=== PATIENT | female | born 1945 | race Caucasian/White ===

== ENCOUNTER → 2018-08-03 13:45 | Outpatient (CLI) | payer MEDICARE, SELFPAY ==
[2018-08-03 14:27] LABS: Add Manual Diff / Slide Review NO; Basophils Percent Auto 0.3 % (0-2); Eosinophils Percent Auto 1.3 % (2-4); Hematocrit 40.1 % (36-46); Hemoglobin 13.1 g/dL (12.0-16.0); Lymphocytes Percent Auto 8.9 % (25-40); Mean Corpuscular HGB Conc 32.6 % (30-36); Mean Corpuscular Hemoglobin 31.5 PG (26-34); Mean Corpuscular Volume 96.7 fL (80-100); Monocytes Percent Auto 7.7 % (3-14); Neutrophils Absolute Auto 9100 /uL (3000-5900); Neutrophils Percent Auto 81.8 % (50-75); Platelet Count 642 X10^3/uL (150-400); Red Blood Cell Count 4.14 X10^6/uL (4.0-5.2); Red Cell Distribution Width 13.1 % (11.6-14.8); White Blood Cell Count 11.1 X10^3/uL (4.5-11.0)
[2018-08-03 14:50] LABS: Alanine Aminotransferase 10 IU/L (9-52); Albumin 4.1 g/dL (3.5-5.0); Alkaline Phosphatase 154 U/L (38-126); Aspartate Aminotransferase 26 IU/L (14-36); BUN Creatinine Ratio 14.3 (6-22); Bilirubin Total 0.6 mg/dL (0.2-1.3); Blood Urea Nitrogen 10 mg/dL (7-17); Calcium 9.7 mg/dL (8.4-10.2); Carbon Dioxide 24 mmol/L (22-32); Chloride 96 mmol/L (98-107); Estimated Glomerular Filt Rate > 60.0 mL/min (>60); Glucose 110 mg/dL (80-110); HEMOLYSIS < 15 (0-50); Potassium 3.9 mmol/L (3.4-5.1); Sodium 134 mmol/L (137-145); Total Protein 8.1 g/dL (6.3-8.2)
== END ==
PROVIDERS: Family Provider Nurse Practitioner Family; PCP Nurse Practitioner Family; Visit Provider Otolaryngology Plastic Surgery within the Head & Neck
DX: C06.9 Malignant neoplasm of mouth, unspecified (principal)
CPT/HCPCS: 36415; 80053; 85025

== ENCOUNTER → 2020-06-26 14:11 | Outpatient (CLI) | payer MEDICARE, SELFPAY | PROVIDERS: Family Provider Nurse Practitioner Family; PCP Registered Nurse; Referring Provider Registered Nurse; Visit Provider Registered Nurse | DX: R73.09 Other abnormal glucose (principal) | CPT/HCPCS: 36415; 83036 ==

== ENCOUNTER → 2020-09-09 13:25 | Outpatient (CLI) | payer MEDICARE, SELFPAY ==
--- NOTE | 2020-09-09 | DI.ECHO.S_ITS ---
[facility] +---------+ : : [address] : : : : [id number] : : : : Phone: [phone]+ Echocardiogram Report + + :Name: LEANNE JORDAN Study Date: 09/09/2020 Height: 63 in : :[facility] Weight: 124 lb : : Gender: Female BSA: 1.6 m2 : :: 1945 Age: 74 yrs BP: 100/75 mmHg: :Reason For Study: TACHYCARDIA : :Ordering Physician: MARIBELL, : :DOMINGA Performed By: Shima Dawson : :Referring: DOMINGA KOHLI : + + Interpretation Summary 1) Normal left ventricular size, thickness, wall motion, and systolic function (EF 65-70%). 2) Normal right ventricular size and function. 3) No significant valvular abnormalities. 4) No prior Echo available for comparison. Procedure: A two-dimensional transthoracic echocardiogram with color flow and Doppler was performed. The study quality was technically adequate. There is no prior echocardiogram noted for this patient. The patient was in sinus tachycardia with heart rates between 107-125 bpm during the exam. Left Ventricle: The left ventricle is normal in size and wall thickness. The ejection fraction is estimated to be 65-70%. Left ventricular systolic function appears normal without focal wall motion abnormalities. Diastolic function could not be accurately assessed due to tachycardia. Right Ventricle: The right ventricle is normal in size and function. Atria: The left atrial size is normal. Right atrial size is normal. There is no Doppler evidence for an interatrial shunt. Mitral Valve: There is mild mitral annular calcification. There is mild mitral regurgitation. Aortic Valve: The aortic valve is trileaflet. The aortic valve opens well. There is no aortic valve stenosis. No aortic regurgitation is present. Tricuspid Valve: The tricuspid valve is normal in structure and function. There is mild tricuspid regurgitation. Pulmonic Valve: The pulmonic valve is not well seen, but is grossly normal. There is no pulmonic valvular regurgitation. Great Vessels: The aortic root is normal size. The ascending aorta could not be visualized. The IVC is of normal diameter and collapses greater than 50% with a sniff. This suggests a low right atrial pressure of 3 mm Hg. Pericardium/ Pleura There is no pericardial effusion. There is no pleural effusion. MMode/2D Measurements & Calculations LVIDd: 3.9 cm LVOT diam: 2.1 cm LVIDs: 2.5 cm Ao root diam: 3.3 cm FS: 36.8 % Ao Arch Diam (Prox Trans): 2.8 cm EPSS: 0.67 cm IVSd: 0.80 cm LVPWd: 0.73 cm LV cespedes. diameter/BSA (cm/m^2): 2.5 LV sys. diameter/BSA (cm/m^2): 1.6 LA A2 area: 14.6 cm2 RA long axis: 3.0 cm LA A4 area: 10.9 cm2 RA area: 8.2 cm2 LA length (vol): 3.6 cm RA vol: 19.3 ml LA vol: 37.4 ml RA : 12.2 ml/m2 LA vol index: 23.7 ml/m2 IVC diam: 0.93 cm RVD1 (basal): 2.8 cm TAPSE: 1.8 cm Doppler Measurements & Calculations Ao V2 max: 110.2 cm/sec LVOT Max Amos: 93.8 cm/sec Ao V2 mean: 76.4 cm/sec LV V1 max P.5 mmHg Ao max P.9 mmHg LV V1 VTI: 15.1 cm Ao mean P.6 mmHg KENJI(I,D): 3.5 cm2 Ao V2 VTI: 15.3 cm KENJI(V,D): 3.0 cm2 sev ratio: 0.99 KENJI indexed to BSA (cm^2/m^2): 2.2 MV E max amos: 51.0 cm/sec TR max amos: 297.1 cm/sec MV A max amos: 80.5 cm/sec TR max P.5 mmHg MV E/A: 0.63 PA V2 max: 78.8 cm/sec Med Peak E' Amos: 6.9 cm/sec PA V2 mean: 54.1 cm/sec E/E' med: 7.4 PA mean P.3 mmHg Lat Peak E' Amos: 10.2 cm/sec PA pr(Accel): 37.9 mmHg E/E' lat: 5.0 E/e' average: 6.2 MV dec time: 0.23 sec SV(LVOT): 53.1 ml Reading Physician:12:23 PM
== END ==
PROVIDERS: Family Provider Nurse Practitioner Family; PCP Registered Nurse; Referring Provider Internal Medicine Cardiovascular Disease; Visit Provider Internal Medicine Cardiovascular Disease
DX: I08.1 Rheumatic disorders of both mitral and tricuspid valves (principal); R00.0 Tachycardia, unspecified
CPT/HCPCS: 93306

== ENCOUNTER → 2022-06-16 11:09 | Outpatient (CLI) | payer MEDICARE, SELFPAY | PROVIDERS: Family Provider Nurse Practitioner Family; PCP Family Medicine; Referring Provider Family Medicine; Visit Provider Family Medicine | DX: Z78.0 Asymptomatic menopausal state (principal); Z13.820 Encounter for screening for osteoporosis; M81.0 Age-related osteoporosis without current pathological fracture; K63.9 Disease of intestine, unspecified | CPT/HCPCS: 77080 ==

== ENCOUNTER 2023-01-15 16:27 | Emergency (ER) | payer MEDICARE, SELFPAY ==
[2023-01-15] VITALS (13 sets, daily range): BP systolic 102–144; BP diastolic 56–85; PULSE 64–103; RESP 16–22; TEMP 36.4–37.1; O2SAT 97–100; BMI 17.6
--- NOTE | 2023-01-15 16:41 | DI.RAD.S_ITS ---
PROCEDURE: XR CHEST 1V INDICATIONS: weakness, covid+ t-7 TECHNIQUE: One view of the chest was acquired. COMPARISON: [facility], CR, XR CHEST 2 VIEWS, 06/06/2020, 12:13. FINDINGS: Surgical changes and devices: None. Lungs and pleura: Lungs are minimally abnormal with a pattern of chronic mild interstitial prominence and slight alveolar lung scarring at the lateral left costophrenic sulcus. No pleural effusions or pneumothorax. Mediastinum: Mediastinal contours appear normal. Heart size is normal. Bones and chest wall: No suspicious bony lesions. Overlying soft tissues appear unremarkable. IMPRESSION: No definite mold insert changer time, chronic alveolar scarring left lung base laterally and a superimposed mild chronic interstitial prominence is again seen. No definite consolidative pneumonia is found. CT scanning may detect abnormalities not visible by plain film. Dictated by: Danial Sierra M.D. on 01/15/2023 at 17:03 Approved by: Danial Sierra M.D. on 01/15/2023 at 17:04
[2023-01-15 17:05] LABS: Add Manual Diff / Slide Review NO; Basophils Absolute Auto 100 /uL (0-100); Basophils Percent Auto 0.8 % (0-2); Eosinophils Absolute Auto 100 /uL (0-450); Eosinophils Percent Auto 1.6 % (2-4); Hematocrit 33.2 % (36-46); Hemoglobin 11.4 g/dL (12.0-16.0); Lymphocytes Absolute Auto 800 /uL (1100-4500); Lymphocytes Percent Auto 9.3 % (25-40); Mean Corpuscular HGB Conc 34.3 % (30-36); Mean Corpuscular Volume 93.3 fL (80-100); Monocytes Absolute Auto 900 /uL (0-900); Neutrophils Absolute Auto 6500 /uL (1500-7000); Neutrophils Percent Auto 77.3 % (50-75); Platelet Count 446 X10^3/uL (150-400); Red Blood Cell Count 3.56 X10^6/uL (4.0-5.2); Red Cell Distribution Width 13.9 % (11.6-14.8); White Blood Cell Count 8.4 X10^3/uL (4.5-11.0)
[2023-01-15 17:17] LABS: Alanine Aminotransferase 13 IU/L (<35); Albumin Globulin Ratio 0.9 (1.0-2.8); Alkaline Phosphatase 167 U/L (38-126); Aspartate Aminotransferase 33 IU/L (14-36); BUN Creatinine Ratio 8.8 (6-22); Bilirubin Total 0.3 mg/dL (0.2-1.3); Blood Urea Nitrogen 5 mg/dL (7-17); Calcium 8.3 mg/dL (8.4-10.2); Carbon Dioxide 26 mmol/L (22-32); Chloride 94 mmol/L (98-107); Estimated Glomerular Filt Rate > 60 mL/min (>60); Globulin 3.5 g/dL (1.7-4.1); Glucose 114 mg/dL (80-110); HEMOLYSIS < 15 (0-50); Lipase 64 U/L (23-300); Potassium 3.7 mmol/L (3.4-5.1); Sodium 126 mmol/L (137-145); Total Protein 6.5 g/dL (6.3-8.2)
[2023-01-15 17:29] LABS: COVID19 -Nasal RAPID Negative (Negative)
--- NOTE | 2023-01-15 21:44 | ED.WEAKNESS ---
HPI - Weakness General Chief complaint: Weakness Stated complaint: Covid+T7, Fatigue, Weakness Time Seen by Provider: 01/15/23 21:44 History of Present Illness HPI Narrative: Patient is a 77-year-old female history of head and neck cancer, seizures anxiety presenting today with increasing weakness. She was diagnosed with COVID by home COVID test last week. She reports that she is still coughing. She is not necessarily short of breath. She was prescribed Paxil COVID she did not finish taking all of it. She reports that since the head and neck cancer and surgery she is on a liquid diet. She is still drinking. She is rates she might get dehydrated. She feels very weak and unsteady on her feet but she has not fallen. She is no painful or frequent urination. No chest pain no abdominal pain. Related Data Home Medications Medication Instructions Recorded Confirmed amitriptyline 25 mg tablet 25 mg PO DAILY 04/23/20 04/23/20 hydroxyzine HCl 10 mg tablet 10 mg PO BEDTIME 04/23/20 04/23/20 lidocaine HCl 2 % mucosal jelly 1 applictn topical BID 04/23/20 04/23/20 lorazepam 1 mg tablet 1 mg PO DAILY PRN 04/23/20 04/23/20 spironolactone 25 mg tablet 25 mg PO BID 04/23/20 04/23/20 Previous Rx's Medication Instructions Recorded hydrocortisone 2.5 % topical 1 applictn topical BID #28.35 grams 05/23/20 ointment Allergies Allergy/AdvReac Type Severity Reaction Status Date / Time No Known Drug Allergies Allergy Verified 04/23/20 13:11 Review of Systems Review of Systems ROS Unobtainable: All systems reviewed & are unremarkable except as noted in HPI and below Patient History Social History Smoking Status: Former smoker Smoking Status: Former smoker Exam Initial Vital Signs Initial Vital Signs: Vital Signs Temperature 98.8 F 01/15/23 16:34 Pulse Rate 68 01/15/23 16:34 Respiratory Rate 16 01/15/23 16:34 Blood Pressure 140/85 01/15/23 16:34 Pulse Oximetry 97 01/15/23 16:34 Oxygen Delivery Method Room Air 01/15/23 16:34 GENERAL: Thin alert 77-year-old female HEENT: Head atraumatic,EOMI, pupils reactive, right facial surgical scars CARDIOVASCULAR: Regular rate and rhythm without murmurs, rubs or gallops. RESPIRATORY: Breath sounds equal bilaterally, no wheezes rales or rhonchi. ABDOMEN: Soft, nontender. Normoactive bowel sounds all 4 quadrants. No guarding or rebound. EXTREMITIES: Normal range of motion, no clubbing or edema. Right leg is much smaller than left leg secondary to bone removal from surgery family state that this is normal. Neurovascularly intact NEUROLOGICAL: Alert and oriented x4. SKIN: Warm, dry, no laceration, no petechiae, no rashes or lesions. Course Orders Ordered: ED Orders 01/15/23 21:49 Urine Microscopic Stat Discontinued Medications Sodium Chloride (Normal Saline 0.9%) 500 mls @ 1,000 mls/hr IV BOLUS ONE Stop: 01/15/23 22:59 Last Infusion: 01/15/23 23:08 Dose: 0 mls/hr Documented By: Admin: 01/15/23 22:42 Dose: 1,000 mls/hr Documented By: MAHESH Vital Signs Vital signs: Vital Signs - 8 hr 01/15/23 21:30 01/15/23 21:30 01/15/23 22:00 Temperature Pulse Rate 88 Respiratory Rate Blood Pressure 102/56 L 144/85 H Pulse Oximetry 99 Oxygen Delivery Method 01/15/23 22:00 01/15/23 22:30 01/15/23 23:00 Temperature Pulse Rate 91 H 95 H 66 Respiratory Rate Blood Pressure Pulse Oximetry 99 97 99 Oxygen Delivery Method 01/15/23 23:01 01/15/23 23:01 01/15/23 23:42 Temperature 97.6 F Pulse Rate 66 64 Respiratory Rate 16 Blood Pressure 137/79 122/62 Pulse Oximetry 100 97 Oxygen Delivery Method Room Air MDM - Weakness Lab Data 01/15/23 16:46 01/15/23 16:46 Labs: Lab Results 01/15/23 01/15/23 01/15/23 Range/Units 16:46 16:46 16:46 WBC 8.4 (4.5-11.0) X10^3/uL RBC 3.56 L (4.0-5.2) X10^6/uL Hgb 11.4 L (12.0-16.0) g/dL Hct 33.2 L (36-46) % MCV 93.3 (80-100) fL MCH 32.0 (26-34) PG MCHC 34.3 (30-36) % RDW 13.9 (11.6-14.8) % Plt Count 446 H (150-400) X10^3/uL Neut % (Auto) 77.3 H (50-75) % Lymph % (Auto) 9.3 L (25-40) % [place] % (Auto) 11.0 (3-14) % Eos % (Auto) 1.6 L (2-4) % Baso % (Auto) 0.8 (0-2) % Neut # (Auto) 6500 (6274-1515) /uL Lymph # (Auto) 800 L (4650-0145) /uL [place] # (Auto) 900 (0-900) /uL Eos # (Auto) 100 (0-450) /uL Baso # (Auto) 100 (0-100) /uL Sodium 126 L (137-145) mmol/L Potassium 3.7 (3.4-5.1) mmol/L Chloride 94 L (98-107) mmol/L Carbon Dioxide 26 (22-32) mmol/L BUN 5 L (7-17) mg/dL Creatinine 0.57 (0.52-1.04) mg/dL Estimated GFR > 60 (>60) mL/min BUN/Creatinine Ratio 8.8 (6-22) Glucose 114 H (80-110) mg/dL Calcium 8.3 L (8.4-10.2) mg/dL Total Bilirubin 0.3 (0.2-1.3) mg/dL AST 33 (14-36) IU/L ALT 13 (<35) IU/L Alkaline Phosphatase 167 H (38-126) U/L Total Protein 6.5 (6.3-8.2) g/dL Albumin 3.0 L (3.5-5.0) g/dL Globulin 3.5 (1.7-4.1) g/dL Albumin/Globulin Ratio 0.9 L (1.0-2.8) Lipase 64 (23-300) U/L Urine RBC (0-5/HPF) Urine WBC (0-5/HPF) Amorphous Sediment Urine Bacteria (None) Ur Culture Indicated? SARS-CoV-2 (PCR) Negative (Negative) 01/15/23 Range/Units 21:49 WBC (4.5-11.0) X10^3/uL RBC (4.0-5.2) X10^6/uL Hgb (12.0-16.0) g/dL Hct (36-46) % MCV (80-100) fL MCH (26-34) PG MCHC (30-36) % RDW (11.6-14.8) % Plt Count (150-400) X10^3/uL Neut % (Auto) (50-75) % Lymph % (Auto) (25-40) % [place] % (Auto) (3-14) % Eos % (Auto) (2-4) % Baso % (Auto) (0-2) % Neut # (Auto) (5087-3456) /uL Lymph # (Auto) (9332-1783) /uL [place] # (Auto) (0-900) /uL Eos # (Auto) (0-450) /uL Baso # (Auto) (0-100) /uL Sodium (137-145) mmol/L Potassium (3.4-5.1) mmol/L Chloride (98-107) mmol/L Carbon Dioxide (22-32) mmol/L BUN (7-17) mg/dL Creatinine (0.52-1.04) mg/dL Estimated GFR (>60) mL/min BUN/Creatinine Ratio (6-22) Glucose (80-110) mg/dL Calcium (8.4-10.2) mg/dL Total Bilirubin (0.2-1.3) mg/dL AST (14-36) IU/L ALT (<35) IU/L Alkaline Phosphatase (38-126) U/L Total Protein (6.3-8.2) g/dL Albumin (3.5-5.0) g/dL Globulin (1.7-4.1) g/dL Albumin/Globulin Ratio (1.0-2.8) Lipase (23-300) U/L Urine RBC None seen (0-5/HPF) Urine WBC None seen (0-5/HPF) Amorphous Sediment 1+ Urine Bacteria Occasional (0-1) (None) Ur Culture Indicated? Cult not indicated SARS-CoV-2 (PCR) (Negative) Urine Dip Bedside Urine Glucose Negative Bedside Urine Bilirubin - Negative Bedside Urine Ketone - Negative Urine Specific [place] 1.010 Bedside Urine Occult Blood - Negative Bedside Urine pH 7.0 Bedside Urine Protein +/- 15 Bedside Urine Urobilinogen - Negative Bedside Urine Nitrite - Negative Bedside Urine Leukocytes +/- 15 Esterase Imaging Data Chest x-ray: Radiologist Impression: PROCEDURE:? XR CHEST 1V ? INDICATIONS:? weakness, covid+ t-7 ? TECHNIQUE:? One view of the chest was acquired.? ? COMPARISON:? [facility], CR, XR CHEST 2 VIEWS, 06/06/2020, 12:13. ? FINDINGS:? ? Surgical changes and devices:? None.? ? Lungs and pleura:? Lungs are minimally abnormal with a pattern of chronic mild interstitial prominence and slight alveolar lung scarring at the lateral left costophrenic sulcus.? No pleural effusions or pneumothorax.? ? Mediastinum:? Mediastinal contours appear normal.? Heart size is normal.? ? Bones and chest wall:? No suspicious bony lesions.? Overlying soft tissues appear unremarkable.? ? IMPRESSION:? No definite change advisor time, chronic alveolar scarring left lung base laterally and a superimposed mild chronic interstitial prominence is again seen.? No definite consolidative pneumonia is found.? CT scanning may detect abnormalities not visible by plain film. ? ? Dictated by: Danial Sierra M.D. on 01/15/2023 at 17:03 ? ? [facility] Narrative Medical decision making narrative: Patient is a 77-year-old female history of head and neck cancer on a liquid diet presenting today with increasing weakness. She previously had COVID last week but is testing negative for COVID today after Paxil COVID. She is found to be slightly hyponatremic with a sodium of 126 possibly secondary to COVID. She is given a 500 cc bolus of normal saline. It sounds as though maybe secondary to dehydration she reports not eating or drinking very much. She does not appear fluid overloaded by any means. She is no evidence of other infection. No other electrolyte abnormality ISMAEL or anemia. Chest x-ray is also negative. Albumin is low at 3.0 suggesting some malnutrition. She reports that she thinks that she is going to need a feeding tube at some point. However she is tolerating fluid here no need for any kind of emergent feeding tube. She lives at home with her sister. At this time no indication for admission she is not hypoxic. Overall appears well. I discussed with her and her sister that she needs to have repeat sodium checked next week. Discharge Plan Departure Patient Disposition: Home Clinical Impression: Weakness, Acute hyponatremia Instructions: DI for Dehydration -- Adult, Hyponatremia-Adult Activity Restrictions/Additional Instructions: *You have been diagnosed with weakness, hyponatremia *What to do: Your sodium is noted to be slightly low today 126. I do recommend drinking some Gatorade or Gatorade like product, or smoothies etc can drink water but do not drink excessive amounts water. At this time you are testing negative for COVID. Please have your sodium rechecked next week with your primary care provider *Continue to take medications as directed *Follow up with your primary care provider in 2-3 days or call [phone] *Return to ER if you should have increasing weakness dizziness lightheadedness or any new, worsening or concerning symptoms Prescriptions: No Action hydrocortisone 2.5 % ointment 1 applictn TOP BID Qty: 28.35 0RF amitriptyline 25 mg tablet 25 mg PO DAILY lorazepam 1 mg tablet 1 mg PO DAILY PRN Patient Comments: 1/2 to 1 twice daily spironolactone 25 mg tablet 25 mg PO BID hydroxyzine HCl 10 mg tablet 10 mg PO BEDTIME lidocaine HCl 2 % jelly 1 applictn TOP BID Referrals: Xiao Nuñez ARNP [Primary Care Provider] - Stand Alone Forms: Patient Portal/API
[2023-01-15 22:25] LABS: Amorphous Sediment Urine 1+; RBC Urine None Seen (0-5/HPF); WBC Urine None Seen (0-5/HPF)
[2023-01-15 22:26] LABS: Bacteria Urine Occasional (0-1); Culture Indicated Urine Cult Not Indicated
[2023-01-15] MEDS: SODIUM CHLORIDE 0.9% 500 ML 1000 ML IV (22:42)
== END 2023-01-15 23:44 | disposition home or self-care (01) ==
PROVIDERS: Emergency Medicine; Emergency Provider Emergency Medicine; PCP Family Medicine
DX: R53.1 Weakness (principal); E87.1 Hypo-osmolality and hyponatremia; Z86.16 Personal history of COVID-19; Z20.822 Contact with and (suspected) exposure to COVID-19
CPT/HCPCS: 36415; 71045; 80053; 81003; 81015; 83690; 85025; 87635; 99284; C9803

== ENCOUNTER → 2023-01-27 15:00 | Outpatient (CLI) | payer MEDICARE, SELFPAY ==
[2023-01-27 15:30] LABS: Add Manual Diff / Slide Review NO; Basophils Absolute Auto 0 /uL (0-100); Basophils Percent Auto 0.7 % (0-2); Eosinophils Absolute Auto 100 /uL (0-450); Eosinophils Percent Auto 0.8 % (2-4); Hematocrit 35.9 % (36-46); Hemoglobin 12.3 g/dL (12.0-16.0); Lymphocytes Absolute Auto 500 /uL (1100-4500); Lymphocytes Percent Auto 7.6 % (25-40); Mean Corpuscular HGB Conc 34.3 % (30-36); Mean Corpuscular Hemoglobin 31.3 PG (26-34); Mean Corpuscular Volume 91.4 fL (80-100); Monocytes Absolute Auto 600 /uL (0-900); Monocytes Percent Auto 8.3 % (3-14); Neutrophils Absolute Auto 5600 /uL (1500-7000); Neutrophils Percent Auto 82.6 % (50-75); Platelet Count 405 X10^3/uL (150-400); Red Blood Cell Count 3.93 X10^6/uL (4.0-5.2); Red Cell Distribution Width 13.7 % (11.6-14.8); White Blood Cell Count 6.7 X10^3/uL (4.5-11.0)
[2023-01-27 15:40] LABS: HEMOLYSIS < 15 (0-50); Iron 56 ug/dL (37-170)
[2023-01-27 15:42] LABS: Alanine Aminotransferase 12 IU/L (<35); Albumin Globulin Ratio 0.9 (1.0-2.8); Alkaline Phosphatase 195 U/L (38-126); Aspartate Aminotransferase 26 IU/L (14-36); BUN Creatinine Ratio 13.3 (6-22); Bilirubin Total 0.4 mg/dL (0.2-1.3); Blood Urea Nitrogen 8 mg/dL (7-17); Calcium 8.5 mg/dL (8.4-10.2); Carbon Dioxide 27 mmol/L (22-32); Chloride 96 mmol/L (98-107); Estimated Glomerular Filt Rate > 60 mL/min (>60); Globulin 3.5 g/dL (1.7-4.1); Glucose 119 mg/dL (80-110); HEMOLYSIS < 15 (0-50); Potassium 3.8 mmol/L (3.4-5.1); Sodium 129 mmol/L (137-145); Total Protein 6.5 g/dL (6.3-8.2)
[2023-01-27 15:52] LABS: Percent Iron Saturation 27 % (15-50); Total Iron Binding Capacity 204 ug/dL (265-497); Transferrin 156 mg/dL (206-381)
[2023-01-27 16:16] LABS: Ferritin 27 ng/mL (11-264)
[2023-01-27 16:48] LABS: Folate 6.4 ng/mL (2.76-20.0); Vitamin B12 865 pg/mL (239-931)
== END ==
PROVIDERS: PCP Nurse Practitioner Family; Referring Provider Nurse Practitioner Family; Visit Provider Nurse Practitioner Family
DX: E87.1 Hypo-osmolality and hyponatremia (principal); D64.9 Anemia, unspecified
CPT/HCPCS: 36415; 80053; 82607; 82728; 82746; 83540; 83550; 85025

== ENCOUNTER 2023-03-20 16:18 | Inpatient (IN) | payer MEDICARE, SELFPAY ==
[2023-03-20] VITALS (76 sets, daily range): BP systolic 88–113; BP diastolic 50–62; PULSE 83–134; RESP 12–21; TEMP 37.2; O2SAT 93–100; BMI 15.9
[2023-03-20] MEDS: SODIUM CHLORIDE 0.9% 1,000 ML 1000 ML IV ×2 (16:55→22:13)
[2023-03-20 17:07] LABS: Add Manual Diff / Slide Review NO; Basophils Absolute Auto 0 /uL (0-100); Basophils Percent Auto 0.2 % (0-2); Eosinophils Absolute Auto 300 /uL (0-450); Hematocrit 31.5 % (36-46); Hemoglobin 10.5 g/dL (12.0-16.0); Lymphocytes Absolute Auto 900 /uL (1100-4500); Lymphocytes Percent Auto 5.8 % (25-40); Mean Corpuscular HGB Conc 33.4 % (30-36); Mean Corpuscular Hemoglobin 28.7 PG (26-34); Mean Corpuscular Volume 85.8 fL (80-100); Monocytes Absolute Auto 900 /uL (0-900); Monocytes Percent Auto 5.8 % (3-14); Neutrophils Absolute Auto 13000 /uL (1500-7000); Neutrophils Percent Auto 86.2 % (50-75); Platelet Count 506 X10^3/uL (150-400); Red Blood Cell Count 3.67 X10^6/uL (4.0-5.2); Red Cell Distribution Width 15.1 % (11.6-14.8)
[2023-03-20 17:12] LABS: Alanine Aminotransferase 13 IU/L (<35); Albumin 2.8 g/dL (3.5-5.0); Albumin Globulin Ratio 0.9 (1.0-2.8); Alkaline Phosphatase 195 U/L (38-126); Aspartate Aminotransferase 27 IU/L (14-36); BUN Creatinine Ratio 15.5 (6-22); Bilirubin Total 0.5 mg/dL (0.2-1.3); Blood Urea Nitrogen 9 mg/dL (7-17); Calcium 8.2 mg/dL (8.4-10.2); Carbon Dioxide 30 mmol/L (22-32); Chloride 93 mmol/L (98-107); Estimated Glomerular Filt Rate > 60 mL/min (>60); Globulin 3.2 g/dL (1.7-4.1); Glucose 194 mg/dL (80-110); HEMOLYSIS < 15 (0-50); Lipase 69 U/L (23-300); Potassium 3.6 mmol/L (3.4-5.1); Sodium 128 mmol/L (137-145)
--- NOTE | 2023-03-20 17:43 | DI.CT.S_ITS ---
PROCEDURE: CT ABDOMEN PELVIS W CON INDICATIONS: pain, feels constipated TECHNIQUE: After the administration of intravenous contrast, axial sections acquired from the lung bases to the pubic symphysis. Coronal and sagittal reformats were performed. For radiation dose reduction, the following was used: automated exposure control, adjustment of mA and/or kV according to patient size. COMPARISON: [facility], CT, CT [facility] 11:12. Outside Film, CT, CT CHEST WITH CONTRAST, 07/15/2018, 10:42. FINDINGS: Image quality: Excellent. Lung bases: Small left pleural effusion. Bibasilar atelectasis. No focal consolidation seen. Heart: Heart size appears within normal limits. Atherosclerosis. ABDOMEN: Liver: Multiple hepatic hypodensities are again noted. These are slightly more prominent in size. Findings likely represent hepatic cysts. A few additional, slightly less hypodense hepatic nodules are seen which were not definitively visualized on the prior studies. There is mild periportal edema.. Gallbladder: Gallbladder is mildly distended. Biliary ducts: No definite biliary ductal dilatation identified. Pancreas: Pancreas is unremarkable. No pancreatic ductal dilatation. Spleen: No splenomegaly. Adrenal Glands: Unremarkable. Kidneys and Ureters: Kidneys are symmetric in size and enhancement, and there is no obstructive uropathy. No perinephric inflammatory changes. Ureters are normal in course and caliber. Multiple bilateral renal hypodensities compatible with cysts. These are not significantly changed. Stomach and Bowel: There is a gastrostomy tube identified. Distal tip appears to be within the stomach lumen. The balloon for the catheter is inflated within the gastric lumen. Multiple loops of fluid-filled small bowel. No definite wall thickening. No evidence to suggest bowel obstruction. Peritoneum: There is diffusely scattered free fluid seen throughout the abdomen and pelvis. No evidence for organized fluid collection seen. Moderate amount of diffusely scattered locules of free air seen throughout the abdomen but most prominent in the right subdiaphragmatic/perihepatic space. There is also extensive soft tissue gas in the subcutaneous soft tissues of the anterior abdomen predominantly in the lower abdomen. Ventral Wall: No hernias. Abdominal Nodes: No retroperitoneal or mesenteric adenopathy by size criteria. Vessels: Aorta and inferior vena cava are normal in size. PELVIS: Pelvic Organs: Unremarkable. Bladder: Unremarkable. Pelvic Nodes: No enlarged lymph nodes. Miscellaneous: No hernias are seen. Bones: No acute vertebral body compression fractures. Multilevel spondylitic changes throughout the imaged spine. No suspicious osseous lesions. IMPRESSION: 1. A percutaneous gastrostomy tube is in place and appears to be appropriately position with balloon inflated inside the gastric lumen. There are diffusely scattered locules of free air in the abdomen, predominantly in the right subdiaphragmatic flash perihepatic space. Additionally, extensive subcutaneous soft tissue emphysema involving the soft tissues of the anterior dominant wall which is predominantly in the lower abdomen. Findings may represent sequela of recent PEG tube placement. 2. Numerous fluid-filled loops of small bowel are nonspecific and may represent enteritis either infectious or inflammatory in etiology. No evidence for bowel obstruction. There is also diffusely scattered ascites in the abdomen and pelvis. This may be reactive in etiology. 3. Small left pleural effusion. 4. Multiple hepatic hypodensities likely representing cysts. However, these appear slightly more numerous compared to the prior study and possible concurrent hepatic metastases not excluded. 5. Multiple bilateral renal cysts are not significantly changed and likely represent cysts. Dictated by: Maulik Crocker M.D. on 03/20/2023 at 17:33 Approved by: Maulik Crocker M.D. on 03/20/2023 at 17:59
[2023-03-20] MEDS: KETOROLAC 30 MG/ML VIAL 15 MG IV (17:44)
--- NOTE | 2023-03-20 18:19 | ED_ITS ---
HPI - Abdominal Pain General Chief Complaint: Abdominal Pain Stated Complaint: Abdominal Pain Time Seen by Provider: 03/20/23 18:06 Source: patient and EMS Mode of arrival: EMS History of Present Illness HPI narrative: 77-year-old female former smoker with history of severe malnutrition, head and neck cancer with prior chemo and radiation, IBS presents with episodes of severe lower abdominal pain that started last night. She recently had a PEG placed at [facility] on Wednesday to address chronic malnutrion. She states that she had been doing well and pain started suddenly early in the morning. She states it comes and goes without obvious provocation or palliation. She denies any constipation or diarrhea. She denies any urinary complaints such as dysuria, frequency or urgency. She has had no fever or chills. She states that she is had little to drink and is feeling a bit dizzy and lightheaded. She is full code. Last Chemo/Radiation was 4 years ago. Related Data Home Medications Medication Instructions Recorded Confirmed hydroxyzine HCl 10 mg tablet 10 mg PO BEDTIME 04/23/20 01/29/23 lidocaine HCl 2 % mucosal jelly 1 applictn topical BID 04/23/20 01/29/23 spironolactone 25 mg tablet 25 mg PO BID 04/23/20 01/29/23 acetaminophen 325 mg capsule 325 mg PO ONCE PRN 01/29/23 01/29/23 (Tylenol) dicyclomine 20 mg tablet 20 mg PO QID 01/29/23 01/29/23 penicillin V potassium 500 mg 500 mg PO TID 01/29/23 01/29/23 tablet prochlorperazine maleate 10 mg 10 mg PO Q6H PRN 01/29/23 01/29/23 tablet triamcinolone acetonide 0.025 % 1 applic topical DAILY 01/29/23 01/29/23 topical cream Allergies Allergy/AdvReac Type Severity Reaction Status Date / Time adhesive Allergy Rash Verified 03/20/23 16:25 Review of Systems Review of Systems Narrative: GENERAL: See HPI HEENT: Denies sinus pain, ear pain, sore throat, difficulty swallowing, dizziness. RESPIRATORY: Denies dyspnea, cough, wheezing, hemoptysis, sputum. CARDIOVASCULAR: Denies chest pain, palpitations, orthopnea, edema, GASTROINTESTINAL: See HPI. : Denies dysuria, frequency, incontinence, hematuria, urinary retention. MUSCULOSKELETAL: denies weakness, joint pain, or bony pain SKIN: Denies rash, skin lesions, or other NEUROLOGIC: Denies weakness, headache, numbness, change in speech, confusion, seizures, incoordination. PSYCHIATRIC: No concerning psychosocial issues. 12 point review of systems is negative except for those stated above Patient History Medical History Acute hyponatremia Allergies Anxiety Benign essential tremor 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 Dermatitis Diverticulosis Eczema Elevated glucose level Generalized abdominal pain Hypercalcemia IBS (irritable bowel syndrome) Insomnia Nicotine dependence Peripheral neuropathy Right arm pain Seizures Weakness Family History Father Prostate cancer Deaf Mother Arthritis Social History Smoking Status: Former smoker Smoking Status: Former smoker Substance Use Type: does not use Exam Narrative Exam Narrative: GENERAL: [77] year old patient appears older than stated age. Thin, in mild distress HEAD: Atraumatic. Normocephalic. EYES: Pupils equal round and reactive. Extraocular motions intact. No scleral i cterus. No injection or drainage. ENT: Dry mucous membranes Nose without bleeding, purulent drainage. Throat without erythema, tonsillar hypertrophy or exudate. Airway patent. NECK: Trachea midline. Non tender CARDIOVASCULAR: Regular rate and rhythm without murmurs, gallops, or rubs. RESPIRATORY: Clear to auscultation. Breath sounds equal bilaterally. No wheezes, rales, or rhonchi. GASTROINTESTINAL: Abdomen soft, mildly tender in the lower portion tender, nondistended. Bowel sounds present, G2 been appropriate place EXTREMITIES: No edema or joint tenderness. BACK: Nontender without deformity or crepitance. No flank tenderness. NEURO: AOx3. SKIN: No rash or erythema of visible areas Initial Vital Signs Initial Vital Signs: Vital Signs Blood Pressure 99/60 03/20/23 16:23 Course Orders Ordered: ED Orders 03/20/23 16:40 Complete Blood Count AUTO DIFF Stat Comprehensive Metabolic Panel Stat Lipase Stat 03/20/23 17:43 CT abdomen pelvis w con Stat 03/20/23 19:30 Urine Microscopic Stat Discontinued Medications Hydromorphone HCl (Hydromorphone 0.5 Mg Inj) 0.5 mg IV NOW ONE Stop: 03/20/23 22:19 Last Admin: 03/20/23 22:27 Dose: 0.5 mg Documented By: BLU Sodium Chloride (Normal Saline 0.9%) 1,000 mls @ 1,000 mls/hr IV BOLUS ONE Stop: 03/20/23 17:45 Last Infusion: 03/20/23 18:33 Dose: 0 mls/hr Documented By: Admin: 03/20/23 16:55 Dose: 1,000 mls/hr Documented By: SANAM Sodium Chloride (Normal Saline 0.9%) 1,000 mls @ 1,000 mls/hr IV BOLUS ONE Stop: 03/20/23 22:40 Last Infusion: 03/20/23 23:20 Dose: 0 mls/hr Documented By: Admin: 03/20/23 22:13 Dose: 1,000 mls/hr Documented By: BLU Piperacillin Sod/Tazobactam (Sod 4.5 gm/ Sodium Chloride) 100 mls @ 200 mls/hr IV NOW ONE Stop: 03/20/23 21:47 Last Infusion: 03/20/23 22:54 Dose: 0 mls/hr Documented By: Admin: 03/20/23 22:14 Dose: 200 mls/hr Documented By: BLU Ketorolac Tromethamine (Ketorolac 30 Mg/Ml Vial) 15 mg IV NOW ONE Stop: 03/20/23 17:42 Last Admin: 03/20/23 17:44 Dose: 15 mg Documented By: ROSANNE Reevaluation(s) Reevaluation #1: Patient vital signs improving. Pain controlled Reevaluation #2: Pain beginning to return Consultations Consultation #1: discussed history and physical exam as well as labs and imaging with quality control tech raw materials Gen Surg (Klarissa). Free air likely expected sequelae of PEG placement. Recommends IV fluids, antibiotics and admission to hospitalist service Vital Signs Vital signs: Vital Signs - 8 hr 03/20/23 16:57 03/20/23 16:57 03/20/23 17:00 Pulse Rate 96 H Respiratory Rate 16 Blood Pressure 108/60 109/55 L Pulse Oximetry 97 03/20/23 17:00 03/20/23 17:30 03/20/23 18:00 Pulse Rate 93 H Respiratory Rate 15 Blood Pressure 113/62 99/59 L Pulse Oximetry 97 03/20/23 18:00 03/20/23 18:30 03/20/23 18:35 Pulse Rate 90 97 H 101 H Respiratory Rate 15 14 20 Blood Pressure Pulse Oximetry 97 96 96 03/20/23 18:40 03/20/23 18:44 03/20/23 18:44 Pulse Rate 98 H 100 H Respiratory Rate 15 15 Blood Pressure 98/52 L Pulse Oximetry 95 95 03/20/23 18:45 03/20/23 18:45 03/20/23 18:50 Pulse Rate 100 H 99 H Respiratory Rate 14 15 Blood Pressure 97/55 L Pulse Oximetry 95 95 03/20/23 18:55 03/20/23 19:00 03/20/23 19:00 Pulse Rate 100 H 99 H Respiratory Rate 14 14 Blood Pressure 92/53 L Pulse Oximetry 95 94 03/20/23 19:05 03/20/23 19:10 03/20/23 19:15 Pulse Rate 101 H 100 H Respiratory Rate 15 15 Blood Pressure 96/52 L Pulse Oximetry 96 95 03/20/23 19:15 03/20/23 19:20 03/20/23 19:28 Pulse Rate 99 H 106 H 134 H Respiratory Rate 15 18 Blood Pressure Pulse Oximetry 95 96 95 03/20/23 19:30 03/20/23 19:30 03/20/23 19:35 Pulse Rate 118 H 107 H Respiratory Rate 18 16 Blood Pressure 113/57 L Pulse Oximetry 96 97 03/20/23 19:40 03/20/23 19:45 03/20/23 19:45 Pulse Rate 108 H 104 H Respiratory Rate 15 14 Blood Pressure 88/52 L Pulse Oximetry 95 95 03/20/23 19:50 03/20/23 19:53 03/20/23 19:53 Pulse Rate 104 H 105 H Respiratory Rate 16 16 Blood Pressure 88/50 L Pulse Oximetry 95 95 03/20/23 19:55 03/20/23 20:00 03/20/23 20:00 Pulse Rate 105 H 103 H Respiratory Rate 16 15 Blood Pressure 96/54 L Pulse Oximetry 96 96 03/20/23 20:05 03/20/23 20:10 03/20/23 20:15 Pulse Rate 108 H 102 H Respiratory Rate 17 12 Blood Pressure 99/57 L Pulse Oximetry 95 95 03/20/23 20:15 03/20/23 20:20 03/20/23 20:25 Pulse Rate 99 H 97 H 98 H Respiratory Rate 13 14 14 Blood Pressure Pulse Oximetry 95 95 95 03/20/23 20:30 03/20/23 20:30 03/20/23 20:35 Pulse Rate 97 H 96 H Respiratory Rate 14 14 Blood Pressure 99/58 L Pulse Oximetry 95 95 03/20/23 20:40 03/20/23 20:45 03/20/23 20:45 Pulse Rate 98 H 100 H Respiratory Rate 13 15 Blood Pressure 98/51 L Pulse Oximetry 95 96 03/20/23 20:50 03/20/23 20:55 03/20/23 21:00 Pulse Rate 99 H 96 H Respiratory Rate 13 14 Blood Pressure 93/54 L Pulse Oximetry 95 94 03/20/23 21:00 03/20/23 21:05 03/20/23 21:10 Pulse Rate 95 H 96 H 96 H Respiratory Rate 14 15 14 Blood Pressure Pulse Oximetry 94 95 95 03/20/23 21:15 03/20/23 21:15 03/20/23 21:20 Pulse Rate 100 H 99 H Respiratory Rate 14 14 Blood Pressure 97/56 L Pulse Oximetry 95 95 03/20/23 21:25 03/20/23 21:30 03/20/23 21:30 Pulse Rate 97 H 98 H Respiratory Rate 14 14 Blood Pressure 96/55 L Pulse Oximetry 95 95 03/20/23 21:35 03/20/23 21:40 03/20/23 21:45 Pulse Rate 104 H 106 H Respiratory Rate 16 16 Blood Pressure 104/57 L Pulse Oximetry 95 95 03/20/23 21:45 03/20/23 21:50 03/20/23 21:55 Pulse Rate 100 H 97 H 100 H Respiratory Rate 15 14 14 Blood Pressure Pulse Oximetry 93 95 96 03/20/23 22:00 03/20/23 22:00 03/20/23 22:05 Pulse Rate 97 H 97 H Respiratory Rate 15 15 Blood Pressure 98/57 L Pulse Oximetry 96 95 03/20/23 22:10 03/20/23 22:15 03/20/23 22:15 Pulse Rate 96 H 101 H Respiratory Rate 14 15 Blood Pressure 91/56 L Pulse Oximetry 95 96 03/20/23 22:20 03/20/23 22:25 03/20/23 22:30 Pulse Rate 94 H 96 H Respiratory Rate 14 21 Blood Pressure 105/53 L Pulse Oximetry 98 100 03/20/23 22:30 03/20/23 22:35 03/20/23 22:40 Pulse Rate 94 H 91 H 89 Respiratory Rate 15 15 12 Blood Pressure Pulse Oximetry 99 100 99 03/20/23 22:45 03/20/23 22:45 03/20/23 22:50 Pulse Rate 89 90 Respiratory Rate 12 14 Blood Pressure 100/57 L Pulse Oximetry 100 100 03/20/23 22:55 03/20/23 23:00 03/20/23 23:00 Pulse Rate 88 86 Respiratory Rate 13 12 Blood Pressure 105/61 Pulse Oximetry 100 100 03/20/23 23:05 03/20/23 23:10 03/20/23 23:15 Pulse Rate 84 83 Respiratory Rate 13 13 Blood Pressure 104/57 L Pulse Oximetry 100 100 03/20/23 23:15 03/20/23 23:20 03/20/23 23:25 Pulse Rate 85 88 90 Respiratory Rate 12 14 17 Blood Pressure Pulse Oximetry 100 99 98 03/20/23 23:30 03/20/23 23:30 03/20/23 23:35 Pulse Rate 87 86 Respiratory Rate 13 13 Blood Pressure 106/56 L Pulse Oximetry 98 99 03/20/23 23:40 03/20/23 23:45 03/20/23 23:45 Pulse Rate 85 85 Respiratory Rate 12 13 Blood Pressure 102/55 L Pulse Oximetry 100 99 03/20/23 23:50 03/20/23 23:55 03/21/23 00:00 Pulse Rate 89 86 Respiratory Rate 19 13 Blood Pressure 106/56 L Pulse Oximetry 99 98 03/21/23 00:00 03/21/23 00:05 03/21/23 00:10 Pulse Rate 86 88 86 Respiratory Rate 14 15 13 Blood Pressure Pulse Oximetry 98 98 99 MDM - Abdominal Pain Lab Data 03/20/23 16:40 03/20/23 16:40 Labs: Lab Results 03/20/23 03/20/23 03/20/23 Range/Units 16:40 16:40 19:30 WBC 15.0 H (4.5-11.0) X10^3/uL RBC 3.67 L (4.0-5.2) X10^6/uL Hgb 10.5 L (12.0-16.0) g/dL Hct 31.5 L (36-46) % MCV 85.8 (80-100) fL MCH 28.7 (26-34) PG MCHC 33.4 (30-36) % RDW 15.1 H (11.6-14.8) % Plt Count 506 H (150-400) X10^3/uL Neut % (Auto) 86.2 H (50-75) % Lymph % (Auto) 5.8 L (25-40) % [place] % (Auto) 5.8 (3-14) % Eos % (Auto) 2.0 (2-4) % Baso % (Auto) 0.2 (0-2) % Neut # (Auto) 86343 H (3558-1523) /uL Lymph # (Auto) 900 L (5373-5460) /uL [place] # (Auto) 900 (0-900) /uL Eos # (Auto) 300 (0-450) /uL Baso # (Auto) 0 (0-100) /uL Sodium 128 L (137-145) mmol/L Potassium 3.6 (3.4-5.1) mmol/L Chloride 93 L (98-107) mmol/L Carbon Dioxide 30 (22-32) mmol/L BUN 9 (7-17) mg/dL Creatinine 0.58 (0.52-1.04) mg/dL Estimated GFR > 60 (>60) mL/min BUN/Creatinine Ratio 15.5 (6-22) Glucose 194 H (80-110) mg/dL Calcium 8.2 L (8.4-10.2) mg/dL Total Bilirubin 0.5 (0.2-1.3) mg/dL AST 27 (14-36) IU/L ALT 13 (<35) IU/L Alkaline Phosphatase 195 H (38-126) U/L Total Protein 6.0 L (6.3-8.2) g/dL Albumin 2.8 L (3.5-5.0) g/dL Globulin 3.2 (1.7-4.1) g/dL Albumin/Globulin Ratio 0.9 L (1.0-2.8) Lipase 69 (23-300) U/L Urine RBC None seen (0-5/HPF) Urine WBC 0-1/hpf (0-5/HPF) Ur Squamous Epith Cells 1-5 /hpf (0-5/HPF) Amorphous Sediment 2+ Urine Bacteria Occasional (0-1) (None) Granular Casts 0-1/lpf (None) Urine Yeast 1-5/hpf H (None) Ur Culture Indicated? Cult not indicated Point of care testing: Urine Dip Bedside Urine Glucose Negative Bedside Urine Bilirubin - Negative Bedside Urine Ketone - Negative Urine Specific [place] 1.000 Bedside Urine Occult Blood - Negative Bedside Urine pH 7.5 Bedside Urine Protein - Negative Bedside Urine Urobilinogen - Negative Bedside Urine Nitrite - Negative Bedside Urine Leukocytes + 70 Esterase MDM Narrative Medical decision making narrative: 77-year-old female with history of head and neck cancer presents for evaluation of abdominal pain. She was recently seen at an outside facility and had a G- tube placed to help address her chronic malnutrition secondary to her cancer history. She has improved symptoms with above-stated therapies but requires hospitalization due to potential underlying infectious process. Imaging is reassuring and shows no significant unexpected findings but given her recent procedure, pain, elevated white blood cell count she requires hospitalization for monitoring, IV antibiotics. Patient and family understand and agree with the diagnosis and plan. I have spoken with the quality control tech raw materials general surgeon (Klarissa) who is happy to play a role in consult and sure the opinion that the free air and subcutaneous emphysema noted is most likely and expected consequence of her recent percutaneous tube placement rather than bowel perforation. Hospitalist (Dr. Morrow) is happty to accept Discharge Plan Departure Patient Disposition: Admitted As Inpatient Clinical Impression: Abdominal pain, Acute dehydration, Enteritis Admit Date/Time: 03/21/23 00:11 Admit Provider: Trung Morrow
[2023-03-20 20:11] LABS: Bacteria Urine Occasional (0-1); RBC Urine None Seen (0-5/HPF); Squamous Epithelial Cell Urine 1-5 /HPF (0-5/HPF); WBC Urine 0-1/HPF (0-5/HPF)
[2023-03-20 20:12] LABS: Amorphous Sediment Urine 2+; Culture Indicated Urine Cult Not Indicated; Granular Casts Urine 0-1/LPF
[2023-03-20] MEDS: PIPERACILLIN/TAZO 4.5 GM in SODIUM CHLORIDE 0.9% 100 ML IV (22:14)
[2023-03-20] MEDS: HYDROMORPHONE 0.5 MG INJ IV (22:27)
[2023-03-21] VITALS (14 sets, daily range): BP systolic 91–110; BP diastolic 51–63; PULSE 85–136; RESP 12–20; TEMP 36.2–36.8; O2SAT 95–100; BMI 15.9
--- NOTE | 2023-03-21 01:45 | PM.HP.1 ---
History of Present Illness History of Present Illness Date Patient Seen: 03/21/23 Chief complaint: Abdominal Pain PFSH Medical History Acute hyponatremia Allergies Anxiety Benign essential tremor 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 Dermatitis Diverticulosis Eczema Elevated glucose level Generalized abdominal pain Hypercalcemia IBS (irritable bowel syndrome) Insomnia Nicotine dependence Peripheral neuropathy Right arm pain Seizures Weakness Family History Father Prostate cancer Deaf Mother Arthritis Social History Smoking Status: Former smoker Meds Home Medications and Allergies Home Medications Medication Instructions Recorded Confirmed Type hydroxyzine HCl 10 mg tablet 10 mg PO BEDTIME 04/23/20 03/21/23 History lidocaine HCl 2 % mucosal jelly 1 applictn topical BID PRN PAIN 04/23/20 03/21/23 History spironolactone 25 mg tablet 25 mg PO BID 04/23/20 03/21/23 History acetaminophen 325 mg capsule 325 mg PO ONCE PRN PAIN 01/29/23 03/21/23 History (Tylenol) dicyclomine 20 mg tablet 01/29/23 03/21/23 History penicillin V potassium 500 mg 500 mg PO TID 01/29/23 03/21/23 History tablet prochlorperazine maleate 10 mg 10 mg PO Q6H PRN NAUSEA 01/29/23 03/21/23 History tablet triamcinolone acetonide 0.025 % 1 applic topical DAILY 01/29/23 03/21/23 History topical cream lorazepam 1 mg tablet 1 mg 1-2XD PRN Anxiety 03/21/23 03/21/23 History Allergies Allergy/AdvReac Type Severity Reaction Status Date / Time adhesive Allergy Rash Verified 03/20/23 16:25 Exam Vital Signs (past 8 hours): - 03/20/23 18:00 03/20/23 18:00 03/20/23 18:30 Pulse Rate 90 97 H Respiratory Rate 15 14 Blood Pressure 99/59 L Pulse Oximetry 97 96 03/20/23 18:35 03/20/23 18:40 03/20/23 18:44 Pulse Rate 101 H 98 H 100 H Respiratory Rate 20 15 15 Blood Pressure Pulse Oximetry 96 95 95 03/20/23 18:44 03/20/23 18:45 03/20/23 18:45 Pulse Rate 100 H Respiratory Rate 14 Blood Pressure 98/52 L 97/55 L Pulse Oximetry 95 03/20/23 18:50 03/20/23 18:55 03/20/23 19:00 Pulse Rate 99 H 100 H Respiratory Rate 15 14 Blood Pressure 92/53 L Pulse Oximetry 95 95 03/20/23 19:00 03/20/23 19:05 03/20/23 19:10 Pulse Rate 99 H 101 H 100 H Respiratory Rate 14 15 15 Blood Pressure Pulse Oximetry 94 96 95 03/20/23 19:15 03/20/23 19:15 03/20/23 19:20 Pulse Rate 99 H 106 H Respiratory Rate 15 18 Blood Pressure 96/52 L Pulse Oximetry 95 96 03/20/23 19:28 03/20/23 19:30 03/20/23 19:30 Pulse Rate 134 H 118 H Respiratory Rate 18 Blood Pressure 113/57 L Pulse Oximetry 95 96 03/20/23 19:35 03/20/23 19:40 03/20/23 19:45 Pulse Rate 107 H 108 H Respiratory Rate 16 15 Blood Pressure 88/52 L Pulse Oximetry 97 95 03/20/23 19:45 03/20/23 19:50 03/20/23 19:53 Pulse Rate 104 H 104 H Respiratory Rate 14 16 Blood Pressure 88/50 L Pulse Oximetry 95 95 03/20/23 19:53 03/20/23 19:55 03/20/23 20:00 Pulse Rate 105 H 105 H Respiratory Rate 16 16 Blood Pressure 96/54 L Pulse Oximetry 95 96 03/20/23 20:00 03/20/23 20:05 03/20/23 20:10 Pulse Rate 103 H 108 H 102 H Respiratory Rate 15 17 12 Blood Pressure Pulse Oximetry 96 95 95 03/20/23 20:15 03/20/23 20:15 03/20/23 20:20 Pulse Rate 99 H 97 H Respiratory Rate 13 14 Blood Pressure 99/57 L Pulse Oximetry 95 95 03/20/23 20:25 03/20/23 20:30 03/20/23 20:30 Pulse Rate 98 H 97 H Respiratory Rate 14 14 Blood Pressure 99/58 L Pulse Oximetry 95 95 03/20/23 20:35 03/20/23 20:40 03/20/23 20:45 Pulse Rate 96 H 98 H Respiratory Rate 14 13 Blood Pressure 98/51 L Pulse Oximetry 95 95 03/20/23 20:45 03/20/23 20:50 03/20/23 20:55 Pulse Rate 100 H 99 H 96 H Respiratory Rate 15 13 14 Blood Pressure Pulse Oximetry 96 95 94 03/20/23 21:00 03/20/23 21:00 03/20/23 21:05 Pulse Rate 95 H 96 H Respiratory Rate 14 15 Blood Pressure 93/54 L Pulse Oximetry 94 95 03/20/23 21:10 03/20/23 21:15 03/20/23 21:15 Pulse Rate 96 H 100 H Respiratory Rate 14 14 Blood Pressure 97/56 L Pulse Oximetry 95 95 03/20/23 21:20 03/20/23 21:25 03/20/23 21:30 Pulse Rate 99 H 97 H Respiratory Rate 14 14 Blood Pressure 96/55 L Pulse Oximetry 95 95 03/20/23 21:30 03/20/23 21:35 03/20/23 21:40 Pulse Rate 98 H 104 H 106 H Respiratory Rate 14 16 16 Blood Pressure Pulse Oximetry 95 95 95 03/20/23 21:45 03/20/23 21:45 03/20/23 21:50 Pulse Rate 100 H 97 H Respiratory Rate 15 14 Blood Pressure 104/57 L Pulse Oximetry 93 95 03/20/23 21:55 03/20/23 22:00 03/20/23 22:00 Pulse Rate 100 H 97 H Respiratory Rate 14 15 Blood Pressure 98/57 L Pulse Oximetry 96 96 03/20/23 22:05 03/20/23 22:10 03/20/23 22:15 Pulse Rate 97 H 96 H Respiratory Rate 15 14 Blood Pressure 91/56 L Pulse Oximetry 95 95 03/20/23 22:15 03/20/23 22:20 03/20/23 22:25 Pulse Rate 101 H 94 H 96 H Respiratory Rate 15 14 21 Blood Pressure Pulse Oximetry 96 98 100 03/20/23 22:30 03/20/23 22:30 03/20/23 22:35 Pulse Rate 94 H 91 H Respiratory Rate 15 15 Blood Pressure 105/53 L Pulse Oximetry 99 100 03/20/23 22:40 03/20/23 22:45 03/20/23 22:45 Pulse Rate 89 89 Respiratory Rate 12 12 Blood Pressure 100/57 L Pulse Oximetry 99 100 03/20/23 22:50 03/20/23 22:55 03/20/23 23:00 Pulse Rate 90 88 Respiratory Rate 14 13 Blood Pressure 105/61 Pulse Oximetry 100 100 03/20/23 23:00 03/20/23 23:05 03/20/23 23:10 Pulse Rate 86 84 83 Respiratory Rate 12 13 13 Blood Pressure Pulse Oximetry 100 100 100 03/20/23 23:15 03/20/23 23:15 03/20/23 23:20 Pulse Rate 85 88 Respiratory Rate 12 14 Blood Pressure 104/57 L Pulse Oximetry 100 99 03/20/23 23:25 03/20/23 23:30 03/20/23 23:30 Pulse Rate 90 87 Respiratory Rate 17 13 Blood Pressure 106/56 L Pulse Oximetry 98 98 03/20/23 23:35 03/20/23 23:40 03/20/23 23:45 Pulse Rate 86 85 Respiratory Rate 13 12 Blood Pressure 102/55 L Pulse Oximetry 99 100 03/20/23 23:45 03/20/23 23:50 03/20/23 23:55 Pulse Rate 85 89 86 Respiratory Rate 13 19 13 Blood Pressure Pulse Oximetry 99 99 98 03/21/23 00:00 03/21/23 00:00 03/21/23 00:05 Pulse Rate 86 88 Respiratory Rate 14 15 Blood Pressure 106/56 L Pulse Oximetry 98 98 03/21/23 00:10 03/21/23 00:15 03/21/23 00:15 Pulse Rate 86 85 Respiratory Rate 13 12 Blood Pressure 107/58 L Pulse Oximetry 99 98 03/21/23 00:20 03/21/23 00:25 03/21/23 00:30 Pulse Rate 136 H 85 Respiratory Rate 20 13 Blood Pressure 110/57 L Pulse Oximetry 97 99 03/21/23 00:30 Pulse Rate 86 Respiratory Rate 14 Blood Pressure Pulse Oximetry 99 Objective Labs 03/20/23 16:40 03/20/23 16:40 Labs: Laboratory Results - last 24 hr 03/20/23 03/20/23 03/20/23 16:40 16:40 19:30 WBC 15.0 H RBC 3.67 L Hgb 10.5 L Hct 31.5 L MCV 85.8 MCH 28.7 MCHC 33.4 RDW 15.1 H Plt Count 506 H Neut % (Auto) 86.2 H Lymph % (Auto) 5.8 L [place] % (Auto) 5.8 Eos % (Auto) 2.0 Baso % (Auto) 0.2 Neut # (Auto) 05348 H Lymph # (Auto) 900 L [place] # (Auto) 900 Eos # (Auto) 300 Baso # (Auto) 0 Sodium 128 L Potassium 3.6 Chloride 93 L Carbon Dioxide 30 BUN 9 Creatinine 0.58 Estimated GFR > 60 BUN/Creatinine Ratio 15.5 Glucose 194 H Calcium 8.2 L Total Bilirubin 0.5 AST 27 ALT 13 Alkaline Phosphatase 195 H Total Protein 6.0 L Albumin 2.8 L Globulin 3.2 Albumin/Globulin Ratio 0.9 L Lipase 69 Urine RBC None seen Urine WBC 0-1/hpf Ur Squamous Epith Cells 1-5 /hpf Amorphous Sediment 2+ Urine Bacteria Occasional (0-1) Granular Casts 0-1/lpf Urine Yeast 1-5/hpf H Ur Culture Indicated? Cult not indicated
--- NOTE | 2023-03-21 01:54 | PM.HP.1 ---
History of Present Illness History of Present Illness Chief complaint: Abdominal Pain Narrative: 77-year-old woman with a history of head and neck cancer who is referred for evaluation of a feeding tube.? History is challenging to obtain given her altered speech.? Proximally 4 years ago she underwent a resection of her right mandible as well as oral resection for squamous cell carcinoma.? This was followed by radiation therapy.? She reports that initially she was able to eat to some degree but then she ultimately went on to have a feeding tube placed at [facility].? She had that for quite some time but then this was removed for some reason.? For the past 6 months she has really been unable to eat substantially.? She can swallow liquids appropriately but has a great deal of difficulty opening her mouth and chewing.? She relates she has a history of irritable bowel syndrome and that many of the protein drink formulations such as boost causes severe diarrhea.? There is a particular form of tube feed she is unclear of the name which she tolerated without issue.? She has lost substantial weight over the past 6 months and is here to request a placement of a new gastrostomy tube. [facility] Medical History Acute hyponatremia Allergies Anxiety Benign essential tremor 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 Dermatitis Diverticulosis Eczema Elevated glucose level Generalized abdominal pain Hypercalcemia IBS (irritable bowel syndrome) Insomnia Nicotine dependence Peripheral neuropathy Right arm pain Seizures Weakness Family History Father Prostate cancer Deaf Mother Arthritis Social History Smoking Status: Former smoker Meds Home Medications and Allergies Home Medications Medication Instructions Recorded Confirmed Type hydroxyzine HCl 10 mg tablet 10 mg PO BEDTIME 04/23/20 03/21/23 History lidocaine HCl 2 % mucosal jelly 1 applictn topical BID PRN PAIN 04/23/20 03/21/23 History spironolactone 25 mg tablet 25 mg PO BID 04/23/20 03/21/23 History acetaminophen 325 mg capsule 325 mg PO ONCE PRN PAIN 01/29/23 03/21/23 History (Tylenol) dicyclomine 20 mg tablet 01/29/23 03/21/23 History penicillin V potassium 500 mg 500 mg PO TID 01/29/23 03/21/23 History tablet prochlorperazine maleate 10 mg 10 mg PO Q6H PRN NAUSEA 01/29/23 03/21/23 History tablet triamcinolone acetonide 0.025 % 1 applic topical DAILY 01/29/23 03/21/23 History topical cream lorazepam 1 mg tablet 1 mg 1-2XD PRN Anxiety 03/21/23 03/21/23 History Allergies Allergy/AdvReac Type Severity Reaction Status Date / Time adhesive Allergy Rash Verified 03/20/23 16:25 Exam Vital Signs (past 8 hours): - 03/20/23 18:00 03/20/23 18:00 03/20/23 18:30 Pulse Rate 90 97 H Respiratory Rate 15 14 Blood Pressure 99/59 L Pulse Oximetry 97 96 03/20/23 18:35 03/20/23 18:40 03/20/23 18:44 Pulse Rate 101 H 98 H 100 H Respiratory Rate 20 15 15 Blood Pressure Pulse Oximetry 96 95 95 03/20/23 18:44 03/20/23 18:45 03/20/23 18:45 Pulse Rate 100 H Respiratory Rate 14 Blood Pressure 98/52 L 97/55 L Pulse Oximetry 95 03/20/23 18:50 03/20/23 18:55 03/20/23 19:00 Pulse Rate 99 H 100 H Respiratory Rate 15 14 Blood Pressure 92/53 L Pulse Oximetry 95 95 03/20/23 19:00 03/20/23 19:05 03/20/23 19:10 Pulse Rate 99 H 101 H 100 H Respiratory Rate 14 15 15 Blood Pressure Pulse Oximetry 94 96 95 03/20/23 19:15 03/20/23 19:15 03/20/23 19:20 Pulse Rate 99 H 106 H Respiratory Rate 15 18 Blood Pressure 96/52 L Pulse Oximetry 95 96 03/20/23 19:28 03/20/23 19:30 03/20/23 19:30 Pulse Rate 134 H 118 H Respiratory Rate 18 Blood Pressure 113/57 L Pulse Oximetry 95 96 03/20/23 19:35 03/20/23 19:40 03/20/23 19:45 Pulse Rate 107 H 108 H Respiratory Rate 16 15 Blood Pressure 88/52 L Pulse Oximetry 97 95 03/20/23 19:45 03/20/23 19:50 03/20/23 19:53 Pulse Rate 104 H 104 H Respiratory Rate 14 16 Blood Pressure 88/50 L Pulse Oximetry 95 95 03/20/23 19:53 03/20/23 19:55 03/20/23 20:00 Pulse Rate 105 H 105 H Respiratory Rate 16 16 Blood Pressure 96/54 L Pulse Oximetry 95 96 03/20/23 20:00 03/20/23 20:05 03/20/23 20:10 Pulse Rate 103 H 108 H 102 H Respiratory Rate 15 17 12 Blood Pressure Pulse Oximetry 96 95 95 03/20/23 20:15 03/20/23 20:15 03/20/23 20:20 Pulse Rate 99 H 97 H Respiratory Rate 13 14 Blood Pressure 99/57 L Pulse Oximetry 95 95 03/20/23 20:25 03/20/23 20:30 03/20/23 20:30 Pulse Rate 98 H 97 H Respiratory Rate 14 14 Blood Pressure 99/58 L Pulse Oximetry 95 95 03/20/23 20:35 03/20/23 20:40 03/20/23 20:45 Pulse Rate 96 H 98 H Respiratory Rate 14 13 Blood Pressure 98/51 L Pulse Oximetry 95 95 03/20/23 20:45 03/20/23 20:50 03/20/23 20:55 Pulse Rate 100 H 99 H 96 H Respiratory Rate 15 13 14 Blood Pressure Pulse Oximetry 96 95 94 03/20/23 21:00 03/20/23 21:00 03/20/23 21:05 Pulse Rate 95 H 96 H Respiratory Rate 14 15 Blood Pressure 93/54 L Pulse Oximetry 94 95 03/20/23 21:10 03/20/23 21:15 03/20/23 21:15 Pulse Rate 96 H 100 H Respiratory Rate 14 14 Blood Pressure 97/56 L Pulse Oximetry 95 95 03/20/23 21:20 03/20/23 21:25 03/20/23 21:30 Pulse Rate 99 H 97 H Respiratory Rate 14 14 Blood Pressure 96/55 L Pulse Oximetry 95 95 03/20/23 21:30 03/20/23 21:35 03/20/23 21:40 Pulse Rate 98 H 104 H 106 H Respiratory Rate 14 16 16 Blood Pressure Pulse Oximetry 95 95 95 03/20/23 21:45 03/20/23 21:45 07/22/23 21:50 Pulse Rate 100 H 97 H Respiratory Rate 15 14 Blood Pressure 104/57 L Pulse Oximetry 93 95 03/20/23 21:55 03/20/23 22:00 03/20/23 22:00 Pulse Rate 100 H 97 H Respiratory Rate 14 15 Blood Pressure 98/57 L Pulse Oximetry 96 96 03/20/23 22:05 03/20/23 22:10 03/20/23 22:15 Pulse Rate 97 H 96 H Respiratory Rate 15 14 Blood Pressure 91/56 L Pulse Oximetry 95 95 03/20/23 22:15 03/20/23 22:20 03/20/23 22:25 Pulse Rate 101 H 94 H 96 H Respiratory Rate 15 14 21 Blood Pressure Pulse Oximetry 96 98 100 03/20/23 22:30 03/20/23 22:30 03/20/23 22:35 Pulse Rate 94 H 91 H Respiratory Rate 15 15 Blood Pressure 105/53 L Pulse Oximetry 99 100 03/20/23 22:40 03/20/23 22:45 03/20/23 22:45 Pulse Rate 89 89 Respiratory Rate 12 12 Blood Pressure 100/57 L Pulse Oximetry 99 100 03/20/23 22:50 03/20/23 22:55 03/20/23 23:00 Pulse Rate 90 88 Respiratory Rate 14 13 Blood Pressure 105/61 Pulse Oximetry 100 100 03/20/23 23:00 03/20/23 23:05 03/20/23 23:10 Pulse Rate 86 84 83 Respiratory Rate 12 13 13 Blood Pressure Pulse Oximetry 100 100 100 03/20/23 23:15 03/20/23 23:15 03/20/23 23:20 Pulse Rate 85 88 Respiratory Rate 12 14 Blood Pressure 104/57 L Pulse Oximetry 100 99 03/20/23 23:25 03/20/23 23:30 03/20/23 23:30 Pulse Rate 90 87 Respiratory Rate 17 13 Blood Pressure 106/56 L Pulse Oximetry 98 98 03/20/23 23:35 03/20/23 23:40 03/20/23 23:45 Pulse Rate 86 85 Respiratory Rate 13 12 Blood Pressure 102/55 L Pulse Oximetry 99 100 03/20/23 23:45 03/20/23 23:50 03/20/23 23:55 Pulse Rate 85 89 86 Respiratory Rate 13 19 13 Blood Pressure Pulse Oximetry 99 99 98 03/21/23 00:00 03/21/23 00:00 03/21/23 00:05 Pulse Rate 86 88 Respiratory Rate 14 15 Blood Pressure 106/56 L Pulse Oximetry 98 98 03/21/23 00:10 03/21/23 00:15 03/21/23 00:15 Pulse Rate 86 85 Respiratory Rate 13 12 Blood Pressure 107/58 L Pulse Oximetry 99 98 03/21/23 00:20 03/21/23 00:25 03/21/23 00:30 Pulse Rate 136 H 85 Respiratory Rate 20 13 Blood Pressure 110/57 L Pulse Oximetry 97 99 03/21/23 00:30 Pulse Rate 86 Respiratory Rate 14 Blood Pressure Pulse Oximetry 99 Objective Labs 03/20/23 16:40 03/20/23 16:40 Labs: Laboratory Results - last 24 hr 03/20/23 03/20/23 03/20/23 16:40 16:40 19:30 WBC 15.0 H RBC 3.67 L Hgb 10.5 L Hct 31.5 L MCV 85.8 MCH 28.7 MCHC 33.4 RDW 15.1 H Plt Count 506 H Neut % (Auto) 86.2 H Lymph % (Auto) 5.8 L [place] % (Auto) 5.8 Eos % (Auto) 2.0 Baso % (Auto) 0.2 Neut # (Auto) 87295 H Lymph # (Auto) 900 L [place] # (Auto) 900 Eos # (Auto) 300 Baso # (Auto) 0 Sodium 128 L Potassium 3.6 Chloride 93 L Carbon Dioxide 30 BUN 9 Creatinine 0.58 Estimated GFR > 60 BUN/Creatinine Ratio 15.5 Glucose 194 H Calcium 8.2 L Total Bilirubin 0.5 AST 27 ALT 13 Alkaline Phosphatase 195 H Total Protein 6.0 L Albumin 2.8 L Globulin 3.2 Albumin/Globulin Ratio 0.9 L Lipase 69 Urine RBC None seen Urine WBC 0-1/hpf Ur Squamous Epith Cells 1-5 /hpf Amorphous Sediment 2+ Urine Bacteria Occasional (0-1) Granular Casts 0-1/lpf Urine Yeast 1-5/hpf H Ur Culture Indicated? Cult not indicated
[2023-03-21] MEDS: LACTATED RINGERS 1,000 ML 100 ML IV (01:57)
[2023-03-21] MEDS: KETOROLAC 30 MG/ML VIAL 15 MG IV ×4 (02:19→20:07)
[2023-03-21] MEDS: PIPERACILLIN/TAZO 3.375 GM in SODIUM CHLORIDE 0.9% 100 ML IV ×3 (02:23→18:20)
--- NOTE | 2023-03-21 02:44 | P.HP_ITS ---
History of Present Illness History of Present Illness Chief complaint: Abdominal Pain Narrative: 77-year-old woman with a history of squamous cell carcinoma of head and neck, s/p right mandible and oral resection 4 years ago, [facility], followed by severe dysarthria and dysphagia. Over the course of last ~ 5 years she had difficulties tolerating tube feedings, apparently due to underlying Irritable BS. She was using PEG that was subsequently discontinued. In the process she lost weight and became severely malnourished so she had a new PEG placed few days ago. Presented to ED with lower abdominal pain. Images showing functional PEG in place, some air from recent placement and likely enteritis. 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 Dermatitis Diverticulosis Eczema Elevated glucose level Generalized abdominal pain Hypercalcemia Insomnia Nicotine dependence Peripheral neuropathy Right arm pain Seizures Weakness Family History Father Prostate cancer Deaf Mother Arthritis Social History Smoking Status: Former smoker Meds Home Medications and Allergies Home Medications Medication Instructions Recorded Confirmed Type hydroxyzine HCl 10 mg tablet 10 mg PO BEDTIME 04/23/20 03/21/23 History lidocaine HCl 2 % mucosal jelly 1 applictn topical BID PRN PAIN 04/23/20 03/21/23 History spironolactone 25 mg tablet 25 mg PO BID 04/23/20 03/21/23 History acetaminophen 325 mg capsule 325 mg PO ONCE PRN PAIN 01/29/23 03/21/23 History (Tylenol) dicyclomine 20 mg tablet 01/29/23 03/21/23 History penicillin V potassium 500 mg 500 mg PO TID 01/29/23 03/21/23 History tablet prochlorperazine maleate 10 mg 10 mg PO Q6H PRN NAUSEA 01/29/23 03/21/23 History tablet triamcinolone acetonide 0.025 % 1 applic topical DAILY 01/29/23 03/21/23 History topical cream lorazepam 1 mg tablet 1 mg 1-2XD PRN Anxiety 03/21/23 03/21/23 History Allergies Allergy/AdvReac Type Severity Reaction Status Date / Time adhesive Allergy Rash Verified 03/20/23 16:25 Review of Systems Constitutional Comments: Generalized weakness Cardiovascular Comments: w/o chest pain or palpitations Respiratory Comments: Exertional dyspnea Gastrointestinal Comments: Lower abdominal pain Genitourinary Comments: w/o dysuria Neurologic Comments: w/o localized muscle weakness or numbness Psychiatric Comments: anxious Exam Vital Signs (past 8 hours): - 03/20/23 18:45 03/20/23 18:45 03/20/23 18:50 Temperature Pulse Rate 100 H 99 H Respiratory Rate 14 15 Blood Pressure 97/55 L Pulse Oximetry 95 95 Oxygen Flow Rate 03/20/23 18:55 03/20/23 19:00 03/20/23 19:00 Temperature Pulse Rate 100 H 99 H Respiratory Rate 14 14 Blood Pressure 92/53 L Pulse Oximetry 95 94 Oxygen Flow Rate 03/20/23 19:05 03/20/23 19:10 03/20/23 19:15 Temperature Pulse Rate 101 H 100 H Respiratory Rate 15 15 Blood Pressure 96/52 L Pulse Oximetry 96 95 Oxygen Flow Rate 03/20/23 19:15 03/20/23 19:20 03/20/23 19:28 Temperature Pulse Rate 99 H 106 H 134 H Respiratory Rate 15 18 Blood Pressure Pulse Oximetry 95 96 95 Oxygen Flow Rate 03/20/23 19:30 03/20/23 19:30 03/20/23 19:35 Temperature Pulse Rate 118 H 107 H Respiratory Rate 18 16 Blood Pressure 113/57 L Pulse Oximetry 96 97 Oxygen Flow Rate 03/20/23 19:40 03/20/23 19:45 03/20/23 19:45 Temperature Pulse Rate 108 H 104 H Respiratory Rate 15 14 Blood Pressure 88/52 L Pulse Oximetry 95 95 Oxygen Flow Rate 03/20/23 19:50 03/20/23 19:53 03/20/23 19:53 Temperature Pulse Rate 104 H 105 H Respiratory Rate 16 16 Blood Pressure 88/50 L Pulse Oximetry 95 95 Oxygen Flow Rate 03/20/23 19:55 03/20/23 20:00 03/20/23 20:00 Temperature Pulse Rate 105 H 103 H Respiratory Rate 16 15 Blood Pressure 96/54 L Pulse Oximetry 96 96 Oxygen Flow Rate 03/20/23 20:05 03/20/23 20:10 03/20/23 20:15 Temperature Pulse Rate 108 H 102 H Respiratory Rate 17 12 Blood Pressure 99/57 L Pulse Oximetry 95 95 Oxygen Flow Rate 03/20/23 20:15 03/20/23 20:20 03/20/23 20:25 Temperature Pulse Rate 99 H 97 H 98 H Respiratory Rate 13 14 14 Blood Pressure Pulse Oximetry 95 95 95 Oxygen Flow Rate 03/20/23 20:30 03/20/23 20:30 03/20/23 20:35 Temperature Pulse Rate 97 H 96 H Respiratory Rate 14 14 Blood Pressure 99/58 L Pulse Oximetry 95 95 Oxygen Flow Rate 03/20/23 20:40 03/20/23 20:45 03/20/23 20:45 Temperature Pulse Rate 98 H 100 H Respiratory Rate 13 15 Blood Pressure 98/51 L Pulse Oximetry 95 96 Oxygen Flow Rate 03/20/23 20:50 03/20/23 20:55 03/20/23 21:00 Temperature Pulse Rate 99 H 96 H Respiratory Rate 13 14 Blood Pressure 93/54 L Pulse Oximetry 95 94 Oxygen Flow Rate 03/20/23 21:00 03/20/23 21:05 03/20/23 21:10 Temperature Pulse Rate 95 H 96 H 96 H Respiratory Rate 14 15 14 Blood Pressure Pulse Oximetry 94 95 95 Oxygen Flow Rate 03/20/23 21:15 03/20/23 21:15 03/20/23 21:20 Temperature Pulse Rate 100 H 99 H Respiratory Rate 14 14 Blood Pressure 97/56 L Pulse Oximetry 95 95 Oxygen Flow Rate 03/20/23 21:25 03/20/23 21:30 03/20/23 21:30 Temperature Pulse Rate 97 H 98 H Respiratory Rate 14 14 Blood Pressure 96/55 L Pulse Oximetry 95 95 Oxygen Flow Rate 03/20/23 21:35 03/20/23 21:40 03/20/23 21:45 Temperature Pulse Rate 104 H 106 H Respiratory Rate 16 16 Blood Pressure 104/57 L Pulse Oximetry 95 95 Oxygen Flow Rate 03/20/23 21:45 03/20/23 21:50 03/20/23 21:55 Temperature Pulse Rate 100 H 97 H 100 H Respiratory Rate 15 14 14 Blood Pressure Pulse Oximetry 93 95 96 Oxygen Flow Rate 03/20/23 22:00 03/20/23 22:00 03/20/23 22:05 Temperature Pulse Rate 97 H 97 H Respiratory Rate 15 15 Blood Pressure 98/57 L Pulse Oximetry 96 95 Oxygen Flow Rate 03/20/23 22:10 03/20/23 22:15 03/20/23 22:15 Temperature Pulse Rate 96 H 101 H Respiratory Rate 14 15 Blood Pressure 91/56 L Pulse Oximetry 95 96 Oxygen Flow Rate 03/20/23 22:20 03/20/23 22:25 03/20/23 22:30 Temperature Pulse Rate 94 H 96 H Respiratory Rate 14 21 Blood Pressure 105/53 L Pulse Oximetry 98 100 Oxygen Flow Rate 03/20/23 22:30 03/20/23 22:35 03/20/23 22:40 Temperature Pulse Rate 94 H 91 H 89 Respiratory Rate 15 15 12 Blood Pressure Pulse Oximetry 99 100 99 Oxygen Flow Rate 03/20/23 22:45 03/20/23 22:45 03/20/23 22:50 Temperature Pulse Rate 89 90 Respiratory Rate 12 14 Blood Pressure 100/57 L Pulse Oximetry 100 100 Oxygen Flow Rate 03/20/23 22:55 03/20/23 23:00 03/20/23 23:00 Temperature Pulse Rate 88 86 Respiratory Rate 13 12 Blood Pressure 105/61 Pulse Oximetry 100 100 Oxygen Flow Rate 03/20/23 23:05 03/20/23 23:10 03/20/23 23:15 Temperature Pulse Rate 84 83 Respiratory Rate 13 13 Blood Pressure 104/57 L Pulse Oximetry 100 100 Oxygen Flow Rate 03/20/23 23:15 03/20/23 23:20 03/20/23 23:25 Temperature Pulse Rate 85 88 90 Respiratory Rate 12 14 17 Blood Pressure Pulse Oximetry 100 99 98 Oxygen Flow Rate 03/20/23 23:30 03/20/23 23:30 03/20/23 23:35 Temperature Pulse Rate 87 86 Respiratory Rate 13 13 Blood Pressure 106/56 L Pulse Oximetry 98 99 Oxygen Flow Rate 03/20/23 23:40 03/20/23 23:45 03/20/23 23:45 Temperature Pulse Rate 85 85 Respiratory Rate 12 13 Blood Pressure 102/55 L Pulse Oximetry 100 99 Oxygen Flow Rate 03/20/23 23:50 03/20/23 23:55 03/21/23 00:00 Temperature Pulse Rate 89 86 Respiratory Rate 19 13 Blood Pressure 106/56 L Pulse Oximetry 99 98 Oxygen Flow Rate 03/21/23 00:00 03/21/23 00:05 03/21/23 00:10 Temperature Pulse Rate 86 88 86 Respiratory Rate 14 15 13 Blood Pressure Pulse Oximetry 98 98 99 Oxygen Flow Rate 03/21/23 00:15 03/21/23 00:15 03/21/23 00:20 Temperature Pulse Rate 85 136 H Respiratory Rate 12 20 Blood Pressure 107/58 L Pulse Oximetry 98 97 Oxygen Flow Rate 03/21/23 00:25 03/21/23 00:30 03/21/23 00:30 Temperature Pulse Rate 85 86 Respiratory Rate 13 14 Blood Pressure 110/57 L Pulse Oximetry 99 99 Oxygen Flow Rate 03/21/23 01:40 Temperature 97.2 F L Pulse Rate 89 Respiratory Rate 20 Blood Pressure 107/62 Pulse Oximetry 97 Oxygen Flow Rate 0 Oxygen Flow Rate 0 Const Other: Severely malnourished HENMT Other: s/p right mandible excision severe dysarthria Neck Other: s/p resection Resp Other: CTA Cardio Other: RRR GI Other: PEG in place, insertion site minimally tender, not infected. Palpatory tenderness of lower quadrants. Not distended. Skin Other: not jaundiced Neuro Other: w/o deficits Extrem Other: w/o swelling Objective Labs 03/20/23 16:40 03/20/23 16:40 Labs: Laboratory Results - last 24 hr 03/20/23 03/20/23 03/20/23 16:40 16:40 19:30 WBC 15.0 H RBC 3.67 L Hgb 10.5 L Hct 31.5 L MCV 85.8 MCH 28.7 MCHC 33.4 RDW 15.1 H Plt Count 506 H Neut % (Auto) 86.2 H Lymph % (Auto) 5.8 L [place] % (Auto) 5.8 Eos % (Auto) 2.0 Baso % (Auto) 0.2 Neut # (Auto) 89398 H Lymph # (Auto) 900 L [place] # (Auto) 900 Eos # (Auto) 300 Baso # (Auto) 0 Sodium 128 L Potassium 3.6 Chloride 93 L Carbon Dioxide 30 BUN 9 Creatinine 0.58 Estimated GFR > 60 BUN/Creatinine Ratio 15.5 Glucose 194 H Calcium 8.2 L Total Bilirubin 0.5 AST 27 ALT 13 Alkaline Phosphatase 195 H Total Protein 6.0 L Albumin 2.8 L Globulin 3.2 Albumin/Globulin Ratio 0.9 L Lipase 69 Urine RBC None seen Urine WBC 0-1/hpf Ur Squamous Epith Cells 1-5 /hpf Amorphous Sediment 2+ Urine Bacteria Occasional (0-1) Granular Casts 0-1/lpf Urine Yeast 1-5/hpf H Ur Culture Indicated? Cult not indicated Assessment & Plan Assessment and plan (1) Enteritis: Status: Acute (2) Severe protein-calorie malnutrition: Status: Acute (3) Acute dehydration: Status: Acute (4) Hyponatremia with extracellular fluid depletion: Status: Acute Plan Hospitalization for antibiotic, IVFs, electrolyte correction Assessment & Plan narrative: 1. Enteritis - loops filled with fluid with possible small amount of reactive ascites. - Zosyn - Hold bolus tube feedings for now - PEG is not a cause of discomfort - nutrition consult for tube feedings when restarted 2. 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 Hyponatremia / Dehydration - poor oral intake in the past few days - NS - monitored lytes and fluid status 4. Anxiety - Ativan prn
[2023-03-21] MEDS: SODIUM CHLORIDE 0.9% 1,000 ML 100 ML IV ×2 (02:50→19:28)
[2023-03-21 05:49] LABS: Add Manual Diff / Slide Review NO; Basophils Absolute Auto 0 /uL (0-100); Basophils Percent Auto 0.4 % (0-2); Eosinophils Absolute Auto 500 /uL (0-450); Hematocrit 27.5 % (36-46); Hemoglobin 9.4 g/dL (12.0-16.0); Lymphocytes Absolute Auto 600 /uL (1100-4500); Lymphocytes Percent Auto 6.1 % (25-40); Mean Corpuscular HGB Conc 34.2 % (30-36); Mean Corpuscular Hemoglobin 29.1 PG (26-34); Monocytes Absolute Auto 800 /uL (0-900); Neutrophils Absolute Auto 8300 /uL (1500-7000); Neutrophils Percent Auto 80.5 % (50-75); Platelet Count 406 X10^3/uL (150-400); Red Blood Cell Count 3.23 X10^6/uL (4.0-5.2); Red Cell Distribution Width 15.2 % (11.6-14.8); White Blood Cell Count 10.4 X10^3/uL (4.5-11.0)
[2023-03-21 06:11] LABS: BUN Creatinine Ratio 17.9 (6-22); Blood Urea Nitrogen 10 mg/dL (7-17); Calcium 7.8 mg/dL (8.4-10.2); Carbon Dioxide 29 mmol/L (22-32); Chloride 99 mmol/L (98-107); Estimated Glomerular Filt Rate > 60 mL/min (>60); Glucose 82 mg/dL (80-110); HEMOLYSIS < 15 (0-50); Potassium 3.2 mmol/L (3.4-5.1); Sodium 130 mmol/L (137-145)
[2023-03-21] MEDS: ENOXAPARIN 40 MG/0.4 ML SYRINGE SUBCUT (09:35)
[2023-03-21] MEDS: POTASSIUM CHLORIDE IN WATER 10 MEQ/100 ML PIGGYBACK 100 MEQ IV ×4 (09:38→13:18)
--- NOTE | 2023-03-21 09:41 | CM.DANOTE ---
Reviewed chart with existing information, and patient discussed in multidisciplinary rounds this morning. Met with patient and introduced to care coordination and discharge planning. They agree to assessment. Patient is a77 year old admitted for abdominal pain. Patient relays that her sister Sandi provides all care, bathing, toileting, PEG tube feeding including transportation. Agrees to idea of HH but admits she needs another caregiver. Resources offered at bedside for local HH and paid caregivers. Refuses idea of SNF or Surgical Attendant Care in [place]. Agrees to consider Medicaid application for LTC such as [facility] (application at bedside). Plan for, MD, PT OT evals today. DCP is for home with HH RN, possibly PT/OT/PROFESSOR OF ENVIRONMENTAL SCIENCE and VESSEL SPECIALIST for life care planning PCP: Christin Santos DME: [id number] Payer: Medicare Barriers: TBD, total care as per patient, by sister Sandi Siena Johnson RN CM Discharge Planning/Care Management CM Discharge Assessment Start: 03/21/23 09:28 Freq: Status: Active Protocol: Document 03/21/23 09:29 BQ (Rec: 03/21/23 09:33 BQ [id number]) Discharge Planning Assessment Assigned Clinical Molecular Geneticist Siena Johnson RN CM DPOA/Assigned Designee Name Sister Contact Information Patient states she has lost documents Advance Directives? No History Provided By Patient,Medical Record Has Patient been admitted in last 30 No days? Prior Living Arrangements House Household Members family Type of transporation used prior to Relies on Others admit Independent with ADL's No Is patient alert and oriented? Yes Needs Assistance With Bathing,Eating,Grooming,Meal Prep,Managing Medications,Home Chores / Shopping Caregiver for Another No Community Services used prior to Home Delivered Meals admission: Comment [facility] for Tube feedins via established PEG DME Already Rented / Owned [facility] / Walker Comment Would like to apply for [facility] Patient/Family Preference Home with Home Health Barriers to Discharge No Comment Possibly, more assessments required Discharge Plan Home with Home Health Community Services Home Delivered Meals Transportation Arrangement Continuation of care with [facility] Referrals Initiated Home Health If patient plan is home with home health Yes : Has signed face to face form been completed? If patient plan is SNF: Has PASSR been No completed? Comment Refuses idea of SNF Medicare Choice List Provided Yes Medicare choice list reviewed on patient electronic tablet with SNF/HH Preference First available, or review by sister Whiteboard Updated in Patient Room with Yes name and ext. # of Clinical Molecular Geneticist Review Status In Process Next Review Type Continued Stay Review
--- NOTE | 2023-03-21 11:30 | CM.DPC ---
Call to sister Sandi (84 years old) who has been sole caregiver for patient since cancer diagnosis. Sandi states patient sees Dr. Sher at [facility], and Dr. Wu at [facility] for head/neck cancer and that PEG tube was just placed 2 days ago at [facility] by Dr. Jonny Goncalves. Sandi states that she is concerned for her sisters malnutrion and glad that [facility] is on board with feeding deliveries and now bolus feeding at home. She confirms that patient does not have a plan for aging in place, but that PCP has offered some resources. Sandi agrees to help navigate LTC Medicaid with [facility] and will discuss with patient as well as possible need for SNF level Rehab. List at bedside as well as additional group home local resources.
[2023-03-21] MEDS: LORazepam 1 MG TABLET PO (12:12)
--- NOTE | 2023-03-21 15:13 | PC.NURSE ---
Addendum entered by Kathrin Painting R.N. 03/21/23 17:30: pt voided. dark nora color. peg tube drsng changed Original Note: pt did not void since 0200, bladder scan this morning was around 170cc, notified provider. no new orders
--- NOTE | 2023-03-21 16:59 | PM.EVENT ---
Event Note Event Note (Rapid Response, Code, or fall): 77 F admitted with enteritis noted on CT imaging after recent PEG placement at OSH. She reports improvement today, will need to resume home feedings to make sure patient doesn't have continued issues or problems with nutrition. May need a formal PEG study with radiology to make sure there are no issues with PEG placement as well.
[2023-03-22] VITALS (7 sets, daily range): BP systolic 88–154; BP diastolic 53–87; PULSE 80–107; RESP 16–22; TEMP 35.9–37.1; O2SAT 96–99
[2023-03-22] MEDS: LORazepam 1 MG TABLET PO ×3 (00:02→20:38)
[2023-03-22] MEDS: KETOROLAC 30 MG/ML VIAL 15 MG IV ×4 (02:02→19:50)
[2023-03-22] MEDS: PIPERACILLIN/TAZO 3.375 GM in SODIUM CHLORIDE 0.9% 100 ML IV ×3 (02:02→17:55)
[2023-03-22] MEDS: SODIUM CHLORIDE 0.9% 1,000 ML 100 ML IV ×2 (04:32→23:21)
[2023-03-22 06:22] LABS: Add Manual Diff / Slide Review NO; Basophils Absolute Auto 100 /uL (0-100); Basophils Percent Auto 1.2 % (0-2); Eosinophils Absolute Auto 1100 /uL (0-450); Eosinophils Percent Auto 11.2 % (2-4); Hematocrit 26.2 % (36-46); Hemoglobin 8.9 g/dL (12.0-16.0); Lymphocytes Absolute Auto 400 /uL (1100-4500); Lymphocytes Percent Auto 4.3 % (25-40); Mean Corpuscular Volume 85.5 fL (80-100); Monocytes Absolute Auto 600 /uL (0-900); Monocytes Percent Auto 6.7 % (3-14); Neutrophils Absolute Auto 7400 /uL (1500-7000); Neutrophils Percent Auto 76.6 % (50-75); Platelet Count 434 X10^3/uL (150-400); Red Blood Cell Count 3.06 X10^6/uL (4.0-5.2); Red Cell Distribution Width 15.3 % (11.6-14.8); White Blood Cell Count 9.6 X10^3/uL (4.5-11.0)
[2023-03-22 06:31] LABS: BUN Creatinine Ratio 17.5 (6-22); Blood Urea Nitrogen 10 mg/dL (7-17); Calcium 7.6 mg/dL (8.4-10.2); Carbon Dioxide 25 mmol/L (22-32); Chloride 105 mmol/L (98-107); Estimated Glomerular Filt Rate > 60 mL/min (>60); Glucose 75 mg/dL (80-110); HEMOLYSIS < 15 (0-50); Magnesium 1.4 mg/dL (1.6-2.3); Potassium 3.5 mmol/L (3.4-5.1); Sodium 132 mmol/L (137-145)
[2023-03-22] MEDS: SPIRONOLACTONE 25 MG TABLET PO ×2 (08:47→17:53)
[2023-03-22] MEDS: MAGNESIUM SULFATE 2 GM/50 ML PIGGYBACK IV (08:48)
[2023-03-22] MEDS: ENOXAPARIN 40 MG/0.4 ML SYRINGE SUBCUT (08:48)
--- NOTE | 2023-03-22 09:33 | PC.NURSE ---
Addendum entered by Ilene March R.N. 03/22/23 14:22: Patient back from procedure. She voided 200cc and had a small incontinent bowel movement. Original Note: Patient is non compliant with her diet and states that she will not eat things like apple sauce, honey thickened, juice, or water. She states that all she will do is her [employer] drink that her sister brings her, she will not allow us to thicken the drink. Although....patient is able to swallow pills whole and she tolerates the starbucks well. Patient usually has tube feeds. She has a new peg tube to her l.quadrant that was placed recently. She states that she has some abdominal pain, given 15mg of iv toradol and helpful. Patient has her own straws from her home that she is using, as ours are to big for her. She refuses our honey thick drinks because she sais they are too much. Patient is thin, fragile, and looks to be malnourished. 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 Her speech is hard to understand, so she sometimes will write on a piece of paper. 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 Mireya has a small open spot between her gluteal fold that is open, cream applied. Mouth care done, patient is agreeable to things that we need to do such as mouth care, and she was repositioned to her left side to get her off back side. Resting now comfortably.
--- NOTE | 2023-03-22 11:45 | DI.RAD.S_ITS ---
PROCEDURE: FL CATHETER PATENCY COMPARISON: None. INDICATIONS: G TUBE PATENCY TECHNIQUE: 120 cc of Gastrografin was injected through the under fluoroscopic guidance. The catheter was then flushed with 40 cc of water. FINDINGS: Contrast is seen filling the stomach, duodenum and proximal small bowel. No evidence of extraluminal contrast is identified. IMPRESSION: No evidence of leak from the gastrostomy tube. Contrast is seen filling the stomach, duodenum and proximal small bowel. Dictated by: Chong Maher M.D. on 03/22/2023 at 14:31 Approved by: Chong Maher M.D. on 03/22/2023 at 14:37
--- NOTE | 2023-03-22 11:57 | CM.DPC ---
DCP Cont: Per MD, plan is to resume pt's home tube feeding to see if she can tolerate and see if further imaging needed to r/o enteritis. MD requests assist with getting home tf formulary from home infusion company. Per RN, pt has been a 1PA with ambulation to the bathroom and could benefit from PT eval and new PT orders placed to confirm safe for home with 84 yo sister Sandi. [employer] called [facility] Jer for tube feeding regimen and Jer states they went to the house to open pt to service for tube feeds and [facility] staff already in the home opening pt to service therefore [facility] not following/managing pt. SW called pt's sister/CG who confirms that [facility] metalsmith apprentice Jada [phone] had done teaching at home and provided tube feeding supplies. Sister also confirms she feels SNF needed at d/c and has spoken to the pt who is in agreement with SNF before returning home. Preference remains [facility] due to location but agreeable with referrals to other [place] SNFs if needed. [facility] called [facility] metalsmith apprentice Jada and she confirms she met in the home the other day with pt and sister and was not aware pt was admitted but faxed pt's current tube feed orders for Hospitalist to review to place orders to resume home tube feeds and Jada requests Resume Home tube feeds with gravity at discharge be faxed to [phone] and just update her at d/c. TRINA Boogie kindly provided the faxed tube feed orders to Hospitalist to review towards resuming tube feeds today. SW called [facility] and made new referral and they will review to determine if they can meet her needs. No further SNF referrals made yet at this time. PASRR needed if SNF. Plan: SW to follow closely for PT eval to confirm SNF vs Home with [facility] and HH pending progress and [facility] review to determine if they can accept at d/c. LIA Moreira
--- NOTE | 2023-03-22 13:28 | P.PN_ITS ---
Subjective Subjective Interval history: 77 F admitted with abdominal pain and possible enteritis. But gastic smelling / vomit smelling secretions coming from around her PEG site. Her pain is improved since admission. Ordered gastrograffin study to assess PEG site for possible leak. If positive will need discussion with surgery. Exam Vital Signs (past 8 hours): - 03/22/23 08:00 03/22/23 11:51 03/22/23 11:52 Temperature 98.7 F 97.6 F Pulse Rate 91 H 95 H Respiratory Rate 22 21 Blood Pressure 102/61 88/61 L 95/53 L Pulse Oximetry 96 96 Oxygen Flow Rate 0 0 Oxygen Delivery Method Room Air Oxygen Flow Rate 0 Narrative Exam Narrative: General:? elerly female, chronically malnourished, in no acute distress. HEENT:? s/p mandibular resection with chronic dysarthria and facial asymmetry Chest:?no tachypnea, equal chest rise bilaterally. Lungs:? CTA b/l no wheezing rhonchi or rales. Cardio:?RRR no m/r/g. Abdomen: soft, mild tenderness around PEG site, non-distended. Foul smelling secretions coming from PEG site (through abdominal wall). Extremities: No edema or joint effusions. No cyanosis or clubbing. Skin:? Pale,? Warm to touch,dry and intact without rashes, ulcerations or petechiae.? Neuro:? Alert and orientated x3,? sensation to touch intact in all extremities, no gross deficits noted of cranial nerves. Psych:? Patient has a well-kept appearance, appropriate affect, mental status attitude thought context and judgment are appropriate for age. Objective Labs 03/22/23 05:50 03/22/23 05:50 Labs: Laboratory Results - last 24 hr 03/22/23 03/22/23 05:50 05:50 WBC 9.6 RBC 3.06 L Hgb 8.9 L Hct 26.2 L MCV 85.5 MCH 29.0 MCHC 34.0 RDW 15.3 H Plt Count 434 H Neut % (Auto) 76.6 H Lymph % (Auto) 4.3 L [place] % (Auto) 6.7 Eos % (Auto) 11.2 H Baso % (Auto) 1.2 Neut # (Auto) 7400 H Lymph # (Auto) 400 L [place] # (Auto) 600 Eos # (Auto) 1100 H Baso # (Auto) 100 Sodium 132 L Potassium 3.5 Chloride 105 Carbon Dioxide 25 BUN 10 Creatinine 0.57 Estimated GFR > 60 BUN/Creatinine Ratio 17.5 Glucose 75 L Calcium 7.6 L Magnesium 1.4 L PFSH Medical History (Updated 03/21/23 @ 03:30 by Trung Morrow MD) Acute hyponatremia Allergies Anxiety Benign essential tremor 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 Admitted for possible enteritis based on admiss ion CT, possible PEG leak pending tube study today. 1. Enteritis, possible leaking PEG tube - loops filled with fluid with possible small amount of reactive ascites. unclear if this is infectious / reactive in etiology or possible PEG tube complication as you cannot tell difinitively based on CT imaging if there is an issue with PEG tube. - continue on Zosyn for now - Hold bolus tube feedings for now with development of foul smelling fluid from PEG site. Okay to resume tube feedings if no leak found on tube study today. - nutrition consulted for tube feeds if able to resume. at home she takes 4 cans per day of isosource 1.5. 2. 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 Hyponatremia / Dehydration - poor oral intake in the past few days - NS - monitored lytes and fluid status 4. Anxiety - Ativan prn 5. Hypomagnesemia - replete with IV mag today. Code: Full, surrogate is patient's sister DVT: Lovenox Dispo: inpatient, dispo pending above tube study but may need SNF if mobility l imited. PT has been consulted
--- NOTE | 2023-03-22 14:33 | PT-IP ANOTE ---
Received PT orders and completed chart review. Attempted to meet w/ pt who had just returned from gastrograffin study and was too fatigued to participate w/ PT. Pt was informed that PT will be back to check in on her tomorrow. Pt notes that she has a terrible fear of falling.
[2023-03-22] MEDS: OXYCODONE IR 5 MG TABLET TUBE (15:02)
--- NOTE | 2023-03-22 15:16 | DIET.CONS ---
Dietary Consultation Note Admission Date: 03/21/2023 00:11 Assessment: 77y F with hx head/neck cancer s/p resection admitted for abdominal pain with bolus enteral nutrition administration referred to nutrition for the same. Pt UBW 59.5kg in 2019. In December 2022 pt 45.3kg but 10% unintentional weight loss in 2 mo (severe) to current 40.8kg at 15.9 BMI (severe). Pt got PEG placed at [facility] last week and started home infusions over this weekend. Pt started having px with gravity feeds and was admitted for f/u. At home pt taking ISOSOURCE 1.5 four cans daily fed via gravity through PEG tube with 700-800mL free water through tube or PO over 24h. does not carry [employer] formulary, providing Pivot 1.5 in substitution. Per nursing, pt not compliant with diet of Dysphagia Puree and Honey liquids. Pt reports drinking unthickened [employer] daily. Pt at high risk aspiration pneumonia because of this. Ht: 160.02 cm Wt: 40.823 kg BMI: 15.9 (severe) UBW: 59.5kg Last BM: 03/22/23 (03/22/23 14:28) MNA: 6 Humberto Score: 17 Diet: 03/21/23 Dinner Dysphagia Diet Diet Modifications: Liquid consistency: Honey Consistency Food texture: Dysphagia Pureed 03/22/23 Dinner Tube Feeding Diet Diet Modifications: TF Supplement type: Pivot 1.5 TF mode of delivery: Bolus Starting flow rate mL/hr: 237mL Flow rate goal mL/hr: Titration Schedule to reach Goal Rate: n/a bolus feeds Max total daily volume in mL: 2,000 Free fluid: 250 Free Water Frequency: Q8H Nutrition Percent Meal Consumed [employer] 03/22/23 13:27 Percent Meal Consumed 0% 03/22/23 08:46 Labs: RBC 3.06 X10^6/uL (4.0-5.2) L 03/22/23 05:50 Hgb 8.9 g/dL (12.0-16.0) L 03/22/23 05:50 Hct 26.2 % (36-46) L 03/22/23 05:50 Creatinine 0.57 mg/dL (0.52-1.04) 03/22/23 05:50 Nutrition Diagnosis: Severe Acute Protein Calorie Malnutrition r/t difficulty eating aeb pt with 10% unintentional weight loss in 2mo (severe), BMI 15.9 (severe), pt s/p PEG placement with hx head and neck cancer c resection. Interventions: 1. Trialing TF for tolerance in hospital. If pt not tolerating full can plus flushes, ok to separate for less volume. Bolus Pivot 1.5, one full can four times daily at 0800, 1200, 1500 and 1900. Include 250mL free water flush (through PEG or via PO) q8h. EER: 1500kcals Monitoring/Evaluations: TF tolerance Electronically Signed by: Michelle Bahena 03/22/23 15:16 Clinical Dietitian [address] [address]
[2023-03-22] MEDS: ACETAMINOPHEN SUSP 650 MG/20.3 ML UDC PO ×2 (16:26→21:17)
[2023-03-22] MEDS: HYDROMORPHONE 1 MG INJ IV ×3 (16:58→23:20)
[2023-03-22] MEDS: OXYCODONE IR 5 MG TABLET 10 MG TUBE ×2 (17:53→21:17)
[2023-03-23] VITALS: BP 108/61; PULSE 84; RESP 18; TEMP 36.4; O2SAT 98
[2023-03-23] MEDS: OXYCODONE IR 5 MG TABLET 10 MG TUBE ×6 (00:35→21:56)
[2023-03-23] MEDS: PIPERACILLIN/TAZO 3.375 GM in SODIUM CHLORIDE 0.9% 100 ML IV ×3 (01:19→17:48)
[2023-03-23] MEDS: KETOROLAC 30 MG/ML VIAL 15 MG IV ×4 (01:23→21:55)
[2023-03-23 03:53] VITALS: BP 111/54; PULSE 94; RESP 18; TEMP 36.5; O2SAT 96
[2023-03-23 06:20] LABS: Add Manual Diff / Slide Review NO; Basophils Absolute Auto 0 /uL (0-100); Basophils Percent Auto 0.2 % (0-2); Eosinophils Absolute Auto 600 /uL (0-450); Eosinophils Percent Auto 5.5 % (2-4); Hematocrit 32.4 % (36-46); Hemoglobin 10.9 g/dL (12.0-16.0); Lymphocytes Absolute Auto 200 /uL (1100-4500); Lymphocytes Percent Auto 2.2 % (25-40); Mean Corpuscular HGB Conc 33.7 % (30-36); Mean Corpuscular Volume 85.9 fL (80-100); Monocytes Absolute Auto 200 /uL (0-900); Monocytes Percent Auto 2.4 % (3-14); Neutrophils Absolute Auto 9300 /uL (1500-7000); Neutrophils Percent Auto 89.7 % (50-75); Platelet Count 549 X10^3/uL (150-400); Red Blood Cell Count 3.78 X10^6/uL (4.0-5.2); Red Cell Distribution Width 15.5 % (11.6-14.8); White Blood Cell Count 10.4 X10^3/uL (4.5-11.0)
[2023-03-23 06:33] LABS: BUN Creatinine Ratio 30.4 (6-22); Blood Urea Nitrogen 17 mg/dL (7-17); Calcium 8.2 mg/dL (8.4-10.2); Carbon Dioxide 24 mmol/L (22-32); Chloride 108 mmol/L (98-107); Estimated Glomerular Filt Rate > 60 mL/min (>60); Glucose 73 mg/dL (80-110); HEMOLYSIS 24 (0-50); Magnesium 1.9 mg/dL (1.6-2.3); Potassium 3.9 mmol/L (3.4-5.1); Sodium 136 mmol/L (137-145)
[2023-03-23 08:00] VITALS: BP 104/62; PULSE 64; TEMP 36.7
--- NOTE | 2023-03-23 08:05 | PM.PN.1 ---
Subjective Subjective Interval history: Patient's abdominal pain has improved slightly today. Had diarrhea overnight but no sample collected due to it being mixed with urine. She says she is having trouble swallowing liquids and would be open to working with speech. Exam Vital Signs (past 8 hours): - 03/23/23 03:53 Temperature 97.7 F Pulse Rate 94 H Respiratory Rate 18 Blood Pressure 111/54 L Pulse Oximetry 96 Oxygen Flow Rate 0 Oxygen Delivery Method Room Air Oxygen Flow Rate 0 Narrative Exam Narrative: General:? elerly female, chronically malnourished, in no acute distress. HEENT:? s/p mandibular resection with chronic dysarthria and facial asymmetry Chest:?no tachypnea, equal chest rise bilaterally. Lungs:? CTA b/l no wheezing rhonchi or rales. Cardio:?RRR no m/r/g. Abdomen: soft, mild tenderness around PEG site, non-distended. Extremities: No edema or joint effusions. No cyanosis or clubbing. Skin:? Pale,? Warm to touch,dry and intact without rashes, ulcerations or petechiae.? Neuro:? Alert and orientated x3,? sensation to touch intact in all extremities, no gross deficits noted of cranial nerves. Psych:? Patient has a well-kept appearance, appropriate affect, mental status attitude thought context and judgment are appropriate for age. Objective Labs 03/23/23 05:45 03/23/23 05:45 Labs: Laboratory Results - last 24 hr 03/23/23 03/23/23 05:45 05:45 WBC 10.4 RBC 3.78 L Hgb 10.9 L Hct 32.4 L MCV 85.9 MCH 29.0 MCHC 33.7 RDW 15.5 H Plt Count 549 H Neut % (Auto) 89.7 H Lymph % (Auto) 2.2 L [place] % (Auto) 2.4 L Eos % (Auto) 5.5 H Baso % (Auto) 0.2 Neut # (Auto) 9300 H Lymph # (Auto) 200 L [place] # (Auto) 200 Eos # (Auto) 600 H Baso # (Auto) 0 Sodium 136 L Potassium 3.9 Chloride 108 H Carbon Dioxide 24 BUN 17 Creatinine 0.56 Estimated GFR > 60 BUN/Creatinine Ratio 30.4 H Glucose 73 L Calcium 8.2 L Magnesium 1.9 [facility] Medical History (Updated 03/21/23 @ 03:30 by Trung Morrow MD) Acute hyponatremia Allergies Anxiety Benign essential tremor 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 Enteritis, possible leaking PEG tube ruled out - loops filled with fluid with possible small amount of reactive ascites. unclear if this is infectious / reactive in etiology or possible PEG tube complication as you cannot tell difinitively based on CT imaging if there is an issue with PEG tube. - continue on Zosyn for now - no leak found on gastrografin study, tube feeds resumed - nutrition consulted for tube feeds. at home she takes 4 cans per day of isosource 1.5. - obtain stool PCR if able 2. 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 Hyponatremia / Dehydration, improving - poor oral intake in the past few days - NS - monitored lytes and fluid status 4. Anxiety - Ativan prn 5. Hypomagnesemia, resolved - repleted with IV mag 6. Dysphagia -patient says swallowing liquids has been intermittently difficult -speech eval ordered Code: Full, surrogate is patient's sister DVT: Lovenox Dispo: Pending PT eval for possible SNF.
[2023-03-23] MEDS: ENOXAPARIN 40 MG/0.4 ML SYRINGE SUBCUT (08:38)
[2023-03-23] MEDS: SPIRONOLACTONE 25 MG TABLET PO ×2 (08:39→18:29)
[2023-03-23] MEDS: LORazepam 1 MG TABLET PO ×2 (08:39→21:56)
--- NOTE | 2023-03-23 12:14 | PT-IP ANOTE ---
PT stacie received and EMR reviewed. checked on pt and refused PT. stated that she has a lot this morning with her feeding tube and diarrhea and does not want to do PT. informed pt that PT will checked again this afternoon but refused. Stated to check on her tomorrow.
[2023-03-23] MEDS: SODIUM CHLORIDE 0.9% 1,000 ML 100 ML IV ×2 (12:30→22:31)
--- NOTE | 2023-03-23 14:46 | CM.DPC ---
DCP SNF Planning: Per MD, pt starting on her tube feeding and to work with PT to determine discharge plan and per ARSON INVESTIGATOR recommending pt can do thin liquids and no further need of Inpt ARSON INVESTIGATOR at this time. Per PT, pt declined eval today due to fatigue and lack of sleep for morning and afternoon attempt. SW spoke to [facility] admissions and they feel they can likely meet pt's needs but need to confirm pt will work with PT so that she will be skillable under Medicare. SW met bedside with pt and sister Sandi and explained role and pt confirms her preference is going to [facility] at d/c and SW explained that pt needs to show that she can work with PT at least even a little bit to be accepted at SNF and pt confirms she would be agreeable with working with PT to get to SNF. Sister confirms that she does not have concerns with pt discharging back home after SNF and managing her enteral feeding with [facility]. SW left [facility] for PT requesting attempt at eval with pt again this afternoon towards acceptance at SNF. SW updated [facility] admissions and they will order pt's home enteral feeding supplies and will await PT eval to confirm pt will be skillable for SNF. PASRR completed. Plan: SW to follow for PT eval to confirm [facility] can accept when medically stable before safe d/c home with sister and [facility]. SW to keep [facility] on d/c plan. LIA Moreira
[2023-03-23 16:00] VITALS: BP 113/68; PULSE 100; RESP 17; TEMP 36.3; O2SAT 97
--- NOTE | 2023-03-23 16:05 | ST.IPCSEOM ---
Visit Care Team Role Provider Type Christin Santos RN Primary Care Provider Non-Staff Specialty: Family Practice Address: [address] [place] [address], [id number] Email: Franklin De Anda DO Emergency Provider Physician Referring Provider Specialty: Emergency Medicine Address: [address] [place] [address], [facility] Email: [email or web address] Trung Morrow MD Admit Provider Physician Attending Provider Specialty: Internal Medicine Address: [address] [place] [address], [facility] Fax: Email: Current Diagnoses Unspecified severe protein-calorie malnutrition (03/21/23) Dehydration (03/21/23) Hypo-osmolality and hyponatremia (03/21/23) Noninfective gastroenteritis and colitis, unspecified (03/21/23) Past Medical History (Last Updated 03/21/23 @ 03:30 by Trung Morrow MD) Acute hyponatremia (Medical) Allergies (Medical) Anxiety (Medical) Benign essential tremor (Medical) Buccal mucosa squamous cell carcinoma (Medical) Chronic pruritus (Medical) Dermatitis (Medical) Diverticulosis (Medical) Eczema (Medical) Elevated glucose level (Medical) Generalized abdominal pain (Medical) Hypercalcemia (Medical) Insomnia (Medical) Nicotine dependence (Medical) Peripheral neuropathy (Medical) Right arm pain (Medical) Seizures (Medical) Weakness (Medical) Speech-Language Pathology Swallow Evaluation POST PARTUM NURSE Clinical Swallow Evaluation Start: 03/23/23 13:11 Freq: Status: Active Protocol: Document 03/23/23 13:11 CG (Rec: 03/23/23 13:41 CG [id number]) Clinical Swallow Evaluation Session Time Visit Start Time 12:10 Visit Stop Time 13:10 Total Visit Minutes 60 Visit Information Visit Number 1 Referral Referring Provider [facility] Reason for Referral Dysphagia Setting Assessment Location Acute Care Visit Type Note Type Initial evaluation Patient Information Identification Type Name History Per H&P: 77-year-old woman with a history of squamous cell carcinoma of head and neck, s/p right mandible and oral resection 4 years ago, [facility], followed by severe dysarthria and dysphagia. Over the course of last ~ 5 years she had difficulties tolerating tube feedings, apparently due to underlying Irritable BS. She was using PEG that was subsequently discontinued. In the process she lost weight and became severely malnourished so she had a new PEG placed few days ago. Presented to ED with lower abdominal pain. Images showing functional PEG in place, some air from recent placement and likely enteritis . Subjective Observations Pt was reclined in bed upon ST entry to room with friend present at bedside. Pt also had thickened liquids present on her tray in addition to [employer] drink provided by sister, which was not thickened. Reported by Patient/Caregiver Pain/Discomfort No Other Symptoms Difficulty swallowing liquids, Difficulty swallowing solids, Weight loss Comment Pt states she has difficulty creating a labial seal around a straw for PO intake. Due to hx head/neck cancer and mandibular/oral resection, she has severely impaired oral motor control. She states the only drink she is able to tolerate is [employer] drinks and water. She states that her diet order was changed to thickened liquids because she told the doctor by mistake that she drank thickened liquids. Current Diet Liquidised (IDDSI 3),Pureed ( IDDSI 4) Baseline Feeding Method Needs some assistance The IDDSI Framework Protocol: IDDSI.1 Objective Assessment Mental Status Alert,Responsive Oral Integrity Oral residue,Xerostomia/Dry mouth Dentition Missing teeth Lip Function Severe impairment Tongue Function Severe impairment Tongue Protrusion Reduced range of motion, Reduced strength Tongue Retraction Reduced range of motion, Reduced strength Tongue Lateralization Reduced range of motion, Reduced strength Jaw Function Severe impairment Jaw Opening Reduced range of motion, Reduced strength Jaw Closing Reduced range of motion, Reduced strength Nasality Hypernasal Respiratory Sufficiency Within normal limits Comment Pt presents with severely impaired oral motor structure and function. She is only able to open her mandible about 1 inch. The pt presented with significant residue along her teeth and lips before POST PARTUM NURSE provided oral care. Pt's vocal quality is hyponasal and she is unable to create most plosive sounds, which decreases her intelligibility. Pt can move her tongue anteriorly just between her front teeth, but is unable to move her tongue out of her mouth. She can move it laterally between her molars, but cannot protrude and lateralize her tongue. She is unable to create a labial seal but has some limited motion on the left side of her mouth, which she uses to create suction to drink through a straw. The inside of the oral cavity was unable to be thoroughly assessed due to limited jaw opening. Food and Liquid Trials Position During Assessment Upright (90 degrees) Liquids Trialed Thin (IDDSI 0) Administration Type Tea spoon,Straw Oral Impairment Profoundly impaired Oral Phase Comments Pt presents with severely impaired oral motor function. She is unable to create a complete labial seal around spoon or straw, though she creates a partial seal with a straw on the left side of her mouth. Limited lingual movement is observed. She is unable to open her mandible past one inch to accept a spoon or a solid bolus. Pharyngeal Impairment Moderately impaired Pharyngeal Phase Comments Pt presented with s/sx penetration during trials of thin liquid via straw sips, including wet vocal quality and mild throat clearing. This is consistent with most recent MBS, which indicated evidence of penetration. During trials of PO meds with straw sips thin, the pt presented with s/sx aspiration including coughing after the swallow. Based on these s/sx, meds are not recommended PO. Based on palpation, laryngeal excursion and elevation is extremely diminished. However, pt did not demonstrate aspiration on most recent MBS, and has been consuming a diet of thin liquids for approximately 5 years. She does not endorse any history of pneumonia. Fatigue/Endurance Endurance WNL The IDDSI Framework Protocol: IDDSI.1 Findings Swallowing Function Oropharyngeal phase dysphagia Swallowing Function Comments Severely impaied oral phase.S/ sx laryngeal penetration without aspiration. Severity of Swallow Impairment Moderately impaired Contributing Factors to Swallow Reduced oral strength/ Impairment coordination/sensation, Impaired oral-pharyngeal transport,Reduced laryngeal excursion,Impaired airway protection Prognosis Guarded Based on Comorbidities,Duration of symptoms/severity Comment Based on pt's hx of head and neck cancer, significant weight loss due to inadequate oral intake, and difficulty tolerating tube feeds, pt's prognosis is guarded. Prognosis is highly dependent upon tolerance of alternative nutrition and adherance to recommendations to reduce risk of aspiration. Pt's medical and surgical history continue to put her at risk of aspiration despite aspiration not observed on most recent MBSS. Impact on Safety and Functioning Risk for aspiration Recommendations Instrumental Assessment No Swallowing Treatment Yes Frequency daily while inpatient Duration through hospital stay Recommended Liquids Thin (IDDSI 0) Other Recommendations Based on most recent MBS and hx of tolerance of thin liquids, recommend continue with thin liquids as tolerated . Silent aspiration cannot be ruled out without another instrumental assessmend; however, pt is not physically able to participate in an MBSS at this time. POST PARTUM NURSE further recommends: 1. Pt should be seated upright 90 degrees for all intake 2. Discontinue PO intake for 1 minute if pt begins coughing 3. Monitor for wet vocal quality. Clear throat and re- swallow if vocal quality is wet. 4. Provide medications via PEG . 5. Maintain strict oral care to decrease bacterial load in oral cavity. Safety Precautions/Swallowing Upright position at least 30 Recommendations minutes after meals,Small bites and sips when eating, Strict oral care after intake Medication Recommendations Not Recommended by Mouth Discharge Recommendations snf facility Education Patient/Caregiver Education Described results of evaluation,Patient expressed understanding of evaluation, Patient expressed agreement with goals & treatment plans, Patient expressed understanding of safety precautions,Patient expressed understanding of feeding recommendations,Patient requires further education/ training Goals Short-term Goals Pt will tolerate current diet of thin liquids without overt s/sx aspiration in order to decrease risk of pnuemonia. Pt will demonstrate compliance with safe swallowing strategies as prescribed including maintaining strict oral care while inpatient.
--- NOTE | 2023-03-23 16:54 | DI.CT.S_ITS ---
PROCEDURE: CT ABDOMEN PELVIS W CON INDICATIONS: leaking TF, free air in abdomen TECHNIQUE: After the administration of oral and intravenous contrast, axial sections were acquired from the lung bases to the pubic symphysis. Coronal and sagittal reformats were performed. For radiation dose reduction, the following was used: automated exposure control, adjustment of mA and/or kV according to patient size. COMPARISON:[facility], CT, CT ABDOMEN PELVIS W CON, 03/20/2023, 18:05. FINDINGS: Lung bases: Small bilateral pleural effusions. ABDOMEN: Liver: Scattered hepatic hypodensities redemonstrated, no significant short interval change. Gallbladder: Unremarkable. Biliary ducts: Unremarkable. Pancreas: Unremarkable. Spleen: No splenomegaly Adrenal Glands: Similar low-density thickening both adrenal glands Kidneys and Ureters: No hydronephrosis. Stomach and Bowel: A percutaneous gastrostomy tube is present. The retention balloon appears to be within the gastric antrum positive enteric contrast has been administered for the exam and is visualized to the level of the rectum. No definitive or obvious extraluminal leak oral contrast is identified. Probable sigmoid colon lipoma (series 2, image 62). Possible circumferential wall thickening of the sigmoid colon (series 2, image 63). No evidence of mechanical small bowel obstruction. Sigmoid predominant colonic diverticulosis without definite evidence of acute diverticulitis Peritoneum: Small amount of pneumoperitoneum present, decreased since the prior CT. Ventral Wall: Soft tissue gas present within the soft tissues of the ventral abdominal wall, similar to slightly decreased Vessels: Aorta and inferior vena cava are normal in size. PELVIS: Bladder: Small diverticulum present. Pelvic Nodes: No enlarged lymph nodes. Bones: Multilevel degenerative change of the visualized spine. IMPRESSION: 1. Interval decrease in pneumoperitoneum, nonspecific, correlation with recent surgical history may be helpful. Perforated viscus not excludable. No obvious leak of administered oral contrast is identified. 2. Possible circumferential wall thickening of the sigmoid colon versus artifact from underdistention. Differential considerations would include sequela of acute and/or chronic diverticulitis, colonic neoplasm, or artifact. Correlation with patient's symptoms and recent future colonoscopy may be helpful. 3. Small bilateral pleural effusions. 4. Other findings as above. Dictated by: Ernie Archuleta M.D. on 03/23/2023 at 17:46 Approved by: Ernie Archuleta M.D. on 03/23/2023 at 18:03
--- NOTE | 2023-03-23 17:59 | DIET.CONS2 ---
Dietary Inpatient Consultation Note Admission Date: 03/21/2023 00:11 Contacted by hospitalist Genesis regarding what appears to be TF formula leaking from around PEG stoma. Surgery to assess in am. Per surgery pt okay for trickle feed either overnight or starting in morning. Bolus feeds to be stopped this evening until assessed by surgery. Order changed to reflect this. Diet: 03/21/23 Dinner Dysphagia Diet Diet Modifications: Liquid consistency: Normal/Thin Food texture: Dysphagia Pureed 03/24/23 Breakfast Tube Feeding Diet Diet Modifications: TF Supplement type: Pivot 1.5 TF mode of delivery: Continuous Starting flow rate mL/hr: 10 Flow rate goal mL/hr: 10 Titration Schedule to reach Goal Rate: no Max total daily volume in mL: 1,000 Free fluid: 250 Free Water Frequency: Q8H Nutrition Percent Meal Consumed Dominik 03/22/23 13:27 Percent Meal Consumed 0% 03/22/23 08:46 Type of Feeding Tube PEG 03/23/23 05:34 Type of Feeding Tube PEG 03/22/23 16:49 Electronically Signed by: Michelle Bahena 03/23/23 18:00 Clinical Dietitian [address] [address]
[2023-03-23 20:00] VITALS: BP 106/65; PULSE 95; RESP 18; TEMP 36.6; O2SAT 94
[2023-03-24] VITALS (7 sets, daily range): BP systolic 100–139; BP diastolic 54–88; PULSE 74–103; RESP 16–18; TEMP 36.1–37.3; O2SAT 92–99
[2023-03-24] MEDS: KETOROLAC 30 MG/ML VIAL 15 MG IV ×4 (02:22→21:30)
[2023-03-24] MEDS: PIPERACILLIN/TAZO 3.375 GM in SODIUM CHLORIDE 0.9% 100 ML IV ×3 (02:22→18:08)
[2023-03-24 06:36] LABS: Add Manual Diff / Slide Review NO; Basophils Absolute Auto 0 /uL (0-100); Basophils Percent Auto 0.5 % (0-2); Eosinophils Absolute Auto 800 /uL (0-450); Eosinophils Percent Auto 8.4 % (2-4); Hematocrit 30.8 % (36-46); Hemoglobin 10.2 g/dL (12.0-16.0); Lymphocytes Absolute Auto 400 /uL (1100-4500); Lymphocytes Percent Auto 4.1 % (25-40); Mean Corpuscular HGB Conc 33.1 % (30-36); Mean Corpuscular Hemoglobin 28.8 PG (26-34); Mean Corpuscular Volume 87.1 fL (80-100); Monocytes Absolute Auto 900 /uL (0-900); Monocytes Percent Auto 10.2 % (3-14); Neutrophils Absolute Auto 6800 /uL (1500-7000); Neutrophils Percent Auto 76.8 % (50-75); Platelet Count 453 X10^3/uL (150-400); Red Blood Cell Count 3.54 X10^6/uL (4.0-5.2); Red Cell Distribution Width 16.1 % (11.6-14.8); White Blood Cell Count 8.9 X10^3/uL (4.5-11.0)
[2023-03-24 06:44] LABS: BUN Creatinine Ratio 32.7 (6-22); Blood Urea Nitrogen 16 mg/dL (7-17); Calcium 7.7 mg/dL (8.4-10.2); Carbon Dioxide 21 mmol/L (22-32); Chloride 111 mmol/L (98-107); Estimated Glomerular Filt Rate > 60 mL/min (>60); Glucose 63 mg/dL (80-110); HEMOLYSIS 26 (0-50); Magnesium 1.8 mg/dL (1.6-2.3); Potassium 3.4 mmol/L (3.4-5.1); Sodium 136 mmol/L (137-145)
[2023-03-24] MEDS: OXYCODONE IR 5 MG TABLET 10 MG TUBE ×5 (08:35→21:31)
[2023-03-24] MEDS: LORazepam 1 MG TABLET PO ×2 (08:35→21:31)
[2023-03-24] MEDS: ENOXAPARIN 40 MG/0.4 ML SYRINGE SUBCUT (08:35)
--- NOTE | 2023-03-24 09:59 | PM.CN ---
History of Present Illness Consult details Date Patient Seen: 03/24/23 Time Patient Seen: 09:59 Chief complaint: Abdominal Pain Reason for consult: Abdominal pain and abnormal imaging Narrative: The patient is a 77-year-old woman who had a percutaneous endoscopic gastrostomy tube placed 8 days ago at [facility] for malnutrition. 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 She is difficulty with swallowing and she was malnourished. She presented to [facility] a proximally 3 days ago complaining of abdominal pain. Initially a CT scan was performed which showed some free air and subcutaneous air along with questionable ?enteritis?. Upon admission it was noted that she was leaking significant gastric contents around the tube to her skin. She has had bowel function including loose bowel movements since admission. She would a tube study which showed no evidence of contrast extravasation and she had a second CT scan last night which also showed no evidence of contrast extravasation. Last night the tube feeds were decreased to trickle feeds and her symptoms have improved. She reports that last night was the first night she got some sleep in a long time. Meds Home Medications and Allergies Home Medications Medication Instructions Recorded Confirmed Type hydroxyzine HCl 10 mg tablet 10 mg PO BEDTIME 04/23/20 03/21/23 History lidocaine HCl 2 % mucosal jelly 1 applictn topical BID PRN PAIN 04/23/20 03/21/23 History spironolactone 25 mg tablet 25 mg PO BID 04/23/20 03/21/23 History acetaminophen 325 mg capsule 325 mg PO ONCE PRN PAIN 01/29/23 03/21/23 History (Tylenol) dicyclomine 20 mg tablet 01/29/23 03/21/23 History penicillin V potassium 500 mg 500 mg PO TID 01/29/23 03/21/23 History tablet prochlorperazine maleate 10 mg 10 mg PO Q6H PRN NAUSEA 01/29/23 03/21/23 History tablet triamcinolone acetonide 0.025 % 1 applic topical DAILY 01/29/23 03/21/23 History topical cream lorazepam 1 mg tablet 1 mg 1-2XD PRN Anxiety 03/21/23 03/21/23 History Allergies Allergy/AdvReac Type Severity Reaction Status Date / Time adhesive Allergy Rash Verified 03/20/23 16:25 Exam Vital Signs (past 8 hours): - 03/24/23 04:00 03/24/23 08:00 Temperature 97.0 F L 97.3 F L Pulse Rate 83 96 H Respiratory Rate 18 16 Blood Pressure 113/62 117/62 Pulse Oximetry 94 98 Oxygen Flow Rate 0 0 Oxygen Delivery Method Room Air Oxygen Flow Rate 0 Narrative Exam Narrative: There is leakage of gastric contents around the tube to the skin with a towel in place to soak up the gastric contents Abdomen is soft with no evidence of peritonitis Objective Labs 03/24/23 06:10 03/24/23 06:10 Labs: Laboratory Results - last 24 hr 03/24/23 03/24/23 06:10 06:10 WBC 8.9 RBC 3.54 L Hgb 10.2 L Hct 30.8 L MCV 87.1 MCH 28.8 MCHC 33.1 RDW 16.1 H Plt Count 453 H Neut % (Auto) 76.8 H Lymph % (Auto) 4.1 L [place] % (Auto) 10.2 Eos % (Auto) 8.4 H Baso % (Auto) 0.5 Neut # (Auto) 6800 Lymph # (Auto) 400 L [place] # (Auto) 900 Eos # (Auto) 800 H Baso # (Auto) 0 Sodium 136 L Potassium 3.4 Chloride 111 H Carbon Dioxide 21 L BUN 16 Creatinine 0.49 L Estimated GFR > 60 BUN/Creatinine Ratio 32.7 H Glucose 63 L Calcium 7.7 L Magnesium 1.8 PFSH Medical History (Updated 03/21/23 @ 03:30 by Trung Morrow MD) Acute hyponatremia Allergies Anxiety Benign essential tremor 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 Dermatitis Diverticulosis Eczema Elevated glucose level Generalized abdominal pain Hypercalcemia Insomnia Nicotine dependence Peripheral neuropathy Right arm pain Seizures Weakness Family History Father Prostate cancer Deaf Mother Arthritis Social History household members: family Tobacco & Substance Use Smoking Status: Former smoker alcohol intake: former Assessment & Plan Assessment and plan (1) Severe protein-calorie malnutrition: Status: Acute Plan Although it is important to maximize her nutritional input given her severe calorie malnutrition she may need to start at a slower rate initially. I recommend gradually increasing her tube feed rate until she becomes symptomatic and then backing off again. I also would recommend minimizing narcotic use since narcotics will slow her bowel function. She may also need help with skin care if she continues to leak gastric contents around the tube. [facility] might be able to offer some guidance in this regard. I see no evidence of intra-abdominal leakage from her recent gastrostomy tube procedure.
--- NOTE | 2023-03-24 10:47 | PT.IIE ---
Current Diagnoses Unspecified severe protein-calorie malnutrition (03/21/23) Dehydration (03/21/23) Hypo-osmolality and hyponatremia (03/21/23) Noninfective gastroenteritis and colitis, unspecified (03/21/23) Medical History (Last Updated 03/21/23 @ 03:30 by Trung Morrow MD) Acute hyponatremia Allergies Anxiety Benign essential tremor 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 Dermatitis Diverticulosis Eczema Elevated glucose level Generalized abdominal pain Hypercalcemia Insomnia Nicotine dependence Peripheral neuropathy Right arm pain Seizures Weakness Physical Therapy Inpatient Evaluation/Re-Eval M1 PT/OT-IP Prior Functional Status Start: 03/22/23 12:21 Freq: NEEDED Status: Active Protocol: Document 03/24/23 08:20 MB (Rec: 03/24/23 10:47 MB [id number]) Medical Review Prior Functional Status Medical History Reviewed Yes Communication Pt states she was drinking a high calorie [employer]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 Her speech is difficult to understand d/t mandibular removal surgery and plate placement and little mandibular movement. 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 She moved from her recliner to [facility] beside it with rollator. Activities of Daily Living and IADL's Pt did not take baths d/t only 3 tub baths/showers in the hose and was using disposable wipes for cleaning. Social History Household Members family Living Arrangements House Number of Floors (Floors) Two Floors Number of Stairs To Enter/Railing? 2 steps with left rail ascend to enter and 9 steps with left rail descend to get down to her normal living area. Recently, she has stayed upstairs and is only transferring between her recliner and [facility]. Sister does the driving and they have a documentation nurse. Home Environment Tub/Shower,Not Wheelchair Accessible Home Equipment Front Wheel Walker,Bedside Commode Employment Status Retired M2 PT-IP Current Condition Start: 03/22/23 12:21 Freq: NEEDED Status: Active Protocol: Document 03/24/23 08:20 MB (Rec: 03/24/23 10:47 MB [id number]) Physical Therapy Current Condition Current Condition Evaluation Date 03/24/23 Treatment Diagnosis Weakness and cachexia from malnutrition s/p oral CA, resection and tx, IBS Onset Date At least 5 years M3 PT-IP Subjective Start: 03/22/23 12:21 Freq: NEEDED Status: Active Protocol: Document 03/24/23 08:20 MB (Rec: 03/24/23 10:47 MB [id number]) Subjective Physical Therapy Visit Type Type Initial Evaluation Visit Start Time 08:20 Visit Stop Time 08:43 Total Visit Minutes 23 Number of EAR MACHINE OPERATOR Visits 0 Physical Therapy Visit Comments Patient Comments I want you to work me hard today. I want to go to rehab. Patient Goals To go to [facility] Pain Assessment Pain When Pain Assessed During Mobility Pain Present Pain Present Pain Reported Location Abdomen Intensity 5 Scale Used Balderrama-Bolden (Faces) Description Pinching,Pressure,Pulling,With Movement Pain Behaviors Calling Out,Holding Area Pain Management Techniques Re-positioning M4 PT-IP Mobility and Gait Start: 03/22/23 12:21 Freq: NEEDED Status: Active Protocol: Document 03/24/23 08:20 MB (Rec: 03/24/23 10:47 MB [id number]) PT-Bed Mobility Assessment Rolling Type of Rolling Roll to Left Level of Assist Standby Assistance,1 Person Assistance Supine to Sit Supine to Sit Standby Assistance,1 Person Assistance,Head of Bed Elevated,Bedrails Scooting Scooting to Edge of Bed Contact Guard Assistance PT-Transfer Assessment Sit to and From Stand Sit to and from Stand Contact Guard Assistance,1 Person Assistance,Use of Upper Extremities Equipment Transfer Assistive Device Front Wheeled Walker Orthotic/Prosthetic Devices or Brace: No Transfers Transfer Destination Bedside Commode Transfer Technique Stand Step Pivot Transfer Ability Level of Assist Minimal Assistance,1 Person Assistance,Use of Upper Extremities Comments Mobility Comments Pt with bowel urgency and liquid BM incontinence as she moves. Gait belt not applied d /t no time and feeding tube that is constantly draining: same color and consistency brown fluid observed from tube that also comes from rectum Gait Assessment Gait Gait Assistance Required: Minimum Assistance,1 Person Assist Distance (Feet) 2 Able to Maintain Weight Bearing Status Yes During Gait Assistive Devices Assistive Device Front Wheeled Walker Gait Deviations General Gait Pattern Decreased Stride Length Factors Limiting Gait Function Factors Limiting Gait Function Decreased Activity Tolerance, Decreased Strength, Incoordination,Poor Balance, Poor Safety Awareness Comments Gait Comments Pt takes a few steps to the right from bed to BSC with min A and use of RW, liquid bowel incontinence during mobility. She does not reach back for commode when sitting. PT-Balance Assessment Sitting Balance and Reactions Static Sitting Balance Ability Fair Dynamic Sitting Balance Ability Fair Standing Balance and Reactions Static Standing Balance Ability Fair Dynamic Standing Balance Ability Fair Device Used RW M5 PT-IP Objective Assessments Start: 03/22/23 12:21 Freq: NEEDED Status: Active Protocol: Document 03/24/23 08:20 MB (Rec: 03/24/23 10:47 MB [id number]) Orientation Orientation/Cognition Level of Alertness Alert Orientation Name,Age,Birthday,Month,Year, Place,Situation Safety Awareness Decreased Safety Awareness Memory Description No Deficits Noted Comments Pt's verbalizations are difficult to understand given mandibular resection and her verbalizations are nasal in nature. She has little mandibular and tongue movement . Gross Range of Motion Lower Extremity ROM Assessment Within Functional Limits Strength Lower Extremity Strength Assessment Bilaterally Impaired Hip 3-/5 Knee 3-/5 Ankle 4/5 Sensation Assessment Comments Sensation Comments Pt does not respond well to sensory commands and does appear to have some motorsensory challenges in feet with mobility M7 PT-IP Assessment and Plan Start: 03/22/23 12:21 Freq: NEEDED Status: Active Protocol: Document 03/24/23 08:20 MB (Rec: 03/24/23 10:47 MB [id number]) PT Summary Assessment and Plan Potential Rehabilitation Potential Fair Status of Condition at Evaluation Unstable Summary Impairments Strength,Balance,Sensation,Bed Mobility,Transfers,Gait, Activity Tolerance Progress Towards Goals Slow Progress due to Medical Issues,Slow Progress due to Activity Tolerance Assessment Summary Pt is a 77 y/o female presenting with at least 5 year history of poor intake, cachexia, and diarrhea s/p oral cancer, mandibular resection, chemo and radiation . Pt lives her her sister, Sandi, and pt seems to have decreased overall health awarenesss challenges at baseline. She and sister report intake problems on and off for four years, IBS-type symptoms, intermittent tube feedings and that pt was only consuming a high calorie [employer] drink each day. They do not have any accessible BRs in the home for pt (all tub showers). Pt was sedentary and transferring from recliner to [facility] with rollator most recently. Pt is clear about wanting rehab and going to [facility] at d/c but unsure how insightful she is able her medical presentation and it's affect on ability to strength and functional rehabilitate. This date, her abdominal tube drains continually right after nsg changes dressing and drainage appears similar to rectal draining that is liquid and brown and pt with incontinence . Surgery is to check out her abdominal tube and pt will be able to best participate with acute and post-acute therapies once a stable nutrition source is obtained. Pt with left sided posteriorly distended abdomen this date. Goals Bed Mobility Goal Independent Transfer Goal Independent,Front Wheeled Walker Gait Goal Independent,Front Wheel Walker Gait Distance 50 Other Goals Pt will ascend and descend 2 steps with use of rail and LRAD to allow safe home entry. Days to Meet Goals 10 Frequency of Treatment Frequency Of Treatment Once a Day Treatment Plan Physical Therapy Treatment Plan Bed Mobility Training,Transfer Training,Gait Training, Therapeutic Exercise,Balance Retraining Weight Bearing Status Weight Bearing Status Weight Bear as Tolerated Recommendations To Nursing Amount of Assist Needed 1 Person Assist Discharge Recommendations PT Discharge Recommendations SNF Rehab Transportation Needs at Discharge Wheelchair/Cabulance
[2023-03-24] MEDS: SODIUM CHLORIDE 0.9% 1,000 ML 100 ML IV (11:05)
[2023-03-24] MEDS: SPIRONOLACTONE 25 MG TABLET PO ×2 (11:07→18:03)
--- NOTE | 2023-03-24 15:30 | DIET.CONS2 ---
Dietary Inpatient Consultation Note Admission Date: 03/21/2023 00:11 Per surgery, pt without PEG tube leak, pt found relief with pump assist trickle feed overnight. Surgery recommends slow advancement of enteral nutrition. Pt may benefit from pump assisted feeding in home setting due to enteral nutrition bolus intolerance. Recc upping pts feeding rate by 10mL q4h until reaching goal of 40mL/h or until pt expresses discomfort. Electronically Signed by: Michelle Bahena 03/24/23 15:30 Clinical Dietitian [address] [address]
--- NOTE | 2023-03-24 16:12 | ST.IPTN ---
Visit Care Team Role Provider Type Christin Santos RN Primary Care Provider Non-Staff Address: [address] [place] [address], [id number] Cheng Mckeon MD Other Providers Physician Address: [address] [place] [address], [address], [address] Franklin De Anda DO Emergency Provider Physician Referring Provider Address: [address] [place] [address], [id number] Trung Morrow MD Admit Provider Physician Attending Provider Address: [address] [place] [address], [id number] Fax: RECREATION THERAPY AIDE Treatment Note RECREATION THERAPY AIDE Treatment Note Start: 03/24/23 15:22 Freq: Status: Active Protocol: Document 03/24/23 16:08 CG (Rec: 03/24/23 16:11 CG [id number]) Speech Pathology Treatment Note Session Time Visit Start Time 15:00 Visit Stop Time 16:08 Total Visit Minutes 68 Visit Information Visit Number 2 Setting Treatment Setting Acute Care Visit Type Note Type Initial Evaluation General Information Patient History Per H&P: 77-year-old woman with a history of squamous cell carcinoma of head and neck, s/p right mandible and oral resection 4 years ago, [facility]ourt, followed by severe dysarthria and dysphagia. Over the course of last ~ 5 years she had difficulties tolerating tube feedings, apparently due to underlying Irritable BS. She was using PEG that was subsequently discontinued. In the process she lost weight and became severely malnourished so she had a new PEG placed few days ago. Presented to ED with lower abdominal pain. Images showing functional PEG in place, some air from recent placement and likely enteritis . Subjective Observations/Patient Presentation I want you to work me hard today. I want to go to rehab. Objective Treatment Activities Reviewed compensatory strategies. Assessed pt tolerance of current diet. Trialed thin liquids and nectar thick liquids with assessment of tolerance. Consulted with physician for order of chest X ray and MBSS to rule out new aspiration. Assessment Assessment of Overall Progress Declining Assessment of Improvement Today pt presents with wet cough. During trials thin liquid and nectar thick liquid , pt presents with wet vocal quality, throat clearing, and delayed cough, though she states she does not feel anything going the wrong way . Consulted with Dr. Hurtado who ordered chest X ray and MBSS which is scheduled for 9: 30am tomorrow morning. In the meantime, recommend thin water ONLY for PO intake. Pt independently recalled compensatory swallow strategies with 70% accuracy independently. Reviewed with Patient Progress Being Made Plan Comment once daily while inpatient Therapeutic Contents Swallowing/Feeding
--- NOTE | 2023-03-24 17:03 | PM.PN.1 ---
Subjective Subjective Interval history: Patient's abd pain overall improved today. Still having some occasional diarrhea but less frequently. Gen surg evaluated G-tube and deemed no problems with the tube and her TF rate just needs to be slowed. 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 Exam Vital Signs (past 8 hours): - 03/24/23 12:00 03/24/23 16:00 Temperature 97.3 F L 97.5 F L Pulse Rate 74 103 H Respiratory Rate 18 18 Blood Pressure 114/65 105/62 Pulse Oximetry 96 99 Oxygen Flow Rate 0 0 Oxygen Delivery Method Room Air Oxygen Flow Rate 0 Narrative Exam Narrative: General:? elerly female, chronically malnourished, in no acute distress. HEENT:? s/p mandibular resection with chronic dysarthria and facial asymmetry Chest:?no tachypnea, equal chest rise bilaterally. Lungs:? CTA b/l no wheezing rhonchi or rales. Cardio:?RRR no m/r/g. Abdomen: soft, mild tenderness around PEG site, non-distended. Extremities: No edema or joint effusions. No cyanosis or clubbing. Skin:? Pale,? Warm to touch,dry and intact without rashes, ulcerations or petechiae.? Neuro:? Alert and orientated x3,? sensation to touch intact in all extremities, no gross deficits noted of cranial nerves. Psych:? Patient has a well-kept appearance, appropriate affect, mental status attitude thought context and judgment are appropriate for age. Objective Labs 03/24/23 06:10 03/24/23 06:10 Labs: Laboratory Results - last 24 hr 03/24/23 03/24/23 06:10 06:10 WBC 8.9 RBC 3.54 L Hgb 10.2 L Hct 30.8 L MCV 87.1 MCH 28.8 MCHC 33.1 RDW 16.1 H Plt Count 453 H Neut % (Auto) 76.8 H Lymph % (Auto) 4.1 L [place] % (Auto) 10.2 Eos % (Auto) 8.4 H Baso % (Auto) 0.5 Neut # (Auto) 6800 Lymph # (Auto) 400 L [place] # (Auto) 900 Eos # (Auto) 800 H Baso # (Auto) 0 Sodium 136 L Potassium 3.4 Chloride 111 H Carbon Dioxide 21 L BUN 16 Creatinine 0.49 L Estimated GFR > 60 BUN/Creatinine Ratio 32.7 H Glucose 63 L Calcium 7.7 L Magnesium 1.8 PFSH Medical History (Updated 03/21/23 @ 03:30 by Trung Morrow MD) Acute hyponatremia Allergies Anxiety Benign essential tremor 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 Enteritis, possible leaking PEG tube ruled out - loops filled with fluid with possible small amount of reactive ascites. unclear if this is infectious / reactive in etiology or possible PEG tube complication as you cannot tell difinitively based on CT imaging if there is an issue with PEG tube. - continue on Zosyn for now - no leak found on gastrografin study, tube feeds resumed - nutrition consulted for tube feeds. at home she takes 4 cans per day of isosource 1.5. - Gen surg consulted and deemed tube is functioning but rate needs to be slowed - obtain stool PCR if able - dietary rec outpatient TF pump instead of bolus, they will help arrange this - wound care consulted for skin breakdown at G-tube site and to aid in what dressings to use on the skin 2. 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 Hyponatremia / Dehydration, improving - poor oral intake in the past few days - NS - monitored lytes and fluid status 4. Anxiety - Ativan prn 5. Hypomagnesemia, resolved - repleted with IV mag 6. Dysphagia -patient says swallowing liquids has been intermittently difficult -speech eval ordered and she initially was ok'd for thin liquids -developed wet cough concerning for aspiration on 03/24, CXR pending -MBS ordered for 03/25 Code: Full, surrogate is patient's sister DVT: Lovenox Dispo: Pending SNF auth.
[2023-03-25] MEDS: PIPERACILLIN/TAZO 3.375 GM in SODIUM CHLORIDE 0.9% 100 ML IV ×3 (02:03→17:27)
[2023-03-25] MEDS: KETOROLAC 30 MG/ML VIAL 15 MG IV ×3 (02:06→20:23)
[2023-03-25 04:40] VITALS: BP 98/56; PULSE 90; RESP 16; TEMP 36.2; O2SAT 96
[2023-03-25] MEDS: OXYCODONE IR 5 MG TABLET 10 MG TUBE ×4 (07:57→20:22)
[2023-03-25 08:00] VITALS: BP 119/62; PULSE 90; RESP 18; TEMP 36.3; O2SAT 92
[2023-03-25] MEDS: ENOXAPARIN 40 MG/0.4 ML SYRINGE SUBCUT (08:08)
[2023-03-25] MEDS: SPIRONOLACTONE 25 MG TABLET PO ×2 (08:08→16:10)
[2023-03-25] MEDS: LORazepam 1 MG TABLET PO ×2 (08:08→20:22)
--- NOTE | 2023-03-25 09:06 | PM.PN.1 ---
Subjective Subjective Interval history: Abdomen feels better. No chest pain or dyspnea. No cough today. Exam Vital Signs (past 8 hours): - 03/25/23 04:40 03/25/23 08:00 Temperature 97.2 F L 97.3 F L Pulse Rate 90 90 Respiratory Rate 16 18 Blood Pressure 98/56 L 119/62 Pulse Oximetry 96 92 Oxygen Flow Rate 0 0 Oxygen Delivery Method Room Air Oxygen Flow Rate 0 Narrative Exam Narrative: NAD Lungs clear Hear regular Abdomen soft and NT. Leakage around G-tube. No leg edema. Hands are pale and stiff but warm. 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 Enteritis, POAI. Continue Abx and follow. 2. G-tube leak, POA. Surgery will assess today. 3. Hyponatremia (hypovolemic), POAI. Continue saline and follow. 4. Severe protein caloric malnutrition, POA. Continue tube feeds. 5. Hypomagnesemia, POAI. Repleted. 6. Possible dysphagia, POA. MBSS per ST today. Full Code Dispo: SNF pending. Time Spent With Patient Time with patient: less than 30 minutes
--- NOTE | 2023-03-25 09:30 | DI.RAD.S_ITS ---
PROCEDURE: XR CHEST 1V INDICATIONS: wet cough possible aspiration TECHNIQUE: One view of the chest was acquired. COMPARISON: [facility], , XR CHEST 1V, 03/24/2023, 15:46. [facility], CR, XR CHEST 1V, 01/15/2023, 16:45. FINDINGS: Surgical changes and devices: None. Lungs and pleura: Small left pleural effusion and left basilar opacities, slightly decreased. No definite pneumothorax. Mediastinum: Mediastinal and hilar contours appear similar to before. Bones and chest wall: No suspicious bony lesions. Overlying soft tissues appear unremarkable. IMPRESSION: Small left pleural effusion and nonspecific left basilar opacities, slightly decreased. Dictated by: Ernie Archuleta M.D. on 03/25/2023 at 9:13 Approved by: Ernie Archuleta M.D. on 03/25/2023 at 9:15
--- NOTE | 2023-03-25 11:56 | PT.IPTN ---
Current Diagnoses Unspecified severe protein-calorie malnutrition (03/21/23) Dehydration (03/21/23) Hypo-osmolality and hyponatremia (03/21/23) Noninfective gastroenteritis and colitis, unspecified (03/21/23) Physical Therapy Treatment Note M2 PT-IP Current Condition Start: 03/22/23 12:21 Freq: NEEDED Status: Active Protocol: Document 03/24/23 08:20 MB (Rec: 03/24/23 10:47 MB [id number]) Physical Therapy Current Condition Current Condition Evaluation Date 03/24/23 Treatment Diagnosis Weakness and cachexia from malnutrition s/p oral CA, resection and tx, IBS Onset Date At least 5 years M3 PT-IP Subjective Start: 03/22/23 12:21 Freq: NEEDED Status: Active Protocol: Document 03/25/23 11:40 KS (Rec: 03/25/23 13:24 KS [id number]) Subjective Physical Therapy Visit Type Type Treatment Note Visit Start Time 11:40 Visit Stop Time 11:56 Total Visit Minutes 16 Number of DIRECTOR CENTER Visits 1 Physical Therapy Visit Comments Patient Goals To go to [facility] M4 PT-IP Mobility and Gait Start: 03/22/23 12:21 Freq: NEEDED Status: Active Protocol: Document 03/25/23 11:40 KS (Rec: 03/25/23 13:24 KS [id number]) PT-Transfer Assessment Comments Mobility Comments Pt reports spending hours in pain/uncomfortable and it took lots of effort to reposition her in a comfortable position and therefore does not want to perform OOB mobility at this time. Agreeable to LE exercises to promote blood flow and strengthening. Pt completed ankle pumps, quad sets, and glute sets. Provided written exercises and encouraged pt to complete throughout the day, pt agreeable. M5 PT-IP Objective Assessments Start: 03/22/23 12:21 Freq: NEEDED Status: Active Protocol: Document 03/24/23 08:20 MB (Rec: 03/24/23 10:47 MB [id number]) Orientation Orientation/Cognition Level of Alertness Alert Orientation Name,Age,Birthday,Month,Year, Place,Situation Safety Awareness Decreased Safety Awareness Memory Description No Deficits Noted Comments Pt's verbalizations are difficult to understand given mandibular resection and her verbalizations are nasal in nature. She has little mandibular and tongue movement . Gross Range of Motion Lower Extremity ROM Assessment Within Functional Limits Strength Lower Extremity Strength Assessment Bilaterally Impaired Hip 3-/5 Knee 3-/5 Ankle 4/5 Sensation Assessment Comments Sensation Comments Pt does not respond well to sensory commands and does appear to have some motorsensory challenges in feet with mobility M6 PT-IP Treatment Start: 03/22/23 12:21 Freq: NEEDED Status: Active Protocol: Document 03/25/23 11:40 KS (Rec: 03/25/23 13:24 KS [id number]) Physical Therapy Treatment Exercises Exercises Ankle Pumps,Gluteal Sets,Quad Sets M7 PT-IP Assessment and Plan Start: 03/22/23 12:21 Freq: NEEDED Status: Active Protocol: Document 03/25/23 11:40 KS (Rec: 03/25/23 13:24 KS [id number]) PT Summary Assessment and Plan Potential Rehabilitation Potential Fair Summary Impairments Strength,Balance,Sensation,Bed Mobility,Transfers,Gait, Activity Tolerance Progress Towards Goals Slow Progress due to Medical Issues,Slow Progress due to Activity Tolerance Assessment Summary Pt completed LE exercises and was able to follow verbal cues but did not pariticpate in OOB mobility d/t discomfort this date. Will continue to progress pt as appropriate. Goals Bed Mobility Goal Independent Transfer Goal Independent,Front Wheeled Walker Gait Goal Independent,Front Wheel Walker Gait Distance 50 Other Goals Pt will ascend and descend 2 steps with use of rail and LRAD to allow safe home entry. Days to Meet Goals 10 Frequency of Treatment Frequency Of Treatment Once a Day Treatment Plan Physical Therapy Treatment Plan Bed Mobility Training,Transfer Training,Gait Training, Therapeutic Exercise,Balance Retraining Weight Bearing Status Weight Bearing Status Weight Bear as Tolerated Recommendations To Nursing Amount of Assist Needed 1 Person Assist Discharge Recommendations PT Discharge Recommendations SNF Rehab Transportation Needs at Discharge Wheelchair/Cabulance
--- NOTE | 2023-03-25 12:22 | ST.SWALLOW ---
Visit Care Team Role Provider Type Christin Santos, phd internship Provider Non-Staff Specialty: Family Practice Address: [address] [place] [address], [address] Email: Cheng Mckeon MD Other Providers Physician Specialty: General Surgery Address: [address] [place] [address], [address], [place], [address] Email: [email or web address] Keerthi Francisco DPM Other Providers Non-Staff Specialty: Podiatry Address: [address] [place] [address], [address] Email: SENDY Gil Other Providers Advanced Business Control Manager Specialty: Medical Address: [address] [place] [address], [address] Email: [email or web address] Mike Sheridan MD Other Providers Physician Specialty: Wound Care Address: [address] [place] [address], [address] Email: [email or web address] Cristino Simmons MD Other Providers Non-Staff Specialty: Wound Care Address: [address] [place] [address], [address] Email: [email or web address] Franklin De Anda DO Emergency Provider Physician Referring Provider Specialty: Emergency Medicine Address: [address] [place] [address], [address] Email: [email or web address] Trung Morrow MD Admit Provider Physician Attending Provider Specialty: Internal Medicine Address: [address] [place] [address], [address] Fax: Email: Modified Barium Swallow Study MULTIPLEX OPERATOR Modified Barium Swallow Study Start: 03/25/23 11:30 Freq: Status: Active Protocol: Document 03/25/23 11:43 LNK (Rec: 03/25/23 12:21 LNK [id number]) Modified Barium Swallow Study Total Time Visit Start Time 09:30 Visit Stop Time 10:00 Total Visit Minutes [address] Hurtado Reason for Referral dysphagia Setting Setting Acute Care Patient Information Identification Type Name,Date of ,ID Wristband Patient History Per H&P: 77-year-old woman with a history of squamous cell carcinoma of head and neck, s/p right mandible and oral resection 4 years ago, [facility], followed by severe dysarthria and dysphagia. Over the course of last ~ 5 years she had difficulties tolerating tube feedings, apparently due to underlying Irritable BS. She was using PEG that was subsequently discontinued. In the process she lost weight and became severely malnourished so she had a new PEG placed few days ago. Presented to ED with lower abdominal pain. Images showing functional PEG in place, some air from recent placement and likely enteritis . Subjective Observations Pt was reported yesterday to have developed a wet cough and difficulty with swallowing recreational liquids/her Frappaccino. MULTIPLEX OPERATOR spoke with Dr. Kim re: an MBSS order to determine safely for recreational PO intake Patient Positioning Position View Lateral Imaging Lateral View Textures Administered Trials Presented Thin Liquid via Spoon (IDDSI 0 ),Thin Liquid via Straw (IDDSI 0),Mildly Thick Liquid via Spoon (IDDSI 2),Mildly Thick Liquid via Straw (IDDSI 2) Barium Tablet No The IDDSI Framework Protocol: IDDSI.1 Oral Impairment Source: The Modified Barium Swallow Impairment Profile (MBSImP??) Lip Closure Escape beyond mid-chin Bolus Transport/Lingual Motion Repetitive/disorganized tongue motion Initiation of Pharyngeal Swallow No visible initiation at any location Additional Oral Impairment Observations SPL notes reviewed from : Pt presents with severely impaired oral motor structure and function. She is only able to open her mandible about 1 inch. The pt presented with significant residue along her teeth and lips before MULTIPLEX OPERATOR provided oral care. Pt's vocal quality is hyponasal and she is unable to create most plosive sounds, which decreases her intelligibility. Pt can move her tongue anteriorly just between her front teeth, but is unable to move her tongue out of her mouth. She can move it laterally between her molars, but cannot protrude and lateralize her tongue. She is unable to create a labial seal but has some limited motion on the left side of her mouth, which she uses to create suction to drink through a straw. The inside of the oral cavity was unable to be thoroughly assessed due to limited jaw opening. Pharyngeal Impairment Source: The Modified Barium Swallow Impairment Profile (MBSImP??) Laryngeal Elevation No superior movement of thyroid cartilege Anterior Hyoid Excursion No anterior movement Epiglottic Movement No inversion Tongue Base Retraction No visible posterior motion of tongue base Pharyngeal Residue Trace residue within/on pharyngeal structures Location Valleculae A/P View The IDDSI Framework Protocol: IDDSI.1 Clinical Impressions Dysphagia Type Oral,Pharyngeal Findings Pt presented with severe oropharyngeal dysphagia secondary to oral resection and radiation treatment to her face and neck. Limited and disorganized lingual attempts to suck in barium via straw were unsuccessful. Three to four people were attempting to reposition the pt, provide barium via straw and/or spoon where also unsuccessful. During attempts to get the pt to draw in barium/take barium from a spoon/straw, minimal barium was observed to enter the mouth. Most/all of the barium was observed to flow from the tongue out of her mouth. Pt requested her own straws, which were retriveded from her room. With her own straw (smaller diameter), pt continued to have difficulty with drawing barium into her mouth. Once, a very small amount of barium was observed to go past the base of tongue and was observed to sit in the valeculla. No swallow response was observed. 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 The patient is unable to protect her airway and is at high aspiration risk. Rehabilitation Potential Poor Recommendations Treatment Plan Placement Recommendation After Discharge [facility]
--- NOTE | 2023-03-25 12:23 | ST.IPDYTX ---
Visit Care Team Role Provider Type Christin Santos, ceo and co founder Provider Non-Staff Specialty: Family Practice Address: [address] [place] [address], [address] Email: Cheng Mckeon MD Other Providers Physician Specialty: General Surgery Address: [address] [place] [address], [address], [place], [address] Email: [email or web address] Keerthi Francisco DPM Other Providers Non-Staff Specialty: Podiatry Address: [address] [place] [address], [address] Email: SENDY Gil Other Providers Advanced Underwriting Account Representative Specialty: Medical Address: [address] [place] [address], [address] Email: [email or web address] Mike Sheridan MD Other Providers Physician Specialty: Wound Care Address: [address] [place] [address], [address] Email: [email or web address] Cristino Simmons MD Other Providers Non-Staff Specialty: Wound Care Address: [address] [place] [address], [address] Email: [email or web address] Franklin De Anda DO Emergency Provider Physician Referring Provider Specialty: Emergency Medicine Address: [address] [place] [address], [address] Email: [email or web address] Trung Morrow MD Admit Provider Physician Attending Provider Specialty: Internal Medicine Address: [address] [place] [address], [address] Fax: Email: MEDICAL CUSTOMER SERVICE REPRESENTATIVE Dysphagia Treatment MEDICAL CUSTOMER SERVICE REPRESENTATIVE Dysphagia Treatment Start: 03/25/23 11:34 Freq: Status: Active Protocol: Document 03/25/23 11:43 FLAQUITA (Rec: 03/25/23 12:21 LNK [id number]) Dysphagia Treatment Session Time Visit Start Time 10:05 Visit Stop Time 10:25 Total Visit Minutes 20 Setting Assessment Location Acute Care Visit Type Note Type Treatment Note Next Note Type Next Note Type Treatment Note Patient Information Identification Type Name,Date of ,ID Wristband Subjective Observations Pt had returned to her room and was reclined in bed, awake . Treatment Treatment Activities Reviewed the findings of the pt's MBSS attempt. Discussed her inability to swallow and lack of a swallow reflex. Additionally discussed her wet cough and that it is likely related to aspiration that is occurring silently. Pt indicated she understood. Discussed the aspiration risk as well and a potential for recurring aspiration pneumonia . Recommendation for NPO was discussed and what that entails. Additionally quality of life considerations were discussed with the pt. Reinforced that the ultimate decision is hers to make given the risks and potential repercussions. The IDDSI Framework Protocol: IDDSI.1 Assessment Patient Response to Treatment Excellent Recommendations Diet Order NPO Treatment Plan Placement Recommendation after Discharge [facility] Therapy Recommendations Pt requested continuation of therapy to keep trying. Recommend 1 more session for discussion with the pt about therpeutic benefit. It is doubtful that continued ST will be beneficial in regaining ability to swallow. Follow Up Plan 1 more session
[2023-03-25] MEDS: SODIUM CHLORIDE 0.9% 1,000 ML 100 ML IV ×2 (13:18→21:21)
--- NOTE | 2023-03-25 15:51 | DI.RAD.S_ITS ---
PROCEDURE: FL BARIUM SWALLOW W SPEECH INDICATIONS: check for aspiration COMPARISON: None. TECHNIQUE: Examination was conducted in conjunction with speech pathology per standard protocol. In the lateral projection, filming was performed of the patient swallowing. Five low resolution fluoroscopic spot films of the patient's hypopharynx are submitted COMPARISON: FINDINGS: Static spot films partially imaged the hypopharynx. No dynamic images of the swallowing mechanism present. On the 1st image, there is suggestion of contrast pooling at the base of the tongue. No evidence of laryngeal penetration IMPRESSION: Limited low resolution fluoroscopic spot films hypopharynx, as above Approved by: Juan Jones M.D. on 03/27/2023 at 8:40
[2023-03-25 16:00] VITALS: BP 99/56; PULSE 91; RESP 18; TEMP 36.5; O2SAT 95
--- NOTE | 2023-03-25 16:59 | CM.DPC ---
DCP Continued: REPAIR SERVICE CLERK reviewed EMR. Per provider in rounds, patient will likely be cleared to DC to [facility] tomorrow morning. REPAIR SERVICE CLERK updated Zohra at [facility]. Zohra appears to be in agreement that they can take her tomorrow morning. Kelsi from [facility] ([phone]) called to inquire about patient. REPAIR SERVICE CLERK updated her that she will need a pump for her feeding upon d/c. Kelsi reported that they will need documentation from a doctor that a pump is needed over a gravity drip for patient's d/c home. Per speech therapist, patient should be put on a no liquid/food diet and only receive nutrition through her tube at this time. REPAIR SERVICE CLERK received call from gayla Valdivia ([phone]) re: the d/c plan. REPAIR SERVICE CLERK informed him that this author would need verbal permission from patient to discuss plan with him. REPAIR SERVICE CLERK entered room and introduced self and role. Patient appeared A/Ox4 but struggled to communicate verbally due to damage to tissue in throat. Patient in agreement with plan to d/c to [facility] tomorrow morning. Patient gave verbal permission for CM team to communicate with gayla Solomon. Patient requested that this author try and get someone from [facility] in [place] to get someone to come out here for her. REPAIR SERVICE CLERK agreed to give them a call. REPAIR SERVICE CLERK encouraged patient to get her sister Sandi to call. REPAIR SERVICE CLERK called Juanito back. REPAIR SERVICE CLERK answered son's insurance questions. REPAIR SERVICE CLERK answered flame cutting supervisor caregiving questions. REPAIR SERVICE CLERK answered [employer] questions and encouraged son to research [employer] caregiving online. Son is worried about affording [facility] care for patient. REPAIR SERVICE CLERK attempted to call [employer] patient requested but it went to voicemail. Due to it being an unsecured line, REPAIR SERVICE CLERK did not leave a voicemail. Plan: patient will d/c tomorrow to [facility] in the morning pending being medically stable. CM team will continue to follow closely. LIA Carty
[2023-03-25 20:00] VITALS: BP 106/61; PULSE 100; RESP 17; TEMP 36.2; O2SAT 92
[2023-03-25 21:23] LABS: Add Manual Diff / Slide Review NO; Basophils Absolute Auto 100 /uL (0-100); Basophils Percent Auto 0.6 % (0-2); Eosinophils Absolute Auto 400 /uL (0-450); Hematocrit 26.2 % (36-46); Hemoglobin 8.8 g/dL (12.0-16.0); Lymphocytes Absolute Auto 600 /uL (1100-4500); Lymphocytes Percent Auto 6.4 % (25-40); Mean Corpuscular HGB Conc 33.7 % (30-36); Mean Corpuscular Hemoglobin 29.1 PG (26-34); Mean Corpuscular Volume 86.2 fL (80-100); Monocytes Absolute Auto 900 /uL (0-900); Monocytes Percent Auto 10.4 % (3-14); Neutrophils Absolute Auto 7100 /uL (1500-7000); Neutrophils Percent Auto 78.6 % (50-75); Platelet Count 542 X10^3/uL (150-400); Red Blood Cell Count 3.04 X10^6/uL (4.0-5.2); Red Cell Distribution Width 16.1 % (11.6-14.8)
[2023-03-25 21:38] LABS: BUN Creatinine Ratio 36.7 (6-22); Blood Urea Nitrogen 18 mg/dL (7-17); Calcium 7.8 mg/dL (8.4-10.2); Carbon Dioxide 22 mmol/L (22-32); Chloride 110 mmol/L (98-107); Estimated Glomerular Filt Rate > 60 mL/min (>60); Glucose 111 mg/dL (80-110); HEMOLYSIS < 15 (0-50); Potassium 3.5 mmol/L (3.4-5.1); Sodium 136 mmol/L (137-145)
[2023-03-25 23:46] VITALS: BP 101/58; PULSE 92; RESP 16; TEMP 35.9; O2SAT 92
[2023-03-26] MEDS: KETOROLAC 30 MG/ML VIAL 15 MG IV (02:12)
[2023-03-26] MEDS: OXYCODONE IR 5 MG TABLET 10 MG TUBE ×5 (02:12→20:10)
[2023-03-26] MEDS: PIPERACILLIN/TAZO 3.375 GM in SODIUM CHLORIDE 0.9% 100 ML IV ×2 (02:13→10:42)
[2023-03-26 04:00] VITALS: BP 102/57; PULSE 88; RESP 18; TEMP 36.2; O2SAT 95
[2023-03-26] MEDS: SODIUM CHLORIDE 0.9% 1,000 ML 100 ML IV ×2 (07:10→17:01)
[2023-03-26 08:00] VITALS: BP 114/62; PULSE 95; RESP 17; TEMP 36.5; O2SAT 95
[2023-03-26] MEDS: ENOXAPARIN 40 MG/0.4 ML SYRINGE SUBCUT (08:15)
[2023-03-26] MEDS: SPIRONOLACTONE 25 MG TABLET PO ×2 (08:15→17:00)
[2023-03-26] MEDS: LORazepam 1 MG TABLET PO ×2 (08:15→21:11)
--- NOTE | 2023-03-26 10:34 | CM.DPC ---
Addendum entered by LIA Carty 03/26/23 16:18: Kelsi from [facility] called for an update. She reminded DISTRICT PLANT SUPERINTENDENT that in order to continue with pump, there would need to be specific instructions in the d/c summary why pump and not gravity feed. Kelsi asked for a d/c update to be sent to [facility] and to call their weekend number ( ) to ask for the contracts officer classification clerk to update them on the d/c. SL Addendum entered by LIA Carty 03/26/23 16:14: January from [facility] reports they can accept whenever tomorrow. Zohra was concerned about transportation due to patient not getting up to work with PT, if patient can transport in wheelchair or needs stretcher. DISTRICT PLANT SUPERINTENDENT spoke with PT Cook Apprentice Arnoldo. Arnoldo reports that patient has been able to use commode and therefore should be able to use wheelchair to go across street to [facility]. Initial PT eval suggests transportation in wheelchair is safe. DISTRICT PLANT SUPERINTENDENT updated January on transportation of wheelchair. Plan: d/c to [facility] via wheelchair when medically stable, likely tomorrow. ADDIE Original Note: DCP Continued: DISTRICT PLANT SUPERINTENDENT received multiple voicemails from son Juanito yesterday after this DISTRICT PLANT SUPERINTENDENT had left for the day regarding release of information paperwork. DISTRICT PLANT SUPERINTENDENT returned call in am and LVM in order to answer his questions and direct him to the appropriate department for further information. DISTRICT PLANT SUPERINTENDENT reviewed EMR. Per provider in rounds, patient's tube is leaking and they are attempting to seal it with Dr. Cyr later in the day. DISTRICT PLANT SUPERINTENDENT called Zohra at [facility] to report that the 1100 d/c time is unlikely. Zohra reported they can take patient at 1400 at the latest today or anytime over the weekend. DISTRICT PLANT SUPERINTENDENT updated patient and patient's sister, Sandi, on d/c timeline. Patient reported verbal understanding. Patient requested that this author update son, Juanito. DISTRICT PLANT SUPERINTENDENT updated provider on latest [facility] can accept patient. Provider reported it is probably safer to push d/c to tomorrow due to the 1400 timeline being unlikely. Plan: patient will d/c to [facility] when medically cleared to do so, likely tomorrow. CM team will continue to follow closely. Transportation time will need to be arranged. LIA Carty
[2023-03-26] MEDS: POTASSIUM CHLORIDE 20 MEQ/15 ML UDC TUBE (10:42)
[2023-03-26 12:00] VITALS: BP 114/72; PULSE 94; RESP 17; TEMP 36.7; O2SAT 96
--- NOTE | 2023-03-26 12:15 | ST.IPDYTX ---
Visit Care Team Role Provider Type Christin Santos, biodiesel production associate Provider Non-Staff Specialty: Family Practice Address: [address] [place] [address], [id number] Email: Cheng Mckeon MD Other Providers Physician Specialty: General Surgery Address: [address] [place] [address], [address], [address] Email: [email or web address] Keerthi Francisco DPM Other Providers Non-Staff Specialty: Podiatry Address: [address] [place] [address], [id number] Email: SENDY Gil Other Providers Advanced Load Blocker Specialty: Medical Address: [address] [place] [address], [id number] Email: [email or web address] Mike Sheridan MD Other Providers Physician Specialty: Wound Care Address: [address] [place] [address], [address] Email: [email or web address] Cristino Simmons MD Other Providers Non-Staff Specialty: Wound Care Address: [address] [place] [address], [address] Email: [email or web address] Franklin De Anda DO Emergency Provider Physician Referring Provider Specialty: Emergency Medicine Address: [address] [place] [address], [address] Email: [email or web address] Trung Morrow MD Admit Provider Physician Attending Provider Specialty: Internal Medicine Address: [address] [place] [address], [address] Fax: Email: [email or web address] [email or web address] OPERATOR Dysphagia Treatment DUSTLESS OPERATOR Dysphagia Treatment Start: 03/25/23 11:34 Freq: Status: Active Protocol: Document 03/26/23 12:00 CG (Rec: 03/26/23 12:15 CG [id number]) Dysphagia Treatment Session Time Visit Start Time 11:48 Visit Stop Time 12:00 Total Visit Minutes 12 Visit Information Visit Number 4 Setting Assessment Location Acute Care Visit Type Note Type Treatment Note Next Note Type Next Note Type Treatment Note Patient Information Identification Type Name,Date of ,ID Wristband Subjective Observations Pt was reclined in bed upon ST entry to the room. Presented with a wet cough. She had a cup with water and toothette present at bedside for oral care, but was not eating or drinking by mouth. Treatment Liquids Trialed Thin (IDDSI 0) Treatment Activities Discussed pt expectations for ongoing speech therapy given current NPO status and lack of swallow reflex. Discussed pt prognosis and discharge plan. Consulted with physician regarding pt status. Additionally quality of life considerations were discussed again with the pt. Again reminded the pt that she is ultimately in charge of the decision whether or not to drink liquids as long as she understands the risk of aspiration pneumonia. The IDDSI Framework Protocol: IDDSI.1 Assessment Patient Response to Treatment Fair Rehab Potential Poor Assessment of Improvement When asked what she would like to accomplish from DUSTLESS OPERATOR care, pt stated I want you to fix me. Given pt's medical status and lack of swallow reflex, she would likely not benefit from speech therapy at this time until more medically stable and increasing in overall strength . Discussed this with pt and explained that given current NPO status, DUSTLESS OPERATOR treatment in inpatient acute setting would be limited. Discussed continuing speech therapy at long-term facility after discharged from hospital as the patient continues to get stronger. Pt agreed to this plan. Physician in agreement with continuing speech therapy in SNF setting as appropriate . Recommendations Recommendations Continue Current Diet Liquids Order Thin (IDDSI 0)for comfort if requested Diet Order NPO Medication Recommendations Not Recommended by Mouth Treatment Plan Placement Recommendation after [facility]charge [facility] Therapy Recommendations Pt states she doesn't want to give up and wants to rehabilitate swallow. At this point, pt's ability to successfully participate in rehabilitation will depend on overall strength and medical status. Recommend pursue ST at SNF if appropriate, though prognosis remains guarded due to concomitant medical conditions and recent decline in swallow status. Follow Up Plan pursue ST at SNF
--- NOTE | 2023-03-26 13:09 | PT.IPTN ---
Current Diagnoses Unspecified severe protein-calorie malnutrition (03/21/23) Dehydration (03/21/23) Hypo-osmolality and hyponatremia (03/21/23) Noninfective gastroenteritis and colitis, unspecified (03/21/23) Physical Therapy Treatment Note M2 PT-IP Current Condition Start: 03/22/23 12:21 Freq: NEEDED Status: Active Protocol: Document 03/24/23 08:20 MB (Rec: 03/24/23 10:47 MB [id number]) Physical Therapy Current Condition Current Condition Evaluation Date 03/24/23 Treatment Diagnosis Weakness and cachexia from malnutrition s/p oral CA, resection and tx, IBS Onset Date At least 5 years M3 PT-IP Subjective Start: 03/22/23 12:21 Freq: NEEDED Status: Active Protocol: Document 03/26/23 13:22 TS (Rec: 03/26/23 13:31 TS [id number]) Subjective Physical Therapy Visit Type Type Treatment Note Visit Start Time 13:09 Visit Stop Time 13:21 Total Visit Minutes [address] CAR MECHANIC Visits 1 Physical Therapy Visit Comments Patient Comments Pt reports she feels comfortable for the first time in two days, she would like to stay in bed, was agreeable to perform bed exercises. Patient Goals To go to [facility] M4 PT-IP Mobility and Gait Start: 03/22/23 12:21 Freq: NEEDED Status: Active Protocol: Document 03/26/23 13:22 TS (Rec: 03/26/23 13:31 TS [id number]) PT-Transfer Assessment Comments Mobility Comments Pt performed ankle pumps, quad sets, glute sets, sLR and hip ABD for imporving strength and blood flow. Continued to encourage pt to do throughtout day. M5 PT-IP Objective Assessments Start: 03/22/23 12:21 Freq: NEEDED Status: Active Protocol: Document 03/24/23 08:20 MB (Rec: 03/24/23 10:47 MB [id number]) Orientation Orientation/Cognition Level of Alertness Alert Orientation Name,Age,Birthday,Month,Year, Place,Situation Safety Awareness Decreased Safety Awareness Memory Description No Deficits Noted Comments Pt's verbalizations are difficult to understand given mandibular resection and her verbalizations are nasal in nature. She has little mandibular and tongue movement . Gross Range of Motion Lower Extremity ROM Assessment Within Functional Limits Strength Lower Extremity Strength Assessment Bilaterally Impaired Hip 3-/5 Knee 3-/5 Ankle 4/5 Sensation Assessment Comments Sensation Comments Pt does not respond well to sensory commands and does appear to have some motorsensory challenges in feet with mobility M6 PT-IP Treatment Start: 03/22/23 12:21 Freq: NEEDED Status: Active Protocol: Document 03/26/23 13:22 TS (Rec: 03/26/23 13:31 TS [id number]) Physical Therapy Treatment Exercises Exercises Ankle Pumps,Gluteal Sets,Quad Sets,Straight Leg Raises, Supine Hip Abduction M7 PT-IP Assessment and Plan Start: 03/22/23 12:21 Freq: NEEDED Status: Active Protocol: Document 03/26/23 13:22 TS (Rec: 03/26/23 13:31 TS [id number]) PT Summary Assessment and Plan Potential Rehabilitation Potential Fair Summary Impairments Strength,Balance,Sensation,Bed Mobility,Transfers,Gait, Activity Tolerance Progress Towards Goals Slow Progress due to Medical Issues,Slow Progress due to Activity Tolerance Assessment Summary Pt performed bed exercises of ankle pumps, glute sets, quad sets, SLR and hip ABD. Pt continues to not want to perform out of bed mobility due to finally being comfortable for the first after a couple days. Pt follows cues well and toelrated ex well with some fatigue. Education was provided on the importance of mobility and strengthening. Goals Bed Mobility Goal Independent Transfer Goal Independent,Front Wheeled Walker Gait Goal Independent,Front Wheel Walker Gait Distance 50 Other Goals Pt will ascend and descend 2 steps with use of rail and LRAD to allow safe home entry. Days to Meet Goals 10 Frequency of Treatment Frequency Of Treatment Once a Day Treatment Plan Physical Therapy Treatment Plan Bed Mobility Training,Transfer Training,Gait Training, Therapeutic Exercise,Balance Retraining Weight Bearing Status Weight Bearing Status Weight Bear as Tolerated Recommendations To Nursing Amount of Assist Needed 1 Person Assist Discharge Recommendations PT Discharge Recommendations SNF Rehab Transportation Needs at Discharge Wheelchair/Cabulance
--- NOTE | 2023-03-26 13:30 | P.PN_ITS ---
Subjective Subjective Interval history: No complaints, no chest pain. Abdomen feels better. Exam Vital Signs (past 8 hours): - 03/26/23 08:00 03/26/23 12:00 Temperature 97.7 F 98.0 F Pulse Rate 95 H 94 H Respiratory Rate 17 17 Blood Pressure 114/62 114/72 Pulse Oximetry 95 96 Oxygen Flow Rate 0 0 Oxygen Delivery Method Room Air Oxygen Flow Rate 0 Narrative Exam Narrative: NAD Lungs clear Heart regular Abdomen is soft with minimal tenderness. Gtube in place. No leg edema. Objective Labs 03/25/23 21:08 03/25/23 21:08 Labs: Laboratory Results - last 24 hr 03/25/23 03/25/23 21:08 21:08 WBC 9.0 RBC 3.04 L Hgb 8.8 L Hct 26.2 L MCV 86.2 MCH 29.1 MCHC 33.7 RDW 16.1 H Plt Count 542 H Neut % (Auto) 78.6 H Lymph % (Auto) 6.4 L [place] % (Auto) 10.4 Eos % (Auto) 4.0 Baso % (Auto) 0.6 Neut # (Auto) 7100 H Lymph # (Auto) 600 L [place] # (Auto) 900 Eos # (Auto) 400 Baso # (Auto) 100 Sodium 136 L Potassium 3.5 Chloride 110 H Carbon Dioxide 22 BUN 18 H Creatinine 0.49 L Estimated GFR > 60 BUN/Creatinine Ratio 36.7 H Glucose 111 H Calcium 7.8 L PFSH Medical History (Updated 03/21/23 @ 03:30 by Trung Morrow MD) Acute hyponatremia Allergies Anxiety Benign essential tremor 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 Enteritis, POAI. Continue Abx and follow. Plan to stop at time of discharge (03/27 if stable). 2. G-tube leak, POA. Surgery adjusted 03/25 and again 03/26. Leak seems better. Dr. Cyr. 3. Hyponatremia (hypovolemic), POAI. Continue saline and follow. 4. Severe protein caloric malnutrition, POA. Continue tube feeds. She seems to do better at a slow rate of 30 ml/hr. 5. Hypomagnesemia, POAI. Repleted. 6. Possible dysphagia, POA. MBSS went very poorly. She wants to continue to eat occasionally for pleasure. Follow clinically. 7. Heme positive brown stool notes 03/26, will follow H/H and clinically for an additional day. Dispo: SNF discharge pushed back from 03/26 to 03/27 to allow for G-tube adjustments and to follow stools. [facility]. Time Spent With Patient Time with patient: less than 30 minutes
[2023-03-26 16:00] VITALS: BP 113/67; PULSE 93; RESP 17; TEMP 36.7; O2SAT 96
[2023-03-26 20:30] VITALS: BP 114/82; PULSE 114; RESP 18; TEMP 37.2; O2SAT 95
[2023-03-26 23:56] VITALS: BP 100/51; PULSE 94; RESP 15; TEMP 37.1; O2SAT 91
[2023-03-27 01:45] VITALS: BP 111/61; PULSE 98
[2023-03-27] MEDS: OXYCODONE IR 5 MG TABLET 10 MG TUBE ×3 (01:45→11:27)
[2023-03-27 04:51] VITALS: BP 93/57; PULSE 91; RESP 16; TEMP 36.4; O2SAT 91
[2023-03-27 05:06] LABS: Add Manual Diff / Slide Review NO; Basophils Absolute Auto 0 /uL (0-100); Basophils Percent Auto 0.4 % (0-2); Eosinophils Absolute Auto 300 /uL (0-450); Eosinophils Percent Auto 4.4 % (2-4); Hematocrit 27.7 % (36-46); Hemoglobin 9.3 g/dL (12.0-16.0); Lymphocytes Absolute Auto 500 /uL (1100-4500); Mean Corpuscular HGB Conc 33.6 % (30-36); Mean Corpuscular Hemoglobin 28.6 PG (26-34); Mean Corpuscular Volume 85.2 fL (80-100); Monocytes Absolute Auto 800 /uL (0-900); Monocytes Percent Auto 10.8 % (3-14); Neutrophils Absolute Auto 6200 /uL (1500-7000); Neutrophils Percent Auto 78.4 % (50-75); Platelet Count 529 X10^3/uL (150-400); Red Blood Cell Count 3.26 X10^6/uL (4.0-5.2); Red Cell Distribution Width 15.9 % (11.6-14.8); White Blood Cell Count 7.9 X10^3/uL (4.5-11.0)
[2023-03-27 05:16] LABS: BUN Creatinine Ratio 36.4 (6-22); Blood Urea Nitrogen 16 mg/dL (7-17); Calcium 7.6 mg/dL (8.4-10.2); Carbon Dioxide 24 mmol/L (22-32); Chloride 110 mmol/L (98-107); Estimated Glomerular Filt Rate > 60 mL/min (>60); Glucose 111 mg/dL (80-110); HEMOLYSIS < 15 (0-50); Potassium 3.8 mmol/L (3.4-5.1); Sodium 135 mmol/L (137-145)
[2023-03-27 08:00] VITALS: RESP 18
--- NOTE | 2023-03-27 08:45 | PC.NURSE ---
Pt awake, requesting pain meds. Oxycodone given as per orders w/good relief. Tube feed of Pivot infusing via kangaroo pump w/o incidence. Continue w/plan of care. Call light w/in reach. bed alarm on for pt safety.
[2023-03-27 09:00] VITALS: BP 108/62; PULSE 92; RESP 17; TEMP 36.2; O2SAT 98
[2023-03-27] MEDS: LORazepam 1 MG TABLET PO (09:32)
[2023-03-27] MEDS: MULTIVITAMIN 1 TABLET 1 TAB PO (09:32)
[2023-03-27] MEDS: CHOLECALCIFEROL (VITAMIN D3) 1,000 UNIT TABLET 1000 UNIT PO (09:32)
[2023-03-27] MEDS: CALCIUM CARBONATE 500 MG TAB PO (09:32)
[2023-03-27] MEDS: ENOXAPARIN 40 MG/0.4 ML SYRINGE SUBCUT (09:33)
[2023-03-27] MEDS: SPIRONOLACTONE 25 MG TABLET PO (09:41)
--- NOTE | 2023-03-27 10:46 | P.DS_ITS ---
History of Present Illness History of Present Illness Date Patient Seen: 03/27/23 Chief complaint: Abdominal Pain Narrative: Patient feeling a little better each day in his eager to go to [facility] for further rehabilitation. Discharge Providers Provider Date of admission: 03/21/23 00:11 Discharge Date: 03/27/23 Primary care physician: Christin Santos RN Consults: 03/21/23 03:22 Consult to Dietitian, Adult Routine Comment: Reason For Exam: malnourished, weight loss 03/22/23 11:53 Consult to Physical Therapy Evaluate & Treat Comment: Physician Instructions: Evaluate and Treat 03/23/23 10:19 Consult to Speech Therapy Evaluate & Treat Comment: Physician Instructions: Evaluate and treat 03/23/23 16:48 Consult to General Surgery Routine Comment: Consulting Provider: Cheng Mckeon Reason for consultation: abd pain, leaking PEG tube Has provider been notified: Yes 03/24/23 11:01 Consult to Physical Therapy Evaluate & Treat Comment: Physician Instructions: Evaluate and Treat 03/24/23 17:04 Consult to Wound Care Routine Comment: skin breakdown at G-tube site Consulting Provider: Amy Wound Care Discharge provider: Heather Carlisle MD Summary Hospital Course Discharge Diagnosis: Enteritis, POA (present on admission). Treated with Zosyn and discontinued at discharge. G-tube leak, POA. Surgery adjusted 03/25 and again 03/26. Leak treated. Dr. Cyr. Hyponatremia (hypovolemic), POA Severe protein caloric malnutrition, POA. Continue tube feeds. She seems to do better at a slow rate of 30 ml/hr. Hypomagnesemia, POA Possible dysphagia, POA. Heme positive brown stool. 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 She recently had a PEG placed at [facility] to address chronic malnutrion.? She stated that she had been doing well and pain started suddenly early in the morning on the day of presentation.? She states the pain came and went without obvious provocation or palliation.? She denied any constipation or diarrhea.? She denied any urinary complaints such as dysuria, frequency or urgency.? She had no fever or chills.? She stated that she is had little to drink and was feeling a bit dizzy and lightheaded. Last Chemo/Radiation was 4 years ago. Imaging found a functional PEG in place with some air from recent placement and also likely enteritis. The enteritis was treated with initial dose of Zosyn 4.5 g IV followed by 3.375 g IV every 8 hours. This treatment was continued until the time of discharge. Patient was tolerating tube feeds at the rate of 30 mL/hour with food tasting for pleasure as well. There was a concern for leaking around the gastric insertion of the PEG tube. This was assessed and treated by Dr. Villegas general surgeon. Subsequently the hemoglobin remained stable and the patient was discharged to [facility] with the PEG feeding functioning well. Status at Discharge Cognitive/behavioral status at discharge: at baseline, oriented Functional status at discharge: wheelchair bound Overall status at discharge: patient is back to baseline Time Spent with Patient Time spent: Greater than 30 minutes Exam Vital Signs (past 8 hours): - 03/27/23 04:51 03/27/23 08:00 03/27/23 09:00 Temperature 97.5 F L 97.1 F L Pulse Rate 91 H 92 H Respiratory Rate 16 18 17 Blood Pressure 93/57 L 108/62 Pulse Oximetry 91 98 Oxygen Flow Rate 0 0 Oxygen Delivery Method Room Air Oxygen Flow Rate 0 Narrative Exam Narrative: NAD Lungs clear Heart regular Abdomen is soft with minimal tenderness. Gtube in place. No leg edema. Objective Labs 03/27/23 04:57 03/27/23 04:57 Labs: Laboratory Results - last 24 hr 03/27/23 03/27/23 04:57 04:57 WBC 7.9 RBC 3.26 L Hgb 9.3 L Hct 27.7 L MCV 85.2 MCH 28.6 MCHC 33.6 RDW 15.9 H Plt Count 529 H Neut % (Auto) 78.4 H Lymph % (Auto) 6.0 L [place] % (Auto) 10.8 Eos % (Auto) 4.4 H Baso % (Auto) 0.4 Neut # (Auto) 6200 Lymph # (Auto) 500 L [place] # (Auto) 800 Eos # (Auto) 300 Baso # (Auto) 0 Sodium 135 L Potassium 3.8 Chloride 110 H Carbon Dioxide 24 BUN 16 Creatinine 0.44 L Estimated GFR > 60 BUN/Creatinine Ratio 36.4 H Glucose 111 H Calcium 7.6 L PFSH Medical History (Updated 03/21/23 @ 03:30 by Trung Morrow MD) Acute hyponatremia Allergies Anxiety Benign essential tremor 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 Discharge orders & Medications Prescriptions: New acetaminophen [Children's Acetaminophen] 160 mg/5 mL Suspension 650 mg PO Q4HR PRN (Reason: Fever/Mild Pain (1-3)) Qty: 120 0RF calcium carbonate 200 mg calcium (500 mg) Tablet,Chewable 500 mg PO BID Qty: 60 0RF cholecalciferol (vitamin D3) 25 mcg (1,000 unit) Tablet 1,000 unit PO DAILY Qty: 30 0RF multivitamin with folic acid [Tab-A-Simone] 400 mcg Tablet 1 tab PO DAILY Qty: 30 0RF spironolactone 25 mg Tablet 25 mg PO 0900,1700 Qty: 60 0RF oxycodone 5 mg Tablet 10 mg TUBE Q3H PRN (Reason: Pain, Moderate (4-6)) Qty: 30 0RF dicyclomine 20 mg tablet 20 mg PO QID PRN (Reason: abdominal pain/irritible bowel) Qty: 90 0RF hydroxyzine HCl 10 mg tablet 10 mg PO BEDTIME Qty: 30 0RF lorazepam 1 mg tablet 1 mg PO BID MDD 2 mg per day PRN (Reason: anxiety) Qty: 60 0RF Rx Instructions: as needed for anxiety prochlorperazine maleate 10 mg tablet 10 mg PO Q6H MDD 40 mg per day PRN (Reason: nausea) Qty: 90 0RF spironolactone 25 mg tablet 25 mg PO BID Qty: 60 0RF Discontinued spironolactone 25 mg tablet 25 mg PO BID hydroxyzine HCl 10 mg tablet 10 mg PO BEDTIME lidocaine HCl 2 % jelly 1 applictn TOP BID PRN (Reason: PAIN) dicyclomine 20 mg tablet prochlorperazine maleate 10 mg tablet 10 mg PO Q6H PRN (Reason: NAUSEA) acetaminophen [Tylenol] 325 mg capsule 325 mg PO ONCE PRN (Reason: PAIN) triamcinolone acetonide 0.025 % cream 1 applic topical DAILY penicillin V potassium 500 mg tablet 500 mg PO TID Patient Comments: PT STATED SHE STOPPED TAKING 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
--- NOTE | 2023-03-27 11:20 | PT.IPTN ---
Current Diagnoses Unspecified severe protein-calorie malnutrition (03/21/23) Dehydration (03/21/23) Hypo-osmolality and hyponatremia (03/21/23) Noninfective gastroenteritis and colitis, unspecified (03/21/23) Physical Therapy Treatment Note M2 PT-IP Current Condition Start: 03/22/23 12:21 Freq: NEEDED Status: Active Protocol: Document 03/24/23 08:20 MB (Rec: 03/24/23 10:47 MB [id number]) Physical Therapy Current Condition Current Condition Evaluation Date 03/24/23 Treatment Diagnosis Weakness and cachexia from malnutrition s/p oral CA, resection and tx, IBS Onset Date At least 5 years M3 PT-IP Subjective Start: 03/22/23 12:21 Freq: NEEDED Status: Active Protocol: Document 03/27/23 11:20 AB (Rec: 03/27/23 12:28 AB [id number]) Subjective Physical Therapy Visit Type Type Treatment Note Visit Start Time 11:20 Visit Stop Time 11:35 Total Visit Minutes 15 Number of SPIN TABLE OPERATOR Visits 0 Physical Therapy Visit Comments Patient Comments requesting to use the toilet M4 PT-IP Mobility and Gait Start: 03/22/23 12:21 Freq: NEEDED Status: Active Protocol: Document 03/27/23 11:20 AB (Rec: 03/27/23 12:28 AB [id number]) PT-Bed Mobility Assessment Supine to Sit Supine to Sit Standby Assistance,Head of Bed Elevated,Bedrails Sit to Supine Sit to Supine Maximum Assistance,Head of Bed Elevated,Bedrails PT-Transfer Assessment Sit to and From Stand Sit to and from Stand Maximum Assistance,1 Person Assistance,Use of Upper Extremities Equipment Transfer Assistive Device Gait Belt,Front Wheeled Walker Orthotic/Prosthetic Devices or Brace: No Transfers Transfer Destination Bed,Bedside Commode Transfer Technique Stand Step Pivot Transfer Ability Level of Assist Maximum Assistance,1 Person Assistance,Use of Upper Extremities Comments Mobility Comments pt requesting to use the toilet. completed supine to sit SBa with HOB elevated and used bed rail to assist. able to sit on EOB SBA. completed sit to stand max A and cues. increase posterior lean with initial standing requiring max A for stability and positioning trunk to center. cues on how to use FWW for support. completed step transfer to the bedside commode max A and max cues. continues to have increase posterior LOB. NAC in room to assist with toileting needs and assisting pt with brief management. completed sit to stand from the bedside commode max A and max cues. Max A to maintain standing using FWW for support while NAC assisted pt with hygiene care and brief management. step transfer completed using FWW max a and max cues. pt completed sit to supine max A for LE elevation. positioned pt in bed. Left pt with nurse and NAC in room. M5 PT-IP Objective Assessments Start: 03/22/23 12:21 Freq: NEEDED Status: Active Protocol: Document 03/24/23 08:20 MB (Rec: 03/24/23 10:47 MB [id number]) Orientation Orientation/Cognition Level of Alertness Alert Orientation Name,Age,Birthday,Month,Year, Place,Situation Safety Awareness Decreased Safety Awareness Memory Description No Deficits Noted Comments Pt's verbalizations are difficult to understand given mandibular resection and her verbalizations are nasal in nature. She has little mandibular and tongue movement . Gross Range of Motion Lower Extremity ROM Assessment Within Functional Limits Strength Lower Extremity Strength Assessment Bilaterally Impaired Hip 3-/5 Knee 3-/5 Ankle 4/5 Sensation Assessment Comments Sensation Comments Pt does not respond well to sensory commands and does appear to have some motorsensory challenges in feet with mobility M6 PT-IP Treatment Start: 03/22/23 12:21 Freq: NEEDED Status: Active Protocol: Document 03/26/23 13:22 TS (Rec: 03/26/23 13:31 TS [id number]) Physical Therapy Treatment Exercises Exercises Ankle Pumps,Gluteal Sets,Quad Sets,Straight Leg Raises, Supine Hip Abduction M7 PT-IP Assessment and Plan Start: 03/22/23 12:21 Freq: NEEDED Status: Active Protocol: Document 03/27/23 11:20 AB (Rec: 03/27/23 12:28 AB [id number]) PT Summary Assessment and Plan Potential Rehabilitation Potential Fair Summary Impairments Pain,ROM,Strength,Balance, Coordination,Sensation,Tone, Cognition,Bed Mobility, Transfers,Gait,Activity Tolerance Progress Towards Goals Slow Progress due to Medical Issues,Slow Progress due to Activity Tolerance,Slow Progress - Other Assessment Summary pt requiring max A with transfers using FWW and has decrease activity tolerance affecting mobility progression and function. current plan is for pt to d/c to SNF. Goals Bed Mobility Goal Independent Transfer Goal Independent,Front Wheeled Walker Gait Goal Independent,Front Wheel Walker Gait Distance 50 Other Goals Pt will ascend and descend 2 steps with use of rail and LRAD to allow safe home entry. Days to Meet Goals 10 Frequency of Treatment Frequency Of Treatment Once a Day Treatment Plan Physical Therapy Treatment Plan Bed Mobility Training,Transfer Training,Gait Training, Therapeutic Exercise,Balance Retraining,Discharge Planning, Neuromuscular Re-ed Recommendations To Nursing Amount of Assist Needed 1 Person Assist Discharge Recommendations PT Discharge Recommendations SNF Rehab Transportation Needs at Discharge Wheelchair/Cabulance
--- NOTE | 2023-03-27 16:28 | CM.DPNOTE ---
DC Note Discharge to [facility] today via w/c van, all ppk faxed to [facility]. Patient remained agreeable to plan JW
--- NOTE | 2023-03-30 13:00 | CM.DPC ---
DCP COntinued: Kelsi from [facility] called to inquire about d/c summary for patient's feeding instruction. Kelsi reported that unless there is paperwork from a provider stating justification for a pump feed over a gravity feed they cannot get an insurance auth. [employer]PER[employer] faxed d/c summary and PN to Kelsi at [phone]. CM team will continue to follow as needed. LIA Carty
--- NOTE | 2023-04-01 15:16 | CM.DPC ---
DCP Continued: Isidro Valdivia, son, called and lvm with DCP desk for questions regarding her d/c from [facility]. BACCARAT DEALER called and lvm for Juanito. Isidro called back in afternoon. BACCARAT DEALER informed him CM team was no longer following her case post d/c from hospital and directed him to team at [facility] for her d/c from their facility. Isidro expressed verbal understanding. LIA Carty
== END 2023-03-27 12:02 | DRG 391 ==
LOC: ED 03-21 00:11 → AC 03-21 00:12
PROVIDERS: Emergency Medicine; Hospitalist; Internal Medicine; Admitting Provider Internal Medicine; Emergency Provider Emergency Medicine; PCP Nurse Practitioner Family; Referring Provider Emergency Medicine; Visit Provider Internal Medicine
DX: K52.9 Noninfective gastroenteritis and colitis, unspecified (principal); E43 Unspecified severe protein-calorie malnutrition; E87.1 Hypo-osmolality and hyponatremia; Z68.1 Body mass index [BMI] 19.9 or less, adult; K92.1 Melena; E86.0 Dehydration; F41.9 Anxiety disorder, unspecified; E83.42 Hypomagnesemia; R13.10 Dysphagia, unspecified; K94.29 Other complications of gastrostomy; Z87.891 Personal history of nicotine dependence
CPT/HCPCS: 36415; 71045; 74177; 74230; 76000; 80048; 80053; 81003; 81015; 83690; 83735; 85025; 92526; 92610; 92611; 96361; 96365; 96375; 97110; 97161; 97530; 99232; 99284; 99285; J1170; J1650; J1885; J2543; J3475; Q9967

== ENCOUNTER 2023-04-02 20:46 | Inpatient (IN) | payer MEDICARE, SELFPAY ==
[2023-03-21 01:01] VITALS: BMI 15.9
[2023-04-02] VITALS (8 sets, daily range): BP systolic 100–125; BP diastolic 56–66; PULSE 84–105; RESP 15–120; TEMP 37.1; O2SAT 96–100; BMI 21.6
--- NOTE | 2023-04-02 21:17 | ED.ABDPAIN ---
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 She was admitted here March 20 through March 27 she had possible enteritis and leakage around PEG tube. Tube placement had been assessed by Gastrografin study there was no abnormality surgery was consulted, conservative measures taken. Patient was ultimately discharged to rehabilitation center she had follow-up at GI today GI noted that she had significant leakage around G-tube confirmed placement did blood work outpatient blood work revealed leukocytosis of 20 and she was sent to the ED for possible dehydration. Patient's vitals are stable she reports some discomfort in her abdomen in the skin but really no other symptoms. She is afebrile. Related Data Previous Rx's Medication Instructions Recorded acetaminophen 160 mg/5 mL oral 650 mg (20.3125 mL) PO Q4HR PRN 03/27/23 suspension (Children's Fever/Mild Pain (1-3) #120 mL Acetaminophen) calcium carbonate 200 mg calcium 500 mg PO BID #60 tabs 03/27/23 (500 mg) chewable tablet cholecalciferol (vitamin D3) 25 1,000 unit PO DAILY #30 tabs 03/27/23 mcg (1,000 unit) tablet hydroxyzine HCl 10 mg tablet 10 mg PO BEDTIME #30 tabs 03/27/23 lorazepam 1 mg tablet 1 mg PO BID PRN anxiety #60 tabs 03/27/23 multivitamin with folic acid 400 1 tab PO DAILY #30 tabs 03/27/23 mcg tablet (Tab-A-Simone) oxycodone 5 mg tablet 10 mg TUBE Q3H PRN Pain, Moderate 03/27/23 (4-6) #30 tabs spironolactone 25 mg tablet 25 mg PO 0900,1700 #60 tabs 03/27/23 Allergies Allergy/AdvReac Type Severity Reaction Status Date / Time adhesive Allergy Rash Verified 03/20/23 16:25 Review of Systems Review of Systems ROS Unobtainable: All systems reviewed & are unremarkable except as noted in HPI and below Patient History Medical History Acute hyponatremia Allergies Anxiety Benign essential tremor 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 Dermatitis Diverticulosis Eczema Elevated glucose level Generalized abdominal pain Hypercalcemia Insomnia Nicotine dependence Peripheral neuropathy Right arm pain Seizures Weakness Family History Father Prostate cancer Deaf Mother Arthritis Social History household members: family Smoking Status: Former smoker alcohol intake: former Smoking Status: Former smoker Substance Use Type: does not use Exam Initial Vital Signs Initial Vital Signs: Vital Signs Pulse Rate 96 H 04/02/23 20:58 Blood Pressure 111/59 L 04/02/23 20:58 Pulse Oximetry 97 04/02/23 20:58 Oxygen Delivery Method Room Air 04/02/23 20:58 GENERAL: Alert 77-year-old female, appears thin HEENT: Head atraumatic,EOMI, pupils reactive CARDIOVASCULAR: Regular rate and rhythm without murmurs, rubs or gallops. RESPIRATORY: Breath sounds equal bilaterally, no wheezes rales or rhonchi. ABDOMEN: Soft, nontender. Normoactive bowel sounds all 4 quadrants. No guarding or rebound. G-tube placed significant leakage foul-smelling brown G2. Dressing is completely saturated. It has been removed skin under the dressing is very irritated and erythematous and every time patient breathes she has gastric fluid coming out around tube EXTREMITIES: Normal range of motion, no clubbing or edema. Neurovascularly intact NEUROLOGICAL: Alert and oriented x3 SKIN: Significant abdominal erythema especially irritation around G-tube. Blanchable no fluctuation induration or evidence of abscess. Course Orders Ordered: ED Orders 04/02/23 21:13 EKG-12 Lead Stat 04/02/23 21:17 Complete Blood Count AUTO DIFF Stat Comprehensive Metabolic Panel Stat Lactate (Lactic Acid) Stat Lipase Stat Procalcitonin Stat 04/02/23 21:50 Blood Culture Stat 04/02/23 23:42 CT abdomen pelvis w con Stat 04/03/23 00:00 Urinalysis and Microscopic Stat 04/03/23 02:50 Chest [XR chest 1V] Stat Acetaminophen (Acetaminophen Susp 650 Mg/20.3 Ml Udc) 650 mg TUBE Q4HR PRN PRN Reason: Fever/Mild Pain (1-3) Calcium Carbonate (Calcium Carbonate 500 Mg Tab) 1,000 mg PO Q4HR PRN PRN Reason: Dyspepsia Dicyclomine HCl (Dicyclomine 10 Mg Capsule) 20 mg PO QID PRN PRN Reason: abdominal pain/irritible bowel Hydromorphone HCl (Hydromorphone 0.5 Mg Inj) 0.5 mg IV Q2H PRN PRN Reason: Pain, Severe (7-10) Last Admin: 04/03/23 03:46 Dose: 0.5 mg Documented By: REA Sodium Chloride (Normal Saline 0.9%) 1,000 mls @ 100 mls/hr IV CONT DIANE Last Admin: 04/03/23 05:09 Dose: Not Given Documented By: REA Vancomycin HCl 1,250 mg/ (Sodium Chloride) 100 mls @ 100 mls/hr IV Q12H DIANE Piperacillin Sod/Tazobactam (Sod 3.375 gm/ Sodium Chloride) 100 mls @ 25 mls/hr IV Q8H DIANE Lorazepam (Lorazepam 1 Mg Tablet) 1 mg PO BID PRN PRN Reason: anxiety Lorazepam (Lorazepam 2 Mg/Ml Inj) 0.5 mg IV Q2HR PRN PRN Reason: Anxiety Last Admin: 04/03/23 05:16 Dose: 0.5 mg Documented By: REA Naloxone HCl (Naloxone 0.4 Mg/Ml Vial) 0.2 mg IV Q2MIN PRN PRN Reason: Opiate Reversal Non-Formulary Medication (Hydroxyzine Hcl) 10 mg PO BEDTIME [facility] Ondansetron HCl (Ondansetron 4 Mg Odt) 4 mg PO NOW PRN PRN Reason: Nausea And Vomiting Ondansetron HCl (Ondansetron 4 Mg/2 Ml Inj) 4 mg IV NOW PRN PRN Reason: Nausea And Vomiting Ondansetron HCl (Ondansetron 4 Mg/2 Ml Inj) 4 mg IV Q8HR PRN PRN Reason: Nausea And Vomiting Oxycodone HCl (Oxycodone Ir 5 Mg Tablet) 10 mg TUBE Q3H PRN PRN Reason: Pain, Moderate (4-6) Oxycodone HCl (Oxycodone Ir 5 Mg Tablet) 5 mg PO Q3H PRN PRN Reason: Pain, Moderate (4-6) Prochlorperazine (Prochlorperazine 5 Mg Tablet) 10 mg PO Q6H PRN PRN Reason: nausea Sennosides (Sennosides 8.6 Mg Tablet) 17.2 mg PO BEDTIME DIANE Discontinued Medications Acetaminophen (Acetaminophen 325 Mg Tablet) 650 mg PO Q6H PRN PRN Reason: Fever/Mild Pain (1-3) Hydromorphone HCl (Hydromorphone 0.5 Mg Inj) 0.5 mg IV NOW ONE Stop: 04/03/23 00:17 Last Admin: 04/03/23 00:23 Dose: 0.5 mg Documented By: MARLON Sodium Chloride (Normal Saline 0.9%) 1,000 mls @ 1,000 mls/hr IV BOLUS ONE Stop: 04/02/23 23:34 Last Infusion: 04/03/23 01:02 Dose: 0 mls/hr Documented By: Admin: 04/02/23 22:56 Dose: 1,000 mls/hr Documented By: JAREN Piperacillin Sod/Tazobactam (Sod 4.5 gm/ Sodium Chloride) 100 mls @ 200 mls/hr IV NOW ONE Stop: 04/03/23 02:44 Last Infusion: 04/03/23 03:22 Dose: 0 mls/hr Documented By: Admin: 04/03/23 02:56 Dose: 200 mls/hr Documented By: BLU Vancomycin HCl (Vancomycin) 1,000 mg in 200 mls @ 200 mls/hr IV NOW ONE Stop: 04/03/23 03:49 Last Admin: 04/03/23 04:36 Dose: 200 mls/hr Documented By: REA Sodium Chloride (Normal Saline 0.9%) 1,000 mls @ 100 mls/hr IV CONT DIANE Last Admin: 04/03/23 04:38 Dose: 100 mls/hr Documented By: REA Morphine Sulfate (Morphine 2 Mg/Ml Inj) 2 mg IV NOW ONE Stop: 04/02/23 22:36 Last Admin: 04/02/23 22:54 Dose: 2 mg Documented By: JAREN Vital Signs Vital signs: Vital Signs - 8 hr 04/02/23 22:00 04/02/23 22:00 04/02/23 22:30 Pulse Rate 84 Respiratory Rate 16 Blood Pressure 100/57 L 113/61 Pulse Oximetry 96 Oxygen Delivery Method 04/02/23 22:30 04/02/23 23:00 04/02/23 23:00 Pulse Rate 97 H 105 H Respiratory Rate 23 26 H Blood Pressure 125/66 Pulse Oximetry 96 99 Oxygen Delivery Method Room Air 04/02/23 23:02 04/02/23 23:02 04/02/23 23:30 Pulse Rate 105 H Respiratory Rate Blood Pressure 125/62 124/64 Pulse Oximetry 100 Oxygen Delivery Method Room Air 04/02/23 23:30 04/03/23 00:00 04/03/23 00:00 Pulse Rate 93 H 100 H Respiratory Rate 15 21 Blood Pressure 143/72 H Pulse Oximetry 98 96 Oxygen Delivery Method 04/03/23 00:30 04/03/23 00:30 04/03/23 00:51 Pulse Rate 89 103 H Respiratory Rate 16 17 Blood Pressure 107/57 L Pulse Oximetry 95 96 Oxygen Delivery Method 04/03/23 00:51 04/03/23 01:00 04/03/23 01:00 Pulse Rate 94 H Respiratory Rate 12 Blood Pressure 118/82 121/58 L Pulse Oximetry 94 Oxygen Delivery Method 04/03/23 01:30 04/03/23 01:30 04/03/23 02:00 Pulse Rate 86 82 Respiratory Rate 13 13 Blood Pressure 103/59 L Pulse Oximetry 95 96 Oxygen Delivery Method 04/03/23 02:30 04/03/23 02:30 Pulse Rate 80 Respiratory Rate 14 Blood Pressure 105/54 L Pulse Oximetry 95 Oxygen Delivery Method MDM - Abdominal Pain Lab Data 04/02/23 21:17 04/02/23 21:17 Labs: Lab Results 04/02/23 04/02/23 04/02/23 Range/Units 21:17 21:17 21:17 WBC 18.2 H (4.5-11.0) X10^3/uL RBC 3.29 L (4.0-5.2) X10^6/uL Hgb 9.4 L (12.0-16.0) g/dL Hct 27.6 L (36-46) % MCV 84.0 (80-100) fL MCH 28.6 (26-34) PG MCHC 34.0 (30-36) % RDW 16.4 H (11.6-14.8) % Plt Count 731 H (150-400) X10^3/uL Neut % (Auto) 92.7 H (50-75) % Lymph % (Auto) 3.5 L (25-40) % [place]er % (Auto) 3.5 (3-14) % Eos % (Auto) 0.1 L (2-4) % Baso % (Auto) 0.2 (0-2) % Neut # (Auto) 58556 H (6606-7218) /uL Lymph # (Auto) 600 L (3010-2667) /uL Hooker # (Auto) 600 (0-900) /uL Eos # (Auto) 0 (0-450) /uL Baso # (Auto) 0 (0-100) /uL Sodium 129 L (137-145) mmol/L Potassium 4.7 (3.4-5.1) mmol/L Chloride 96 L (98-107) mmol/L Carbon Dioxide 31 (22-32) mmol/L BUN 18 H (7-17) mg/dL Creatinine 0.49 L (0.52-1.04) mg/dL Estimated GFR > 60 (>60) mL/min BUN/Creatinine Ratio 36.7 H (6-22) Glucose 104 (80-110) mg/dL Lactate 1.1 (0.7-2.1) mmol/L Calcium 8.1 L (8.4-10.2) mg/dL Total Bilirubin 0.3 (0.2-1.3) mg/dL AST 27 (14-36) IU/L ALT 14 (<35) IU/L Alkaline Phosphatase 159 H (38-126) U/L Total Protein 6.1 L (6.3-8.2) g/dL Albumin 2.5 L (3.5-5.0) g/dL Globulin 3.6 (1.7-4.1) g/dL Albumin/Globulin Ratio 0.7 L (1.0-2.8) Lipase 159 (23-300) U/L Procalcitonin (<0.5) ng/mL Urine Color Urine Appearance Urine pH (4.5-8.0) Ur Specific [place] (1.000-1.035) Urine Protein (Negative) Urine Glucose (UA) (Negative) g/dL Urine Ketones (NEGATIVE) Urine Occult Blood (Negative) Urine Nitrate (Negative) Urine Bilirubin (NEGATIVE) Urine Urobilinogen (0.2) E.U./dL Ur Leukocyte Esterase (NEGATIVE) Urine RBC (0-5/HPF) Urine WBC (0-5/HPF) Ur Squamous Epith Cells (0-5/HPF) Urine Bacteria (None) Ur Culture Indicated? 04/02/23 04/03/23 Range/Units 21:17 00:00 WBC (4.5-11.0) X10^3/uL RBC (4.0-5.2) X10^6/uL Hgb (12.0-16.0) g/dL Hct (36-46) % MCV (80-100) fL MCH (26-34) PG MCHC (30-36) % RDW (11.6-14.8) % Plt Count (150-400) X10^3/uL Neut % (Auto) (50-75) % Lymph % (Auto) (25-40) % Hooker % (Auto) (3-14) % Eos % (Auto) (2-4) % Baso % (Auto) (0-2) % Neut # (Auto) (2042-2960) /uL Lymph # (Auto) (7112-2062) /uL Hooker # (Auto) (0-900) /uL Eos # (Auto) (0-450) /uL Baso # (Auto) (0-100) /uL Sodium (137-145) mmol/L Potassium (3.4-5.1) mmol/L Chloride (98-107) mmol/L Carbon Dioxide (22-32) mmol/L BUN (7-17) mg/dL Creatinine (0.52-1.04) mg/dL Estimated GFR (>60) mL/min BUN/Creatinine Ratio (6-22) Glucose (80-110) mg/dL Lactate (0.7-2.1) mmol/L Calcium (8.4-10.2) mg/dL Total Bilirubin (0.2-1.3) mg/dL AST (14-36) IU/L ALT (<35) IU/L Alkaline Phosphatase (38-126) U/L Total Protein (6.3-8.2) g/dL Albumin (3.5-5.0) g/dL Globulin (1.7-4.1) g/dL Albumin/Globulin Ratio (1.0-2.8) Lipase (23-300) U/L Procalcitonin 52.2 H (<0.5) ng/mL Urine Color Yellow Urine Appearance Clear Urine pH 7.5 (4.5-8.0) Ur Specific [place] 1.010 (1.000-1.035) Urine Protein Negative (Negative) Urine Glucose (UA) Negative (Negative) g/dL Urine Ketones Negative (NEGATIVE) Urine Occult Blood Negative (Negative) Urine Nitrate Negative (Negative) Urine Bilirubin Negative (NEGATIVE) Urine Urobilinogen 1.0 (0.2) E.U./dL Ur Leukocyte Esterase Negative (NEGATIVE) Urine RBC None seen (0-5/HPF) Urine WBC None seen (0-5/HPF) Ur Squamous Epith Cells 0-1 /hpf (0-5/HPF) Urine Bacteria Occasional (0-1) (None) Ur Culture Indicated? Cult not indicated Imaging Data CT scan - abdomen/pelvis: Radiologist's Impression: PROCEDURE:? CT ABDOMEN PELVIS W CON ? INDICATIONS:? G tube leakage; prior free air ? TECHNIQUE:? After the administration of IV contrast, axial sections were acquired from the lung bases to the pubic symphysis.? Coronal and sagittal reformats were performed.? For radiation dose reduction, the following was used:? automated exposure control, adjustment of mA and/or kV according to patient size. ? COMPARISON:? [facility], CT, CT ABDOMEN PELVIS W CON, 03/23/2023, 17:14. ? FINDINGS:? Image quality:? There is beam hardening artifact from patient's right upper extremity the.? ? Lung bases:? There are persistent small to moderate bilateral pleural effusions, left greater than right.? There is associated compressive atelectasis as well as consolidation in the left lower lobe.? ? Heart:? Heart is normal in size.? There is a small pericardial effusion. ? ? ABDOMEN: Liver:? Multiple hepatic cysts are redemonstrated.? In addition, there are scattered low-density foci in the liver which are too small to characterize but likely represent cysts. Gallbladder:? Within normal limits without calcified gallstones.? ? Biliary ducts:? No biliary ductal dilatation.? ? Pancreas:? Unremarkable.? ? Spleen:? Normal in size.? ? Adrenal Glands:? No adrenal nodules.? ? Kidneys and Ureters:? No hydronephrosis.? ? ? Stomach and Bowel:? There is a gastrostomy tube redemonstrated extending into the stomach.? Mild gastric wall thickening is demonstrated in the antrum.? Small and large bowel loops are normal in caliber and wall thickness.? The appendix is normal.? There is colonic diverticulosis without acute diverticulitis. Peritoneum:? There is a small amount of intraperitoneal free fluid.? No free air.? ? Ventral Wall: ? No hernia.? Abdominal Nodes:? No retroperitoneal or mesenteric adenopathy by size criteria.? Vessels:? Aorta and inferior vena cava are normal in size.? ? PELVIS: Pelvic Organs:? Unremarkable.? ? Bladder:? Unremarkable.? ? Pelvic Nodes: No enlarged lymph nodes.? Miscellaneous: No inguinal hernias are seen. ? ? ? Bones:? Visualized osseous structures demonstrate no suspicious focal lesions. ? IMPRESSION:? ? 1. Gastrostomy tube demonstrated extending into the stomach. ? 2. No evidence of pneumoperitoneum. ? 3. Small amount of intraperitoneal free fluid in the pelvis is nonspecific and may be reactive but extravasation from the tube cannot be excluded. ? 4. Bilateral pleural effusions with compressive atelectasis as well as left lower lobe consolidation which may reflect pneumonia. ? 5. Small pericardial effusion. ? ? ? Dictated by: Austin Hartmann M.D. on 04/03/2023 at 1:37 ? Chest x-ray: Radiologist's Impression: Preliminary report: New ill-defined opacity right base may represent aspiration pneumonia in light of clinical suspicion. To stable pleural effusion 3 questionable slight increased left basilar opacification ECG Data Interpretation: Normal sinus rhythm rate 92 NM interval 130 QRS 72 QTC 380 MDM Narrative Medical decision making narrative: Patient 77-year-old female presenting today with on going leakage around G-tube. She was sent here for possible sepsis with elevated leukocytosis of 20. It is actually 18.4 here in the ED she has obvious cellulitis secondary to G-tube malfunction. Abdomen is otherwise soft she is not nauseated or vomiting. She has no other evidence of infection. Although chest x-ray does show possible infiltrate. She is given Zosyn and vancomycin. Patient has such significant amount of secretions and drainage from site is impossible for the skin to clear up. She does likely have some cellulitis around the skin in area. Seems like it is chronically draining. However it is quite a lot. Dr. Zhang updated patient's symptoms test results agrees with admission will likely need J tube placement. Recommends admission to hospitalist Hospitalist updated patient's symptoms test results kindly accepts patient Discharge Plan Departure Patient Disposition: Admitted As Inpatient Clinical Impression: Gastrostomy tube dysfunction, Cellulitis Admit Date/Time: 04/03/23 02:51 Admit Provider: uSnny Escalona
[2023-04-02 21:26] LABS: Add Manual Diff / Slide Review NO; Basophils Absolute Auto 0 /uL (0-100); Basophils Percent Auto 0.2 % (0-2); Eosinophils Absolute Auto 0 /uL (0-450); Eosinophils Percent Auto 0.1 % (2-4); Hematocrit 27.6 % (36-46); Hemoglobin 9.4 g/dL (12.0-16.0); Lymphocytes Absolute Auto 600 /uL (1100-4500); Lymphocytes Percent Auto 3.5 % (25-40); Mean Corpuscular Hemoglobin 28.6 PG (26-34); Monocytes Absolute Auto 600 /uL (0-900); Monocytes Percent Auto 3.5 % (3-14); Neutrophils Absolute Auto 16900 /uL (1500-7000); Neutrophils Percent Auto 92.7 % (50-75); Platelet Count 731 X10^3/uL (150-400); Red Blood Cell Count 3.29 X10^6/uL (4.0-5.2); Red Cell Distribution Width 16.4 % (11.6-14.8); White Blood Cell Count 18.2 X10^3/uL (4.5-11.0)
[2023-04-02 21:39] LABS: Alanine Aminotransferase 14 IU/L (<35); Albumin 2.5 g/dL (3.5-5.0); Albumin Globulin Ratio 0.7 (1.0-2.8); Alkaline Phosphatase 159 U/L (38-126); Aspartate Aminotransferase 27 IU/L (14-36); BUN Creatinine Ratio 36.7 (6-22); Bilirubin Total 0.3 mg/dL (0.2-1.3); Blood Urea Nitrogen 18 mg/dL (7-17); Calcium 8.1 mg/dL (8.4-10.2); Carbon Dioxide 31 mmol/L (22-32); Chloride 96 mmol/L (98-107); Estimated Glomerular Filt Rate > 60 mL/min (>60); Globulin 3.6 g/dL (1.7-4.1); Glucose 104 mg/dL (80-110); HEMOLYSIS 39 (0-50); Lipase 159 U/L (23-300); Potassium 4.7 mmol/L (3.4-5.1); Sodium 129 mmol/L (137-145); Total Protein 6.1 g/dL (6.3-8.2)
[2023-04-02 22:11] LABS: Lactate (Lactic Acid) 1.1 mmol/L (0.7-2.1)
[2023-04-02 22:29] LABS: Procalcitonin 52.2 ng/mL (<0.5)
[2023-04-02] MEDS: MORPHINE 2 MG/ML INJ IV (22:54)
[2023-04-02] MEDS: SODIUM CHLORIDE 0.9% 1,000 ML 1000 ML IV (22:56)
--- NOTE | 2023-04-02 23:24 | PC.NURSE ---
Patient incontinent of urine, applied fresh brief. Unable to urinate on bedpan.
--- NOTE | 2023-04-02 23:37 | PC.NURSE ---
I called the patient's sister per the patient's request and left a message.
--- NOTE | 2023-04-02 23:42 | DI.CT.S_ITS ---
PROCEDURE: CT ABDOMEN PELVIS W CON INDICATIONS: G tube leakage; prior free air TECHNIQUE: After the administration of IV contrast, axial sections were acquired from the lung bases to the pubic symphysis. Coronal and sagittal reformats were performed. For radiation dose reduction, the following was used: automated exposure control, adjustment of mA and/or kV according to patient size. COMPARISON: [facility], CT, CT ABDOMEN PELVIS W CON, 03/23/2023, 17:14. FINDINGS: Image quality: There is beam hardening artifact from patient's right upper extremity the. Lung bases: There are persistent small to moderate bilateral pleural effusions, left greater than right. There is associated compressive atelectasis as well as consolidation in the left lower lobe. Heart: Heart is normal in size. There is a small pericardial effusion. ABDOMEN: Liver: Multiple hepatic cysts are redemonstrated. In addition, there are scattered low-density foci in the liver which are too small to characterize but likely represent cysts. Gallbladder: Within normal limits without calcified gallstones. Biliary ducts: No biliary ductal dilatation. Pancreas: Unremarkable. Spleen: Normal in size. Adrenal Glands: No adrenal nodules. Kidneys and Ureters: No hydronephrosis. Stomach and Bowel: There is a gastrostomy tube redemonstrated extending into the stomach. Mild gastric wall thickening is demonstrated in the antrum. Small and large bowel loops are normal in caliber and wall thickness. The appendix is normal. There is colonic diverticulosis without acute diverticulitis. Peritoneum: There is a small amount of intraperitoneal free fluid. No free air. Ventral Wall: No hernia. Abdominal Nodes: No retroperitoneal or mesenteric adenopathy by size criteria. Vessels: Aorta and inferior vena cava are normal in size. PELVIS: Pelvic Organs: Unremarkable. Bladder: Unremarkable. Pelvic Nodes: No enlarged lymph nodes. Miscellaneous: No inguinal hernias are seen. Bones: Visualized osseous structures demonstrate no suspicious focal lesions. IMPRESSION: 1. Gastrostomy tube demonstrated extending into the stomach. 2. No evidence of pneumoperitoneum. 3. Small amount of intraperitoneal free fluid in the pelvis is nonspecific and may be reactive but extravasation from the tube cannot be excluded. 4. Bilateral pleural effusions with compressive atelectasis as well as left lower lobe consolidation which may reflect pneumonia. 5. Small pericardial effusion. Dictated by: Austin Hartmann M.D. on 04/03/2023 at 1:37 Approved by: Austin Hartmann M.D. on 04/03/2023 at 1:46
[2023-04-03] VITALS (33 sets, daily range): BP systolic 81–143; BP diastolic 51–82; PULSE 54–103; RESP 10–21; TEMP 36.4–37.2; O2SAT 85–100; BMI 17.9
--- NOTE | 2023-04-03 00:03 | PC.NURSE ---
Per Dr. Nettles, reccomendation from Dr. Zhang was to put G-Tube hooked up to intermittent low suction to decompress the stomach. Once it is decompressed, the next course of action will be to do a CT with IV contrast and oral contrast via the G Tube. At this time I attempted to suction the G-Tube via the wall suction and via a syringe. No liquid was obtained. G-Tube collapsed with the suction but no liquid came out. Dr. Nettles informed. patient continues to have persistent brown liquid seeping from area around G tube site.
--- NOTE | 2023-04-03 00:11 | PC.NURSE ---
1-2cc of clear liquis have come out of G-Tube via wall suction on low intermittent at this time. Dr. Nettles aware.
[2023-04-03 00:23] LABS: Appearance Urine UA CLEAR; Bilirubin Urine UA NEGATIVE (NEGATIVE); Color Urine UA YELLOW; Glucose Urine UA NEGATIVE (Negative); Ketones Urine UA NEGATIVE (NEGATIVE); Leukocyte Esterase Urine UA NEGATIVE (NEGATIVE); Nitrite Urine UA NEGATIVE (Negative); Occult Blood Urine UA NEGATIVE (Negative); Protein Urine UA NEGATIVE (Negative)
[2023-04-03] MEDS: HYDROMORPHONE 0.5 MG INJ IV ×6 (00:23→22:25)
[2023-04-03 00:24] LABS: pH Urine UA 7.5 (4.5-8.0)
[2023-04-03 00:25] LABS: Bacteria Urine Occasional (0-1); Culture Indicated Urine Cult Not Indicated; RBC Urine None Seen (0-5/HPF); Squamous Epithelial Cell Urine 0-1 /HPF (0-5/HPF); WBC Urine None Seen (0-5/HPF)
--- NOTE | 2023-04-03 01:03 | PC.NURSE ---
IV contrast only
--- NOTE | 2023-04-03 02:50 | DI.RAD.S_ITS ---
PROCEDURE: XR CHEST 1V INDICATIONS: possibe aspiration TECHNIQUE: One view of the chest was acquired. COMPARISON: [facility], CR, XR CHEST 1V, 03/25/2023, 8:07. FINDINGS: Surgical changes and devices: None. Lungs and pleura: Pulmonary hyperinflation again noted. Left pleural effusion unchanged. Haziness in the left base may be slightly increased probably related to differences in technique con not exclude increased atelectasis and/or pneumonia. New right basilar ill-defined opacity suggests active infiltrate corresponding with clinical suspicion of aspiration. No pneumothorax. Mediastinum: Mediastinal contours appear normal. Heart size is normal. Thoracic aortic atherosclerosis. Bones and chest wall: No suspicious bony lesions. Overlying soft tissues appear unremarkable. Osteoporosis. IMPRESSION: 1. Ill-defined opacity in the right base may represent aspiration pneumonia in light of clinical suspicion. 2. Stable left pleural effusion. 3. Questionable slight increased left basilar opacification. Comment: Final report is concordant with preliminary interpretation by [facility] Dictated by: Maik Paula M.D. on 04/03/2023 at 6:56 Approved by: Maik Paula M.D. on 04/03/2023 at 6:58
[2023-04-03] MEDS: PIPERACILLIN/TAZO 4.5 GM in SODIUM CHLORIDE 0.9% 100 ML IV (02:56)
--- NOTE | 2023-04-03 04:34 | P.HP_ITS ---
History of Present Illness History of Present Illness Chief complaint: ABD Pain/Poss infection Narrative: 77-year-old female ?with history of squamous cell carcinoma of head and neck, status post right mandible and oral resection 4 years ago with radiation therapy in [facility], followed by severe dysarthria and dysphagia. Over the last 5 years she has difficulty tolerating tube feeding. In the process she lost weight and the became severely malnourished so she had new PEG tube placed last week.? She was admitted here March 20 through March 27 she had possible enteritis and leakage around PEG tube.? Tube placement had been assessed by Gastrografin study there was no abnormality surgery was consulted, conservative measures taken.? Patient was ultimately discharged to rehabilitation center. She had follow-up with GI today and GI noted that she had significant leakage around G-tube confirmed placement. The outpatient blood work showed leukocytosis of 20 and she was sent to the ED for possible dehydration.?Patient reports some cough but denies any fever, shortness of breath or any other symptoms. Patient's vitals are stable she reports some discomfort in her abdomen in the skin. Her pro-calcitonin came out positive and she was started on Zosyn and vancomycin.? [facility] Medical History Acute hyponatremia Allergies Anxiety Benign essential tremor 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 Dermatitis Diverticulosis Eczema Elevated glucose level Generalized abdominal pain Hypercalcemia Insomnia Nicotine dependence Peripheral neuropathy Right arm pain Seizures Weakness Family History Father Prostate cancer Deaf Mother Arthritis Social History household members: family Smoking Status: Former smoker alcohol intake: former Meds Home Medications and Allergies Home Medications Medication Instructions Recorded Confirmed Type acetaminophen 160 mg/5 mL oral 650 mg (20.3125 mL) PO Q4HR PRN 03/27/23 04/03/23 Rx suspension (Children's Fever/Mild Pain (1-3) #120 mL Acetaminophen) calcium carbonate 200 mg calcium 500 mg PO BID #60 tabs 03/27/23 04/03/23 Rx (500 mg) chewable tablet cholecalciferol (vitamin D3) 25 1,000 unit PO DAILY #30 tabs 03/27/23 04/03/23 Rx mcg (1,000 unit) tablet hydroxyzine HCl 10 mg tablet 10 mg PO BEDTIME #30 tabs 03/27/23 04/03/23 Rx lorazepam 1 mg tablet 1 mg PO BID PRN anxiety #60 tabs 03/27/23 04/03/23 Rx multivitamin with folic acid 400 1 tab PO DAILY #30 tabs 03/27/23 04/03/23 Rx mcg tablet (Tab-A-Simone) oxycodone 5 mg tablet 10 mg TUBE Q3H PRN Pain, Moderate 03/27/23 04/03/23 Rx (4-6) #30 tabs spironolactone 25 mg tablet 25 mg PO 0900,1700 #60 tabs 03/27/23 04/03/23 Rx Allergies Allergy/AdvReac Type Severity Reaction Status Date / Time adhesive Allergy Rash Verified 03/20/23 16:25 Review of Systems Constitutional Constitutional: Reports as per HPI and Reports system reviewed and no additional complaints, except as documented Eyes Eyes: Reports as per HPI and Reports system reviewed and no additional complaints, except as documented ENT Ears, Nose, Mouth, and Throat: Yes as per HPI, Yes system reviewed and no additional complaints, except as documented, No dysphagia, No neck pain and No odynophagia Cardiovascular Cardiovascular: Reports system reviewed and no additional complaints, except as documented Respiratory Respiratory: Reports system reviewed and no additional complaints, except as documented Gastrointestinal Gastrointestinal: Denies as per HPI, Denies system reviewed and no additional complaints, except as documented, Denies abdominal pain, Denies belching, Denies melena, Denies bloating, Denies hematochezia, Denies change in bowel habits, Denies tenesmus, Denies change in stool character, Denies coffee ground emesis, Denies constipation, Denies cramping, Denies dysphagia, Denies excessive flatus, Denies early satiety, Denies heartburn, Denies fecal incontinence, Denies loose stools, Denies nausea, Denies odynophagia, Denies vomiting, Denies hematemesis and Denies other Musculoskeletal Musculoskeletal: Denies as per HPI, Denies system reviewed and no additional complaints, except as documented, Denies abnormal gait, Denies back pain, Denies myalgias, Denies arthralgias, Denies joint swelling, Denies muscle cramps, Denies muscle weakness, Denies neck pain, Denies numbness and Denies radiating p ain into limb Neurologic Neurologic: Denies abnormal gait, Denies confusion and Denies numbness Psychiatric Psychiatric: Denies as per HPI, Reports system reviewed and no additional complaints, except as documented, Denies abnormal sleep pattern, Denies anxiety, Denies change in appetite, Denies confusion, Denies depression and Denies auditory hallucinations Exam Vital Signs (past 8 hours): - 04/02/23 21:00 04/02/23 20:58 04/02/23 20:58 Temperature 98.8 F Pulse Rate 99 H 96 H Respiratory Rate 120 H Blood Pressure 111/59 L 111/59 L Pulse Oximetry 97 97 Oxygen Delivery Method Room Air Room Air 04/02/23 21:00 04/02/23 21:00 04/02/23 21:30 Temperature Pulse Rate 98 H Respiratory Rate Blood Pressure 108/61 119/56 L Pulse Oximetry 96 Oxygen Delivery Method Room Air 04/02/23 21:30 04/02/23 22:00 04/02/23 22:00 Temperature Pulse Rate 93 H 84 Respiratory Rate 15 16 Blood Pressure 100/57 L Pulse Oximetry 96 Oxygen Delivery Method 04/02/23 22:30 04/02/23 22:30 04/02/23 23:00 Temperature Pulse Rate 97 H Respiratory Rate 23 Blood Pressure 113/61 125/66 Pulse Oximetry 96 Oxygen Delivery Method Room Air 04/02/23 23:00 04/02/23 23:02 04/02/23 23:02 Temperature Pulse Rate 105 H 105 H Respiratory Rate 26 H Blood Pressure 125/62 Pulse Oximetry 99 100 Oxygen Delivery Method Room Air 04/02/23 23:30 04/02/23 23:30 04/03/23 00:00 Temperature Pulse Rate 93 H Respiratory Rate 15 Blood Pressure 124/64 143/72 H Pulse Oximetry 98 Oxygen Delivery Method 04/03/23 00:00 04/03/23 00:30 04/03/23 00:30 Temperature Pulse Rate 100 H 89 Respiratory Rate 21 16 Blood Pressure 107/57 L Pulse Oximetry 96 95 Oxygen Delivery Method 04/03/23 00:51 04/03/23 00:51 04/03/23 01:00 Temperature Pulse Rate 103 H Respiratory Rate 17 Blood Pressure 118/82 121/58 L Pulse Oximetry 96 Oxygen Delivery Method 04/03/23 01:00 04/03/23 01:30 04/03/23 01:30 Temperature Pulse Rate 94 H 86 Respiratory Rate 12 13 Blood Pressure 103/59 L Pulse Oximetry 94 95 Oxygen Delivery Method 04/03/23 02:00 04/03/23 02:30 04/03/23 02:30 Temperature Pulse Rate 82 80 Respiratory Rate 13 14 Blood Pressure 105/54 L Pulse Oximetry 96 95 Oxygen Delivery Method 04/03/23 03:00 04/03/23 03:00 04/03/23 03:25 Temperature 98.9 F Pulse Rate 92 H 66 Respiratory Rate 12 20 Blood Pressure 109/56 L 116/63 Pulse Oximetry 95 91 Oxygen Delivery Method Oxygen Delivery Method Room Air Const General: cooperative, comfortable and well developed Orientation: alert and oriented x3 HENMT Head: normal to inspection and atraumatic Face and sinus: normal facial exam Mouth: oral mucosae normal and moist mucous membranes Throat: posterior oropharynx normal Eyes General: appearance normal, both eyes and all related structures Pupils: PERRL EOM: EOM intact bilaterally Neck Neck: normal visual inspection and full ROM Chest Chest: normal inspection of the chest Resp Effort & Inspection: normal respiratory effort and able to speak in complete sentences Auscultation: clear to auscultation bilaterally Cardio Palpation: normal PMI Rate: regular rate Rhythm: regular rhythm Heart Sounds: S1 normal and S2 normal GI Inspection: normal to inspection Palpation: soft and no hepatosplenomegaly Auscultation: normal bowel sounds Skin General: no rashes or lesions noted Neuro General: patient alert, patient awake, patient oriented x3 and no focal motor deficits Cognition: normal cognition Motor: muscle tone normal throughout Sensory Exam: no sensory deficits noted Extrem General: full ROM and no calf tenderness Psych Appearance: grossly normal Mental Status: mental status grossly normal Speech and Movement: speech and movement normal Objective Labs 04/02/23 21:17 04/02/23 21:17 Labs: Laboratory Results - last 24 hr 04/02/23 04/02/23 04/02/23 21:17 21:17 21:17 WBC 18.2 H RBC 3.29 L Hgb 9.4 L Hct 27.6 L MCV 84.0 MCH 28.6 MCHC 34.0 RDW 16.4 H Plt Count 731 H Neut % (Auto) 92.7 H Lymph % (Auto) 3.5 L White % (Auto) 3.5 Eos % (Auto) 0.1 L Baso % (Auto) 0.2 Neut # (Auto) 92201 H Lymph # (Auto) 600 L White # (Auto) 600 Eos # (Auto) 0 Baso # (Auto) 0 Sodium 129 L Potassium 4.7 Chloride 96 L Carbon Dioxide 31 BUN 18 H Creatinine 0.49 L Estimated GFR > 60 BUN/Creatinine Ratio 36.7 H Glucose 104 Lactate 1.1 Calcium 8.1 L Total Bilirubin 0.3 AST 27 ALT 14 Alkaline Phosphatase 159 H Total Protein 6.1 L Albumin 2.5 L Globulin 3.6 Albumin/Globulin Ratio 0.7 L Lipase 159 Procalcitonin Urine Color Urine Appearance Urine pH Ur Specific [place] Urine Protein Urine Glucose (UA) Urine Ketones Urine Occult Blood Urine Nitrate Urine Bilirubin Urine Urobilinogen Ur Leukocyte Esterase Urine RBC Urine WBC Ur Squamous Epith Cells Urine Bacteria Ur Culture Indicated? 04/02/23 04/03/23 21:17 00:00 WBC RBC Hgb Hct MCV MCH MCHC RDW Plt Count Neut % (Auto) Lymph % (Auto) White % (Auto) Eos % (Auto) Baso % (Auto) Neut # (Auto) Lymph # (Auto) White # (Auto) Eos # (Auto) Baso # (Auto) Sodium Potassium Chloride Carbon Dioxide BUN Creatinine Estimated GFR BUN/Creatinine Ratio Glucose Lactate Calcium Total Bilirubin AST ALT Alkaline Phosphatase Total Protein Albumin Globulin Albumin/Globulin Ratio Lipase Procalcitonin 52.2 H Urine Color Yellow Urine Appearance Clear Urine pH 7.5 Ur Specific [place] 1.010 Urine Protein Negative Urine Glucose (UA) Negative Urine Ketones Negative Urine Occult Blood Negative Urine Nitrate Negative Urine Bilirubin Negative Urine Urobilinogen 1.0 Ur Leukocyte Esterase Negative Urine RBC None seen Urine WBC None seen Ur Squamous Epith Cells 0-1 /hpf Urine Bacteria Occasional (0-1) Ur Culture Indicated? Cult not indicated Assessment & Plan Assessment and plan (1) Pneumonia: Problem details: WBC 18.2, pro-calcitonin 52, UA negative, chest x-ray pending. Suspect aspiration pneumonia. Status: Acute Plan: -oxygen supplement to keep oxygenation greater than 92% -Empiric antibiotics Zosyn and vancomycin -check for MRSA -continue nebulizer breathing treatments w/ Albuterol q4H as needed (2) Leaking PEG tube: Status: Acute Plan: -surgery consult (3) Severe protein-calorie malnutrition: Status: Acute Plan: -dietitian consult (4) Anxiety: Status: Acute Plan: -Ativan when necessary (5) Acute dehydration: Status: Acute Plan: -Hold diuretics -Start IV fluids Time Spent With Patient Time with patient: 50 to 69 minutes with 50% spent counseling/coordinating care Quality VTE Deep Vein Thrombosis/Pulmonary Embolism Present on Admission: No MIPS - Admit I confirm the patient?s Advance Care Plan is present, Code status is documented, Surrogate decision maker is in patient?s record [If Yes, STOP here]: Yes MIPS - Meds 'Current medications' to include all prescriptions, [id number] products, herbals, cannabis/cannabidiol products, and vitamin/mineral/dietary (nutritiona l) supplements. I have utilized all available resources to obtain, update, or review the patient?s current medications. [If Yes, STOP here]: Yes
[2023-04-03] MEDS: VANCOMYCIN 1,000 MG/200 ML PIGGYBACK 200 MG IV ×2 (04:36→17:54)
[2023-04-03] MEDS: SODIUM CHLORIDE 0.9% 1,000 ML 100 ML IV (04:38)
[2023-04-03] MEDS: LORazepam 2 MG/ML INJ 0.5 MG IV (05:16)
--- NOTE | 2023-04-03 06:38 | PC.ADMIT ---
[email or web address] Admission Note: The patient,Mireya Bansal,77 y/o, was given written information regarding hospital policies, unit procedures and contact persons. Patient's smoking status: Former smoker. Vital Signs - 8 hr 04/02/23 23:00 04/02/23 23:00 04/02/23 23:02 Temperature Pulse Rate 105 H Respiratory Rate 26 H Blood Pressure 125/66 125/62 Pulse Oximetry 99 Oxygen Delivery Method 04/02/23 23:02 04/02/23 23:30 04/02/23 23:30 Temperature Pulse Rate 105 H 93 H Respiratory Rate 15 Blood Pressure 124/64 Pulse Oximetry 100 98 Oxygen Delivery Method Room Air 04/03/23 00:00 04/03/23 00:00 04/03/23 00:30 Temperature Pulse Rate 100 H Respiratory Rate 21 Blood Pressure 143/72 H 107/57 L Pulse Oximetry 96 Oxygen Delivery Method 04/03/23 00:30 04/03/23 00:51 04/03/23 00:51 Temperature Pulse Rate 89 103 H Respiratory Rate 16 17 Blood Pressure 118/82 Pulse Oximetry 95 96 Oxygen Delivery Method 04/03/23 01:00 04/03/23 01:00 04/03/23 01:30 Temperature Pulse Rate 94 H Respiratory Rate 12 Blood Pressure 121/58 L 103/59 L Pulse Oximetry 94 Oxygen Delivery Method 04/03/23 01:30 04/03/23 02:00 04/03/23 02:30 Temperature Pulse Rate 86 82 Respiratory Rate 13 13 Blood Pressure 105/54 L Pulse Oximetry 95 96 Oxygen Delivery Method 04/03/23 02:30 04/03/23 03:00 04/03/23 03:00 Temperature Pulse Rate 80 92 H Respiratory Rate 14 12 Blood Pressure 109/56 L Pulse Oximetry 95 95 Oxygen Delivery Method 04/03/23 03:25 Temperature 98.9 F Pulse Rate 66 Respiratory Rate 20 Blood Pressure 116/63 Pulse Oximetry 91 Oxygen Delivery Method Patient up to the floor from ED at 0325. Awake and alert, calm and cooperative. 3 assist with slider board, pt tolerated well. Drsg saturated around peg tube, changed with 2 4x4 and 1 abd pad with paper tape. Peg tube connected to int suction per ED doc. Pain controlled well with IVP dilaudid.
[2023-04-03 06:42] LABS: Add Manual Diff / Slide Review NO; Basophils Absolute Auto 0 /uL (0-100); Basophils Percent Auto 0.1 % (0-2); Eosinophils Absolute Auto 200 /uL (0-450); Eosinophils Percent Auto 1.2 % (2-4); Hematocrit 28.3 % (36-46); Hemoglobin 9.5 g/dL (12.0-16.0); Lymphocytes Absolute Auto 900 /uL (1100-4500); Lymphocytes Percent Auto 4.8 % (25-40); Mean Corpuscular HGB Conc 33.4 % (30-36); Mean Corpuscular Hemoglobin 28.6 PG (26-34); Mean Corpuscular Volume 85.5 fL (80-100); Monocytes Absolute Auto 1300 /uL (0-900); Neutrophils Absolute Auto 16000 /uL (1500-7000); Neutrophils Percent Auto 86.9 % (50-75); Platelet Count 631 X10^3/uL (150-400); Red Blood Cell Count 3.31 X10^6/uL (4.0-5.2); Red Cell Distribution Width 16.9 % (11.6-14.8); White Blood Cell Count 18.5 X10^3/uL (4.5-11.0)
[2023-04-03 06:52] LABS: Magnesium 1.6 mg/dL (1.6-2.3)
[2023-04-03 06:53] LABS: MRSA (Nasal) PCR Not Detected (Not Detect)
[2023-04-03] MEDS: PIPERACILLIN/TAZO 3.375 GM in SODIUM CHLORIDE 0.9% 100 ML IV ×3 (07:39→23:34)
[2023-04-03 08:50] LABS: Alanine Aminotransferase 13 IU/L (<35); Albumin 2.6 g/dL (3.5-5.0); Albumin Globulin Ratio 0.8 (1.0-2.8); Alkaline Phosphatase 156 U/L (38-126); Aspartate Aminotransferase 34 IU/L (14-36); BUN Creatinine Ratio 34.8 (6-22); Bilirubin Total 0.4 mg/dL (0.2-1.3); Blood Urea Nitrogen 16 mg/dL (7-17); Calcium 7.9 mg/dL (8.4-10.2); Carbon Dioxide 28 mmol/L (22-32); Chloride 100 mmol/L (98-107); Estimated Glomerular Filt Rate > 60 mL/min (>60); Globulin 3.2 g/dL (1.7-4.1); Glucose 77 mg/dL (80-110); HEMOLYSIS 33 (0-50); Potassium 4.5 mmol/L (3.4-5.1); Sodium 130 mmol/L (137-145); Total Protein 5.8 g/dL (6.3-8.2)
[2023-04-03] MEDS: DEXTROSE 5%-0.9% NS 1,000 ML 100 ML IV ×2 (09:02→20:03)
--- NOTE | 2023-04-03 09:30 | P.PN_ITS ---
Subjective Subjective Date Patient Seen: 04/03/23 Interval history: 77 yo female wi h/o head and neck cancer, frozen jaw, sev malnutrition, has been at rehab facility, saw GI for follow up and noted leakage from PEG site with subsequent labs revealing leukocytosis with WBC 20. Here procal > 50, nl lactate, WBC 18. Pt complaining of abdominal pain relieved with Dilaudid. Denied cough to me but H & P noted cough. Has not been hypoxic. Blood pressures have been running a little soft as well. Also glucose a little low. PEG site with surrounding erythema and mucopurrulent drainage. CXR with chronic small - mod pleural effusions and inc consolidation LLL. Currently NPO awaiting surg consult. Exam Vital Signs (past 8 hours): - 04/03/23 02:00 04/03/23 02:30 04/03/23 02:30 Temperature Pulse Rate 82 80 Respiratory Rate 13 14 Blood Pressure 105/54 L Pulse Oximetry 96 95 04/03/23 03:00 04/03/23 03:00 04/03/23 03:25 Temperature 98.9 F Pulse Rate 92 H 66 Respiratory Rate 12 20 Blood Pressure 109/56 L 116/63 Pulse Oximetry 95 91 Oxygen Delivery Method Room Air Narrative Exam Narrative: Gen: emaciated appearing female hard to arouse Lungs: diminished in bases CV: regular Abd: macular erythema surrounding PEG site with mucopurrulent drainage from the site Ext: no edema Objective Labs 04/03/23 06:36 04/03/23 08:30 Labs: Laboratory Results - last 24 hr 04/02/23 04/02/23 04/02/23 21:17 21:17 21:17 WBC 18.2 H RBC 3.29 L Hgb 9.4 L Hct 27.6 L MCV 84.0 MCH 28.6 MCHC 34.0 RDW 16.4 H Plt Count 731 H Neut % (Auto) 92.7 H Lymph % (Auto) 3.5 L [place] % (Auto) 3.5 Eos % (Auto) 0.1 L Baso % (Auto) 0.2 Neut # (Auto) 56904 H Lymph # (Auto) 600 L [place] # (Auto) 600 Eos # (Auto) 0 Baso # (Auto) 0 Sodium 129 L Potassium 4.7 Chloride 96 L Carbon Dioxide 31 BUN 18 H Creatinine 0.49 L Estimated GFR > 60 BUN/Creatinine Ratio 36.7 H Glucose 104 Lactate 1.1 Calcium 8.1 L Magnesium Total Bilirubin 0.3 AST 27 ALT 14 Alkaline Phosphatase 159 H Total Protein 6.1 L Albumin 2.5 L Globulin 3.6 Albumin/Globulin Ratio 0.7 L Lipase 159 Procalcitonin Urine Color Urine Appearance Urine pH Ur Specific [place] Urine Protein Urine Glucose (UA) Urine Ketones Urine Occult Blood Urine Nitrate Urine Bilirubin Urine Urobilinogen Ur Leukocyte Esterase Urine RBC Urine WBC Ur Squamous Epith Cells Urine Bacteria Ur Culture Indicated? Nasal Screen MRSA (PCR) 04/02/23 04/03/23 04/03/23 21:17 00:00 05:33 WBC RBC Hgb Hct MCV MCH MCHC RDW Plt Count Neut % (Auto) Lymph % (Auto) [place] % (Auto) Eos % (Auto) Baso % (Auto) Neut # (Auto) Lymph # (Auto) [place] # (Auto) Eos # (Auto) Baso # (Auto) Sodium Potassium Chloride Carbon Dioxide BUN Creatinine Estimated GFR BUN/Creatinine Ratio Glucose Lactate Calcium Magnesium Total Bilirubin AST ALT Alkaline Phosphatase Total Protein Albumin Globulin Albumin/Globulin Ratio Lipase Procalcitonin 52.2 H Urine Color Yellow Urine Appearance Clear Urine pH 7.[address] 1.010 Urine Protein Negative Urine Glucose (UA) Negative Urine Ketones Negative Urine Occult Blood Negative Urine Nitrate Negative Urine Bilirubin Negative Urine Urobilinogen 1.0 Ur Leukocyte Esterase Negative Urine RBC None seen Urine WBC None seen Ur Squamous Epith Cells 0-1 /hpf Urine Bacteria Occasional (0-1) Ur Culture Indicated? Cult not indicated Nasal Screen MRSA (PCR) Not detected 04/03/23 04/03/23 04/03/23 06:36 06:36 08:30 WBC 18.5 H RBC 3.31 L Hgb 9.5 L Hct 28.3 L MCV 85.5 MCH 28.6 MCHC 33.4 RDW 16.9 H Plt Count 631 H Neut % (Auto) 86.9 H Lymph % (Auto) 4.8 L [place] % (Auto) 7.0 Eos % (Auto) 1.2 L Baso % (Auto) 0.1 Neut # (Auto) 23136 H Lymph # (Auto) 900 L [place] # (Auto) 1300 H Eos # (Auto) 200 Baso # (Auto) 0 Sodium 130 L Potassium 4.5 Chloride 100 Carbon Dioxide 28 BUN 16 Creatinine 0.46 L Estimated GFR > 60 BUN/Creatinine Ratio 34.8 H Glucose 77 L Lactate Calcium 7.9 L Magnesium 1.6 Total Bilirubin 0.4 AST 34 ALT 13 Alkaline Phosphatase 156 H Total Protein 5.8 L Albumin 2.6 L Globulin 3.2 Albumin/Globulin Ratio 0.8 L Lipase Procalcitonin Urine Color Urine Appearance Urine pH Ur Specific [place] Urine Protein Urine Glucose (UA) Urine Ketones Urine Occult Blood Urine Nitrate Urine Bilirubin Urine Urobilinogen Ur Leukocyte Esterase Urine RBC Urine WBC Ur Squamous Epith Cells Urine Bacteria Ur Culture Indicated? Nasal Screen MRSA (PCR) 04/03/23 08:33 WBC RBC Hgb Hct MCV MCH MCHC RDW Plt Count Neut % (Auto) Lymph % (Auto) [place] % (Auto) Eos % (Auto) Baso % (Auto) Neut # (Auto) Lymph # (Auto) [place] # (Auto) Eos # (Auto) Baso # (Auto) Sodium Potassium Chloride Carbon Dioxide BUN Creatinine Estimated GFR BUN/Creatinine Ratio Glucose Lactate Calcium Magnesium Total Bilirubin AST ALT Alkaline Phosphatase Total Protein Albumin Globulin Albumin/Globulin Ratio Lipase Procalcitonin Urine Color Urine Appearance Urine pH Ur Specific [place] Urine Protein Urine Glucose (UA) Urine Ketones Urine Occult Blood Urine Nitrate Urine Bilirubin Urine Urobilinogen Ur Leukocyte Esterase Urine RBC Urine WBC Ur Squamous Epith Cells Urine Bacteria Ur Culture Indicated? Nasal Screen MRSA (PCR) Cancelled [facility] Medical History Acute hyponatremia Allergies Anxiety Benign essential tremor 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 PEG site infection/cellulitis -send drainage for culture -cont Vanc and Zosyn -PEG suction draining gastric fluid, on CT noted extending into the stomach -surg consult -keep PEG clamped until evaluated by surgery -IV dialudid 0.5 mg prn -cbc, bmp, procal in AM 2. Possible aspiration pneumonia -new/worsening LLL consolidation -nasal MRSA negative -treat with Vanc and Zosyn as above 3. Pleural effusions, chronic -likely due to hypoalbuminemia 4. Severe protein calorie malnutrition -BMI 18 -resume GI feedings when able -director corporate security consult 5. Hypoglycemia -use D5NS for IV hydration 6. Anxiety -takes lorazepam 1 mg bid prn, not giving currently due to sedation 7. Anemia, chronic -monitor code status: full dvt prevention: heparin sq Quality VTE Deep Vein Thrombosis/Pulmonary Embolism Present on Admission: No
--- NOTE | 2023-04-03 10:32 | CM.DANOTE ---
Initial Discharge Assessment: Case reviewed, met with patient but she is in pain and awaiting pain medication. Introduced self/role. Payer: Medicare and [employer]ARP PCP: Christin Tom 77 year old malnourished female admitted with h/o squamous cell carcinoma of head and neck, s/p R mandible and oral resection 4 years ago with radiation; has severe dysarthria and dysphagia. She states she has been able to drink through a straw. She was here March 20 for PEG tube issues. She had PEG placed 03/16/23. She was discharged to [facility]. We had set her up to receive G-tube feedings with [facility] for supplies. But SNF supplies. Patient had new PEG placed at [facility] yesterday 04/02/28 and had large amount of leakage around PEG tube, 911 was called and she was taken to [facility] ED and admitted. She is currently in ICU with sister Sandi at her bedside. Dr Zhang and Dr Gil to discuss plans. Patient normally lives with her sister Sandi here in [place]. Sandi assists her in all ADLs. Other family: a son in [place]. Patient is oriented and able to speak but difficult to understand. Called [facility] and spoke with Bashir to confirm patient is here. PLAN: Follow case closely for discharge planning needs. When medically cleared, return to [facility] Discharge Planning/Care Management CM Discharge Assessment Start: 04/03/23 09:38 Freq: Status: Active Protocol: Document 04/03/23 10:27 (Rec: 04/03/23 10:31 [id number]) Discharge Planning Assessment Assigned Guest Services Lead Angeles Beatty RN/DCP Advance Directives? No History Provided By Patient,Medical Record Prior Living Arrangements House Household Members family Comment Sister Sandi Type of transporation used prior to Relies on Others admit Independent with ADL's No: Sister is cg Is patient alert and oriented? Yes Needs Assistance With Bathing,Grooming,Meal Prep, Toileting,Managing Medications ,Home Chores / Shopping Caregiver for Another No DME Already Rented / Owned Bath Bench,Wheelchair,Elevated Toilet Seat,FWW / Walker Patient/Family Preference Home with Home Health Comment Possibly, more assessments required Discharge Plan Home with Home Health Transportation Arrangement Continuation of care with [facility] Referrals Initiated Home Health If patient plan is home with home health Yes : Has signed face to face form been completed? If patient plan is SNF: Has PASSR been No completed? Review Status In Process Next Review Type Continued Stay Review
[2023-04-03] MEDS: MAGNESIUM SULFATE 2 GM/50 ML PIGGYBACK IV (11:01)
[2023-04-03] MEDS: SODIUM CHLORIDE 0.9% 500 ML 1000 ML IV ×2 (11:16→13:10)
--- NOTE | 2023-04-03 14:30 | DI.RAD.S_ITS ---
PROCEDURE: XR ACUTE ABDOMEN SERIES INDICATIONS: tube placement TECHNIQUE: One view chest and two views of the abdomen were acquired. COMPARISON: [facility], CR, XR CHEST 1V, 04/03/2023, 2:55. [facility], CT, CT ABDOMEN PELVIS W CON, 04/03/2023, 0:36. [facility], CR, XR CHEST 1V, 03/25/2023, 8:07. FINDINGS: Surgical changes and devices: A percutaneously placed weighted feeding tube can be seen, with the tip overlying the region of the stomach on the final image. Chest: Lungs are clear. Heart size is normal. No pleural effusions. No pneumoperitoneum. Abdomen: Bowel gas pattern is normal. No suspicious calcifications. Visualized solid organ contours appear normal. Bones: No suspicious bony lesions. Age-appropriate bony degenerative changes are seen. IMPRESSION: On the final image, the tip of the percutaneously placed weighted feeding tube can be seen overlying the region of the stomach. Please consider short-term follow-up study versus Gastrografin enhanced study for further evaluation. Dictated by: Robby Irvin M.D. on 04/03/2023 at 14:50 Approved by: Robby Irvin M.D. on 04/03/2023 at 14:52
--- NOTE | 2023-04-03 15:30 | P.CONS_ITS ---
History of Present Illness Consult details Date Patient Seen: 04/03/23 Time Patient Seen: 09:00 Chief complaint: ABD Pain/Poss infection Reason for consult: G-tube leaking. Severe malnutrition Requesting provider: Abisai Gil Narrative: Mrs. 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 Leighton Wu. Right after the surgery she did have a feeding tube for some time but eventually was able to eat food orally and the tube was removed. Over the last several years however her jaw has become stiffer and stiffer and the amount that she has been able to eat orally has slowly decreased. She has 2 friends at the bedside 1 of whom she lives with and the other whom she is known for some time all 3 live in and [place]. Her friends relate that she went through a period of liquid only diet by mouth and during that time often was drinking no calories except for what she got from coffee drinks this was when her nutrition really started to plummet. Several weeks ago she had a PEG tube placed at [facility]. This tube never worked properly. She was seen at [facility] about a week ago and the CT scan showed peritoneal air but she was evaluated by the surgical service at the time and the feeds were not thought to be intraperitoneal. She was having severe leakage of the tube feeding at that time and the recommendation was to simply decrease the amount and rate of the tube feeds. Sometime in the interim she followed up with [facility] and the tube was switched out. It really has never functioned since then and she came back to the emergency room at [facility] last night. She had had some labs drawn at [facility] and the results came back with leukocytosis and worsening renal function indicating dehydration and possible sepsis she was advised to return to the nearest emergency room. Meds Home Medications and Allergies Home Medications Medication Instructions Recorded Confirmed Type acetaminophen 160 mg/5 mL oral 650 mg (20.3125 mL) PO Q4HR PRN 03/27/23 04/03/23 Rx suspension (Children's Fever/Mild Pain (1-3) #120 mL Acetaminophen) calcium carbonate 200 mg calcium 500 mg PO BID #60 tabs 03/27/23 04/03/23 Rx (500 mg) chewable tablet cholecalciferol (vitamin D3) 25 1,000 unit PO DAILY #30 tabs 03/27/23 04/03/23 Rx mcg (1,000 unit) tablet hydroxyzine HCl 10 mg tablet 10 mg PO BEDTIME #30 tabs 03/27/23 04/03/23 Rx lorazepam 1 mg tablet 1 mg PO BID PRN anxiety #60 tabs 03/27/23 04/03/23 Rx multivitamin with folic acid 400 1 tab PO DAILY #30 tabs 03/27/23 04/03/23 Rx mcg tablet (Tab-A-Simone) oxycodone 5 mg tablet 10 mg TUBE Q3H PRN Pain, Moderate 03/27/23 04/03/23 Rx (4-6) #30 tabs spironolactone 25 mg tablet 25 mg PO 0900,1700 #60 tabs 03/27/23 04/03/23 Rx Allergies Allergy/AdvReac Type Severity Reaction Status Date / Time adhesive Allergy Rash Verified 03/20/23 16:25 Exam Vital Signs (past 8 hours): - 04/03/23 08:19 Temperature 97.5 F L Pulse Rate 72 Respiratory Rate 10 L Blood Pressure 93/52 L Pulse Oximetry 100 Oxygen Delivery Method Room Air Narrative Exam Narrative: 77-year-old female who appears cachectic and severely malnourished. She is edematous and has temporal wasting. Her dentition is markedly poor. She is alert and oriented though communication is difficult given the state of her jaw and she is attempts to speak but at times needs to right in order to be u nderstood. On her stomach there is a G-tube in place. There is leakage of gastric content all around the area and the skin is excoriated. The skin immediately proximate to the G-tube site is yellowish waxy and borderline necrotic. A broader area surrounding that is markedly irritated and erythematous. Const Nutritional Appearance: cachectic Objective Labs 04/03/23 06:36 04/03/23 08:30 Labs: Laboratory Results - last 24 hr 04/02/23 04/02/23 04/02/23 21:17 21:17 21:17 WBC 18.2 H RBC 3.29 L Hgb 9.4 L Hct 27.6 L MCV 84.0 MCH 28.6 MCHC 34.0 RDW 16.4 H Plt Count 731 H Neut % (Auto) 92.7 H Lymph % (Auto) 3.5 L [place] % (Auto) 3.5 Eos % (Auto) 0.1 L Baso % (Auto) 0.2 Neut # (Auto) 25309 H Lymph # (Auto) 600 L [place] # (Auto) 600 Eos # (Auto) 0 Baso # (Auto) 0 Sodium 129 L Potassium 4.7 Chloride 96 L Carbon Dioxide 31 BUN 18 H Creatinine 0.49 L Estimated GFR > 60 BUN/Creatinine Ratio 36.7 H Glucose 104 Lactate 1.1 Calcium 8.1 L Magnesium Total Bilirubin 0.3 AST 27 ALT 14 Alkaline Phosphatase 159 H Total Protein 6.1 L Albumin 2.5 L Globulin 3.6 Albumin/Globulin Ratio 0.7 L Lipase 159 Procalcitonin Urine Color Urine Appearance Urine pH Ur Specific [place] Urine Protein Urine Glucose (UA) Urine Ketones Urine Occult Blood Urine Nitrate Urine Bilirubin Urine Urobilinogen Ur Leukocyte Esterase Urine RBC Urine WBC Ur Squamous Epith Cells Urine Bacteria Ur Culture Indicated? Nasal Screen MRSA (PCR) 04/02/23 04/03/23 04/03/23 21:17 00:00 05:33 WBC RBC Hgb Hct MCV MCH MCHC RDW Plt Count Neut % (Auto) Lymph % (Auto) [place] % (Auto) Eos % (Auto) Baso % (Auto) Neut # (Auto) Lymph # (Auto) [place] # (Auto) Eos # (Auto) Baso # (Auto) Sodium Potassium Chloride Carbon Dioxide BUN Creatinine Estimated GFR BUN/Creatinine Ratio Glucose Lactate Calcium Magnesium Total Bilirubin AST ALT Alkaline Phosphatase Total Protein Albumin Globulin Albumin/Globulin Ratio Lipase Procalcitonin 52.2 H Urine Color Yellow Urine Appearance Clear Urine pH 7.5 Ur Specific [place] 1.010 Urine Protein Negative Urine Glucose (UA) Negative Urine Ketones Negative Urine Occult Blood Negative Urine Nitrate Negative Urine Bilirubin Negative Urine Urobilinogen 1.0 Ur Leukocyte Esterase Negative Urine RBC None seen Urine WBC None seen Ur Squamous Epith Cells 0-1 /hpf Urine Bacteria Occasional (0-1) Ur Culture Indicated? Cult not indicated Nasal Screen MRSA (PCR) Not detected 04/03/23 04/03/23 04/03/23 06:36 06:36 08:30 WBC 18.5 H RBC 3.31 L Hgb 9.5 L Hct 28.3 L MCV 85.5 MCH 28.6 MCHC 33.4 RDW 16.9 H Plt Count 631 H Neut % (Auto) 86.9 H Lymph % (Auto) 4.8 L [place] % (Auto) 7.0 Eos % (Auto) 1.2 L Baso % (Auto) 0.1 Neut # (Auto) 82264 H Lymph # (Auto) 900 L [place] # (Auto) 1300 H Eos # (Auto) 200 Baso # (Auto) 0 Sodium 130 L Potassium 4.5 Chloride 100 Carbon Dioxide 28 BUN 16 Creatinine 0.46 L Estimated GFR > 60 BUN/Creatinine Ratio 34.8 H Glucose 77 L Lactate Calcium 7.9 L Magnesium 1.6 Total Bilirubin 0.4 AST 34 ALT 13 Alkaline Phosphatase 156 H Total Protein 5.8 L Albumin 2.6 L Globulin 3.2 Albumin/Globulin Ratio 0.8 L Lipase Procalcitonin Urine Color Urine Appearance Urine pH Ur Specific [place] Urine Protein Urine Glucose (UA) Urine Ketones Urine Occult Blood Urine Nitrate Urine Bilirubin Urine Urobilinogen Ur Leukocyte Esterase Urine RBC Urine WBC Ur Squamous Epith Cells Urine Bacteria Ur Culture Indicated? Nasal Screen MRSA (PCR) 04/03/23 08:33 WBC RBC Hgb Hct MCV MCH MCHC RDW Plt Count Neut % (Auto) Lymph % (Auto) [place] % (Auto) Eos % (Auto) Baso % (Auto) Neut # (Auto) Lymph # (Auto) [place] # (Auto) Eos # (Auto) Baso # (Auto) Sodium Potassium Chloride Carbon Dioxide BUN Creatinine Estimated GFR BUN/Creatinine Ratio Glucose Lactate Calcium Magnesium Total Bilirubin AST ALT Alkaline Phosphatase Total Protein Albumin Globulin Albumin/Globulin Ratio Lipase Procalcitonin Urine Color Urine Appearance Urine pH Ur Specific [place] Urine Protein Urine Glucose (UA) Urine Ketones Urine Occult Blood Urine Nitrate Urine Bilirubin Urine Urobilinogen Ur Leukocyte Esterase Urine RBC Urine WBC Ur Squamous Epith Cells Urine Bacteria Ur Culture Indicated? 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 Dermatitis Diverticulosis Eczema Elevated glucose level Generalized abdominal pain Hypercalcemia Insomnia Nicotine dependence Peripheral neuropathy Right arm pain Seizures Weakness Family History Father Prostate cancer Deaf Mother Arthritis Social History household members: family Tobacco & Substance Use Smoking Status: Former smoker alcohol intake: former Assessment & Plan Assessment and plan (1) Gastrostomy tube dysfunction: Status: Acute (2) Leaking PEG tube: Status: Acute (3) Cellulitis: Status: Acute (4) Severe protein-calorie malnutrition: Status: Acute (5) Hyponatremia with extracellular fluid depletion: Status: Acute (6) Acute dehydration: Status: Acute Assessment & Plan narrative: At this time the PEG tube can not be used. Every attempt to preserve and protect the skin will be made. The gastric content needs to be decompressed some how otherwise it will take the path of least resistance through the open fistula and continue to irritate the skin. Currently the PEG tube is placed on low intermittent suction. The major underlying problem here is her malnutrition is state. Any PEG tube fistula will not heal because of her severe malnutrition. She is susceptible to infections and really her level of malnutrition is life threatening. Therefore the main problem is that of nutrition. Wound care is also imperative. With the help of nurse who was an ostomy nurse in previous career I was able to use ostomy supplies create a barrier to protect the skin around the fistula. In spite of this the stomach will need to remain decompressed. Options include placement of a PICC line and starting TPN. I do not prefer parenteral nutrition generally and would like to attempt to come up with a solution to create a feeding access into her small bowel distal to the stomach. That way with wound care and gastric decompression perhaps the fistula might heal so long as some enteral nutrition can be absorbed. I have placed the G-tube to low intermittent suction to decompress the stomach and am going to try to see if I can thread a Dobhoff through the fistula... will check XR and will follow. Discussed with bedside RN and Dr. Gil will follow.
--- NOTE | 2023-04-03 17:13 | DI.RAD.S_ITS ---
PROCEDURE: XR ABDOMEN MIN 2V INDICATIONS: reposition of Dobhoff tube. TECHNIQUE: 2 views of the abdomen were acquired. COMPARISON: [facility], CT, CT ABDOMEN PELVIS W CON, 04/03/2023, 0:36. [facility], CR, XR CHEST 1V, 04/03/2023, 2:55. [facility], CR, XR ACUTE ABDOMEN SERIES, 04/03/2023, 14:38. FINDINGS: Surgical changes and devices: None. Bowel: Gastrografin has been given through the percutaneous feeding tube. The tip is confirmed to be within the gastric lumen. Soft tissues: No masses; visualized solid organ contours appear normal in size. No suspicious abdominal calcifications. Bones: No suspicious bony abnormalities. IMPRESSION: The tip of the feeding tube is confirmed to be within the gastric lumen. Dictated by: Robby Irvin M.D. on 04/03/2023 at 17:25 Approved by: Robby Irvin M.D. on 04/03/2023 at 17:26
--- NOTE | 2023-04-03 18:17 | PC.NURSE ---
Dayshift note: Pt was originally assigned to acute care, pt FSBG was found to be 66, per provider started D5NS, pt then became hypotensive (see vitals for trends), lab work came back with possible sepsis, Dr Gil at bedside, pt made ICU status and she remains a Full code after many conversations with pt and sister regarding her wishes. Dr Zhang at bedside to look at G tube which is leaking gastric contents, pt c/o pain, was given dilaudid, hypotension treated with 500 bolus x2, pt currently on tele NSR
[2023-04-03] MEDS: HEPARIN 5,000 UNIT/ML VIAL 5000 UNIT SUBCUT (20:50)
[2023-04-04] VITALS (40 sets, daily range): BP systolic 93–144; BP diastolic 50–78; PULSE 77–193; RESP 11–24; TEMP 36.7–37.4; O2SAT 91–98
--- NOTE | 2023-04-04 | DI.RAD.S_ITS ---
PROCEDURE: FL FLUOROSCOPY >1HR COMPARISON: None. INDICATIONS: RE-POSITION PERC. FEEDING TUBE FINDINGS: There is contrast within the small large bowel. A feeding tube catheter is present. IMPRESSION: Fluoroscopic imaging as above. Dictated by: Marge Fleming M.D. on 04/04/2023 at 14:42 Approved by: Marge Fleming M.D. on 04/04/2023 at 14:43
[2023-04-04] MEDS: HYDROMORPHONE 0.5 MG INJ IV ×4 (01:39→20:50)
[2023-04-04] MEDS: VANCOMYCIN 1,000 MG/200 ML PIGGYBACK 200 MG IV ×2 (04:56→18:31)
[2023-04-04 05:36] LABS: Add Manual Diff / Slide Review NO; Basophils Absolute Auto 0 /uL (0-100); Basophils Percent Auto 0.2 % (0-2); Eosinophils Absolute Auto 400 /uL (0-450); Eosinophils Percent Auto 2.3 % (2-4); Hematocrit 28.9 % (36-46); Hemoglobin 9.7 g/dL (12.0-16.0); Lymphocytes Absolute Auto 700 /uL (1100-4500); Lymphocytes Percent Auto 3.9 % (25-40); Mean Corpuscular HGB Conc 33.6 % (30-36); Mean Corpuscular Hemoglobin 28.6 PG (26-34); Mean Corpuscular Volume 85.1 fL (80-100); Monocytes Absolute Auto 800 /uL (0-900); Monocytes Percent Auto 4.6 % (3-14); Neutrophils Absolute Auto 15000 /uL (1500-7000); Platelet Count 625 X10^3/uL (150-400); Red Blood Cell Count 3.39 X10^6/uL (4.0-5.2); Red Cell Distribution Width 16.8 % (11.6-14.8); White Blood Cell Count 16.8 X10^3/uL (4.5-11.0)
[2023-04-04 05:47] LABS: BUN Creatinine Ratio 23.9 (6-22); Blood Urea Nitrogen 11 mg/dL (7-17); Calcium 7.5 mg/dL (8.4-10.2); Carbon Dioxide 26 mmol/L (22-32); Chloride 102 mmol/L (98-107); Estimated Glomerular Filt Rate > 60 mL/min (>60); Glucose 86 mg/dL (80-110); HEMOLYSIS < 15 (0-50); Magnesium 1.8 mg/dL (1.6-2.3); Potassium 3.3 mmol/L (3.4-5.1); Sodium 131 mmol/L (137-145)
[2023-04-04 06:03] LABS: Procalcitonin 18.1 ng/mL (<0.5)
--- NOTE | 2023-04-04 06:33 | PC.NURSE ---
pt has rested pretty well this shift; she had a linen change due to leaking purewick, and the dressing was changed to her coccyx with Allevyn; she was medicated twice with dilaudid, and she requested lorazepam, which seems to have been cancelled for sedation
[2023-04-04] MEDS: DEXTROSE 5%-0.9% NS 1,000 ML 100 ML IV ×2 (06:58→18:52)
--- NOTE | 2023-04-04 07:48 | PM.PN.1 ---
Subjective Subjective Date Patient Seen: 04/04/23 Interval history: She is seen today to follow-up her head and neck cancer/malnourishment problems. She remains tube feeding dependent without access currently. Surgery is working on passing a Dobbhoff through her feeding tube to her jejunum to increase her nutrition and relieve some of the drainage around the tube site. She is on vancomycin and Zosyn. Despite her high Manuel mortality index, her frailty and very poor prognosis she remains convinced that she should be full code. This is a precarious situation for her. She has a son who lives some distance away. Her much older sister is her main caregiver. She is 87 years old. Exam Vital Signs (past 8 hours): - 04/04/23 05:01 Temperature 98.0 F Pulse Rate 82 Respiratory Rate 14 Blood Pressure 93/50 L Pulse Oximetry 95 Oxygen Delivery Method Room Air Narrative Exam Narrative: Her speech is slurred which she says was caused by jaw cancer Heart is regular rate and rhythm without murmur Lungs are clear to auscultation bilaterally Abdomen: Bowel sounds are active and she is not tender. She has a left upper quadrant Dobbhoff inserted through a PEG feeding tube. The area of redness under the dressing is not examined. There is yellow fluid soaking the gauze over this area. She is very cachectic without edema. Objective Labs 04/04/23 05:15 04/04/23 05:15 Labs: Laboratory Results - last 24 hr 04/03/23 04/03/23 04/04/23 08:30 08:33 05:15 WBC RBC Hgb Hct MCV MCH MCHC RDW Plt Count Neut % (Auto) Lymph % (Auto) [place] % (Auto) Eos % (Auto) Baso % (Auto) Neut # (Auto) Lymph # (Auto) [place] # (Auto) Eos # (Auto) Baso # (Auto) Sodium 130 L Potassium 4.5 Chloride 100 Carbon Dioxide 28 BUN 16 Creatinine 0.46 L Estimated GFR > 60 BUN/Creatinine Ratio 34.8 H Glucose 77 L Calcium 7.9 L Magnesium 1.8 Total Bilirubin 0.4 AST 34 ALT 13 Alkaline Phosphatase 156 H Total Protein 5.8 L Albumin 2.6 L Globulin 3.2 Albumin/Globulin Ratio 0.8 L Procalcitonin Nasal Screen MRSA (PCR) Cancelled 04/04/23 04/04/23 05:15 05:15 WBC 16.8 H RBC 3.39 L Hgb 9.7 L Hct 28.9 L MCV 85.1 MCH 28.6 MCHC 33.6 RDW 16.8 H Plt Count 625 H Neut % (Auto) 89.0 H Lymph % (Auto) 3.9 L [place] % (Auto) 4.6 Eos % (Auto) 2.3 Baso % (Auto) 0.2 Neut # (Auto) 52660 H Lymph # (Auto) 700 L [place] # (Auto) 800 Eos # (Auto) 400 Baso # (Auto) 0 Sodium 131 L Potassium 3.3 L D Chloride 102 Carbon Dioxide 26 BUN 11 Creatinine 0.46 L Estimated GFR > 60 BUN/Creatinine Ratio 23.9 H Glucose 86 Calcium 7.5 L Magnesium Total Bilirubin AST ALT Alkaline Phosphatase Total Protein Albumin Globulin Albumin/Globulin Ratio Procalcitonin 18.1 H Nasal Screen MRSA (PCR) [facility] Medical History Acute hyponatremia Allergies Anxiety Benign essential tremor 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 PEG site infection/cellulitis -sent drainage for culture -cont Vanc and Zosyn -PEG suction draining gastric fluid, on CT noted extending into the stomach -surg consulting and working on passing a Dobhoff feeding tube through the PEG to the jejunum -IV dialudid 0.5 mg prn -Procalcitonin 18.1. WBC 16.8. 2. Possible aspiration pneumonia -new/worsening LLL consolidation -nasal MRSA negative -treat with Vanc and Zosyn as above -Procalcitonin 18.1 on 04/04/23 3. Pleural effusions, chronic -likely due to hypoalbuminemia 4. Severe protein calorie malnutrition -BMI 18, Albumin 2.4 -resume GI feedings when able -Consider TPN if surgery is unable to access the Jejunum by Dobhoff through the PEG tube. -net front end developer consult 5. Hypoglycemia -use D5NS for IV hydration 6. Anxiety -takes lorazepam 1 mg bid prn, not giving currently due to sedation 7. Anemia, chronic -monitor 8. Hypokalemia -IV Kcl and PICC line placement code status: full dvt prevention: heparin sq Quality VTE Deep Vein Thrombosis/Pulmonary Embolism Present on Admission: No
[2023-04-04] MEDS: HEPARIN 5,000 UNIT/ML VIAL 5000 UNIT SUBCUT ×2 (09:29→20:49)
[2023-04-04] MEDS: POTASSIUM CHLORIDE IN WATER 10 MEQ/100 ML PIGGYBACK 100 MEQ IV ×6 (09:29→16:34)
--- NOTE | 2023-04-04 09:52 | DI.RAD.S_ITS ---
PROCEDURE: XR ABDOMEN 1V INDICATIONS: check tube TECHNIQUE: One view of the abdomen acquired. COMPARISON: [facility], CR, XR ABDOMEN MIN 2V, 04/03/2023, 17:15. FINDINGS: Surgical changes and devices: A percutaneous feeding tube is present. Bowel: Bowel gas pattern is normal. Contrast is present within the small and large bowel. Soft tissues: No suspicious abdominal calcifications. Visualized solid organ contours appear normal in size. Bones: No suspicious bony lesions. IMPRESSION: Contrast within the bowel. Dictated by: Marge Fleming M.D. on 04/04/2023 at 10:32 Approved by: Marge Fleming M.D. on 04/04/2023 at 10:32
[2023-04-04] MEDS: PIPERACILLIN/TAZO 3.375 GM in SODIUM CHLORIDE 0.9% 100 ML IV ×2 (10:31→18:34)
[2023-04-04] MEDS: MIDAZOLAM 2 MG/2 ML VIAL 0.5 MG IV (13:00)
[2023-04-04] MEDS: HYDROMORPHONE 2 MG INJ 1.5 MG IV (14:00)
--- NOTE | 2023-04-04 14:20 | PM.OP.1 ---
Operative Date/Time/Diagnoses Date of procedure: 04/04/23 Time of procedure: 14:20 Pre-op diagnosis: Feeding tube malfunction. Post-op diagnosis: same Procedure & Clinicians Procedure: Fluoro guided jejunostomy tube placement. Same procedure as scheduled: Yes Indications: This is a severely malnourished patient who has had difficulty with healing and function of her percutaneous endoscopically placed gastrostomy tube for several weeks. 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 Because of this I am very reluctant to create any further surgical wounds, which may not heal. For this reason I have decided to attempt to place a jejunostomy feeding tube through the gastric cutaneous fistula. I will keep the PEG tube in place for now and simply placed it to suction or drainage to decompress the stomach and hopefully that will help encouraged the gastric cutaneous fistula to heal. Meanwhile if I can get the jejunostomy tube past the pylorus we maybe able to feed her small bowel directly in order to provide some very well needed nutrition and encourage the healing that she needs to be able to even think about placement of a more permanent situation for her enteral feeding. Surgeon: Sulema Zhang Click Yes if Unassisted: Yes Anesthesia Type: Sedation (ICU nurse Page is present during the procedure and assisting with some sedation throughout. Patient is awake and alert and verbalizing though relatively comfortable during the procedure.) Operative Notes Findings: It took several attempts to place the jejunostomy past the pylorus. Initially attempts were made with a G-tube in place however removing the PEG tube temporarily did seem to make a big difference in my ability to thread that to pass the pylorus ultimately I believe it was successful and the radiographic films to confirm placement will be sent to the radiologist to review. If the G-tube is in the duodenum we can then start feedings. I have replaced the G-tube after placing the jejunostomy tube and inflated the G-tube balloon with 8 cc of normal saline. My intention is to leave this tube in place and allow it to drain and decompress the stomach as the gastrocutaneous fistula heals. Specimen(s): none sent Procedure in detail: Patient was taken to the fluoroscopy suite she was placed initially supine on the fluoroscopy table. A time-out was performed. Nurse assisted with sedation using Versed throughout the procedure. Patient tolerated this well. I 1st checked a spot film and the nasal jejunostomy tube and the G-tube were in their expected locations based on previous x-rays. I then made several attempts to manipulate the jejunostomy tube into the duodenum past the pylorus which were unsuccessful. Next I deflated the G-tube balloon even further it had only about 3-5 cc of saline within it and removed the G-tube completely. I then placed a jejunostomy tube through the fistula and re-attempted to thread the pylorus and entered the duodenum. After several attempts I believe that I was successful in this endeavor. In fact the last film appeared to have the J-tube rather deep in the duodenum and I pulled it back 10 cm. It appeared to be in a good location and I taped it down. I reinserted the G-tube and inflated the balloon with 10 cc of normal saline. The G-tube was capped at this time but when she returns to bedside I will have it placed at low intermittent suction. We will then confirmed the location of the G-tube and hopefully be able to start feeding her slowly. I will need the input of the data deliverables manager to avoid refeeding syndrome, such is the severity of her malnutrition. Complications: none Post-operative Condition: stable Disposition: ICU
--- NOTE | 2023-04-04 15:06 | CM.DPC ---
DCP Continued: STEAM ENGINEER reviewed EMR. Per provider in rounds, Dr. Zhang reviewing at this time for fixing leak in tube. Per nursing staff, procedure was completed and appears to be successful. Patient will likely continue to need SNF upon d/c from this hospital. Nursing staff reports starting feeds now. Per EMR, patient is open to returning to [facility]. STEAM ENGINEER did not speak with patient at this time due to patient having just returned from procedure. Plan: likely to return to [facility] when medically stable. CM team will continue to follow closely. LIA Carty
[2023-04-04] MEDS: hydrOXYzine 50 MG/ML INJ 25 MG IM (15:34)
[2023-04-04] MEDS: LIDOCAINE 1% 20 ML INJ (17:25)
--- NOTE | 2023-04-04 18:21 | DI.RAD.S_ITS ---
PROCEDURE: XR ABDOMEN 1V INDICATIONS: check tube placement TECHNIQUE: One view of the abdomen acquired. COMPARISON: [facility], CR, XR ABDOMEN 1V, 04/04/2023, 9:55. FINDINGS: Surgical changes and devices: A weighted feeding tube is again seen overlying the stomach. Numerous coils of the tube can be seen, which may be coiled overlying the patient. Bowel: Bowel gas pattern is normal. Oral contrast is seen, which has progressed distally and is now seen largely within the colon. Soft tissues: No suspicious abdominal calcifications. Visualized solid organ contours appear normal in size. Bones: No suspicious bony lesions. Age-appropriate bony degenerative changes are seen. IMPRESSION: The tip of the weighted feeding tube can be seen in a similar location and is believed to overlie the stomach, as before. Numerous coils of the tube can be seen, which may be extraneous to the patient. Dictated by: Robby Irvin M.D. on 04/04/2023 at 18:25 Approved by: Robby Irvin M.D. on 04/04/2023 at 18:27
[2023-04-04] MEDS: VANCOMYCIN TROUGH 1 REQUEST MISC (19:00)
[2023-04-04] MEDS: VANCOMYCIN PEAK 1 REQUEST MISC (21:29)
[2023-04-04 22:10] LABS: Vancomycin Peak 28.4 ug/mL (20-40)
[2023-04-05] VITALS (27 sets, daily range): BP systolic 87–123; BP diastolic 51–73; PULSE 73–127; RESP 12–22; TEMP 36.3–36.8; O2SAT 93–98
[2023-04-05] MEDS: PIPERACILLIN/TAZO 3.375 GM in SODIUM CHLORIDE 0.9% 100 ML IV ×3 (02:15→18:27)
[2023-04-05] MEDS: DEXTROSE 5%-0.9% NS 1,000 ML 100 ML IV (04:30)
[2023-04-05] MEDS: VANCOMYCIN 1,000 MG/200 ML PIGGYBACK 200 MG IV ×2 (04:49→16:31)
[2023-04-05 05:15] LABS: Add Manual Diff / Slide Review NO; Basophils Absolute Auto 0 /uL (0-100); Basophils Percent Auto 0.3 % (0-2); Eosinophils Absolute Auto 1300 /uL (0-450); Eosinophils Percent Auto 9.4 % (2-4); Hematocrit 27.9 % (36-46); Hemoglobin 9.2 g/dL (12.0-16.0); Lymphocytes Absolute Auto 700 /uL (1100-4500); Mean Corpuscular HGB Conc 32.9 % (30-36); Mean Corpuscular Volume 85.1 fL (80-100); Monocytes Absolute Auto 700 /uL (0-900); Monocytes Percent Auto 4.9 % (3-14); Neutrophils Absolute Auto 11000 /uL (1500-7000); Neutrophils Percent Auto 80.4 % (50-75); Platelet Count 683 X10^3/uL (150-400); Red Blood Cell Count 3.28 X10^6/uL (4.0-5.2); Red Cell Distribution Width 17.2 % (11.6-14.8); White Blood Cell Count 13.7 X10^3/uL (4.5-11.0)
[2023-04-05 05:18] LABS: Blood Urea Nitrogen 8 mg/dL (7-17); Calcium 7.4 mg/dL (8.4-10.2); Carbon Dioxide 27 mmol/L (22-32); Chloride 104 mmol/L (98-107); Estimated Glomerular Filt Rate > 60 mL/min (>60); Glucose 88 mg/dL (80-110); HEMOLYSIS < 15 (0-50); Potassium 3.4 mmol/L (3.4-5.1); Sodium 132 mmol/L (137-145)
[2023-04-05] MEDS: HYDROMORPHONE 0.5 MG INJ IV ×3 (05:26→13:22)
[2023-04-05 05:33] LABS: Procalcitonin 6.25 ng/mL (<0.5)
--- NOTE | 2023-04-05 06:53 | PC.NURSE ---
Pt has had several liquid BMs this shift; her purewick has been replaced each time; allevyns kept getting soiled; coccyx/sacrum becoming more pink and excoriated; pt is tolerating tube feeding; she has orders for IR for tube adjustment and for a PICC line today
--- NOTE | 2023-04-05 09:58 | DI.RAD.S_ITS ---
PROCEDURE: XR CHEST FOR PICC 1V INDICATIONS: verify picc placement COMPARISON: [facility], CR, XR CHEST 1V, 04/03/2023, 2:55. FINDINGS: PICC was placed by the intravenous therapy team from the left side. Fluoroscopic spot film demonstrates the tip of PICC projecting to the area of lower SVC. IMPRESSION: Tip of PICC projects to the area of lower SVC. Dictated by: Maulik Crocker M.D. on 04/05/2023 at 10:33 Approved by: Maulik Crocker M.D. on 04/05/2023 at 10:34
[2023-04-05] MEDS: HEPARIN 5,000 UNIT/ML VIAL 5000 UNIT SUBCUT ×2 (10:03→21:25)
[2023-04-05] MEDS: POTASSIUM CHLORIDE IN WATER 10 MEQ/100 ML PIGGYBACK 100 MEQ IV ×2 (10:05→11:29)
[2023-04-05] MEDS: LORazepam 2 MG/ML INJ 0.5 MG IV ×3 (11:59→18:32)
--- NOTE | 2023-04-05 14:00 | DI.RAD.S_ITS ---
PROCEDURE: FL FLUOROSCOPY >1HR COMPARISON: [facility], CR, XR ABDOMEN 1V, 04/04/2023, 18:27. [facility], CR, XR CHEST FOR PICC 1V, 04/05/2023, 10:01. INDICATIONS: Reposition J Tube FINDINGS: There is a Dobbhoff catheter inserted by surgeon through the existing percutaneous gastrostomy opening. Injection of the catheters demonstrates the tip is within the stomach. Attempt was made to manipulate the catheter tip to the duodenum, which was unsuccessful. IMPRESSION: Unsuccessful manipulation of Dobbhoff cathete. Dictated by: Luis Carlos Forrester M.D. on 04/05/2023 at 17:17 Approved by: Luis Carlos Forrester M.D. on 04/05/2023 at 17:18
--- NOTE | 2023-04-05 14:25 | CM.DPC ---
DCP Continued: Per provider, medical team is considering potential transfer due to tube migrating. Patient is getting PICC line today for TPN. From [facility], they will be able to accept patient back when medically stable. Just need to be updated with patient's progress/if patient transfers to another facility. STAND UP FORKLIFT OPERATOR attempted to see patient twice today, both times patient was either gone for procedure or just returning from procedure. Patient looked to be exhausted/in a lot of pain. CM team will follow up with d/c plan at more appropriate time. Plan: likely d/c back to [facility] when medically stable. CM team will continue to follow closely. LIA Carty
--- NOTE | 2023-04-05 14:53 | P.PN_ITS ---
Subjective Subjective Date Patient Seen: 04/04/23 Interval history: She is seen today to follow-up her head and neck cancer/malnourishment problems. Surgery attempted J-tube placement yesterday, apparently failed and now planning on IR attempt today. Starting on TPN. She has no complaints today. Exam Vital Signs (past 8 hours): - 04/05/23 07:00 04/05/23 07:00 04/05/23 08:00 Temperature 98.0 F Pulse Rate 83 Respiratory Rate 16 Blood Pressure 110/58 L 87/51 L Pulse Oximetry 95 Oxygen Delivery Method 04/05/23 08:00 04/05/23 10:00 04/05/23 09:00 Temperature Pulse Rate 73 Respiratory Rate 12 Blood Pressure 123/65 Pulse Oximetry 94 Oxygen Delivery Method Room Air 04/05/23 09:00 04/05/23 10:00 04/05/23 11:00 Temperature Pulse Rate 93 H 90 85 Respiratory Rate 19 16 17 Blood Pressure Pulse Oximetry 95 95 95 Oxygen Delivery Method 04/05/23 12:00 Temperature Pulse Rate 83 Respiratory Rate 21 Blood Pressure Pulse Oximetry 96 Oxygen Delivery Method Oxygen Delivery Method Room Air Oxygen Flow Rate 0 Narrative Exam Narrative: General:? elerly female, chronically malnourished, in no acute distress. HEENT:? s/p mandibular resection with chronic dysarthria and facial asymmetry Chest:?no tachypnea, equal chest rise bilaterally. Lungs:? CTA b/l no wheezing rhonchi or rales. Cardio:?RRR no m/r/g. Abdomen: soft, mild tenderness around PEG site, non-distended. Dressing is intac t, some mild erythema underneath adherent dressing. Extremities: No edema or joint effusions. No cyanosis or clubbing. Skin:? Pale,? Warm to touch,dry and intact without rashes, ulcerations or petech iae.? Neuro:? Alert and orientated x3,? sensation to touch intact in all extremities, no gross deficits noted of cranial nerves. Psych:? Patient has a well-kept appearance, appropriate affect, mental status attitude thought context and judgment are appropriate for age. Objective Labs 04/05/23 04:26 04/05/23 04:26 Labs: Laboratory Results - last 24 hr 04/04/23 04/04/23 04/05/23 16:35 21:20 04:26 WBC 13.7 H RBC 3.28 L Hgb 9.2 L Hct 27.9 L MCV 85.1 MCH 28.0 MCHC 32.9 RDW 17.2 H Plt Count 683 H Neut % (Auto) 80.4 H Lymph % (Auto) 5.0 L [place] % (Auto) 4.9 Eos % (Auto) 9.4 H Baso % (Auto) 0.3 Neut # (Auto) 35182 H Lymph # (Auto) 700 L [place] # (Auto) 700 Eos # (Auto) 1300 H Baso # (Auto) 0 Sodium Potassium Chloride Carbon Dioxide BUN Creatinine Estimated GFR BUN/Creatinine Ratio Glucose Calcium Procalcitonin Vancomycin Peak 28.4 Vancomycin Trough 16.0 04/05/23 04/05/23 04:26 04:26 WBC RBC Hgb Hct MCV MCH MCHC RDW Plt Count Neut % (Auto) Lymph % (Auto) [place] % (Auto) Eos % (Auto) Baso % (Auto) Neut # (Auto) Lymph # (Auto) [place] # (Auto) Eos # (Auto) Baso # (Auto) Sodium 132 L Potassium 3.4 Chloride 104 Carbon Dioxide 27 BUN 8 Creatinine 0.40 L Estimated GFR > 60 BUN/Creatinine Ratio 20.0 Glucose 88 Calcium 7.4 L Procalcitonin 6.25 H Vancomycin Peak Vancomycin Trough PFSH Medical History Acute hyponatremia Allergies Anxiety Benign essential tremor 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 PEG site infection/cellulitis -sent drainage for culture -cont Vanc and Zosyn -PEG suction draining gastric fluid, on CT noted extending into the stomach -surg consulting and working on passing a Dobhoff feeding tube through the PEG to the jejunum -IV dialudid 0.5 mg prn -Procalcitonin 18.1. WBC 16.8. 2. Possible aspiration pneumonia -new/worsening LLL consolidation -nasal MRSA negative -treat with Vanc and Zosyn as above -Procalcitonin 18.1 on 04/04/23 3. Pleural effusions, chronic -likely due to hypoalbuminemia 4. Severe protein calorie malnutrition -BMI 18, Albumin 2.4 -resume GI feedings when able -TPN ordered for now. -electronics computer mechanic consult 5. Hypoglycemia -use D5NS for IV hydration 6. Anxiety -takes lorazepam 1 mg bid prn, okay for 0.5 mg BID IV prn. 7. Anemia, chronic -monitor 8. Hypokalemia -IV Kcl and PICC line placement code status: full, surrogate is patient's sister dvt prevention: heparin sq Dispo: Likely return to SNF, timing unclear depending on tolerance of tube feedings and jejunostomy placement. Quality VTE Deep Vein Thrombosis/Pulmonary Embolism Present on Admission: No
--- NOTE | 2023-04-05 15:04 | PC.NURSE ---
Day Shift Note Pt alert and oriented x3. PICC line placed by DI nurse for TPN. Orders received from Dr. Zhang this AM to take G tube off suction and to drain to gravity and to hold tube feeds which were both done. Patient down to interventional radiology at approx 1320 for advancement of dobhoff into [facility] per Dr. Zhang. Pt was premedicated with Dilaudid and Ativan prior (see emar). Back to room at approx 1405 and pt brief changed and repositioned. Skin to buttocks is pink and macerated with multiple small, shallow open areas. Dressing replaced to buttocks to cover open areas and periarea cleansed and barrier cream applied. Call light within reach, using appropriately to make needs known.
--- NOTE | 2023-04-05 16:11 | DIET.CONS ---
Dietary Consultation Note Admission Date: 04/03/2023 02:51 Assessment: 77y F admitted with abd px and gastric contents leaking from PEG stoma referred to nutrition for malnutrition and refeeding risk. Since last admit, pt had PEG replaced at [facility] but still having issues with unhealed stoma due to malnutrition. Pt is not safe for PO intake. Surgery tried to advance a dobhoff through PEG for post-pyloric feeding, but tube coiled within the stomach. Due to ongoing issues with delivering enteral feeds, pt to start on TPN this evening. Currently receiving D5 at 100mL/h which will stop once TPN begins. Pt had drop in K+ yesterday from 4.5 to 3.3 but was hypoglycemic at the same time in the 70s which is why D5 was initiated (pt NPO). Recc slow introduction and advancement of TPN as pt high risk for refeeding syndrome. Recc caution with IV dextrose. Once tube placement confirmed, plan to restart trickle enteral feed and advance as tolerated with goal of weaning TPN for 100% enteral nutrition. Ht: 160.02 cm Wt: 45.8 kg BMI: 17.9 UBW: 59kg Last BM: 04/05/23 (04/05/23 15:07) MNA: 8 Humberto Score: 13 Diet: 04/04/23 Dinner Tube Feeding Diet Diet Modifications: May Advance Diet as Tolerated: No TF Supplement type: Jevity 1.2 valery TF mode of delivery: Continuous Starting flow rate mL/hr: 5 Flow rate goal mL/hr: 10 Titration Schedule to reach Goal Rate: 4hrs Max total daily volume in mL: 260 Free fluid: 240 Free Water Frequency: Q4H Comment: start feeing at 5cc for 4H increase to 10cc for 24 hours re-evaluate then Nutrition Type of Feeding Tube Dobhoff through PEG tube 04/04/23 15:10 insertion site Labs: RBC 3.28 X10^6/uL (4.0-5.2) L 04/05/23 04:26 Hgb 9.2 g/dL (12.0-16.0) L 04/05/23 04:26 Hct 27.9 % (36-46) L 04/05/23 04:26 Creatinine 0.40 mg/dL (0.52-1.04) L 04/05/23 04:26 Lactate 1.1 mmol/L (0.7-2.1) 04/02/23 21:17 Nutrition Diagnosis: Severe Acute Protein Calorie Malnutrition r/t difficulty eating aeb pt with 10% unintentional weight loss in 2mo (severe), BMI 17.9 (severe), pt s/p PEG placement with hx head and neck cancer c resection. Interventions: 1. Recc initiating TPN via PICC this evening at 1800 to support nutrition status while enteral feeding is problem solved. Due to risk of refeeding syndrome, starting rate of 0.5L Clinimix E @ 21mL/h running continuously via PICC with 250mL IVFE. Rate advancement will depend on labs and tolerance day to day. 2. Recc 100mg thiamine daily in TPN bag x5d to reduce risk of refeeding syndrome. 3. Please order potassium, magnesium, and phosphorus labs bid until pt reaches goal feeding rate and replete per protocol. Monitoring/Evaluations: RD following daily Electronically Signed by: Michelle Bahena 04/05/23 16:11 Clinical Dietitian [address] [address]
[2023-04-05] MEDS: AA 5 %/CALCIUM/LYTES/DEXT 20 % 500 ML with MULTIVITAMIN 10 ML, TRACE ELEMENTS 1 ML, THI... 21.542 ML IV (18:26)
[2023-04-05] MEDS: FAT EMULSIONS 50 GM/250 ML EMULSION IV (18:27)
[2023-04-06] VITALS (31 sets, daily range): BP systolic 109–123; BP diastolic 57–74; PULSE 76–99; RESP 13–26; TEMP 36.3–36.8; O2SAT 93–97
[2023-04-06] MEDS: PIPERACILLIN/TAZO 3.375 GM in SODIUM CHLORIDE 0.9% 100 ML IV ×3 (02:17→18:43)
[2023-04-06 06:00] LABS: BUN Creatinine Ratio 12.8 (6-22); Blood Urea Nitrogen 5 mg/dL (7-17); Calcium 7.7 mg/dL (8.4-10.2); Carbon Dioxide 27 mmol/L (22-32); Chloride 101 mmol/L (98-107); Estimated Glomerular Filt Rate > 60 mL/min (>60); Glucose 95 mg/dL (80-110); HEMOLYSIS < 15 (0-50); Potassium 3.3 mmol/L (3.4-5.1); Sodium 131 mmol/L (137-145)
[2023-04-06] MEDS: VANCOMYCIN 1,000 MG/200 ML PIGGYBACK 200 MG IV (06:00)
[2023-04-06 06:01] LABS: Magnesium 1.6 mg/dL (1.6-2.3); Phosphorous 2.9 mg/dL (2.8-4.1)
[2023-04-06] MEDS: HEPARIN 5,000 UNIT/ML VIAL 5000 UNIT SUBCUT ×2 (09:16→21:50)
[2023-04-06] MEDS: HYDROMORPHONE 0.5 MG INJ IV ×3 (09:25→21:50)
[2023-04-06] MEDS: POTASSIUM CHLORIDE IN WATER 10 MEQ/100 ML PIGGYBACK 100 MEQ IV ×4 (11:51→15:00)
--- NOTE | 2023-04-06 15:30 | P.PN_ITS ---
Subjective Subjective Date Patient Seen: 04/04/23 Interval history: She is seen today to follow-up her head and neck cancer/malnourishment problems. Surgery attempted J-tube placement which failed, IR here attempted, also failed. Now pending IR placement at [facility]. Planned for tomorrow for treat and transfer back. Exam Vital Signs (past 8 hours): - 04/06/23 07:55 04/06/23 07:55 04/06/23 08:00 Temperature 97.4 F L Pulse Rate 80 85 Respiratory Rate 20 21 Blood Pressure 123/68 Pulse Oximetry 96 96 04/06/23 09:00 04/06/23 10:00 04/06/23 11:00 Temperature Pulse Rate 96 H 79 83 Respiratory Rate 26 H 16 14 Blood Pressure Pulse Oximetry 96 96 97 04/06/23 11:00 04/06/23 11:24 04/06/23 11:24 Temperature Pulse Rate 82 Respiratory Rate 13 Blood Pressure 120/70 120/74 Pulse Oximetry 96 04/06/23 12:00 04/06/23 13:00 04/06/23 14:00 Temperature Pulse Rate 88 88 92 H Respiratory Rate 20 18 19 Blood Pressure Pulse Oximetry 95 97 96 04/06/23 15:00 04/06/23 15:14 04/06/23 15:14 Temperature Pulse Rate 90 96 H Respiratory Rate 22 23 Blood Pressure 120/74 Pulse Oximetry 97 Oxygen Delivery Method Room Air Oxygen Flow Rate 0 Narrative Exam Narrative: General:? elerly female, chronically malnourished, in no acute distress. HEENT:? s/p mandibular resection with chronic dysarthria and facial asymmetry Chest:?no tachypnea, equal chest rise bilaterally. Lungs:? CTA b/l no wheezing rhonchi or rales. Cardio:?RRR no m/r/g. Abdomen: soft, mild tenderness around PEG site, non-distended. Dressing is intact, some mild erythema underneath adherent dressing. Extremities: No edema or joint effusions. No cyanosis or clubbing. Skin:? Pale,? Warm to touch,dry and intact without rashes, ulcerations or petechiae.? Neuro:? Alert and orientated x3,? sensation to touch intact in all extremities, no gross deficits noted of cranial nerves. Psych:? Patient has a well-kept appearance, appropriate affect, mental status attitude thought context and judgment are appropriate for age. Objective Labs 04/05/23 04:26 04/06/23 05:45 Labs: Laboratory Results - last 24 hr 04/06/23 04/06/23 05:45 05:45 Sodium 131 L Potassium 3.3 L Chloride 101 Carbon Dioxide 27 BUN 5 L Creatinine 0.39 L Estimated GFR > 60 BUN/Creatinine Ratio 12.8 Glucose 95 Calcium 7.7 L Phosphorus 2.9 Magnesium 1.6 PFSH Medical History Acute hyponatremia Allergies Anxiety Benign essential tremor 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 PEG site with gastrocutaneous fistula. -continue PEG to suction -appreciate surgery assistance -surgery recommending IR j-tube, plan for treat and transfer back tomorrow. -IV dialudid 0.5 mg prn -NPO still -will need prolonged healing likely due to malnutrition prior to resumtion of stomach feeds. Hopefully J tube will allow enteral feeding rather than continued TPN. 2. Possible aspiration pneumonia -new/worsening LLL consolidation -nasal MRSA negative -initially on vanc and zosyn, negative cultures thus far will discontinue vanc. Continue zosyn 5-7 days -Procalcitonin 18.1 on 04/04/23, down from 52 prior admission and improved to 6 yesterday. Stopped trending. 3. Pleural effusions, chronic -likely due to hypoalbuminemia -not on supplemental O2. 4. Severe protein calorie malnutrition -BMI 18, Albumin 2.4 -resume GI feedings when able via J-tube after placement. -TPN ordered for now. -build and release manager consult 5. Hypoglycemia -use D5NS for IV hydration 6. Anxiety -takes lorazepam 1 mg bid prn, okay for 0.5 mg BID IV prn. 7. Anemia, chronic -monitor 8. Hypokalemia -IV Kcl and PICC line placement code status: full, surrogate is patient's sister dvt prevention: heparin sq Dispo: Likely return to SNF, timing unclear depending on tolerance of tube feedings and J-tube placement. Additional history via bedside staff and general surgeon obtained today. Quality VTE Deep Vein Thrombosis/Pulmonary Embolism Present on Admission: No
--- NOTE | 2023-04-06 15:31 | CM.DPC ---
DCP Continued: Per provider, attempting to transfer patient to [facility]. Per Elle at [facility], can accept when medically stable. ANIMAL EVISCERATOR entered room and reintroduced self and role. Patient accompanied at bedside by sister Sandi. Patient reported open to going back to [facility] if needed upon d/c. During interaction, nursing staff entered room and reported to patient and sister that she will be transferring to [facility] tomorrow for her procedure and then back to [facility]. Patient in agreement to discuss d/c plan when she returns to after she returns. Plan: patient will transfer to [facility] and then back tomorrow. d/c plan will follow. likely to return to [facility] when medically stable. CM team will continue to follow closely. LIA Carty
--- NOTE | 2023-04-06 16:12 | DIET.CONS2 ---
Dietary Inpatient Consultation Note Admission Date: 04/03/2023 02:51 Pt tolerated TPN overnight running at 21mL/h. Electrolytes and BG WNL. Plan to advance TPN to 1L Clinimix E this evening at 1800, continue with 100mg thiamine daily. Discussed feeding plan with pharmacy and hospitalist. Pt to transfer for IR placement of j-tube tomorrow after which we will attempt enteral feedings with hope of transition from TPN to enteral feeding. Diet: 04/06/23 16:11 NPO Diet Diet Modifications: NPO Type: NPO on TPN Electronically Signed by: Michelle Bahena 04/06/23 16:12 Clinical [address] [address]
[2023-04-06] MEDS: AA 5 %/CALCIUM/LYTES/DEXT 20 % 1,000 ML with MULTIVITAMIN 10 ML, TRACE ELEMENTS 1 ML, T... 42.167 ML IV (18:27)
[2023-04-06] MEDS: LORazepam 2 MG/ML INJ 0.5 MG IV (18:27)
[2023-04-06] MEDS: TPN PER PHARMACY 1 REQUEST MISC (18:29)
[2023-04-06] MEDS: hydrOXYzine 50 MG/ML INJ 25 MG IM (22:16)
[2023-04-07] VITALS (27 sets, daily range): BP systolic 96–169; BP diastolic 51–80; PULSE 74–105; RESP 15–28; TEMP 36.6; O2SAT 91–98
[2023-04-07] MEDS: LORazepam 2 MG/ML INJ 0.5 MG IV ×3 (00:13→18:11)
[2023-04-07] MEDS: PIPERACILLIN/TAZO 3.375 GM in SODIUM CHLORIDE 0.9% 100 ML IV ×3 (02:16→17:32)
[2023-04-07 05:50] LABS: Add Manual Diff / Slide Review NO; Basophils Absolute Auto 0 /uL (0-100); Basophils Percent Auto 0.3 % (0-2); Eosinophils Absolute Auto 1700 /uL (0-450); Eosinophils Percent Auto 15.7 % (2-4); Hematocrit 27.1 % (36-46); Hemoglobin 9.2 g/dL (12.0-16.0); Lymphocytes Absolute Auto 700 /uL (1100-4500); Lymphocytes Percent Auto 6.3 % (25-40); Mean Corpuscular Hemoglobin 28.8 PG (26-34); Mean Corpuscular Volume 84.9 fL (80-100); Monocytes Absolute Auto 900 /uL (0-900); Monocytes Percent Auto 8.7 % (3-14); Neutrophils Absolute Auto 7400 /uL (1500-7000); Platelet Count 740 X10^3/uL (150-400); Red Blood Cell Count 3.19 X10^6/uL (4.0-5.2); Red Cell Distribution Width 17.2 % (11.6-14.8); White Blood Cell Count 10.7 X10^3/uL (4.5-11.0)
[2023-04-07 06:01] LABS: Magnesium 1.6 mg/dL (1.6-2.3); Phosphorous 3.1 mg/dL (2.8-4.1)
[2023-04-07 06:02] LABS: Alanine Aminotransferase 11 IU/L (<35); Albumin 2.2 g/dL (3.5-5.0); Albumin Globulin Ratio 0.8 (1.0-2.8); Alkaline Phosphatase 132 U/L (38-126); Aspartate Aminotransferase 21 IU/L (14-36); Bilirubin Total 0.1 mg/dL (0.2-1.3); Blood Urea Nitrogen 6 mg/dL (7-17); Calcium 7.8 mg/dL (8.4-10.2); Carbon Dioxide 29 mmol/L (22-32); Chloride 100 mmol/L (98-107); Estimated Glomerular Filt Rate > 60 mL/min (>60); Globulin 2.9 g/dL (1.7-4.1); Glucose 102 mg/dL (80-110); HEMOLYSIS < 15 (0-50); Potassium 3.5 mmol/L (3.4-5.1); Sodium 130 mmol/L (137-145); Total Protein 5.1 g/dL (6.3-8.2)
--- NOTE | 2023-04-07 15:19 | CM.DPC ---
DCP Continued: RECOVERY SPECIALIST reviewed EMR. Per provider plan is to transfer to [facility] for J tube today and then transfer back here. Per nursing at 1400, patient transfer likely pushed back to tomorrow. Patient appeared to be resting/in pain when RECOVERY SPECIALIST attempted to chat with her. RECOVERY SPECIALIST let patient rest. RECOVERY SPECIALIST updated [facility] of d/c timeline. Elle reported being appreciative and continues to say they can take her back when stable. Plan: pending placement of j tube. Likely d/c to [facility] when stable. CM team will continue to follow closely. LIA Carty
[2023-04-07] MEDS: HYDROMORPHONE 0.5 MG INJ IV (15:42)
[2023-04-07] MEDS: FAT EMULSIONS 50 GM/250 ML EMULSION IV (17:32)
[2023-04-07] MEDS: AA 5 %/CALCIUM/LYTES/DEXT 20 % 1,500 ML with MULTIVITAMIN 10 ML, TRACE ELEMENTS 1 ML, T... 63.667 ML IV (17:32)
--- NOTE | 2023-04-07 17:38 | P.PN_ITS ---
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 He is had increasing difficulties with enteral feedings and had leaking around her most recent PEG tube. Attempts were made for a J-tube placement by both General surgery and Interventional Radiology without success. She is been awaiting a transfer to [facility] for J-tube placement with subsequent return to our facility. She did received Gastrografin when her tube was being assessed, andHas had significant loose stools since then. RN notes that the stage II pressure injury she had on admission appears to be progressing towards a stage III. There are no rectal tubes available here. Patient reports she is feeling about the same overall. She does have an occasional cough but does not noticed it. She in fact denied having a cough for me but I did hear her cough once during our visit. No chest pain. No shortness of breath. Exam Vital Signs (past 8 hours): - 04/07/23 10:00 04/07/23 10:00 04/07/23 11:00 Pulse Rate 82 Respiratory Rate 22 Blood Pressure 115/70 117/76 Pulse Oximetry 95 04/07/23 11:00 04/07/23 12:00 04/07/23 12:00 Pulse Rate 80 86 Respiratory Rate 22 24 Blood Pressure 123/80 Pulse Oximetry 96 96 04/07/23 13:00 04/07/23 13:00 04/07/23 14:00 Pulse Rate 94 H Respiratory Rate 26 H Blood Pressure 122/69 119/62 Pulse Oximetry 96 04/07/23 14:00 Pulse Rate 89 Respiratory Rate 24 Blood Pressure Pulse Oximetry 96 Oxygen Delivery Method Room Air Oxygen Flow Rate 0 Narrative Exam Narrative: GEN: chronically ill-appearing frail, thin /malnourished elderly female,Alert and oriented x 3, NAD HEENT:NC, Face symmetric CHEST: Respiratory excursions symmetric, CTAB CV: RRR, no M/R/G ABD: Soft, NT/ND, BT present in all 4 quadrants, no organomegaly or masses EXTR: warm, well perfused, no C/C/E SKIN: warm and dry, no rash, she does have small scabs noted to her right and left 4th PIP joints, nonblanching erythema/ discoloration noted to the bi lateral feet NEURO: Alert and oriented x 3, nonfocal Objective Labs 04/07/23 05:40 04/07/23 05:40 Labs: Laboratory Results - last 24 hr 04/07/23 04/07/23 04/07/23 05:40 05:40 05:40 WBC 10.7 RBC 3.19 L Hgb 9.2 L Hct 27.1 L MCV 84.9 MCH 28.8 MCHC 34.0 RDW 17.2 H Plt Count 740 H Neut % (Auto) 69.0 Lymph % (Auto) 6.3 L [place] % (Auto) 8.7 Eos % (Auto) 15.7 H Baso % (Auto) 0.3 Neut # (Auto) 7400 H Lymph # (Auto) 700 L [place] # (Auto) 900 Eos # (Auto) 1700 H Baso # (Auto) 0 Sodium 130 L Potassium 3.5 Chloride 100 Carbon Dioxide 29 BUN 6 L Creatinine 0.40 L Estimated GFR > 60 BUN/Creatinine Ratio 15.0 Glucose 102 Calcium 7.8 L Phosphorus 3.1 Magnesium 1.6 Total Bilirubin 0.1 L AST 21 ALT 11 Alkaline Phosphatase 132 H Total Protein 5.1 L Albumin 2.2 L Globulin 2.9 Albumin/Globulin Ratio 0.8 L PFSH Medical History Acute hyponatremia Allergies Anxiety Benign essential tremor 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 Pneumonia , possible aspiration patient continues on Zosyn to complete 5 days of therapy from the time of her x-ray ( 04/05 ). She does have an occasional cough. No significant oxygen requirement. We will continue to monitor. 2. 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 I have ordered a PT /INR for the morning. Patient is NPO and will resume TPN for the evening. 3. severe protein calorie malnutrition BMI is 18, albumin is 2.4. Continue TPN. Await appropriate J-tube placement for enteral feeding to resume. 4. Hypoglycemia blood sugars within normal limits today. 5. Chronic pleural effusion felt to be secondary to low albumin state . Stable. 6. Anxiety continue lorazepam as needed 7. Anemia Hemoglobin is stable at 9.2 8. Hypokalemia normalized today. Will follow. 9. Hyponatremia sodium is down to 130 today. She also has a low BUN and creatinine. She will benefit from concentrating fluids. 10. Thrombocytosis platelets remain quite elevated at 740. Likely primarily an acute phase reactant. code status full prophylaxis heparin; this will need to be held if she is able to have J-tube placement tomorrow disposition pending Quality VTE Deep Vein Thrombosis/Pulmonary Embolism Present on Admission: No
[2023-04-07] MEDS: HEPARIN 5,000 UNIT/ML VIAL 5000 UNIT SUBCUT (21:04)
[2023-04-08] VITALS (14 sets, daily range): BP systolic 90–118; BP diastolic 50–68; PULSE 82–104; RESP 16–22; TEMP 36.3–37.1; O2SAT 89–98
[2023-04-08] MEDS: LORazepam 2 MG/ML INJ 0.5 MG IV ×3 (00:11→20:02)
[2023-04-08] MEDS: PIPERACILLIN/TAZO 3.375 GM in SODIUM CHLORIDE 0.9% 100 ML IV ×3 (03:00→20:12)
[2023-04-08 04:19] LABS: Add Manual Diff / Slide Review NO; Basophils Absolute Auto 100 /uL (0-100); Basophils Percent Auto 0.4 % (0-2); Eosinophils Absolute Auto 1600 /uL (0-450); Eosinophils Percent Auto 11.3 % (2-4); Hematocrit 26.6 % (36-46); Hemoglobin 8.9 g/dL (12.0-16.0); Lymphocytes Absolute Auto 700 /uL (1100-4500); Lymphocytes Percent Auto 4.8 % (25-40); Mean Corpuscular HGB Conc 33.5 % (30-36); Mean Corpuscular Hemoglobin 28.1 PG (26-34); Mean Corpuscular Volume 83.9 fL (80-100); Monocytes Absolute Auto 1300 /uL (0-900); Monocytes Percent Auto 9.1 % (3-14); Neutrophils Absolute Auto 10700 /uL (1500-7000); Neutrophils Percent Auto 74.4 % (50-75); Platelet Count 757 X10^3/uL (150-400); Red Blood Cell Count 3.17 X10^6/uL (4.0-5.2); White Blood Cell Count 14.4 X10^3/uL (4.5-11.0)
[2023-04-08 04:22] LABS: Magnesium 1.7 mg/dL (1.6-2.3); Phosphorous 3.2 mg/dL (2.8-4.1); Triglycerides 115 mg/dL (35-150)
[2023-04-08 04:23] LABS: Alanine Aminotransferase 10 IU/L (<35); Albumin 2.2 g/dL (3.5-5.0); Albumin Globulin Ratio 0.8 (1.0-2.8); Alkaline Phosphatase 112 U/L (38-126); Aspartate Aminotransferase 21 IU/L (14-36); Blood Urea Nitrogen 9 mg/dL (7-17); Calcium 7.7 mg/dL (8.4-10.2); Carbon Dioxide 31 mmol/L (22-32); Chloride 97 mmol/L (98-107); Estimated Glomerular Filt Rate > 60 mL/min (>60); Globulin 2.9 g/dL (1.7-4.1); Glucose 112 mg/dL (80-110); HEMOLYSIS 16 (0-50); Potassium 3.4 mmol/L (3.4-5.1); Sodium 129 mmol/L (137-145); Total Protein 5.1 g/dL (6.3-8.2)
[2023-04-08 04:29] LABS: Bilirubin Total < 0.1 mg/dL (0.2-1.3); Prealbumin 10.9 mg/dL (17.6-36.0)
[2023-04-08 04:52] LABS: Anisocytosis 1+
--- NOTE | 2023-04-08 08:34 | DI.RAD.S_ITS ---
PROCEDURE: XR CHEST 1V INDICATIONS: shortness of breath TECHNIQUE: One view of the chest was acquired. COMPARISON: [facility], CR, XR CHEST 1V, 04/03/2023, 2:55. [facility], CR, XR CHEST 1V, 03/25/2023, 8:07. FINDINGS: Surgical changes and devices: A left PICC is seen with catheter tip projecting over the superior vena cava. Metallic plate and screw construct seen projecting right mandible. Lungs and pleura: Small to moderate left pleural effusion with atelectasis or consolidation of the left lung base, mildly increased when compared to the radiographs from 04/03/2023. The right lung is clear. No pneumothorax. Mediastinum: Mediastinal contours appear normal. Heart size is normal. Bones and chest wall: No suspicious bony lesions. Overlying soft tissues appear unremarkable. IMPRESSION: Small to moderate left pleural effusion has mildly increased in size. Approved by: Ernie Rivas M.D. on 04/08/2023 at 13:50
[2023-04-08] MEDS: FUROSEMIDE 20 MG/2 ML VIAL IV (11:20)
--- NOTE | 2023-04-08 14:03 | PC.NURSE ---
1300 EMS arrived to [facility] J-tube placement procedure done by IR, pt A/Ox4, able to make needs known to EMS transport, was loaded on to syedrjessica, PICC lines and PIV-SL. No further pt contact at this time
--- NOTE | 2023-04-08 16:06 | PM.PN.1 ---
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 He is had increasing difficulties with enteral feedings and had leaking around her most recent PEG tube. Attempts were made for a J-tube placement by both General surgery and Interventional Radiology without success. She is been awaiting a transfer to [facility] for J-tube placement with subsequent return to our facility today. She felt a bit more short of breath this morning, with some peripheral edema. CXR with increase in pleural effusion, and was given dose of diuretic today. Exam Vital Signs (past 8 hours): - 04/08/23 12:00 Temperature 98.7 F Pulse Rate 102 H Respiratory Rate 16 Blood Pressure 100/55 L Pulse Oximetry 96 Oxygen Flow Rate 0 Oxygen Delivery Method Room Air Oxygen Flow Rate 0 Narrative Exam Narrative: GEN: chronically ill-appearing frail, thin /malnourished elderly female,Alert and oriented x 3, NAD HEENT:NC, Face symmetric CHEST: Respiratory excursions symmetric, CTAB CV: RRR, no M/R/G ABD: Soft, NT/ND, BT present in all 4 quadrants, no organomegaly or masses EXTR: warm, well perfused, no C/C/E SKIN: warm and dry, no rash, she does have small scabs noted to her right and left 4th PIP joints, nonblanching erythema/ discoloration noted to the bilateral feet NEURO: Alert and oriented x 3, nonfocal Objective Labs 04/08/23 03:40 04/08/23 03:40 Labs: Laboratory Results - last 24 hr 04/08/23 04/08/23 04/08/23 03:40 03:40 03:40 WBC 14.4 H RBC 3.17 L Hgb 8.9 L Hct 26.6 L MCV 83.9 MCH 28.1 MCHC 33.5 RDW 17.0 H Plt Count 757 H Neut % (Auto) 74.4 Lymph % (Auto) 4.8 L Whitley % (Auto) 9.1 Eos % (Auto) 11.3 H Baso % (Auto) 0.4 Neut # (Auto) 85879 H Lymph # (Auto) 700 L Whitley # (Auto) 1300 H Eos # (Auto) 1600 H Baso # (Auto) 100 RBC Morphology See below Anisocytosis 1+ H PT 11.0 INR 1.0 Sodium Potassium Chloride Carbon Dioxide BUN Creatinine Estimated GFR BUN/Creatinine Ratio Glucose Calcium Phosphorus 3.2 Magnesium 1.7 Total Bilirubin AST ALT Alkaline Phosphatase Total Protein Albumin Globulin Albumin/Globulin Ratio Prealbumin Triglycerides 04/08/23 04/08/23 03:40 03:40 WBC RBC Hgb Hct MCV MCH MCHC RDW Plt Count Neut % (Auto) Lymph % (Auto) Whitley % (Auto) Eos % (Auto) Baso % (Auto) Neut # (Auto) Lymph # (Auto) Whitley # (Auto) Eos # (Auto) Baso # (Auto) RBC Morphology Anisocytosis PT INR Sodium 129 L Potassium 3.4 Chloride 97 L Carbon Dioxide 31 BUN 9 Creatinine 0.36 L Estimated GFR > 60 BUN/Creatinine Ratio 25.0 H Glucose 112 H Calcium 7.7 L Phosphorus Magnesium Total Bilirubin < 0.1 L AST 21 ALT 10 Alkaline Phosphatase 112 Total Protein 5.1 L Albumin 2.2 L Globulin 2.9 Albumin/Globulin Ratio 0.8 L Prealbumin 10.9 L Triglycerides 115 PFSH Medical History Acute hyponatremia Allergies Anxiety Benign essential tremor 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 PEG site with gastrocutaneous fistula. -continue PEG to suction -appreciate surgery assistance -surgery recommending IR j-tube, plan for treat and transfer back today -IV dialudid 0.5 mg prn -NPO still -will need prolonged healing likely due to malnutrition prior to resumtion of stomach feeds. Hopefully J tube will allow enteral feeding rather than continued TPN. 2. Possible aspiration pneumonia -new/worsening LLL consolidation -nasal MRSA negative -initially on vanc and zosyn, negative cultures thus far will discontinue vanc. Continue zosyn 5-7 days -Procalcitonin 18.1 on 8/6/23, down from 52 prior admission and improved to 6 yesterday. Stopped trending. 3. Pleural effusions, chronic -likely due to hypoalbuminemia -not on supplemental O2 but short of breath today, likely due to anasarca with TPN -diuretic initiated today. 4. Severe protein calorie malnutrition -BMI 18, Albumin 2.4 -resume GI feedings when able via GJ-tube after placement. -TPN ordered for now. -flight operations manager consult 5. Hypoglycemia -use D5NS for IV hydration 6. Anxiety -takes lorazepam 1 mg bid prn, okay for 0.5 mg BID IV prn. 7. Anemia, chronic -monitor 8. Hypokalemia -IV Kcl and PICC line placement code status: full, surrogate is patient's sister dvt prevention: heparin sq Dispo: Likely return to SNF, timing unclear depending on tolerance of tube feedings and J-tube placement. Additional history via bedside staff and general surgeon obtained today. Quality VTE Deep Vein Thrombosis/Pulmonary Embolism Present on Admission: No
[2023-04-08] MEDS: SODIUM CHLORIDE 0.9% FLUSH 10 ML IV (20:03)
[2023-04-08] MEDS: AA 5 %/CALCIUM/LYTES/DEXT 20 % 1,500 ML with MULTIVITAMIN 10 ML, TRACE ELEMENTS 1 ML, T... 64.708 ML IV (20:32)
[2023-04-08] MEDS: HYDROMORPHONE 0.5 MG INJ IV ×2 (20:52→23:59)
[2023-04-08] MEDS: HEPARIN 5,000 UNIT/ML VIAL 5000 UNIT SUBCUT (21:17)
[2023-04-09] VITALS (18 sets, daily range): BP systolic 107–138; BP diastolic 56–82; PULSE 86–114; RESP 16–22; TEMP 36.6–37.4; O2SAT 95–99
[2023-04-09] MEDS: PIPERACILLIN/TAZO 3.375 GM in SODIUM CHLORIDE 0.9% 100 ML IV ×3 (02:36→17:51)
[2023-04-09] MEDS: HYDROMORPHONE 0.5 MG INJ IV ×4 (02:42→19:51)
[2023-04-09] MEDS: LORazepam 2 MG/ML INJ 0.5 MG IV ×3 (03:15→17:26)
[2023-04-09 05:01] LABS: Add Manual Diff / Slide Review NO; Basophils Absolute Auto 100 /uL (0-100); Basophils Percent Auto 0.3 % (0-2); Eosinophils Absolute Auto 1000 /uL (0-450); Eosinophils Percent Auto 5.8 % (2-4); Hematocrit 25.3 % (36-46); Hemoglobin 8.5 g/dL (12.0-16.0); Lymphocytes Absolute Auto 900 /uL (1100-4500); Lymphocytes Percent Auto 4.9 % (25-40); Mean Corpuscular HGB Conc 33.6 % (30-36); Mean Corpuscular Volume 83.3 fL (80-100); Monocytes Absolute Auto 1200 /uL (0-900); Monocytes Percent Auto 7.2 % (3-14); Neutrophils Absolute Auto 14000 /uL (1500-7000); Neutrophils Percent Auto 81.8 % (50-75); Platelet Count 754 X10^3/uL (150-400); Red Blood Cell Count 3.04 X10^6/uL (4.0-5.2); Red Cell Distribution Width 17.4 % (11.6-14.8); White Blood Cell Count 17.2 X10^3/uL (4.5-11.0)
[2023-04-09 05:20] LABS: Magnesium 1.9 mg/dL (1.6-2.3); Phosphorous 3.2 mg/dL (2.8-4.1)
[2023-04-09 05:21] LABS: Alanine Aminotransferase 11 IU/L (<35); Albumin 2.4 g/dL (3.5-5.0); Albumin Globulin Ratio 0.7 (1.0-2.8); Alkaline Phosphatase 112 U/L (38-126); Aspartate Aminotransferase 27 IU/L (14-36); BUN Creatinine Ratio 25.5 (6-22); Bilirubin Total 0.2 mg/dL (0.2-1.3); Blood Urea Nitrogen 12 mg/dL (7-17); Calcium 7.8 mg/dL (8.4-10.2); Carbon Dioxide 30 mmol/L (22-32); Chloride 96 mmol/L (98-107); Estimated Glomerular Filt Rate > 60 mL/min (>60); Globulin 3.4 g/dL (1.7-4.1); Glucose 116 mg/dL (80-110); HEMOLYSIS < 15 (0-50); Potassium 3.6 mmol/L (3.4-5.1); Sodium 128 mmol/L (137-145); Total Protein 5.8 g/dL (6.3-8.2)
--- NOTE | 2023-04-09 06:31 | PC.NURSE ---
[employer] Polisher Note-Patient requested pain medication x3 for pain at J-tube site and Ativan for anxiety, lotion applied to itchy skin, barrier paste applied to coccyx and buttocks. J-tube continued to leak yellow fluid, drsg changed and reenforced x3. TPN restarted. Purewick used for voiding-600ml UOP. VSS.
[2023-04-09 06:49] LABS: Platelet Estimate Increased on smear
[2023-04-09 06:50] LABS: Anisocytosis 1+
[2023-04-09] MEDS: SODIUM CHLORIDE 0.9% FLUSH 10 ML IV ×2 (09:09→21:02)
[2023-04-09] MEDS: HEPARIN 5,000 UNIT/ML VIAL 5000 UNIT SUBCUT ×2 (09:09→21:02)
--- NOTE | 2023-04-09 11:38 | PM.PN.1 ---
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 He is had increasing difficulties with enteral feedings and had leaking around her most recent PEG tube. Attempts were made for a J-tube placement by both General surgery and Interventional Radiology without success. She finally had a GJ placed yesterday at [facility] via IR. Her breathing is improved today after 20 mg IV furosemide yesterday. Exam Vital Signs (past 8 hours): - 04/09/23 04:00 04/09/23 04:00 04/09/23 08:00 Temperature 98.6 F 99.0 F Pulse Rate 101 H 91 H Respiratory Rate 18 16 Blood Pressure 114/56 L 138/67 Pulse Oximetry 96 97 Oxygen Delivery Method Oxygen Flow Rate 0 04/09/23 07:00 Temperature Pulse Rate Respiratory Rate Blood Pressure Pulse Oximetry Oxygen Delivery Method Room Air Oxygen Flow Rate Oxygen Delivery Method Room Air Oxygen Flow Rate 0 Narrative Exam Narrative: GEN: chronically ill-appearing frail, thin /malnourished elderly female,Alert and oriented x 3, NAD HEENT:NC, Face symmetric CHEST: Respiratory excursions symmetric, CTAB CV: RRR, no M/R/G ABD: Soft, NT/ND, BT present in all 4 quadrants, no organomegaly or masses EXTR: warm, well perfused, no C/C/E SKIN: warm and dry, no rash, she does have small scabs noted to her right and left 4th PIP joints, nonblanching erythema/ discoloration noted to the bilateral feet NEURO: Alert and oriented x 3, nonfocal Objective Labs 04/09/23 04:45 04/09/23 04:45 Labs: Laboratory Results - last 24 hr 04/09/23 04/09/23 04/09/23 04:45 04:45 04:45 WBC 17.2 H RBC 3.04 L Hgb 8.5 L Hct 25.3 L MCV 83.3 MCH 28.0 MCHC 33.6 RDW 17.4 H Plt Count 754 H Neut % (Auto) 81.8 H Lymph % (Auto) 4.9 L [place] % (Auto) 7.2 Eos % (Auto) 5.8 H Baso % (Auto) 0.3 Neut # (Auto) 19659 H Lymph # (Auto) 900 L [place] # (Auto) 1200 H Eos # (Auto) 1000 H Baso # (Auto) 100 Platelet Estimate Increased on smear RBC Morphology See below Anisocytosis 1+ H Sodium 128 L Potassium 3.6 Chloride 96 L Carbon Dioxide 30 BUN 12 Creatinine 0.47 L Estimated GFR > 60 BUN/Creatinine Ratio 25.5 H Glucose 116 H Calcium 7.8 L Phosphorus 3.2 Magnesium 1.9 Total Bilirubin 0.2 AST 27 ALT 11 Alkaline Phosphatase 112 Total Protein 5.8 L Albumin 2.4 L Globulin 3.4 Albumin/Globulin Ratio 0.7 L PFSH Medical History Acute hyponatremia Allergies Anxiety Benign essential tremor 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 PEG site with gastrocutaneous fistula. -PEG now changed to a GJ tube -appreciate surgery assistance -IV dialudid 0.5 mg prn -NPO still, willl need to see how long before we start feeding. -will need prolonged healing likely due to malnutrition prior to resumtion of stomach feeds. Hopefully J tube will allow enteral feeding rather than continued TPN. 2. Possible aspiration pneumonia -new/worsening LLL consolidation -nasal MRSA negative -initially on vanc and zosyn, negative cultures thus far will discontinue vanc. Continue zosyn 5-7 days -Procalcitonin 18.1 on 04/04/23, down from 52 prior admission and improved to 6 when Stopped trending. 3. Pleural effusions, chronic -likely due to hypoalbuminemia -not on supplemental O2 but short of breath today, likely due to anasarca with TPN -improved symptoms with 20 mg IV furosemide, continue prn for now. 4. Severe protein calorie malnutrition -BMI 18, Albumin 2.4 -resume GI feedings when able via GJ-tube after placement. -TPN ordered for now. -assurance auditor consult 5. Hypoglycemia -use D5NS for IV hydration 6. Anxiety -takes lorazepam 1 mg bid prn, okay for 0.5 mg BID IV prn. 7. Anemia, chronic -monitor 8. Hypokalemia -IV Kcl and PICC line placement code status: full, surrogate is patient's sister dvt prevention: heparin sq Dispo: If she can tolerate GJ feedings can return to SNF, however consider LTAC if TPN needed. Additional history via bedside staff and general surgeon obtained today. Quality VTE Deep Vein Thrombosis/Pulmonary Embolism Present on Admission: No
--- NOTE | 2023-04-09 12:11 | CM.DPNOTE ---
Addendum entered by Siena Johnson R.N. 04/09/23 15:02: Jose with [facility] is reviewing for intake. Her cell is [phone], work fax [phone]. She requests updated clinicals faxed on Wednesday. Addendum entered by Siena Johnson R.N. 04/09/23 14:55: CM team recieved call from [facility] intake (cell phone name challenging to hear, and dropped call). She offers that they will send up to DON for review, but cannot accept patient with TPN requirement alone. Original Note: Patient returned from G/J tube revision at [facility] yesterday, remains on TPN. Patients goal is to return home with sister who has previously provided support, but will need further support from therapy and nursing care given severe weakness/malnutrition/deconditioning. Referral sent to [facility] in [place] given recent ICU supportive requirements and medical complexity. CM team following for patients clinical progression to safest discharge plan.
[2023-04-09] MEDS: ALBUTEROL 1.25 MG/3 ML NEB (PEDIATRIC) INH (14:14)
--- NOTE | 2023-04-09 14:53 | PC.NURSE ---
green drainage continues from around PEG tube. Dr. Zhang made aware, tube unclamped and connected to straight drainage. Dressing changed as needed. Skin around tube is red and excoriated as previously noted.
[2023-04-09] MEDS: AA 5 %/CALCIUM/LYTES/DEXT 20 % 1,500 ML with MULTIVITAMIN 10 ML, TRACE ELEMENTS 1 ML, T... 64.833 ML IV (17:47)
[2023-04-09] MEDS: FAT EMULSIONS 50 GM/250 ML EMULSION IV (17:48)
[2023-04-09] MEDS: diphenhydrAMINE 50 MG/ML VIAL 12.5 MG IV (18:19)
--- NOTE | 2023-04-09 18:19 | DI.RAD.S_ITS ---
PROCEDURE: XR ABDOMEN 1V INDICATIONS: Check PGJ tube location TECHNIQUE: One view of the abdomen acquired. COMPARISON: [facility], CR, XR ABDOMEN 1V, 04/04/2023, 18:27. FINDINGS: Examination limited by motion artifact. Surgical changes and devices: Gastrojejunostomy catheter present. Bowel: Bowel gas pattern is normal. Contrast within small bowel is present. Soft tissues: No suspicious abdominal calcifications. Visualized solid organ contours appear normal in size. Bones: No suspicious bony lesions. IMPRESSION: There is contrast within the small bowel. Dictated by: Marge Fleming M.D. on 04/09/2023 at 18:53 Approved by: Marge Fleming M.D. on 04/09/2023 at 18:54
--- NOTE | 2023-04-09 19:14 | PM.CALLCOV.1 ---
Call Coverage Note Note Date of Patient Contact: 04/09/23 Time of Patient Contact: 19:15 Narrative of Care Provided: Went to patient bedside. Was informed that PGJ tube had been placed last night. Apparently there was leaking around the tube site. Upon my examination there was a small amount of leakage around the G-tube site and the J-tube port was placed to dependent drainage where as the G-tube was capped. I provided nursing education about how to distinguish the difference between the G-tube and the J-tube ports on this tube. Additionally I dressed the gastric cutaneous fistula using ostomy supplies to keep the skin protected. I used the the adhesive prep powder on the skin directly and then some of the paste around the fistula site all of this was covered with a DuoDerm that was cut with a slice and a very small hole in the middle to wrap around the fistula site. I checked an abdominal x-ray which I personally interpreted and the J-tube is post pyloric and is okay to be used for feeding. I have placed some orders to start tube feeds at 5 cc an hour and advanced slowly per nutrition recommendations to avoid refeeding syndrome when we are able to get the input of a counselling psychologist. For now I think keeping the tube feeds at 5 cc and advancing to 10 or 15 is safe over the course of 24 hours if she tolerates. I would continue to keep the G-tube portion to dependent drainage. This recommendation was discussed with the bedside nurse jemma as well as Dr. Lugo.
[2023-04-09] MEDS: hydrOXYzine 50 MG/ML INJ 25 MG IM (21:03)
[2023-04-10] VITALS (18 sets, daily range): BP systolic 93–107; BP diastolic 52–65; PULSE 91–108; RESP 17–22; TEMP 36.8–37.2; O2SAT 95–98
[2023-04-10] MEDS: PIPERACILLIN/TAZO 3.375 GM in SODIUM CHLORIDE 0.9% 100 ML IV ×2 (02:10→08:58)
[2023-04-10] MEDS: LORazepam 2 MG/ML INJ 0.5 MG IV ×3 (04:52→20:24)
[2023-04-10 05:27] LABS: Magnesium 1.8 mg/dL (1.6-2.3); Phosphorous 3.2 mg/dL (2.8-4.1)
[2023-04-10 05:28] LABS: Alanine Aminotransferase 10 IU/L (<35); Albumin 2.1 g/dL (3.5-5.0); Albumin Globulin Ratio 0.7 (1.0-2.8); Alkaline Phosphatase 92 U/L (38-126); Aspartate Aminotransferase 28 IU/L (14-36); BUN Creatinine Ratio 33.3 (6-22); Blood Urea Nitrogen 14 mg/dL (7-17); Calcium 7.6 mg/dL (8.4-10.2); Carbon Dioxide 30 mmol/L (22-32); Chloride 96 mmol/L (98-107); Estimated Glomerular Filt Rate > 60 mL/min (>60); Globulin 3.2 g/dL (1.7-4.1); Glucose 106 mg/dL (80-110); HEMOLYSIS 22 (0-50); Potassium 4.1 mmol/L (3.4-5.1); Sodium 126 mmol/L (137-145); Total Protein 5.3 g/dL (6.3-8.2)
[2023-04-10 05:36] LABS: Bilirubin Total < 0.1 mg/dL (0.2-1.3)
--- NOTE | 2023-04-10 06:45 | PC.NURSE ---
Fur Matcher Note-Patient requests pain medication, then begins to scratch at her skin, mostly back area, IM Vistaril given which was very effective. Tube feeding started at 5ml/hr for 8hrs, tolerated, then increased to 10ml/hr at 0400. 175ml bile gelatinous fluid put out of G-tube, drsg at site remained CDI.
[2023-04-10] MEDS: HEPARIN 5,000 UNIT/ML VIAL 5000 UNIT SUBCUT ×2 (08:55→20:24)
[2023-04-10] MEDS: SODIUM CHLORIDE 0.9% FLUSH 10 ML IV ×4 (08:56→23:21)
[2023-04-10] MEDS: HYDROMORPHONE 0.5 MG INJ IV ×3 (10:15→23:03)
--- NOTE | 2023-04-10 10:24 | DIET.CONS ---
Dietary Consultation Note Admission Date: 04/03/2023 02:51 Assessment: Follow up for 77y F with gastrocutaneous fistula on TPN due to inability to feed enterally or PO. Pt had j-tube placed yesterday. Pt ready to resume enteral feeding. Pt has received 5+ days TPN currently at goal feeding rate meeting 100% nutrition needs. Pt has tolerated high dextrose load from TPN without elevations of BG or electrolyte imbalances indicating pt is outside of refeeding window. Pt currently at 10mL/h pump assisted enteral feeding via j-tube of formula Jevity 1.2. Recc continuing same formula and increasing feed rate by 10mL q8h as tolerated up to goal rate of 55mL/h with free water flushes of 70mL q4h. Recc stopping TPN this evening at 1800 if pt tolerating enteral feeds. Pts goal rate provides 1584 kcals (35kcal/kg) and 73g PRO (1.6g/kg), increased kcal and pro appropriate as pt severely malnourished with unhealing PEG site wound. Recc continuing this feeding rate until wound has healed and pt has BMI >18. Pt to be switched to cyclic pump assisted j-tube feeds as outpatient by home infusion RD. Ht: 160.02 cm Wt: 45.8 kg BMI: 17.9 UBW: 60kg Last BM: 04/10/23 (04/10/23 09:41) MNA: 8 Humberto Score: 12 Diet: 04/06/23 16:11 NPO Diet Diet Modifications: NPO Type: NPO on TPN 04/09/23 Breakfast Tube Feeding Diet Diet Modifications: TF Supplement type: Jevity 1.2 valery TF mode of delivery: Continuous Starting flow rate mL/hr: 10 Flow rate goal mL/hr: 55 Titration Schedule to reach Goal Rate: increase after 8 hrs Max total daily volume in mL: 1600 Free fluid: 70 Free Water Frequency: Q4H Nutrition Type of Feeding Tube Gastrojejunostomy 04/09/23 21:00 Labs: RBC 3.04 X10^6/uL (4.0-5.2) L 04/09/23 04:45 Hgb 8.5 g/dL (12.0-16.0) L 04/09/23 04:45 Hct 25.3 % (36-46) L 04/09/23 04:45 Creatinine 0.42 mg/dL (0.52-1.04) L 04/10/23 05:00 Lactate 1.1 mmol/L (0.7-2.1) 04/02/23 21:17 Monitoring/Evaluations: RD f/u Wednesday Electronically Signed by: Michelle Bahena 04/10/23 10:[address] [id number]
[2023-04-10] MEDS: hydrOXYzine 50 MG/ML INJ 25 MG IM (11:06)
--- NOTE | 2023-04-10 11:06 | CM.DPC ---
Addendum entered by Siena Johnson R.N. 04/10/23 14:19: CM team recieved call from patients son Juanito Valdivia (states he lives in [place]) and wants to know about DC plan. Outlined DCP for [facility] as plan A, [facility] in [place] as plan B. He states he will call again on Wednesday for update and will help aunt Sandi facilitate Medicaid LTC application. Addendum entered by Siena Johnson R.N. 04/10/23 13:39: Met with patient and sister at bedside to affirm DC plan for Wednesday back to [facility]. Patient is reluctant to leave hospital but states she wants to meet her goal of returning home, so understands need for rehab. TF via revised J/G tube now up to 20 ml/hr. Call to [facility] and spoke with Bashir who offers that they cannot take any patients tomorrow, so Wednesday would be next option. Patient and sister reminded of need to formulate a DC plan from SNF. Sister states she will complete Medicaid LTC application today. CM team can fax it for her. They are also considering paid caregivers at home while [employer] application is in process. Original Note: DCP is for continued rehab at [facility] SN[facility] when medically cleared. New/revised J tube feeds at 5ml/hr with goal for 55/hr Jevity as per RD. CM team will reach out to [facility] when medically ready for DC.
[2023-04-10] MEDS: ACETAMINOPHEN SUSP 650 MG/20.3 ML UDC TUBE (13:49)
--- NOTE | 2023-04-10 15:41 | P.PN_ITS ---
Subjective Subjective Interval history: Patient tolerating TF thus far as rate is being advanced. She is having c ontinued diarrhea, so rectal tube placed. Exam Vital Signs (past 8 hours): - 04/10/23 08:00 Temperature 98.3 F Pulse Rate 95 H Respiratory Rate 18 Blood Pressure 93/55 L Pulse Oximetry 97 Oxygen Delivery Method Room Air Oxygen Flow Rate 0 Narrative Exam Narrative: GEN: chronically ill-appearing frail, thin /malnourished elderly female,Alert and oriented x 3, NAD HEENT:NC, Face symmetric CHEST: Respiratory excursions symmetric, CTAB CV: RRR, no M/R/G ABD: Soft, NT/ND, BT present in all 4 quadrants, no organomegaly or masses EXTR: warm, well perfused, no C/C/E SKIN: warm and dry, no rash, she does have small scabs noted to her right and left 4th PIP joints, nonblanching erythema/ discoloration noted to the bilateral feet NEURO: Alert and oriented x 3, nonfocal Objective Labs 04/09/23 04:45 04/10/23 05:00 Labs: Laboratory Results - last 24 hr 04/10/23 04/10/23 05:00 05:00 Sodium 126 L Potassium 4.1 Chloride 96 L Carbon Dioxide 30 BUN 14 Creatinine 0.42 L Estimated GFR > 60 BUN/Creatinine Ratio 33.3 H Glucose 106 Calcium 7.6 L Phosphorus 3.2 Magnesium 1.8 Total Bilirubin < 0.1 L AST 28 ALT 10 Alkaline Phosphatase 92 Total Protein 5.3 L Albumin 2.1 L Globulin 3.2 Albumin/Globulin Ratio 0.7 L PFSH Medical History Acute hyponatremia Allergies Anxiety Benign essential tremor 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 PEG site with gastrocutaneous fistula. -PEG now changed to a GJ tube -appreciate surgery assistance -IV dialudid 0.5 mg prn -NPO still, willl need to see how long before we start feeding. -will need prolonged healing likely due to malnutrition prior to resumption of stomach feeds. Hopefully J tube will allow enteral feeding rather than continued TPN. -weaning off TPN while uptitrating TF rate 2. Possible aspiration pneumonia -new/worsening LLL consolidation -nasal MRSA negative -initially on vanc and zosyn, negative cultures thus far will discontinue vanc. Continue zosyn 5-7 days -Procalcitonin 18.1 on 04/04/23, down from 52 prior admission and improved to 6 when stopped trending. 3. Pleural effusions, chronic -likely due to hypoalbuminemia -not on supplemental O2 but short of breath today, likely due to anasarca with TPN -improved symptoms with 20 mg IV furosemide, continue prn for now. 4. Severe protein calorie malnutrition -BMI 18, Albumin 2.4 -resume GI feedings when able via GJ-tube after placement. -TPN ordered for now. Weaned off. -professor of environmental engineering consulted -TF via new GJ tube as above 5. Hypoglycemia -use D5NS for IV hydration 6. Anxiety -takes lorazepam 1 mg bid prn, okay for 0.5 mg BID IV prn. 7. Anemia, chronic -monitor 8. Hypokalemia -IV Kcl and PICC line placement 9. Chronic diarrhea -rectal tube placed due to severe buttock skin breakdown code status: full, surrogate is patient's sister dvt prevention: heparin sq Dispo: If she can tolerate GJ feedings can return to SNF, however consider LTAC. Quality VTE Deep Vein Thrombosis/Pulmonary Embolism Present on Admission: No
--- NOTE | 2023-04-10 16:54 | PC.NURSE ---
Fecal management system inserted in rectum to drain liquid stool Flexiseal Brand used per jaye with hospitalist. Pt tolerated well.
[2023-04-10] MEDS: diphenhydrAMINE 50 MG/ML VIAL 12.5 MG IV ×2 (18:39→23:20)
[2023-04-11] VITALS (18 sets, daily range): BP systolic 89–122; BP diastolic 50–72; PULSE 88–103; RESP 17–20; TEMP 35.8–37.2; O2SAT 96–99
[2023-04-11] MEDS: LORazepam 2 MG/ML INJ 0.5 MG IV ×5 (02:56→21:46)
[2023-04-11] MEDS: SODIUM CHLORIDE 0.9% FLUSH 10 ML IV ×5 (02:57→19:59)
[2023-04-11 04:50] LABS: Add Manual Diff / Slide Review NO; Basophils Absolute Auto 200 /uL (0-100); Basophils Percent Auto 1.2 % (0-2); Eosinophils Absolute Auto 1600 /uL (0-450); Eosinophils Percent Auto 11.3 % (2-4); Hematocrit 22.7 % (36-46); Hemoglobin 7.7 g/dL (12.0-16.0); Lymphocytes Absolute Auto 700 /uL (1100-4500); Mean Corpuscular HGB Conc 33.9 % (30-36); Mean Corpuscular Hemoglobin 28.5 PG (26-34); Mean Corpuscular Volume 83.9 fL (80-100); Monocytes Absolute Auto 1000 /uL (0-900); Monocytes Percent Auto 6.9 % (3-14); Neutrophils Absolute Auto 10700 /uL (1500-7000); Neutrophils Percent Auto 75.6 % (50-75); Platelet Count 584 X10^3/uL (150-400); White Blood Cell Count 14.2 X10^3/uL (4.5-11.0)
[2023-04-11 04:57] LABS: BUN Creatinine Ratio 29.3 (6-22); Blood Urea Nitrogen 12 mg/dL (7-17); Calcium 7.8 mg/dL (8.4-10.2); Carbon Dioxide 29 mmol/L (22-32); Chloride 95 mmol/L (98-107); Estimated Glomerular Filt Rate > 60 mL/min (>60); Glucose 83 mg/dL (80-110); HEMOLYSIS 16 (0-50); Potassium 4.1 mmol/L (3.4-5.1); Sodium 125 mmol/L (137-145)
[2023-04-11 05:01] LABS: Magnesium 1.7 mg/dL (1.6-2.3); Phosphorous 3.1 mg/dL (2.8-4.1)
[2023-04-11] MEDS: HYDROMORPHONE 0.5 MG INJ IV ×4 (05:03→20:49)
[2023-04-11] MEDS: diphenhydrAMINE 50 MG/ML VIAL 12.5 MG IV ×3 (05:03→18:59)
[2023-04-11] MEDS: DEXTROSE 50 % IN WATER 25 GM/50 ML SYRINGE IV (06:19)
--- NOTE | 2023-04-11 06:48 | PC.NURSE ---
TF amt. cleared not just the amt. for the shift but what is recorded on the pump since started.
[2023-04-11] MEDS: HEPARIN 5,000 UNIT/ML VIAL 5000 UNIT SUBCUT ×2 (08:27→20:50)
--- NOTE | 2023-04-11 08:50 | DI.RAD.S_ITS ---
PROCEDURE: XR CHEST 1V INDICATIONS: persistent leukocytosis TECHNIQUE: One view of the chest was acquired. COMPARISON: [facility], CR, XR CHEST 1V, 04/08/2023, 9:32. FINDINGS: Surgical changes and devices: Left PICC has been withdrawn and now is in the brachiocephalic vein adjacent to the aortic arch. Lungs and pleura: Persistent left pleural effusion. Residual left basilar airspace opacity. The right lung is clear. Mediastinum: Mediastinal contours appear normal. Heart size is normal. Bones and chest wall: No suspicious bony lesions. Overlying soft tissues appear unremarkable. IMPRESSION: Stable appearance of moderate left pleural effusion with probable compressive atelectasis. Interval withdrawal of the PICC line now to the brachiocephalic vein Dictated by: Bg Avila M.D. on 04/11/2023 at 8:30 Approved by: Bg Avila M.D. on 04/11/2023 at 8:33
[2023-04-11 09:35] LABS: Sodium Urine Random 174 mmol/L (30-90)
[2023-04-11] MEDS: SODIUM CHLORIDE 3 % 50 ML 25 ML IV (13:04)
[2023-04-11 16:34] LABS: BUN Creatinine Ratio 19.5 (6-22); Blood Urea Nitrogen 8 mg/dL (7-17); Carbon Dioxide 29 mmol/L (22-32); Chloride 94 mmol/L (98-107); Estimated Glomerular Filt Rate > 60 mL/min (>60); Glucose 82 mg/dL (80-110); HEMOLYSIS < 15 (0-50); Potassium 3.9 mmol/L (3.4-5.1); Sodium 126 mmol/L (137-145)
[2023-04-11] MEDS: SODIUM CHLORIDE 3 % 100 ML 20 ML IV (17:41)
--- NOTE | 2023-04-11 18:50 | P.PN_ITS ---
Subjective Subjective Interval history: Patient at TF rate of 40 with goal of 55/hr. She has no complaints. Sodium dropped to 125. Urine sodium ordered. Exam Vital Signs (past 8 hours): - 04/11/23 12:00 04/11/23 14:00 04/11/23 16:00 Temperature Pulse Rate 97 H 96 H 88 Respiratory Rate Blood Pressure Pulse Oximetry 98 97 98 04/11/23 16:16 04/11/23 16:16 Temperature 97.1 F L Pulse Rate 94 H Respiratory Rate 17 Blood Pressure 108/61 Pulse Oximetry 97 Oxygen Delivery Method Room Air Oxygen Flow Rate 0 Narrative Exam Narrative: GEN: chronically ill-appearing frail, thin /malnourished elderly female,Alert and oriented x 3, NAD HEENT:NC, Face symmetric CHEST: Respiratory excursions symmetric, CTAB CV: RRR, no M/R/G ABD: Soft, NT/ND, BT present in all 4 quadrants, no organomegaly or masses EXTR: warm, well perfused, no C/C/E SKIN: warm and dry, no rash, she does have small scabs noted to her right and left 4th PIP joints, nonblanching erythema/ discoloration noted to the bilate ral feet NEURO: Alert and oriented x 3, nonfocal Objective Labs 04/11/23 04:35 04/11/23 16:10 Labs: Laboratory Results - last 24 hr 04/11/23 04/11/23 04/11/23 04:35 04:35 04:35 WBC 14.2 H RBC 2.70 L Hgb 7.7 L Hct 22.7 L MCV 83.9 MCH 28.5 MCHC 33.9 RDW 18.0 H Plt Count 584 H Neut % (Auto) 75.6 H Lymph % (Auto) 5.0 L [place] % (Auto) 6.9 Eos % (Auto) 11.3 H Baso % (Auto) 1.2 Neut # (Auto) 95939 H Lymph # (Auto) 700 L [place] # (Auto) 1000 H Eos # (Auto) 1600 H Baso # (Auto) 200 H Sodium 125 L Potassium 4.1 Chloride 95 L Carbon Dioxide 29 BUN 12 Creatinine 0.41 L Estimated GFR > 60 BUN/Creatinine Ratio 29.3 H Glucose 83 Calcium 7.8 L Phosphorus 3.1 Magnesium 1.7 Ur Random Sodium 04/11/23 04/11/23 09:00 16:10 WBC RBC Hgb Hct MCV MCH MCHC RDW Plt Count Neut % (Auto) Lymph % (Auto) [place] % (Auto) Eos % (Auto) Baso % (Auto) Neut # (Auto) Lymph # (Auto) [place] # (Auto) Eos # (Auto) Baso # (Auto) Sodium 126 L Potassium 3.9 Chloride 94 L Carbon Dioxide 29 BUN 8 Creatinine 0.41 L Estimated GFR > 60 BUN/Creatinine Ratio 19.5 Glucose 82 Calcium 8.0 L Phosphorus Magnesium Ur Random Sodium 174 H [facility] Medical History Acute hyponatremia Allergies Anxiety Benign essential tremor 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 PEG site with gastrocutaneous fistula. -PEG now changed to a GJ tube -appreciate surgery assistance -IV dialudid 0.5 mg prn -NPO still, willl need to see how long before we start feeding. -will need prolonged healing likely due to malnutrition prior to resumption of stomach feeds. Hopefully J tube will allow enteral feeding rather than continued TPN. -weaning off TPN while uptitrating TF rate -now at 40/hr rate and goal is 55/hr 2. Possible aspiration pneumonia, treated -new/worsening LLL consolidation -nasal MRSA negative -initially on vanc and zosyn, negative cultures thus far will discontinue vanc. Finished zosyn x7 days -Procalcitonin 18.1 on 04/04/23, down from 52 prior admission and improved to 6 when stopped trending. 3. Pleural effusions, chronic -likely due to hypoalbuminemia -not on supplemental O2 but short of breath today, likely due to anasarca with TPN -improved symptoms with 20 mg IV furosemide, continue prn for now. 4. Severe protein calorie malnutrition -BMI 18, Albumin 2.4 -resume GI feedings when able via GJ-tube after placement. -TPN ordered for now. Weaned off. -clinical specialty rep consulted -TF via new GJ tube as above 5. Hypoglycemia -use D5NS for IV hydration 6. Anxiety -takes lorazepam 1 mg bid prn, okay for 0.5 mg BID IV prn. 7. Anemia, chronic -monitor 8. Hypokalemia -IV Kcl and PICC line placement 9. Chronic diarrhea -rectal tube placed due to severe buttock skin breakdown 10. Hyponatremia -Na down to 125, likely SIADH with elevated urine sodium. Not receiving extra free water other than TF flushes. Cannot give salt tabs due to NPO. -start 3% NS 20cc/hr up to 100mL -BMP improved with Na of 126 -daily BMP's code status: full, surrogate is patient's sister dvt prevention: heparin sq Dispo: If she can tolerate GJ feedings can return to SNF, however consider LTAC. Quality VTE Deep Vein Thrombosis/Pulmonary Embolism Present on Admission: No
--- NOTE | 2023-04-11 22:30 | PC.NURSE ---
Addendum entered by Padmini Phillips R.N. 04/12/23 06:21: 0600- Patient rested well through the night. This AM patient did not want to be turned or linens changed. Patient was insistent that she be allowed to rest more, even when pain medication offered to help her she declined. 3% saline infusion completed and am labs show sodium even lower than yesterday. Will f/u with provider for next steps. Original Note: 2100- Patient medicated for pain but RN notes that the IV was leaking. Unsure of how much actual pain med patient received. Will monitor.
[2023-04-12] VITALS (19 sets, daily range): BP systolic 91–114; BP diastolic 51–63; PULSE 79–102; RESP 14–20; TEMP 35.9–37.2; O2SAT 93–99
[2023-04-12 05:17] LABS: Add Manual Diff / Slide Review NO; Basophils Absolute Auto 0 /uL (0-100); Basophils Percent Auto 0.3 % (0-2); Eosinophils Absolute Auto 1200 /uL (0-450); Eosinophils Percent Auto 10.9 % (2-4); Hematocrit 22.7 % (36-46); Hemoglobin 7.8 g/dL (12.0-16.0); Lymphocytes Absolute Auto 700 /uL (1100-4500); Mean Corpuscular HGB Conc 34.5 % (30-36); Mean Corpuscular Hemoglobin 28.7 PG (26-34); Mean Corpuscular Volume 83.3 fL (80-100); Monocytes Absolute Auto 800 /uL (0-900); Monocytes Percent Auto 7.7 % (3-14); Neutrophils Absolute Auto 8300 /uL (1500-7000); Neutrophils Percent Auto 75.1 % (50-75); Platelet Count 584 X10^3/uL (150-400); Red Blood Cell Count 2.73 X10^6/uL (4.0-5.2); Red Cell Distribution Width 18.2 % (11.6-14.8)
[2023-04-12 05:28] LABS: BUN Creatinine Ratio 17.5 (6-22); Blood Urea Nitrogen 7 mg/dL (7-17); Calcium 7.8 mg/dL (8.4-10.2); Carbon Dioxide 29 mmol/L (22-32); Chloride 94 mmol/L (98-107); Estimated Glomerular Filt Rate > 60 mL/min (>60); Glucose 85 mg/dL (80-110); HEMOLYSIS < 15 (0-50); Potassium 3.9 mmol/L (3.4-5.1); Sodium 123 mmol/L (137-145)
[2023-04-12] MEDS: HYDROMORPHONE 0.5 MG INJ IV ×2 (07:49→20:15)
[2023-04-12] MEDS: diphenhydrAMINE 50 MG/ML VIAL 12.5 MG IV ×2 (07:50→20:16)
[2023-04-12] MEDS: LORazepam 2 MG/ML INJ 0.5 MG IV ×2 (07:52→15:24)
[2023-04-12 08:53] LABS: Free T4, Direct Thyroxine 0.78 ng/dL (0.78-2.19)
[2023-04-12] MEDS: SODIUM CHLORIDE 0.9% 1,000 ML 1000 ML IV ×2 (09:07→14:47)
[2023-04-12] MEDS: HEPARIN 5,000 UNIT/ML VIAL 5000 UNIT SUBCUT ×2 (09:08→20:16)
[2023-04-12] MEDS: SODIUM CHLORIDE 0.9% FLUSH 10 ML IV ×2 (09:09→20:16)
[2023-04-12] MEDS: OXYCODONE IR 5 MG TABLET 10 MG PO ×3 (11:10→22:12)
[2023-04-12] MEDS: LEVOTHYROXINE 25 MCG TABLET PO (11:10)
[2023-04-12 12:18] LABS: BUN Creatinine Ratio 19.4 (6-22); Blood Urea Nitrogen 7 mg/dL (7-17); Calcium 7.8 mg/dL (8.4-10.2); Carbon Dioxide 27 mmol/L (22-32); Chloride 95 mmol/L (98-107); Estimated Glomerular Filt Rate > 60 mL/min (>60); Glucose 89 mg/dL (80-110); HEMOLYSIS < 15 (0-50); Potassium 4.1 mmol/L (3.4-5.1); Sodium 125 mmol/L (137-145)
--- NOTE | 2023-04-12 12:31 | DIET.CONS ---
Dietary Consultation Note Admission Date: 04/03/2023 02:51 RD f/u for 77y F with malnutrition and GJ tube transitioned off of TPN and at goal rate for enteral nutrition using GJ tube. Pt with drop in sodium over weekend to 125. Being worked up by hospitalist for SIDH vs hypovolemia. Pt receiving 30mL/kg in total fluids (1500mL), calculating fluid needs with ideal body weight, we will increase free water flushes to 80mL q4h from 40 to see if this helps. Per ICU nurse, pt with excoriated PEG site. Adding 22g PRO as two packets Prosource daily at 0800 and 2000 to support wound healing at 2g/kg as renal fxn WNL and Cr is low at 0.40. Ht: 160.02 cm Wt: 45.8 kg BMI: 17.9 UBW: 60kg Last BM: 04/12/23 (04/12/23 09:00) MNA: 8 Humberto Score: 10 Diet: 04/06/23 16:11 NPO Diet Diet Modifications: NPO Type: NPO on TPN 04/10/23 Dinner Tube Feeding Diet Diet Modifications: prosource packet bid 0800 and 1999 TF Supplement type: Jevity 1.2 valery TF mode of delivery: Continuous Starting flow rate mL/hr: 55 Flow rate goal mL/hr: 55 Titration Schedule to reach Goal Rate: at goal Max total daily volume in mL: 1,800 Free fluid: 80 Free Water Frequency: Q4H Nutrition Percent Meal Consumed pt npo 04/11/23 08:00 Type of Feeding Tube PEG 04/11/23 18:31 Type of Feeding Tube Gastrojejunostomy 04/11/23 06:56 Type of Feeding Tube Gastrojejunostomy 04/10/23 23:00 Type of Feeding Tube Gastrojejunostomy 04/10/23 12:49 Labs: RBC 2.73 X10^6/uL (4.0-5.2) L 04/12/23 05:00 Hgb 7.8 g/dL (12.0-16.0) L 04/12/23 05:00 Hct 22.7 % (36-46) L 04/12/23 05:00 Creatinine 0.36 mg/dL (0.52-1.04) L 04/12/23 11:58 Lactate 1.1 mmol/L (0.7-2.1) 04/02/23 21:17 Monitoring/Evaluations: Once pts sodium stabilized, pt appropriate for discharge to SNF/LTAC from a nutrition perspective. Electronically Signed by: Michelle Bahena 04/12/23 12:31 Clinical Dietitian [address] [address]
--- NOTE | 2023-04-12 15:28 | CM.DPC ---
DCP Cont: Per MD, pt now up to her TF goal and seems to be tolerating well but due to sodium levels not yet stable for d/c today but likely tomorrow 04/13. SW confirmed with Zipper Lining Folder Michelle that pt can use Jevity 1.2 or her home Iso-Source at d/c to SNF and SW updated Zohra at [facility] and she confirms that they have Jevity 1.2 in house and no current concerns regarding accepting pt back at d/c. SW met bedside with pt and sister Sandi and looked through the completed Medicaid LTC application and helped check the final items and pt signed and SW made a copy and faxed to Medicaid and provided original back to sister. Pt also inquired about DPOA pwk as she states she lost her last DPOA pwk and SW provided two copies to pt and sister and encouraged them to both complete. Plan: SW to follow closely for plan of likely d/c to [facility] rehab tomorrow if medically stable for ongoing rehab before safe return home with sister. Mari Tran MSW
--- NOTE | 2023-04-12 16:38 | PM.CN ---
History of Present Illness Consult details Date Patient Seen: 04/12/23 Time Patient Seen: 15:45 Chief complaint: ABD Pain/Poss infection Narrative: The patient is a 77-year-old female who previously underwent resection of her mandible followed by radiation therapy for treatment of squamous cell carcinoma 4 years ago. She developed progressive dysphagia and required PEG tube placement for nutritional support. She was admitted to the hospital April 03, 2023 with severe leakage of gastric contents around the PEG tube with excoriation of the surrounding skin. The tube was subsequently advanced beyond the pylorus into the duodenum for feedings and the gastric port was placed to suction to decompress the stomach. The patient has continued to have leakage of gastric content around the tube with inflammation of the surrounding skin. The nursing staff has applied ostomy putty around the site earlier today and since then no further leakage has been noted and the surrounding skin has improved. Patient has been tolerating her tube feedings. Meds Home Medications and Allergies Home Medications Medication Instructions Recorded Confirmed Type acetaminophen 160 mg/5 mL oral 650 mg (20.3125 mL) PO Q4HR PRN 03/27/23 04/03/23 Rx suspension (Children's Fever/Mild Pain (1-3) #120 mL Acetaminophen) calcium carbonate 200 mg calcium 500 mg PO BID #60 tabs 03/27/23 04/03/23 Rx (500 mg) chewable tablet cholecalciferol (vitamin D3) 25 1,000 unit PO DAILY #30 tabs 03/27/23 04/03/23 Rx mcg (1,000 unit) tablet hydroxyzine HCl 10 mg tablet 10 mg PO BEDTIME #30 tabs 03/27/23 04/03/23 Rx lorazepam 1 mg tablet 1 mg PO BID PRN anxiety #60 tabs 03/27/23 04/03/23 Rx multivitamin with folic acid 400 1 tab PO DAILY #30 tabs 03/27/23 04/03/23 Rx mcg tablet (Tab-A-Simone) oxycodone 5 mg tablet 10 mg TUBE Q3H PRN Pain, Moderate 03/27/23 04/03/23 Rx (4-6) #30 tabs spironolactone 25 mg tablet 25 mg PO 0900,1700 #60 tabs 03/27/23 04/03/23 Rx Allergies Allergy/AdvReac Type Severity Reaction Status Date / Time adhesive Allergy Rash Verified 03/20/23 16:25 Review of Systems Gastrointestinal Comments: No abdominal pain Exam Vital Signs (past 8 hours): - 04/12/23 12:00 04/12/23 10:00 04/12/23 10:41 Temperature Pulse Rate 91 H 79 Respiratory Rate 16 Blood Pressure 91/56 L 91/55 L Pulse Oximetry 97 99 04/12/23 10:41 04/12/23 12:00 04/12/23 14:00 Temperature Pulse Rate 84 84 84 Respiratory Rate Blood Pressure Pulse Oximetry 99 98 97 04/12/23 15:39 04/12/23 15:39 04/12/23 16:00 Temperature Pulse Rate 96 H 91 H Respiratory Rate Blood Pressure 109/59 L Pulse Oximetry 96 97 04/12/23 16:00 Temperature 96.6 F L Pulse Rate Respiratory Rate 15 Blood Pressure Pulse Oximetry Oxygen Delivery Method Room Air Oxygen Flow Rate 0 Narrative Exam Narrative: Elderly cachectic female who is awake and alert, no apparent distress GI Other: Abdomen soft, nontender, nondistended. Gastrostomy tube has stoma putty around the tube and no active leaking of gastric contents was visualized. Inflammation of surrounding skin. Objective Labs 04/12/23 05:00 04/12/23 11:58 Labs: Laboratory Results - last 24 hr 04/12/23 04/12/23 04/12/23 05:00 05:00 05:00 WBC 11.0 RBC 2.73 L Hgb 7.8 L Hct 22.7 L MCV 83.3 MCH 28.7 MCHC 34.5 RDW 18.2 H Plt Count 584 H Neut % (Auto) 75.1 H Lymph % (Auto) 6.0 L [place] % (Auto) 7.7 Eos % (Auto) 10.9 H Baso % (Auto) 0.3 Neut # (Auto) 8300 H Lymph # (Auto) 700 L [place] # (Auto) 800 Eos # (Auto) 1200 H Baso # (Auto) 0 Sodium 123 L Potassium 3.9 Chloride 94 L Carbon Dioxide 29 BUN 7 Creatinine 0.40 L Estimated GFR > 60 BUN/Creatinine Ratio 17.5 Glucose 85 Calcium 7.8 L TSH 45.00 H Free T4 0.78 04/12/23 11:58 WBC RBC Hgb Hct MCV MCH MCHC RDW Plt Count Neut % (Auto) Lymph % (Auto) [place] % (Auto) Eos % (Auto) Baso % (Auto) Neut # (Auto) Lymph # (Auto) [place] # (Auto) Eos # (Auto) Baso # (Auto) Sodium 125 L Potassium 4.1 Chloride 95 L Carbon Dioxide 27 BUN 7 Creatinine 0.36 L Estimated GFR > 60 BUN/Creatinine Ratio 19.4 Glucose 89 Calcium 7.8 L TSH Free T4 PFSH Medical History Acute hyponatremia Allergies Anxiety Benign essential tremor 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 We will re-evaluate tomorrow to see if any drainage occurred overnight and if so she may benefit from application of a barrier product to protect the surrounding skin. Time Spent With Patient Time with patient: 30 to 49 minutes with 50% spent counseling/coordinating care
--- NOTE | 2023-04-12 17:20 | P.PN_ITS ---
Subjective Subjective Date Patient Seen: 04/12/23 Time Patient Seen: 08:00 Interval history: She is weak. She has consistent abdominal pain. She wants to have some normalcy which for her will be able to get out of bed on her own. Exam Vital Signs (past 8 hours): - 04/12/23 12:00 04/12/23 10:00 04/12/23 10:41 Temperature Pulse Rate 91 H 79 Respiratory Rate 16 Blood Pressure 91/56 L 91/55 L Pulse Oximetry 97 99 04/12/23 10:41 04/12/23 12:00 04/12/23 14:00 Temperature Pulse Rate 84 84 84 Respiratory Rate Blood Pressure Pulse Oximetry 99 98 97 04/12/23 15:39 04/12/23 15:39 04/12/23 16:00 Temperature Pulse Rate 96 H 91 H Respiratory Rate Blood Pressure 109/59 L Pulse Oximetry 96 97 04/12/23 16:00 Temperature 96.6 F L Pulse Rate Respiratory Rate 15 Blood Pressure Pulse Oximetry Oxygen Delivery Method Room Air Oxygen Flow Rate 0 Narrative Exam Narrative: GEN: chronically ill-appearing frail, thin /malnourished elderly female,Alert and oriented x 3, NAD CHEST: Respiratory excursions symmetric, CTAB CV: RRR, no M/R/G ABD: Soft, nontender, sking breakdown around feeding tube SKIN: warm and dry, no rash, she does have small scabs noted to her right and left 4th PIP joints, nonblanching erythema/ discoloration noted to the bilateral feet Objective Labs 04/12/23 05:00 04/12/23 11:58 Labs: Laboratory Results - last 24 hr 04/12/23 04/12/23 04/12/23 05:00 05:00 05:00 WBC 11.0 RBC 2.73 L Hgb 7.8 L Hct 22.7 L MCV 83.3 MCH 28.7 MCHC 34.5 RDW 18.2 H Plt Count 584 H Neut % (Auto) 75.1 H Lymph % (Auto) 6.0 L [place] % (Auto) 7.7 Eos % (Auto) 10.9 H Baso % (Auto) 0.3 Neut # (Auto) 8300 H Lymph # (Auto) 700 L [place] # (Auto) 800 Eos # (Auto) 1200 H Baso # (Auto) 0 Sodium 123 L Potassium 3.9 Chloride 94 L Carbon Dioxide 29 BUN 7 Creatinine 0.40 L Estimated GFR > 60 BUN/Creatinine Ratio 17.5 Glucose 85 Calcium 7.8 L TSH 45.00 H Free T4 0.78 04/12/23 11:58 WBC RBC Hgb Hct MCV MCH MCHC RDW Plt Count Neut % (Auto) Lymph % (Auto) [place] % (Auto) Eos % (Auto) Baso % (Auto) Neut # (Auto) Lymph # (Auto) [place] # (Auto) Eos # (Auto) Baso # (Auto) Sodium 125 L Potassium 4.1 Chloride 95 L Carbon Dioxide 27 BUN 7 Creatinine 0.36 L Estimated GFR > 60 BUN/Creatinine Ratio 19.4 Glucose 89 Calcium 7.8 L TSH Free T4 PFSH Medical History Acute hyponatremia Allergies Anxiety Benign essential tremor 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 PEG site with gastrocutaneous fistula. -PEG now changed to a GJ tube -appreciate surgery assistance -IV dialudid 0.5 mg prn, try transitioning to oral -NPO stil -weaned off tpn, now on tubed feeds -now at 40/hr rate and goal is 55/hr -stoma was leaking but improved, with wound care rec for stoma putty 2. Possible aspiration pneumonia, treated -new/worsening LLL consolidation -nasal MRSA negative -initially on vanc and zosyn, negative cultures thus far will discontinue vanc. Finished zosyn x7 days -Procalcitonin 18.1 on 04/04/23, down from 52 prior admission and improved to 6 when stopped trending. 3. Pleural effusions, chronic -likely due to hypoalbuminemia -not on supplemental O2 but short of breath today, likely due to anasarca with TPN -improved symptoms with 20 mg IV furosemide, continue prn for now. 4. Severe protein calorie malnutrition -BMI 18, Albumin 2.4 -resume GI feedings when able via GJ-tube after placement. -TPN ordered for now. Weaned off. -transport specialist consulted -TF via new GJ tube as above 5. Anxiety -transition to oral meds 6. Hyponatremia -Na down to 123, appear hypovolemic -sodium improved to 125 with fluids -continue to trial IV fluids -trend Na frequently Quality VTE Deep Vein Thrombosis/Pulmonary Embolism Present on Admission: No
[2023-04-12 21:01] LABS: BUN Creatinine Ratio 18.4 (6-22); Blood Urea Nitrogen 7 mg/dL (7-17); Calcium 7.7 mg/dL (8.4-10.2); Carbon Dioxide 27 mmol/L (22-32); Chloride 96 mmol/L (98-107); Estimated Glomerular Filt Rate > 60 mL/min (>60); Glucose 95 mg/dL (80-110); HEMOLYSIS < 15 (0-50); Potassium 3.9 mmol/L (3.4-5.1); Sodium 134 mmol/L (137-145)
[2023-04-12] MEDS: LORazepam 0.5 MG TABLET PO (22:13)
[2023-04-13] VITALS: BP 110/61; PULSE 101; PULSE 98; RESP 19; TEMP 36.9; O2SAT 96; O2SAT 98
[2023-04-13] MEDS: HYDROMORPHONE 0.5 MG INJ IV ×3 (00:02→10:00)
[2023-04-13] MEDS: hydrOXYzine 50 MG/ML INJ 25 MG IM (00:02)
[2023-04-13 00:32] LABS: BUN Creatinine Ratio 19.5 (6-22); Blood Urea Nitrogen 8 mg/dL (7-17); Calcium 8.1 mg/dL (8.4-10.2); Carbon Dioxide 28 mmol/L (22-32); Chloride 95 mmol/L (98-107); Estimated Glomerular Filt Rate > 60 mL/min (>60); Glucose 95 mg/dL (80-110); HEMOLYSIS 15 (0-50); Potassium 4.2 mmol/L (3.4-5.1); Sodium 125 mmol/L (137-145)
--- NOTE | 2023-04-13 00:42 | PC.NURSE ---
Pt wound assessment note. Pt with skin excoriation to whole peritoneal area including on lower back and sides. There is a rash that is bright red shiny and is extremely itchy to pt. there is a stage 2 pressure sore on coccyx approximately 1cm in length and 0.5 cm in width. Pt states that the whole area is very sensitive and itchy. requires Vistaril injections and Benadryl. skin barriers and creams in place are not helping. area around G-tube site still red and shiny as well it is not leaking at this time.
[2023-04-13] MEDS: SODIUM CHLORIDE 0.9% FLUSH 10 ML IV ×4 (03:58→10:00)
[2023-04-13 04:00] VITALS: BP 92/54; PULSE 94; RESP 18; TEMP 37.2; O2SAT 97
[2023-04-13] MEDS: OXYCODONE IR 5 MG TABLET 10 MG PO ×2 (04:13→11:58)
[2023-04-13] MEDS: LORazepam 0.5 MG TABLET PO (04:13)
[2023-04-13 04:25] LABS: Add Manual Diff / Slide Review NO; Basophils Absolute Auto 0 /uL (0-100); Basophils Percent Auto 0.1 % (0-2); Eosinophils Absolute Auto 1100 /uL (0-450); Eosinophils Percent Auto 8.6 % (2-4); Hematocrit 22.3 % (36-46); Hemoglobin 7.6 g/dL (12.0-16.0); Lymphocytes Absolute Auto 600 /uL (1100-4500); Lymphocytes Percent Auto 4.8 % (25-40); Mean Corpuscular Hemoglobin 28.3 PG (26-34); Mean Corpuscular Volume 83.5 fL (80-100); Monocytes Absolute Auto 1000 /uL (0-900); Monocytes Percent Auto 7.6 % (3-14); Neutrophils Absolute Auto 10200 /uL (1500-7000); Neutrophils Percent Auto 78.9 % (50-75); Platelet Count 553 X10^3/uL (150-400); Red Blood Cell Count 2.67 X10^6/uL (4.0-5.2); White Blood Cell Count 12.9 X10^3/uL (4.5-11.0)
[2023-04-13 04:40] LABS: BUN Creatinine Ratio 18.2 (6-22); Blood Urea Nitrogen 8 mg/dL (7-17); Carbon Dioxide 30 mmol/L (22-32); Chloride 96 mmol/L (98-107); Estimated Glomerular Filt Rate > 60 mL/min (>60); Glucose 86 mg/dL (80-110); HEMOLYSIS < 15 (0-50); Potassium 3.8 mmol/L (3.4-5.1); Sodium 128 mmol/L (137-145)
[2023-04-13] MEDS: diphenhydrAMINE 50 MG/ML VIAL 12.5 MG IV (04:43)
[2023-04-13] MEDS: LEVOTHYROXINE 25 MCG TABLET PO (06:15)
[2023-04-13 08:00] VITALS: BP 100/59; PULSE 95; RESP 17; TEMP 36.4; O2SAT 96
[2023-04-13] MEDS: HEPARIN 5,000 UNIT/ML VIAL 5000 UNIT SUBCUT (10:00)
--- NOTE | 2023-04-13 10:39 | CM.DPC ---
Addendum entered by LIA Moreira 04/13/23 11:02: ADD: [employer] faxed signed med list, scripts, and MD orders to [facility] for review. BF Original Note: DCP Discharge SNF Per MD, pt's sodium normal range and medically stable to d/c to SNF today for ongoing rehab, nursing, and tube feeding, pt to remain NPO. [facility] called [facility] and confirmed they can accept today with transport around 1200 and provided RN report number and confirmed no PASRR needed as pt is a return. [employer]IM[employer] updated RN and met bedside with pt and updated on plan of d/c today around 1200 and pt agreeable but inquired about BLS transport due to her equilibrium. [employer]IMUS explained a need for medical necessity for insurance to cover the cost of BLS and that equilibrium likely would not justify the need for stretcher transport and could be over $1000 out of pocket expense and could not guarantee coverage. Pt then agreeable to w/c van transport across the street to [facility] and requested SW call and update her sister Sandi on discharge. [employer] called sister Sandi and updated on d/c plan and she remains agreeable as well and will meet pt at [facility]. [employer]IMUS updated RN and provided RN report number and [employer] updated WIRE SAW OPERATOR and commercial manager. Plan: Patient to d/c to [facility] for ongoing rehab today at 1200 via facility van before return home with sister and Medicaid LTC application completed and faxed and DPOA pwk provided to pt and sister. LIA Moreira
--- NOTE | 2023-04-13 10:53 | P.DS_ITS ---
History of Present Illness History of Present Illness Chief complaint: ABD Pain/Poss infection Narrative: 77-year-old female ?with history of squamous cell carcinoma of head and neck, status post right mandible and oral resection 4 years ago with radiation therapy in [facility], followed by severe dysarthria and dysphagia. Over the last 5 years she has difficulty tolerating tube feeding. In the process she lost weight and the became severely malnourished so she had new PEG tube placed last week.? She was admitted here March 20 through March 27 she had possible enteritis and leakage around PEG tube.? Tube placement had been assessed by Gastrografin study there was no abnormality surgery was consulted, conservative measures taken.? Patient was ultimately discharged to rehabilitation center. She had follow-up with GI today and GI noted that she had significant leakage around G-tube confirmed placement. The outpatient blood work showed leukocytosis of 20 and she was sent to the ED for possible dehydration.?Patient reports some cough but denies any fever, shortness of breath or any other symptoms. Patient's vitals are stable she reports some discomfort in her abdomen in the skin. Her pro-calcitonin came out positive and she was started on Zosyn and vancomycin.? Discharge Providers Provider Date of admission: 04/03/23 02:51 Discharge Date: 04/13/23 Primary care physician: Christin Santos RN Consults: 04/03/23 06:19 Consult to Pastoral Services Routine Comment: pt would like a visit 04/03/23 08:10 Consult to Physician Routine Comment: Consulting Provider: Sulema Zhang Reason for consultation: peg tube leak, infection Has provider been notified: Yes 04/05/23 09:27 Consult to Dietitian, Adult Routine Comment: Reason For Exam: Assessed high risk, TPN 04/12/23 09:42 Consult to Dietitian, Adult Routine Comment: Reason For Exam: wound around peg tube erroding Consult to Wound Care Routine Comment: Consulting Provider: [facility] Discharge provider: Sixto Robertson MD Summary Hospital Course Discharge Diagnosis: 1. PEG malfunction, now s/p GJ tube 2. Possible aspiration pneumonia 3. Chronic pleural effusion 4. Severe protein calorie malnutrition 5. Anxiety 6. Hypovolemic hyponatremia 7. History of squamous cell cancer of head/neck, s/p right mandible resection Hospital Course: Ms. Bansal was admitted to the hospital with concern for PEG malnfunction and and had GJ tube placed. She had some leakage around the site and skin breakdown and was seen by wound care and had stoma putty placed. She should continue to follow up with wound care. She had concern for a pneumonia and she was treated with antibiotics and improved. She was quite deconditioned and weak and her goal is is return to some normalcy which for her is being able to get out of bed and ambulate some. She is NPO, and she wants to work with speech therapy to improve her swallow ability. She had low sodium due to having to be off tube feeds for a few days because her issue with her PEG. This improved with resumption of flu ids. Exam Vital Signs (past 8 hours): - 04/13/23 04:00 04/13/23 08:00 Temperature 98.9 F 97.6 F Pulse Rate 94 H 95 H Respiratory Rate 18 17 Blood Pressure 92/54 L 100/59 L Pulse Oximetry 97 96 Oxygen Flow Rate 0 Oxygen Delivery Method Room Air Oxygen Flow Rate 0 Narrative Exam Narrative: GEN: chronically ill-appearing frail, thin /malnourished elderly female,Alert and oriented x 3, NAD CHEST: Respiratory excursions symmetric, CTAB CV: RRR, no M/R/G ABD: Soft, nontender, sking breakdown around feeding tube SKIN: warm and dry, no rash, she does have small scabs noted to her right and left 4th PIP joints, nonblanching erythema/ discoloration noted to the bilateral feet Objective Labs 04/13/23 03:58 04/13/23 03:58 Labs: Laboratory Results - last 24 hr 04/12/23 04/12/23 04/12/23 11:58 20:25 23:45 WBC RBC Hgb Hct MCV MCH MCHC RDW Plt Count Neut % (Auto) Lymph % (Auto) [place] % (Auto) Eos % (Auto) Baso % (Auto) Neut # (Auto) Lymph # (Auto) [place] # (Auto) Eos # (Auto) Baso # (Auto) Sodium 125 L 134 L 125 L Potassium 4.1 3.9 4.2 Chloride 95 L 96 L 95 L Carbon Dioxide 27 27 28 BUN 7 7 8 Creatinine 0.36 L 0.38 L 0.41 L Estimated GFR > 60 > 60 > 60 BUN/Creatinine Ratio 19.4 18.4 19.5 Glucose 89 95 95 Calcium 7.8 L 7.7 L 8.1 L 04/13/23 04/13/23 03:58 03:58 WBC 12.9 H RBC 2.67 L Hgb 7.6 L Hct 22.3 L MCV 83.5 MCH 28.3 MCHC 34.0 RDW 18.0 H Plt Count 553 H Neut % (Auto) 78.9 H Lymph % (Auto) 4.8 L [place] % (Auto) 7.6 Eos % (Auto) 8.6 H Baso % (Auto) 0.1 Neut # (Auto) 24256 H Lymph # (Auto) 600 L [place] # (Auto) 1000 H Eos # (Auto) 1100 H Baso # (Auto) 0 Sodium 128 L Potassium 3.8 Chloride 96 L Carbon Dioxide 30 BUN 8 Creatinine 0.44 L Estimated GFR > 60 BUN/Creatinine Ratio 18.2 Glucose 86 Calcium 8.0 L PFSH Medical History Acute hyponatremia Allergies Anxiety Benign essential tremor 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 Dermatitis Diverticulosis Eczema Elevated glucose level Generalized abdominal pain Hypercalcemia Insomnia Nicotine dependence Peripheral neuropathy Right arm pain Seizures Weakness Family History Father Prostate cancer Deaf Mother Arthritis Social History household members: family Smoking Status: Former smoker alcohol intake: former Discharge Plan Discharge Plan Patient Disposition: SNF Transfer to: [facility] Discharge orders & Medications Prescriptions: New levothyroxine [Synthroid] 25 mcg Tablet 25 mcg PO DAILY@0600 Qty: 30 0RF hydromorphone [Dilaudid] 4 mg tablet 4 mg PO Q6H PRN (Reason: pain) Qty: 14 0RF Continued lorazepam 1 mg tablet 1 mg PO BID MDD 2 mg per day PRN (Reason: anxiety) Qty: 10 0RF Rx Instructions: as needed for anxiety acetaminophen [Children's Acetaminophen] 160 mg/5 mL Suspension 650 mg PO Q4HR PRN (Reason: Fever/Mild Pain (1-3)) Qty: 120 0RF calcium carbonate 200 mg calcium (500 mg) Tablet,Chewable 500 mg PO BID Qty: 60 0RF cholecalciferol (vitamin D3) 25 mcg (1,000 unit) Tablet 1,000 unit PO DAILY Qty: 30 0RF multivitamin with folic acid [Tab-A-Simone] 400 mcg Tablet 1 tab PO DAILY Qty: 30 0RF hydroxyzine HCl 10 mg tablet 10 mg PO BEDTIME Qty: 30 0RF Discontinued spironolactone 25 mg Tablet 25 mg PO 0900,1700 Qty: 60 0RF oxycodone 5 mg Tablet 10 mg TUBE Q3H PRN (Reason: Pain, Moderate (4-6)) Qty: 30 0RF Follow up/Referrals: Christin Santos RN [Primary Care Provider] - Diet/Activity/Treatments Diet: Nothing by Mouth Diet comment: Tube feeds per pediatric assistant note [facility] Reason for rehabilitation: Recovery r/t decondition Rehab type: Physical therapy, Occupational therapy and Speech therapy Visit Report/Discharge Packet Stand Alone Forms: Patient Portal/API Discharge Data Primary Care Provider: Christin Santos Quality VTE Deep Vein Thrombosis/Pulmonary Embolism Present on Admission: No
--- NOTE | 2023-04-13 12:53 | PC.NURSE ---
Prior to patient's discharge patient was offered bed bath, but declined. Patient encouraged to accept assistance with her oral care, patient also declined its fine, I don't want any of that. Patient's mouth is dry and crusty. Brief changed with raghu care and barrier cream provided, patient's buttocks has erythemic denuding rash. Dressing around PEG tube changed, stoma putty remains intact and in place. PICC line to MIROSLAVA dc'd intact, patient tolerated well. [employer]source packet given this am as ordered via J tube and G tube remains intact to drainage collection bag to gravity. Patient picked up for transport via wheelchair with all her belongings with her sister at her side. Report given to Iveth at [facility].
== END 2023-04-13 12:15 | DRG 919 ==
LOC: ED 21:07 → AC 04-03 02:52 → ICU 04-03 03:13
PROVIDERS: Family Medicine; Internal Medicine; Student in an Organized Health Care Education/Training Program; Admitting Provider Internal Medicine; Emergency Provider Emergency Medicine; PCP Nurse Practitioner Family; Referring Provider Emergency Medicine; Visit Provider Internal Medicine
DX: T85.79XA Infection and inflammatory reaction due to other internal prosthetic devices, implants and grafts, initial encounter (principal); E43 Unspecified severe protein-calorie malnutrition; J69.0 Pneumonitis due to inhalation of food and vomit; Z68.1 Body mass index [BMI] 19.9 or less, adult; L03.311 Cellulitis of abdominal wall; E87.1 Hypo-osmolality and hyponatremia; J90 Pleural effusion, not elsewhere classified; F41.9 Anxiety disorder, unspecified; E86.0 Dehydration; E16.2 Hypoglycemia, unspecified; T85.598A Other mechanical complication of other gastrointestinal prosthetic devices, implants and grafts, initial encounter; E87.6 Hypokalemia; K52.9 Noninfective gastroenteritis and colitis, unspecified; Z98.890 Other specified postprocedural states; Z87.891 Personal history of nicotine dependence
CPT/HCPCS: 36415; 36569; 36592; 49451; 71045; 74018; 74019; 74022; 74177; 76000; 80048; 80053; 80202; 81001; 82962; 83605; 83690; 83735; 84100; 84134; 84145; 84300; 84439; 84443; 84478; 85025; 85610; 87040; 87070; 87075; 87077; 87186; 87205; 87797; 93005; 94640; 96361; 96365; 96374; 96375; 99232; 99284; B4185; B4189; J1170; J1200; J1642; J1644; J1940; J2060; J2250; J2270; J2543; J3410; J3475; J3480; J7613

== ENCOUNTER 2023-04-15 12:03 | Emergency (ER) | payer MEDICARE, SELFPAY ==
[2023-04-03 04:00] VITALS: BMI 17.9
[2023-04-15] VITALS (25 sets, daily range): BP systolic 92–105; BP diastolic 54–63; PULSE 96–118; RESP 12; TEMP 37.4; O2SAT 95–99
--- NOTE | 2023-04-15 12:37 | PC.NURSE ---
Patient laying in bed, in good spirits. She denies having pain in her abdomen today. Pt was admitted here 1.5weeks ago requiring new g/j tube placement. Surgical insertion site of the tube appears pink around the site with some dark red blood clots between the tube and skin. She states she must have scratched at her site which caused bleeding. But she did not notice the blood until the staff at her facility discovered it. Patient alert and oriented.
[2023-04-15 13:22] LABS: Basophils Absolute Auto 0 /uL (0-100); Basophils Percent Auto 0.1 % (0-2); Eosinophils Absolute Auto 500 /uL (0-450); Eosinophils Percent Auto 3.7 % (2-4); Hematocrit 22.3 % (36-46); Hemoglobin 7.4 g/dL (12.0-16.0); Lymphocytes Absolute Auto 500 /uL (1100-4500); Lymphocytes Percent Auto 4.3 % (25-40); Mean Corpuscular HGB Conc 33.3 % (30-36); Mean Corpuscular Hemoglobin 28.3 PG (26-34); Mean Corpuscular Volume 84.9 fL (80-100); Monocytes Absolute Auto 1000 /uL (0-900); Monocytes Percent Auto 7.7 % (3-14); Neutrophils Absolute Auto 10600 /uL (1500-7000); Neutrophils Percent Auto 84.2 % (50-75); Platelet Count 580 X10^3/uL (150-400); Red Blood Cell Count 2.63 X10^6/uL (4.0-5.2); Red Cell Distribution Width 17.7 % (11.6-14.8); White Blood Cell Count 12.6 X10^3/uL (4.5-11.0)
[2023-04-15 13:25] LABS: Alanine Aminotransferase 11 IU/L (<35); Albumin 2.8 g/dL (3.5-5.0); Albumin Globulin Ratio 0.8 (1.0-2.8); Alkaline Phosphatase 112 U/L (38-126); Aspartate Aminotransferase 26 IU/L (14-36); BUN Creatinine Ratio 29.7 (6-22); Bilirubin Total < 0.1 mg/dL (0.2-1.3); Blood Urea Nitrogen 11 mg/dL (7-17); Calcium 8.3 mg/dL (8.4-10.2); Carbon Dioxide 29 mmol/L (22-32); Chloride 90 mmol/L (98-107); Estimated Glomerular Filt Rate > 60 mL/min (>60); Globulin 3.3 g/dL (1.7-4.1); Glucose 91 mg/dL (80-110); HEMOLYSIS < 15 (0-50); Potassium 4.4 mmol/L (3.4-5.1); Sodium 123 mmol/L (137-145); Total Protein 6.1 g/dL (6.3-8.2)
[2023-04-15 13:26] LABS: Add Manual Diff / Slide Review SLIDE REVIEW
[2023-04-15 14:09] LABS: Platelet Estimate Increased on smear; RBC Morphology Normal Morphology
[2023-04-15] MEDS: LORazepam 2 MG/ML INJ 0.5 MG IV ×2 (14:18→17:24)
--- NOTE | 2023-04-15 14:43 | PC.NURSE ---
I flushed patients G tube line with 20cc sterile water per provider. There was no leaking around the tube insertion site. No new bleeding noted at time of flush.
--- NOTE | 2023-04-15 16:01 | DI.CT.S_ITS ---
PROCEDURE: CT ABDOMEN PELVIS W CON INDICATIONS: bleeding from ostomy site. TECHNIQUE: After the administration of oral and intravenous contrast, axial sections were acquired from the lung bases to the pubic symphysis. Coronal and sagittal reformats were performed. For radiation dose reduction, the following was used: automated exposure control, adjustment of mA and/or kV according to patient size. COMPARISON:[facility], CT, CT ABDOMEN PELVIS W CON, 04/03/2023, 0:36. FINDINGS: Image quality: Excellent. Lung bases: Small left and trace right pleural effusion. Heart: Cardiomegaly. ABDOMEN: Liver: Hepatic cysts. Gallbladder: Cholelithiasis without wall thickening or adjacent fat stranding to suggest acute cholecystitis. Biliary ducts: Unremarkable. Pancreas: Unremarkable. Spleen: Unremarkable. Adrenal Glands: Nodular thickening of the left adrenal gland, without measurable nodule Kidneys and Ureters: No hydronephrosis or nephrolithiasis. No complex renal cystic lesions which require follow-up. Stomach and Bowel: Percutaneous GJ tube, which appears normal in position. No adjacent abscess. Peritoneum: Small amount of free fluid in the pelvis, greater than expected for age. Ventral Wall: No hernia. Anasarca. Abdominal Nodes: No retroperitoneal or mesenteric adenopathy by size criteria. Vessels: Aorta and inferior vena cava are normal in size. PELVIS: Pelvic Organs: Unremarkable. Bladder: Unremarkable. Pelvic Nodes: No enlarged lymph nodes. Miscellaneous: No inguinal hernias are seen. Bones: Unremarkable. IMPRESSION: Unremarkable percutaneous GJ tube, with adequate positioning. No ostomy. Third-spacing of fluids, with small volume ascites, anasarca and small pleural effusions. Dictated by: Mathieu Calvo M.D. on 04/15/2023 at 16:44 Approved by: Mathieu Calvo M.D. on 04/15/2023 at 16:48
[2023-04-15] MEDS: SODIUM CHLORIDE 0.9% 1,000 ML 1000 ML IV (16:43)
--- NOTE | 2023-04-15 17:04 | ED_ITS ---
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 She was admitted at the end of February 2023 for possible enteritis and leakage around her PEG tube. It was assessed, patient ultimately had persistent leakage and they state that it was replaced by General surgery. Patient presents today after having no issues that has been working well they have been using it for continuous tube feeds and medications as well as flushes with water for hydration. She had bright red blood today from around the tube itself. No prior episodes prior to this. No fevers no abdominal pain, no leakage otherwise of abdominal contents. Patient has not had any difficulties with bowel movements or urination reported otherwise. She is been afebrile. No reported anticoagulants, her family as well as the career development counselor at the facility she stays at all state no aspirin or other thinners. She is requesting Ativan for anxiety which she takes regularly. Related Data Previous Rx's Medication Instructions Recorded acetaminophen 160 mg/5 mL oral 650 mg (20.3125 mL) PO Q4HR PRN 03/27/23 suspension (Children's Fever/Mild Pain (1-3) #120 mL Acetaminophen) calcium carbonate 200 mg calcium 500 mg PO BID #60 tabs 03/27/23 (500 mg) chewable tablet cholecalciferol (vitamin D3) 25 1,000 unit PO DAILY #30 tabs 03/27/23 mcg (1,000 unit) tablet hydroxyzine HCl 10 mg tablet 10 mg PO BEDTIME #30 tabs 03/27/23 multivitamin with folic acid 400 1 tab PO DAILY #30 tabs 03/27/23 mcg tablet (Tab-A-Simone) hydromorphone 4 mg tablet 4 mg PO Q6H PRN pain #14 tabs 04/13/23 (Dilaudid) levothyroxine 25 mcg tablet 25 mcg PO DAILY@0600 #30 tabs 04/13/23 (Synthroid) lorazepam 1 mg tablet 1 mg PO BID PRN anxiety #10 tabs 04/13/23 Allergies Allergy/AdvReac Type Severity Reaction Status Date / Time adhesive Allergy Rash Verified 04/15/23 12:26 Review of Systems Review of Systems ROS Unobtainable: All systems reviewed & are unremarkable except as noted in HPI and below Patient History Medical History Acute hyponatremia Allergies Anxiety Benign essential tremor 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 HEENT: Head normocephalic, atraumatic, EOMI, pupils reactive, patient has facial asymmetry consistent with reported history of frozen jaw and prior head and neck cancer. Moist mucous membranes NECK: Supple, full range of motion CARDIOVASCULAR: Regular rate and rhythm without murmurs, rubs or gallops. RESPIRATORY: Breath sounds equal bilaterally, no wheezes rales or rhonchi. ABDOMEN: Soft, nontender. Normoactive bowel sounds all 4 quadrants. No guarding or rebound, rigidity, no mass, patient's tube appears in place. Patient had some bright red blood on the covering, there is a clot around the base of the G-tube this was cleared and no active bleeding is visualized currently. There is no obvious fissures, lacerations or clear source of bleeding. Patient's tube was draining sort of yellow gastric contents. Later was Re visualized and they noted some blackish discoloration to the contents draining. : No CVA tenderness EXTREMITIES: Normal range of motion, no clubbing or edema. Neurovascularly intact NEUROLOGICAL: Cranial nerves II through XII grossly intact. Moving all extremities SKIN: Warm, dry, no petechiae, no rashes or lesions. Initial Vital Signs Initial Vital Signs: Vital Signs Blood Pressure 101/57 L 04/15/23 12:12 Course Orders Ordered: ED Orders 04/15/23 13:06 CBC Auto Diff [Complete Blood Count AUTO DIFF] Stat CMP [Comprehensive Metabolic Panel] Stat 04/15/23 16:01 CT abdomen pelvis w con Stat Discontinued Medications Sodium Chloride (Normal Saline 0.9%) 1,000 mls @ 1,000 mls/hr IV BOLUS ONE Stop: 04/15/23 17:18 Last Infusion: 04/15/23 17:54 Dose: 0 mls/hr Documented By: Admin: 04/15/23 16:43 Dose: 1,000 mls/hr Documented By: JAREN Lorazepam (Lorazepam 0.5 Mg Tablet) 0.5 mg PO NOW ONE Stop: 04/15/23 13:58 Last Admin: 04/15/23 14:33 Dose: Not Given Documented By: JAREN Lorazepam (Lorazepam 2 Mg/Ml Inj) 0.5 mg IV NOW ONE Stop: 04/15/23 14:14 Last Admin: 04/15/23 14:18 Dose: 0.5 mg Documented By: JAREN Lorazepam (Lorazepam 2 Mg/Ml Inj) 0.5 mg IV NOW ONE Stop: 04/15/23 17:02 Last Admin: 04/15/23 17:24 Dose: 0.5 mg Documented By: JAREN Olanzapine (Olanzapine Odt 10 Mg Tab) 5 mg PO BID DIANE Vital Signs Vital signs: Vital Signs - 8 hr 04/15/23 12:21 04/15/23 12:12 04/15/23 12:13 Temperature Pulse Rate 100 H 99 H Respiratory Rate 12 Blood Pressure 101/57 L 101/57 L Pulse Oximetry 96 95 Oxygen Delivery Method Room Air 04/15/23 12:30 04/15/23 12:30 04/15/23 13:00 Temperature 99.4 F Pulse Rate 99 H 96 H Respiratory Rate Blood Pressure 96/60 Pulse Oximetry 96 97 Oxygen Delivery Method 04/15/23 13:08 04/15/23 13:08 04/15/23 13:30 Temperature Pulse Rate 97 H Respiratory Rate Blood Pressure 92/56 L 100/55 L Pulse Oximetry 98 Oxygen Delivery Method 04/15/23 13:30 04/15/23 13:45 04/15/23 14:00 Temperature Pulse Rate 100 H 103 H Respiratory Rate Blood Pressure 99/55 L Pulse Oximetry 98 98 Oxygen Delivery Method 04/15/23 14:00 04/15/23 14:15 04/15/23 14:30 Temperature Pulse Rate 100 H 100 H Respiratory Rate Blood Pressure 105/61 Pulse Oximetry 97 97 Oxygen Delivery Method Room Air 04/15/23 14:30 04/15/23 14:45 04/15/23 15:00 Temperature Pulse Rate 103 H 100 H Respiratory Rate Blood Pressure 104/57 L Pulse Oximetry 98 97 Oxygen Delivery Method Room Air 04/15/23 15:00 04/15/23 15:15 04/15/23 15:30 Temperature Pulse Rate 105 H 104 H Respiratory Rate Blood Pressure 104/63 Pulse Oximetry 98 99 Oxygen Delivery Method Room Air 04/15/23 15:30 04/15/23 15:45 04/15/23 16:00 Temperature Pulse Rate 103 H 118 H Respiratory Rate Blood Pressure 105/58 L Pulse Oximetry 99 97 Oxygen Delivery Method 04/15/23 16:00 04/15/23 16:15 04/15/23 16:37 Temperature Pulse Rate 106 H 108 H 107 H Respiratory Rate Blood Pressure Pulse Oximetry 97 98 99 Oxygen Delivery Method Room Air Room Air 04/15/23 16:38 04/15/23 16:38 04/15/23 16:45 Temperature Pulse Rate 105 H 103 H Respiratory Rate Blood Pressure 100/54 L Pulse Oximetry 97 97 Oxygen Delivery Method 04/15/23 17:00 04/15/23 17:00 04/15/23 17:15 Temperature Pulse Rate 106 H 101 H Respiratory Rate Blood Pressure 98/54 L Pulse Oximetry 99 98 Oxygen Delivery Method 04/15/23 17:30 04/15/23 17:30 04/15/23 17:45 Temperature Pulse Rate 100 H 105 H Respiratory Rate Blood Pressure 98/54 L Pulse Oximetry 97 97 Oxygen Delivery Method Room Air MDM - Skin/Abscess/Foreign Bdy Lab Data 04/15/23 13:06 04/15/23 13:06 Labs: Lab Results 04/15/23 04/15/23 Range/Units 13:06 13:06 WBC 12.6 H (4.5-11.0) X10^3/uL RBC 2.63 L (4.0-5.2) X10^6/uL Hgb 7.4 L (12.0-16.0) g/dL Hct 22.3 L (36-46) % MCV 84.9 (80-100) fL MCH 28.3 (26-34) PG MCHC 33.3 (30-36) % RDW 17.7 H (11.6-14.8) % Plt Count 580 H (150-400) X10^3/uL Neut % (Auto) 84.2 H (50-75) % Lymph % (Auto) 4.3 L (25-40) % [place] % (Auto) 7.7 (3-14) % Eos % (Auto) 3.7 (2-4) % Baso % (Auto) 0.1 (0-2) % Neut # (Auto) 89974 H (4813-5867) /uL Lymph # (Auto) 500 L (5078-4493) /uL [place] # (Auto) 1000 H (0-900) /uL Eos # (Auto) 500 H (0-450) /uL Baso # (Auto) 0 (0-100) /uL Platelet Estimate Increased on smear RBC Morphology Normal morphology Sodium 123 L (137-145) mmol/L Potassium 4.4 (3.4-5.1) mmol/L Chloride 90 L (98-107) mmol/L Carbon Dioxide 29 (22-32) mmol/L BUN 11 (7-17) mg/dL Creatinine 0.37 L (0.52-1.04) mg/dL Estimated GFR > 60 (>60) mL/min BUN/Creatinine Ratio 29.7 H (6-22) Glucose 91 (80-110) mg/dL Calcium 8.3 L (8.4-10.2) mg/dL Total Bilirubin < 0.1 L (0.2-1.3) mg/dL AST 26 (14-36) IU/L ALT 11 (<35) IU/L Alkaline Phosphatase 112 (38-126) U/L Total Protein 6.1 L (6.3-8.2) g/dL Albumin 2.8 L (3.5-5.0) g/dL Globulin 3.3 (1.7-4.1) g/dL Albumin/Globulin Ratio 0.8 L (1.0-2.8) Imaging Data CT scan - abdomen/pelvis: Radiologist's Impression: Mireya Bansal??77??F??1945 ? Allergy/Adv: adhesive Close Abdomen/Pelvis CT (Signed) Mathieu Calvo - 04/15/23 Chest X-Ray (Signed) Bg Avila - 04/11/23 Abdomen X-Ray (Signed) Marge Fleming - 04/09/23 Chest X-Ray (Signed) Ernie Rivas - 04/08/23 Fluoroscopy (Signed) MitzyLuis Carlos - 04/05/23 Chest X-Ray (Signed) Maulik Crocker - 04/05/23 Abdomen X-Ray (Signed) Robby Irvin - 04/04/23 Abdomen X-Ray (Signed) Marge Fleming - 04/04/23 Fluoroscopy (Signed) Fleming,Henryeer - 04/04/23 Abdomen X-Ray (Signed) Robby Irvin - 04/03/23 Chest/Abdomen X-ray (Signed) Robby Irvin - 04/03/23 Telemetry Strips 04/03/23 Chest X-Ray (Signed) Maik Paula - 04/03/23 Abdomen/Pelvis CT (Signed) Austin Hartmann - 04/02/23 Modified Barium Swallow (Signed) Juan Jones - 03/25/23 Chest X-Ray (Signed) Ernie Archuleta - 03/25/23 Abdomen/Pelvis CT (Signed) Ernie Archuleta - 03/23/23 Catheter Patency X-Ray (Signed) Chong Maher - 03/22/23 Telemetry Strips 03/21/23 Abdomen/Pelvis CT (Signed) Maulik Crocker - 03/20/23 Chest X-Ray (Signed) Danial Sierra - 01/15/23 DEXA Result 06/16/22 Bone Densitometry 06/16/22 Echocardiogram Ultrasound (Signed) Priscilla Kohli - 09/09/20 Launch?[address] [address] [address] Scan Report Signed Patient: Mireya Bansal MR#: [id number] : 1945 Acct:[id number] Age/Sex: 77 / F Date of Service: 04/15/23 Loc: ED Accession Number: [id number] ?? Procedure: CT abdomen pelvis w con Ordering Provider: Maya Gunter D.O. PROCEDURE:? CT ABDOMEN PELVIS W CON ? INDICATIONS:? bleeding from ostomy site. ? TECHNIQUE:? After the administration of oral and intravenous contrast, axial sections were acquired from the lung bases to the pubic symphysis.? Coronal and sagittal reformats were performed.? For radiation dose reduction, the following was used:? automated exposure control, adjustment of mA and/or kV according to patient size.? ? COMPARISON:[facility], CT, CT ABDOMEN PELVIS W CON, 04/03/2023, 0:36. ? FINDINGS:? Image quality:? Excellent.? ? Lung bases:? Small left and trace right pleural effusion. Heart:? Cardiomegaly. ? ? ABDOMEN: Liver:? Hepatic cysts. Gallbladder:? Cholelithiasis without wall thickening or adjacent fat stranding to suggest acute cholecystitis.? ? Biliary ducts:? Unremarkable.? ? Pancreas:? Unremarkable.? ? Spleen:? Unremarkable.? ? Adrenal Glands:? Nodular thickening of the left adrenal gland, without measurable nodule Kidneys and Ureters:? No hydronephrosis or nephrolithiasis. No complex renal cystic lesions which require follow-up. ? Stomach and Bowel:? Percutaneous GJ tube, which appears normal in position.? No adjacent abscess. Peritoneum:? Small amount of free fluid in the pelvis, greater than expected for age. ? Ventral Wall: ? No hernia.? Anasarca. Abdominal Nodes:? No retroperitoneal or mesenteric adenopathy by size criteria.? Vessels:? Aorta and inferior vena cava are normal in size.? ? PELVIS: Pelvic Organs:? Unremarkable.? ? Bladder:? Unremarkable.? ? Pelvic Nodes: No enlarged lymph nodes.? Miscellaneous: No inguinal hernias are seen. ? ? ? Bones:? Unremarkable.? ? ? IMPRESSION:? ? Unremarkable percutaneous GJ tube, with adequate positioning.? No ostomy. ? Third-spacing of fluids, with small volume ascites, anasarca and small pleural effusions. ? ? Dictated by: Mathieu Calvo M.D. on 04/15/2023 at 16:44 ? ? Approved by: Mathieu Calvo M.D. on 04/15/2023 at 16:48?? MDM Narrative Medical decision making narrative: 77-year-old female he is had multiple issues with her G-tube. She would some bright red blood today at her facility, presented here had another episode of small amount bright red blood. I can not see an active source of bleed it appears to be coming from the opening of the G-tube at the skin but do not see a clear source. There was a small amount of black discoloration that drained from the tube after being flushed. It flushed easily without issue and this did not seem to cause exacerbate anything. Patient had CT abdomen pelvis which did not show acute change. Patient is chronically anemic and hemoglobin and hematocrit are stable at 22 today, hyponatremia was slightly worse, renal function and other labs do not show other major changes. I discussed with Dr. Webb for General surgery who recommends watchful waiting and return if recurrent episodes. Discharge Plan Departure Patient Disposition: Home Clinical Impression: Bleeding from gastrostomy tube site Activity Restrictions/Additional Instructions: Please follow-up with your general surgery team Your imaging today does not show any acute changes, there was a small amount of blood at the site today. You have not had any persistent bleeding, I did speak with the general surgeon they recommend watchful waiting. Please return for recurrent episodes of bleeding, difficulty with using your gastrostomy tube, fevers, abdominal pain, vomiting or other new or concerning changes. Prescriptions: No Action levothyroxine [Synthroid] 25 mcg Tablet 25 mcg PO DAILY@0600 Qty: 30 0RF hydromorphone [Dilaudid] 4 mg tablet 4 mg PO Q6H PRN (Reason: pain) Qty: 14 0RF lorazepam 1 mg tablet 1 mg PO BID MDD 2 mg per day PRN (Reason: anxiety) Qty: 10 0RF Rx Instructions: as needed for anxiety acetaminophen [Children's Acetaminophen] 160 mg/5 mL Suspension 650 mg PO Q4HR PRN (Reason: Fever/Mild Pain (1-3)) Qty: 120 0RF calcium carbonate 200 mg calcium (500 mg) Tablet,Chewable 500 mg PO BID Qty: 60 0RF cholecalciferol (vitamin D3) 25 mcg (1,000 unit) Tablet 1,000 unit PO DAILY Qty: 30 0RF multivitamin with folic acid [Tab-A-Simone] 400 mcg Tablet 1 tab PO DAILY Qty: 30 0RF hydroxyzine HCl 10 mg tablet 10 mg PO BEDTIME Qty: 30 0RF Referrals: Christin Santos RN [Primary Care Provider] - Stand Alone Forms: Patient Portal/API
--- NOTE | 2023-04-15 17:55 | PC.NURSE ---
Patient's g/j tube dressing was changed. I called materials to try and acquire the exact dressing change material that patient actively had. Materials did not have the eco-dressing directly around the insertion site. Provider okayed to apply xerofoam vaseline gauz dressing followed by 2x 4x4 slit gauz and cloth tape. After 30 minutes there is no new bleeding from gauz wrap.
--- NOTE | 2023-04-15 18:17 | PC.NURSE ---
Changed patients brief which was soiled with blood from the g tube insertion site.
== END 2023-04-15 18:30 | disposition home or self-care (01) ==
PROVIDERS: Emergency Provider Emergency Medicine; PCP Nurse Practitioner Family
DX: K94.21 Gastrostomy hemorrhage (principal)
CPT/HCPCS: 36415; 74177; 80053; 85025; 96361; 96374; 96376; 99284; J2060; Q9967

== ENCOUNTER 2023-04-28 15:00 | Observation (INO) | payer MEDICARE, SELFPAY ==
[2023-04-03 04:00] VITALS: BMI 17.9
[2023-04-28] VITALS (67 sets, daily range): BP systolic 75–120; BP diastolic 39–64; PULSE 92–113; RESP 14–31; TEMP 36.6–37.7; O2SAT 87–98; BMI 16.1
--- NOTE | 2023-04-28 15:30 | ED.RECABL ---
HPI - Recheck/Abnormal Lab/Rx General Chief Complaint: Recheck/Abnormal Lab/Rx Stated Complaint: blood transfusion Time Seen by Provider: 04/28/23 15:10 Source: patient, family and other Mode of arrival: Wheelchair History of Present Illness HPI narrative: Patient is a 77-year-old female. She has multiple chronic medical issues. She has had head and neck cancer with resection. She is a PEG tube in place. She has had issues with bleeding around the PEG tube in place. She is had issues with anemia. She states she is not having any symptoms today. She stated that she was sent to the emergency department for blood transfusion. She is not having any blood in her urine. No blood in her stool that she knows of. Has not been vomiting any blood. She is not on anticoagulation Related Data Previous Rx's Medication Instructions Recorded acetaminophen 160 mg/5 mL oral 650 mg (20.3125 mL) PO Q4HR PRN 03/27/23 suspension (Children's Fever/Mild Pain (1-3) #120 mL Acetaminophen) calcium carbonate 200 mg calcium 500 mg PO BID #60 tabs 03/27/23 (500 mg) chewable tablet cholecalciferol (vitamin D3) 25 1,000 unit PO DAILY #30 tabs 03/27/23 mcg (1,000 unit) tablet hydroxyzine HCl 10 mg tablet 10 mg PO BEDTIME #30 tabs 03/27/23 multivitamin with folic acid 400 1 tab PO DAILY #30 tabs 03/27/23 mcg tablet (Tab-A-Simone) hydromorphone 4 mg tablet 4 mg PO Q6H PRN pain #14 tabs 04/13/23 (Dilaudid) levothyroxine 25 mcg tablet 25 mcg PO DAILY@0600 #30 tabs 04/13/23 (Synthroid) lorazepam 1 mg tablet 1 mg PO BID PRN anxiety #10 tabs 04/13/23 Allergies Allergy/AdvReac Type Severity Reaction Status Date / Time adhesive Allergy Rash Verified 04/15/23 12:26 Review of Systems Cardiovascular Comments: Denies chest pain Respiratory Comments: Denies shortness of breath Gastrointestinal Comments: Denies abdominal pain Hematologic/Lymphatic On Anticoagulants: No Patient History Medical History Acute hyponatremia Allergies Anxiety Benign essential tremor 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 Dermatitis Diverticulosis Eczema Elevated glucose level Generalized abdominal pain Hypercalcemia Insomnia Nicotine dependence Peripheral neuropathy Right arm pain Seizures Weakness Family History Father Prostate cancer Deaf Mother Arthritis Social History household members: family Smoking Status: Former smoker alcohol intake: former Smoking Status: Former smoker Substance Use Type: does not use Exam Initial Vital Signs Initial Vital Signs: Vital Signs Temperature 98.3 F 04/28/23 15:24 Pulse Rate 105 H 04/28/23 15:24 Respiratory Rate 16 04/28/23 15:24 Blood Pressure 101/61 04/28/23 15:24 Pulse Oximetry 98 04/28/23 15:24 Oxygen Delivery Method Room Air 04/28/23 15:24 Const General: cooperative and comfortable Resp Effort & Inspection: normal respiratory effort Auscultation: clear to auscultation bilaterally Cardio Rate: tachycardic Rhythm: regular rhythm GI Other: Abdomen is soft and nondistended. She does have a G-tube in her left abdomen. There is some surrounding erythema most consistent with a dermatitis. Skin Other: Patient multiple postsurgical changes of her head and neck region consistent with her prior surgeries Extrem General: capillary refill normal Course Orders Ordered: ED Orders 04/28/23 15:34 Complete Blood Count AUTO DIFF Stat Comprehensive Metabolic Panel Stat PTT Partial Thromboplastin Ryan Stat Packed Cells Stat Prothrombin Time INR Stat Type and Screen Stat 04/28/23 15:46 EKG-12 Lead Stat 04/28/23 17:50 COVID19 -Nasal RAPID Stat Ondansetron HCl (Ondansetron 4 Mg/2 Ml Inj) 4 mg IV NOW PRN PRN Reason: Nausea And Vomiting Ondansetron HCl (Ondansetron 4 Mg Odt) 4 mg SL NOW PRN PRN Reason: Nausea And Vomiting Discontinued Medications Lorazepam (Lorazepam 2 Mg/Ml Inj) 1 mg IV NOW ONE Stop: 04/28/23 18:10 Pantoprazole Sodium (Pantoprazole 40 Mg Vial) 80 mg IV NOW ONE Stop: 04/28/23 15:08 Last Admin: 04/28/23 15:12 Dose: Not Given Documented By: FREDI Vital Signs Vital signs: Vital Signs - 8 hr 04/28/23 15:24 04/28/23 15:46 04/28/23 16:00 Temperature 98.3 F Pulse Rate 105 H 101 H 98 H Respiratory Rate 16 17 17 Blood Pressure 101/61 Pulse Oximetry 98 91 87 L Oxygen Delivery Method Room Air 04/28/23 16:22 04/28/23 16:22 04/28/23 16:30 Temperature Pulse Rate 102 H Respiratory Rate 17 Blood Pressure 88/51 L 90/52 L Pulse Oximetry 92 Oxygen Delivery Method 04/28/23 16:30 04/28/23 17:00 04/28/23 17:00 Temperature Pulse Rate 100 H 98 H Respiratory Rate 18 15 Blood Pressure 75/49 L Pulse Oximetry 93 92 Oxygen Delivery Method 04/28/23 17:05 04/28/23 17:10 04/28/23 17:10 Temperature Pulse Rate 99 H 96 H Respiratory Rate 17 16 Blood Pressure 76/39 L Pulse Oximetry 92 93 Oxygen Delivery Method Room Air 04/28/23 17:15 04/28/23 17:15 04/28/23 17:20 Temperature Pulse Rate 100 H Respiratory Rate 16 Blood Pressure 82/44 L 92/54 L Pulse Oximetry 95 Oxygen Delivery Method 04/28/23 17:20 04/28/23 17:44 04/28/23 17:25 Temperature 99.8 F H Pulse Rate 102 H 100 H Respiratory Rate 20 14 Blood Pressure 88/52 L 91/55 L Pulse Oximetry 95 Oxygen Delivery Method Room Air 04/28/23 17:25 04/28/23 17:30 04/28/23 17:30 Temperature Pulse Rate 101 H 103 H Respiratory Rate 17 21 Blood Pressure 120/57 L Pulse Oximetry 95 95 Oxygen Delivery Method 04/28/23 17:35 04/28/23 17:35 04/28/23 17:40 Temperature Pulse Rate 101 H Respiratory Rate 20 Blood Pressure 95/53 L 88/52 L Pulse Oximetry 95 Oxygen Delivery Method 04/28/23 17:40 04/28/23 17:45 04/28/23 17:45 Temperature Pulse Rate 100 H 100 H Respiratory Rate 18 17 Blood Pressure 92/54 L Pulse Oximetry 94 93 Oxygen Delivery Method 04/28/23 17:50 04/28/23 17:50 04/28/23 17:50 Temperature Pulse Rate 101 H Respiratory Rate 17 Blood Pressure 89/50 L 89/50 L Pulse Oximetry 94 Oxygen Delivery Method 04/28/23 18:00 Temperature 99.6 F Pulse Rate 101 H Respiratory Rate 22 Blood Pressure 91/51 L Pulse Oximetry Oxygen Delivery Method MDM - Recheck/Abnormal Lab/Rx Medical Records Attestation: I reviewed the patient's medical records. Lab Data Attestation: I reviewed the patient's lab results. 04/28/23 15:34 04/28/23 15:34 Labs: Lab Results 04/28/23 04/28/23 04/28/23 Range/Units 15:34 15:34 15:34 WBC 13.4 H (4.5-11.0) X10^3/uL RBC 2.82 L (4.0-5.2) X10^6/uL Hgb 7.5 L (12.0-16.0) g/dL Hct 22.8 L (36-46) % MCV 81.0 (80-100) fL MCH 26.7 (26-34) PG MCHC 33.0 (30-36) % RDW 18.9 H (11.6-14.8) % Plt Count 1215 H* (150-400) X10^3/uL Neut % (Auto) 77.0 H (50-75) % Lymph % (Auto) 6.5 L (25-40) % [place] % (Auto) 5.0 (3-14) % Eos % (Auto) 11.1 H (2-4) % Baso % (Auto) 0.4 (0-2) % Neut # (Auto) 17804 H (8533-5179) /uL Lymph # (Auto) 900 L (3217-5945) /uL [place] # (Auto) 700 (0-900) /uL Eos # (Auto) 1500 H (0-450) /uL Baso # (Auto) 0 (0-100) /uL Platelet Estimate Increased on smear RBC Morphology See below Hypochromasia 1+ H Microcytosis 1+ H PT 11.9 (10.1-12.7) SECONDS INR 1.0 (0.9-1.3) APTT 27 (26-36) SECONDS Sodium 128 L (137-145) mmol/L Potassium 4.3 (3.4-5.1) mmol/L Chloride 94 L (98-107) mmol/L Carbon Dioxide 29 (22-32) mmol/L BUN 21 H (7-17) mg/dL Creatinine 0.40 L (0.52-1.04) mg/dL Estimated GFR > 60 (>60) mL/min BUN/Creatinine Ratio 52.5 H (6-22) Glucose 92 (80-110) mg/dL Calcium 8.4 (8.4-10.2) mg/dL Total Bilirubin 0.2 (0.2-1.3) mg/dL AST 35 (14-36) IU/L ALT 12 (<35) IU/L Alkaline Phosphatase 85 (38-126) U/L Total Protein 6.4 (6.3-8.2) g/dL Albumin 2.9 L (3.5-5.0) g/dL Globulin 3.5 (1.7-4.1) g/dL Albumin/Globulin Ratio 0.8 L (1.0-2.8) Blood Type Antibody Screen Crossmatch 04/28/23 Range/Units 15:34 WBC (4.5-11.0) X10^3/uL RBC (4.0-5.2) X10^6/uL Hgb (12.0-16.0) g/dL Hct (36-46) % MCV (80-100) fL MCH (26-34) PG MCHC (30-36) % RDW (11.6-14.8) % Plt Count (150-400) X10^3/uL Neut % (Auto) (50-75) % Lymph % (Auto) (25-40) % [place] % (Auto) (3-14) % Eos % (Auto) (2-4) % Baso % (Auto) (0-2) % Neut # (Auto) (9160-4654) /uL Lymph # (Auto) (3767-0227) /uL [place] # (Auto) (0-900) /uL Eos # (Auto) (0-450) /uL Baso # (Auto) (0-100) /uL Platelet Estimate RBC Morphology Hypochromasia Microcytosis PT (10.1-12.7) SECONDS INR (0.9-1.3) APTT (26-36) SECONDS Sodium (137-145) mmol/L Potassium (3.4-5.1) mmol/L Chloride (98-107) mmol/L Carbon Dioxide (22-32) mmol/L BUN (7-17) mg/dL Creatinine (0.52-1.04) mg/dL Estimated GFR (>60) mL/min BUN/Creatinine Ratio (6-22) Glucose (80-110) mg/dL Calcium (8.4-10.2) mg/dL Total Bilirubin (0.2-1.3) mg/dL AST (14-36) IU/L ALT (<35) IU/L Alkaline Phosphatase (38-126) U/L Total Protein (6.3-8.2) g/dL Albumin (3.5-5.0) g/dL Globulin (1.7-4.1) g/dL Albumin/Globulin Ratio (1.0-2.8) Blood Type A Negative Antibody Screen Negative Crossmatch See Detail ECG Data Attestation: I personally reviewed and interpreted this ECG as follows: Interpretation: Sinus tachycardia Ventricular rate 101 Normal axis Normal QRS No ST T wave changes MDM Narrative Medical decision making narrative: Patient does appear to be chronically ill. She has no specific complaints other than some fatigue that actually is not new. She was sent here to the emergency department for blood transfusion. Apparently her providers were concerned about her elevated white blood cell count, elevated platelets and anemia. Family at bedside states that the thought was that if she received a blood transfusion that maybe this would improve some of her symptoms. Patient is nonambulatory. I had a long discussion with her and family regarding her blood counts today. She is been chronically anemic although it has been dropping somewhat over the past several weeks. We discussed the risks and benefits of a blood transfusion. After this discussion the patient opted to have the transfusion. She understands that this potentially is not going to help her symptoms. Care turned over to Dr. Nettles to follow-up and evaluate after transfusion. Discharge Plan Departure Prescriptions: No Action levothyroxine [Synthroid] 25 mcg Tablet 25 mcg PO DAILY@0600 Qty: 30 0RF hydromorphone [Dilaudid] 4 mg tablet 4 mg PO Q6H PRN (Reason: pain) Qty: 14 0RF lorazepam 1 mg tablet 1 mg PO BID MDD 2 mg per day PRN (Reason: anxiety) Qty: 10 0RF Rx Instructions: as needed for anxiety acetaminophen [Children's Acetaminophen] 160 mg/5 mL Suspension 650 mg PO Q4HR PRN (Reason: Fever/Mild Pain (1-3)) Qty: 120 0RF calcium carbonate 200 mg calcium (500 mg) Tablet,Chewable 500 mg PO BID Qty: 60 0RF cholecalciferol (vitamin D3) 25 mcg (1,000 unit) Tablet 1,000 unit PO DAILY Qty: 30 0RF multivitamin with folic acid [Tab-A-Simone] 400 mcg Tablet 1 tab PO DAILY Qty: 30 0RF hydroxyzine HCl 10 mg tablet 10 mg PO BEDTIME Qty: 30 0RF Referrals: Christin Santos RN [Primary Care Provider] -
[2023-04-28 16:07] LABS: Prothrombin Time 11.9 SECONDS (10.1-12.7)
[2023-04-28 16:09] LABS: Alanine Aminotransferase 12 IU/L (<35); Albumin 2.9 g/dL (3.5-5.0); Albumin Globulin Ratio 0.8 (1.0-2.8); Alkaline Phosphatase 85 U/L (38-126); Aspartate Aminotransferase 35 IU/L (14-36); BUN Creatinine Ratio 52.5 (6-22); Bilirubin Total 0.2 mg/dL (0.2-1.3); Blood Urea Nitrogen 21 mg/dL (7-17); Calcium 8.4 mg/dL (8.4-10.2); Carbon Dioxide 29 mmol/L (22-32); Chloride 94 mmol/L (98-107); Estimated Glomerular Filt Rate > 60 mL/min (>60); Globulin 3.5 g/dL (1.7-4.1); Glucose 92 mg/dL (80-110); HEMOLYSIS 44 (0-50); PTT Partial Thromboplastin Tim 27 SECONDS (26-36); Potassium 4.3 mmol/L (3.4-5.1); Sodium 128 mmol/L (137-145); Total Protein 6.4 g/dL (6.3-8.2)
[2023-04-28 16:18] LABS: Add Manual Diff / Slide Review NO; Basophils Absolute Auto 0 /uL (0-100); Basophils Percent Auto 0.4 % (0-2); Eosinophils Absolute Auto 1500 /uL (0-450); Eosinophils Percent Auto 11.1 % (2-4); Hematocrit 22.8 % (36-46); Hemoglobin 7.5 g/dL (12.0-16.0); Lymphocytes Absolute Auto 900 /uL (1100-4500); Lymphocytes Percent Auto 6.5 % (25-40); Mean Corpuscular Hemoglobin 26.7 PG (26-34); Monocytes Absolute Auto 700 /uL (0-900); Neutrophils Absolute Auto 10300 /uL (1500-7000); Red Blood Cell Count 2.82 X10^6/uL (4.0-5.2); Red Cell Distribution Width 18.9 % (11.6-14.8); White Blood Cell Count 13.4 X10^3/uL (4.5-11.0)
[2023-04-28 16:20] LABS: Platelet Count 1215 X10^3/uL (150-400)
[2023-04-28 17:46] LABS: Hypochromasia 1+; Microcytosis 1+; Platelet Estimate Increased on smear
[2023-04-28 18:16] LABS: COVID19 -Nasal RAPID Negative (Negative)
[2023-04-28] MEDS: LORazepam 2 MG/ML INJ 1 MG IV (18:27)
[2023-04-28 19:24] LABS: Lactate (Lactic Acid) 1.8 mmol/L (0.7-2.1)
--- NOTE | 2023-04-28 19:43 | DI.RAD.S_ITS ---
PROCEDURE: XR CHEST 1V INDICATIONS: sepsis TECHNIQUE: One view of the chest was acquired. COMPARISON: [facility], CT, CT ABDOMEN PELVIS W CON, 04/15/2023, 16:27. [facility], CR, XR CHEST 1V, 04/11/2023, 8:48. [facility], CR, XR CHEST 1V, 04/08/2023, 9:32. FINDINGS: Surgical changes and devices: None. Lungs and pleura: Small left pleural effusion. No consolidation. Mediastinum: Mediastinal contours appear normal. Heart size is normal. Bones and chest wall: No suspicious bony lesions. Overlying soft tissues appear unremarkable. IMPRESSION: Small left pleural effusion, stable from prior. Dictated by: Mathieu Calvo M.D. on 04/28/2023 at 20:10 Approved by: Mathieu Calvo M.D. on 04/28/2023 at 20:17
[2023-04-28 20:02] LABS: Appearance Urine UA SL CLOUDY; Bilirubin Urine UA NEGATIVE (NEGATIVE); Color Urine UA YELLOW; Glucose Urine UA NEGATIVE (Negative); Ketones Urine UA NEGATIVE (NEGATIVE); Leukocyte Esterase Urine UA NEGATIVE (NEGATIVE); Nitrite Urine UA NEGATIVE (Negative); Occult Blood Urine UA NEGATIVE (Negative); Protein Urine UA NEGATIVE (Negative)
[2023-04-28 20:03] LABS: pH Urine UA 8.5 (4.5-8.0)
[2023-04-28 20:12] LABS: RBC Urine None Seen (0-5/HPF)
[2023-04-28 20:13] LABS: Amorphous Sediment Urine 1+; Bacteria Urine Occasional (0-1); Culture Indicated Urine Cult Not Indicated; Squamous Epithelial Cell Urine 0-1 /HPF (0-5/HPF); WBC Urine 1-5/HPF (0-5/HPF)
[2023-04-28] MEDS: ACETAMINOPHEN SUSP 650 MG/20.3 ML UDC PO (22:54)
[2023-04-28] MEDS: SODIUM CHLORIDE 0.9% 1,000 ML 100 ML IV (23:45)
[2023-04-29] VITALS (53 sets, daily range): BP systolic 91–95; BP diastolic 50–54; PULSE 79–91; RESP 15–24; TEMP 36.4–36.9; O2SAT 91–97
[2023-04-29 00:44] LABS: MRSA (Nasal) PCR Not Detected (Not Detect)
[2023-04-29] MEDS: ACETAMINOPHEN SUSP 650 MG/20.3 ML UDC PO (03:59)
[2023-04-29 05:26] LABS: Alanine Aminotransferase 11 IU/L (<35); Albumin 2.4 g/dL (3.5-5.0); Albumin Globulin Ratio 0.8 (1.0-2.8); Alkaline Phosphatase 88 U/L (38-126); Aspartate Aminotransferase 27 IU/L (14-36); BUN Creatinine Ratio 34.7 (6-22); Bilirubin Total 0.6 mg/dL (0.2-1.3); Blood Urea Nitrogen 17 mg/dL (7-17); Calcium 8.1 mg/dL (8.4-10.2); Carbon Dioxide 30 mmol/L (22-32); Chloride 99 mmol/L (98-107); Estimated Glomerular Filt Rate > 60 mL/min (>60); Globulin 3.2 g/dL (1.7-4.1); Glucose 79 mg/dL (80-110); HEMOLYSIS < 15 (0-50); Potassium 3.3 mmol/L (3.4-5.1); Sodium 132 mmol/L (137-145); Total Protein 5.6 g/dL (6.3-8.2)
[2023-04-29 05:35] LABS: Basophils Absolute Auto 0 /uL (0-100); Basophils Percent Auto 0.5 % (0-2); Eosinophils Absolute Auto 1000 /uL (0-450); Hemoglobin 10.1 g/dL (12.0-16.0); Lymphocytes Absolute Auto 800 /uL (1100-4500); Lymphocytes Percent Auto 8.8 % (25-40); Mean Corpuscular HGB Conc 34.4 % (30-36); Mean Corpuscular Hemoglobin 27.2 PG (26-34); Mean Corpuscular Volume 79.1 fL (80-100); Monocytes Absolute Auto 700 /uL (0-900); Monocytes Percent Auto 8.1 % (3-14); Neutrophils Absolute Auto 6500 /uL (1500-7000); Neutrophils Percent Auto 71.6 % (50-75); Red Blood Cell Count 3.69 X10^6/uL (4.0-5.2); White Blood Cell Count 9.1 X10^3/uL (4.5-11.0)
[2023-04-29 05:54] LABS: Hematocrit 29.2 % (36-46)
[2023-04-29] MEDS: LEVOTHYROXINE 25 MCG TABLET PO (05:55)
[2023-04-29 05:57] LABS: Add Manual Diff / Slide Review SLIDE REVIEW; Platelet Count 966 X10^3/uL (150-400)
--- NOTE | 2023-04-29 06:41 | PC.NURSE ---
pt was admitted last pm and had a total of 2 units PRBCs; hgb has gone from 7.5 to 10.1; no obvious signs of bleeding noted; pt was given IV lorazepam in the ED prior to admission and has slept since arrival; she is arousable but returns to sleep when not stimulated
[2023-04-29 06:42] LABS: Microcytosis 1+; Platelet Estimate Incr
--- NOTE | 2023-04-29 08:34 | PM.HP.1 ---
History of Present Illness History of Present Illness Date Patient Seen: 04/28/23 Chief complaint: blood transfusion Narrative: The pt is a 77 yo with multiple admissions with multiple medical problems who lives at [facility] since her last admission from 04/03 to 04/13. She was brought to the ER for a scheduled blood transfusion in the ER. She was found to be hypotensive even after one unit of PRBC with BP of 91/51. The ER staff stated that the pt had no compliants of problems for them, during my interview, the pt was very somnulent due to ativan given in the ER. She was unable to answer any questions. 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 Dermatitis Diverticulosis Eczema Elevated glucose level Generalized abdominal pain Hypercalcemia Insomnia Nicotine dependence Peripheral neuropathy Right arm pain Seizures Weakness Family History Father Prostate cancer Deaf Mother Arthritis Social History household members: family Smoking Status: Former smoker alcohol intake: former Meds Home Medications and Allergies Home Medications Medication Instructions Recorded Confirmed Type acetaminophen 160 mg/5 mL oral 650 mg (20.3125 mL) PO Q4HR PRN 03/27/23 04/28/23 Rx suspension (Children's Fever/Mild Pain (1-3) #120 mL Acetaminophen) calcium carbonate 200 mg calcium 500 mg PO BID #60 tabs 03/27/23 04/28/23 Rx (500 mg) chewable tablet cholecalciferol (vitamin D3) 25 1,000 unit PO DAILY #30 tabs 03/27/23 04/28/23 Rx mcg (1,000 unit) tablet hydroxyzine HCl 10 mg tablet 10 mg PO BEDTIME #30 tabs 03/27/23 04/29/23 Rx hydromorphone 4 mg tablet 4 mg PO Q6H PRN pain #14 tabs 04/13/23 04/29/23 Rx (Dilaudid) levothyroxine 25 mcg tablet 25 mcg PO DAILY@0600 #30 tabs 04/13/23 04/29/23 Rx (Synthroid) LidaFlex 1 patch topical DAILY pain 04/29/23 04/29/23 History Probiotic Blend 1 cap J-tube BID antibiotic use 04/29/23 04/29/23 History buspirone 1 tab J-tube 2XD ANXIETY 04/29/23 04/29/23 History hydroxyzine HCl 1 tab G-tube Q6HR PRN Itching 04/29/23 04/29/23 History lorazepam 1 tab J-tube TID 04/29/23 04/29/23 History sodium chloride 1 tab J-tube DAILY low sodium level 04/29/23 04/29/23 History Allergies Allergy/AdvReac Type Severity Reaction Status Date / Time adhesive Allergy Rash Verified 04/15/23 12:26 Review of Systems Review of Systems Narrative: unable to answer due to her altered mental status Exam Vital Signs (past 8 hours): - 04/29/23 04:00 04/29/23 04:00 04/29/23 07:00 Temperature 97.6 F Pulse Rate 84 Respiratory Rate 19 Blood Pressure 94/51 L Pulse Oximetry 94 94 Oxygen Delivery Method Room Air Room Air Oxygen Flow Rate 0 Oxygen Delivery Method Room Air Oxygen Flow Rate 0 Narrative Exam Narrative: Unable to perform a PE due to pt's sedation, nursing reports clear breath sound, heart with RRR, no edema in the legs Const General: disheveled and frail appearing Objective Labs 04/29/23 04:18 04/29/23 04:18 Labs: Laboratory Results - last 24 hr 04/28/23 04/28/23 04/28/23 15:34 15:34 15:34 WBC 13.4 H RBC 2.82 L Hgb 7.5 L Hct 22.8 L MCV 81.0 MCH 26.7 MCHC 33.0 RDW 18.9 H Plt Count 1215 H* Neut % (Auto) 77.0 H Lymph % (Auto) 6.5 L [place] % (Auto) 5.0 Eos % (Auto) 11.1 H Baso % (Auto) 0.4 Neut # (Auto) 32626 H Lymph # (Auto) 900 L [place] # (Auto) 700 Eos # (Auto) 1500 H Baso # (Auto) 0 Platelet Estimate Increased on smear RBC Morphology See below Hypochromasia 1+ H Microcytosis 1+ H PT 11.9 INR 1.0 APTT 27 Sodium 128 L Potassium 4.3 Chloride 94 L Carbon Dioxide 29 BUN 21 H Creatinine 0.40 L Estimated GFR > 60 BUN/Creatinine Ratio 52.5 H Glucose 92 Lactate Calcium 8.4 Total Bilirubin 0.2 AST 35 ALT 12 Alkaline Phosphatase 85 Total Protein 6.4 Albumin 2.9 L Globulin 3.5 Albumin/Globulin Ratio 0.8 L Urine Color Urine Appearance Urine pH Ur Specific [place] Urine Protein Urine Glucose (UA) Urine Ketones Urine Occult Blood Urine Nitrate Urine Bilirubin Urine Urobilinogen Ur Leukocyte Esterase Urine RBC Urine WBC Ur Squamous Epith Cells Amorphous Sediment Urine Bacteria Ur Culture Indicated? Nasal Screen MRSA (PCR) SARS-CoV-2 (PCR) Blood Type Antibody Screen Crossmatch 04/28/23 04/28/23 04/28/23 15:34 15:34 17:50 WBC RBC Hgb Hct MCV MCH MCHC RDW Plt Count Neut % (Auto) Lymph % (Auto) [place] % (Auto) Eos % (Auto) Baso % (Auto) Neut # (Auto) Lymph # (Auto) [place] # (Auto) Eos # (Auto) Baso # (Auto) Platelet Estimate RBC Morphology Hypochromasia Microcytosis PT INR APTT Sodium Potassium Chloride Carbon Dioxide BUN Creatinine Estimated GFR BUN/Creatinine Ratio Glucose Lactate 1.8 Calcium Total Bilirubin AST ALT Alkaline Phosphatase Total Protein Albumin Globulin Albumin/Globulin Ratio Urine Color Urine Appearance Urine pH Ur Specific [place] Urine Protein Urine Glucose (UA) Urine Ketones Urine Occult Blood Urine Nitrate Urine Bilirubin Urine Urobilinogen Ur Leukocyte Esterase Urine RBC Urine WBC Ur Squamous Epith Cells Amorphous Sediment Urine Bacteria Ur Culture Indicated? Nasal Screen MRSA (PCR) SARS-CoV-2 (PCR) Negative Blood Type A Negative Antibody Screen Negative Crossmatch See Detail 04/28/23 04/28/23 04/29/23 19:55 22:08 04:18 WBC 9.1 RBC 3.69 L Hgb 10.1 L Hct 29.2 L MCV 79.1 L MCH 27.2 MCHC 34.4 RDW 18.0 H Plt Count 966 H* Neut % (Auto) 71.6 Lymph % (Auto) 8.8 L [place] % (Auto) 8.1 Eos % (Auto) 11.0 H Baso % (Auto) 0.5 Neut # (Auto) 6500 Lymph # (Auto) 800 L [place] # (Auto) 700 Eos # (Auto) 1000 H Baso # (Auto) 0 Platelet Estimate Incr RBC Morphology See below Hypochromasia Microcytosis 1+ H PT INR APTT Sodium Potassium Chloride Carbon Dioxide BUN Creatinine Estimated GFR BUN/Creatinine Ratio Glucose Lactate Calcium Total Bilirubin AST ALT Alkaline Phosphatase Total Protein Albumin Globulin Albumin/Globulin Ratio Urine Color Yellow Urine Appearance Sl cloudy Urine pH 8.5 H Ur Specific [place] 1.010 Urine Protein Negative Urine Glucose (UA) Negative Urine Ketones Negative Urine Occult Blood Negative Urine Nitrate Negative Urine Bilirubin Negative Urine Urobilinogen 1.0 Ur Leukocyte Esterase Negative Urine RBC None seen Urine WBC 1-5/hpf Ur Squamous Epith Cells 0-1 /hpf Amorphous Sediment 1+ Urine Bacteria Occasional (0-1) Ur Culture Indicated? Cult not indicated Nasal Screen MRSA (PCR) Not detected SARS-CoV-2 (PCR) Blood Type Antibody Screen Crossmatch 04/29/23 04:18 WBC RBC Hgb Hct MCV MCH MCHC RDW Plt Count Neut % (Auto) Lymph % (Auto) [place] % (Auto) Eos % (Auto) Baso % (Auto) Neut # (Auto) Lymph # (Auto) [place] # (Auto) Eos # (Auto) Baso # (Auto) Platelet Estimate RBC Morphology Hypochromasia Microcytosis PT INR APTT Sodium 132 L Potassium 3.3 L Chloride 99 Carbon Dioxide 30 BUN 17 Creatinine 0.49 L Estimated GFR > 60 BUN/Creatinine Ratio 34.7 H Glucose 79 L Lactate Calcium 8.1 L Total Bilirubin 0.6 AST 27 ALT 11 Alkaline Phosphatase 88 Total Protein 5.6 L Albumin 2.4 L Globulin 3.2 Albumin/Globulin Ratio 0.8 L Urine Color Urine Appearance Urine pH Ur Specific [place] Urine Protein Urine Glucose (UA) Urine Ketones Urine Occult Blood Urine Nitrate Urine Bilirubin Urine Urobilinogen Ur Leukocyte Esterase Urine RBC Urine WBC Ur Squamous Epith Cells Amorphous Sediment Urine Bacteria Ur Culture Indicated? Nasal Screen MRSA (PCR) SARS-CoV-2 (PCR) Blood Type Antibody Screen Crossmatch Assessment & Plan Assessment and plan (1) Anemia: Status: Acute (2) Acute hypotension: Status: Acute (3) Acute hyponatremia: Status: Acute (4) Leukocytosis: Status: Acute Plan The pt is receiving her second unit of PRBC when she was transfered to the medical floor, BP remains borderline low, will need to let the ativan wear off and assess mental status in the morning. Started the pt on IVf, monitoring for signs of infection but LA normal, WBC is elevated with normal UA and CXR, repeat CBC in am, hgb stable at this itme, no source of blood loss.
[2023-04-29] MEDS: ENOXAPARIN 40 MG/0.4 ML SYRINGE SUBCUT (09:26)
[2023-04-29] MEDS: ACETAMINOPHEN 325 MG TABLET 650 MG PO (09:26)
--- NOTE | 2023-04-29 10:16 | PC.NURSE ---
1015 - Report called to Ariella alves RN. IV dc'd, Pt and family aware of transfer back to facility
--- NOTE | 2023-04-29 10:53 | PM.DS.1 ---
History of Present Illness History of Present Illness Date Patient Seen: 04/28/23 Chief complaint: blood transfusion Narrative: Per admitting provider: The pt is a 77 yo with multiple admissions with multiple medical problems who lives at [facility] since her last admission from 04/03 to 04/13. She was brought to the ER for a scheduled blood transfusion in the ER. She was found to be hypotensive even after one unit of PRBC with BP of 91/51. The ER staff stated that the pt had no compliants of problems for them, during my interview, the pt was very somnulent due to ativan given in the ER. She was unable to answer any questions. Discharge Providers Provider Date of admission: 04/28/23 20:48 Discharge Date: 04/29/23 Primary care physician: Christin Santos RN Consults: 04/28/23 20:52 Consult to Dietitian, Adult Routine Comment: Reason For Exam: malnutrition Discharge provider: Sixto Robertson MD Summary Hospital Course Discharge Diagnosis: 1. Anemia 2. Hyponatremia 3. GJ tube 4. Protein calorie malnutrition 5. History of squamous cell cancer of head/neck, s/p right mandible resection Hospital Course: Ms. Bansal was sent to the hospital from SNF for blood transfusion. She has had intermittent bleeding from PEG. She had no bleeding in the hospital though and guaiac was negative. She was transfused 2 units and her hemoglobin improved to greater than 10. Initially she had mildly elevated white count, lactate normal, workup negative for infection, and her white cell count downtrended on its own. Her blood pressure improved and she was discharged back to SNF. She is DNR with limited interventions. Exam Vital Signs (past 8 hours): - 04/29/23 04:00 04/29/23 04:00 04/29/23 07:00 Temperature 97.6 F Pulse Rate 84 Respiratory Rate 19 Blood Pressure 94/51 L Pulse Oximetry 94 94 Oxygen Delivery Method Room Air Room Air Oxygen Flow Rate 0 04/29/23 08:00 04/29/23 05:05 04/29/23 05:10 Temperature Pulse Rate 82 82 Respiratory Rate 17 16 Blood Pressure Pulse Oximetry 96 95 95 Oxygen Delivery Method Room Air Oxygen Flow Rate 04/29/23 05:15 04/29/23 05:20 04/29/23 05:25 Temperature Pulse Rate 82 84 82 Respiratory Rate 16 21 19 Blood Pressure Pulse Oximetry 94 95 92 Oxygen Delivery Method Oxygen Flow Rate 04/29/23 05:30 04/29/23 05:35 04/29/23 05:40 Temperature Pulse Rate 84 84 82 Respiratory Rate 20 17 16 Blood Pressure Pulse Oximetry 94 94 95 Oxygen Delivery Method Oxygen Flow Rate 04/29/23 05:45 04/29/23 05:50 04/29/23 05:55 Temperature Pulse Rate 81 80 80 Respiratory Rate 18 16 17 Blood Pressure Pulse Oximetry 95 93 96 Oxygen Delivery Method Oxygen Flow Rate 04/29/23 06:00 04/29/23 06:05 04/29/23 06:10 Temperature Pulse Rate 81 80 79 Respiratory Rate 18 18 16 Blood Pressure Pulse Oximetry 96 94 94 Oxygen Delivery Method Oxygen Flow Rate 04/29/23 06:15 04/29/23 06:20 04/29/23 06:25 Temperature Pulse Rate 80 80 80 Respiratory Rate 16 15 17 Blood Pressure Pulse Oximetry 94 94 94 Oxygen Delivery Method Oxygen Flow Rate 04/29/23 06:30 04/29/23 06:35 04/29/23 06:40 Temperature Pulse Rate 80 79 80 Respiratory Rate 17 17 15 Blood Pressure Pulse Oximetry 94 94 94 Oxygen Delivery Method Oxygen Flow Rate 04/29/23 06:45 04/29/23 06:50 04/29/23 06:55 Temperature Pulse Rate 80 80 79 Respiratory Rate 16 16 18 Blood Pressure Pulse Oximetry 94 94 94 Oxygen Delivery Method Oxygen Flow Rate 04/29/23 07:00 04/29/23 07:05 04/29/23 07:10 Temperature Pulse Rate 80 82 80 Respiratory Rate 20 21 19 Blood Pressure Pulse Oximetry 94 92 93 Oxygen Delivery Method Oxygen Flow Rate 04/29/23 07:15 04/29/23 07:20 04/29/23 07:25 Temperature Pulse Rate 82 83 81 Respiratory Rate 19 19 22 Blood Pressure Pulse Oximetry 96 95 96 Oxygen Delivery Method Oxygen Flow Rate 04/29/23 07:30 04/29/23 07:35 04/29/23 07:40 Temperature Pulse Rate 85 81 81 Respiratory Rate 18 21 24 Blood Pressure Pulse Oximetry 97 94 94 Oxygen Delivery Method Oxygen Flow Rate 04/29/23 07:45 04/29/23 07:50 04/29/23 07:55 Temperature Pulse Rate 80 82 81 Respiratory Rate 18 18 17 Blood Pressure Pulse Oximetry 93 92 93 Oxygen Delivery Method Oxygen Flow Rate 04/29/23 08:00 04/29/23 08:00 04/29/23 08:05 Temperature Pulse Rate 80 82 Respiratory Rate 18 17 Blood Pressure 95/54 L Pulse Oximetry 93 93 Oxygen Delivery Method Oxygen Flow Rate 04/29/23 08:10 04/29/23 08:15 04/29/23 08:20 Temperature Pulse Rate 80 80 80 Respiratory Rate 17 18 17 Blood Pressure Pulse Oximetry 93 95 94 Oxygen Delivery Method Oxygen Flow Rate 04/29/23 08:25 04/29/23 08:30 04/29/23 08:35 Temperature Pulse Rate 80 80 82 Respiratory Rate 18 17 17 Blood Pressure Pulse Oximetry 95 94 92 Oxygen Delivery Method Oxygen Flow Rate 04/29/23 08:40 04/29/23 08:45 04/29/23 08:50 Temperature Pulse Rate 84 81 89 Respiratory Rate 17 19 20 Blood Pressure Pulse Oximetry 96 95 95 Oxygen Delivery Method Oxygen Flow Rate 04/29/23 08:55 04/29/23 09:00 04/29/23 09:05 Temperature Pulse Rate 88 91 H 91 H Respiratory Rate 19 19 21 Blood Pressure Pulse Oximetry 93 94 96 Oxygen Delivery Method Oxygen Flow Rate 04/29/23 10:01 Temperature 98.5 F Pulse Rate Respiratory Rate Blood Pressure Pulse Oximetry Oxygen Delivery Method Oxygen Flow Rate Oxygen Delivery Method Room Air Oxygen Flow Rate 0 Narrative Exam Narrative: GEN: chronically ill appearing CV: regular rate and rhythm ABD: PEG tube clean and intace with no bleeding Objective Labs 04/29/23 04:18 04/29/23 04:18 Labs: Laboratory Results - last 24 hr 04/28/23 04/28/23 04/28/23 15:34 15:34 15:34 WBC 13.4 H RBC 2.82 L Hgb 7.5 L Hct 22.8 L MCV 81.0 MCH 26.7 MCHC 33.0 RDW 18.9 H Plt Count 1215 H* Neut % (Auto) 77.0 H Lymph % (Auto) 6.5 L Esmeralda % (Auto) 5.0 Eos % (Auto) 11.1 H Baso % (Auto) 0.4 Neut # (Auto) 23295 H Lymph # (Auto) 900 L Esmeralda # (Auto) 700 Eos # (Auto) 1500 H Baso # (Auto) 0 Platelet Estimate Increased on smear RBC Morphology See below Hypochromasia 1+ H Microcytosis 1+ H PT 11.9 INR 1.0 APTT 27 Sodium 128 L Potassium 4.3 Chloride 94 L Carbon Dioxide 29 BUN 21 H Creatinine 0.40 L Estimated GFR > 60 BUN/Creatinine Ratio 52.5 H Glucose 92 Lactate Calcium 8.4 Total Bilirubin 0.2 AST 35 ALT 12 Alkaline Phosphatase 85 Total Protein 6.4 Albumin 2.9 L Globulin 3.5 Albumin/Globulin Ratio 0.8 L Urine Color Urine Appearance Urine pH Ur Specific [place] Urine Protein Urine Glucose (UA) Urine Ketones Urine Occult Blood Urine Nitrate Urine Bilirubin Urine Urobilinogen Ur Leukocyte Esterase Urine RBC Urine WBC Ur Squamous Epith Cells Amorphous Sediment Urine Bacteria Ur Culture Indicated? Nasal Screen MRSA (PCR) SARS-CoV-2 (PCR) Blood Type Antibody Screen Crossmatch 04/28/23 04/28/23 04/28/23 15:34 15:34 17:50 WBC RBC Hgb Hct MCV MCH MCHC RDW Plt Count Neut % (Auto) Lymph % (Auto) Esmeralda % (Auto) Eos % (Auto) Baso % (Auto) Neut # (Auto) Lymph # (Auto) Esmeralda # (Auto) Eos # (Auto) Baso # (Auto) Platelet Estimate RBC Morphology Hypochromasia Microcytosis PT INR APTT Sodium Potassium Chloride Carbon Dioxide BUN Creatinine Estimated GFR BUN/Creatinine Ratio Glucose Lactate 1.8 Calcium Total Bilirubin AST ALT Alkaline Phosphatase Total Protein Albumin Globulin Albumin/Globulin Ratio Urine Color Urine Appearance Urine pH Ur Specific [place] Urine Protein Urine Glucose (UA) Urine Ketones Urine Occult Blood Urine Nitrate Urine Bilirubin Urine Urobilinogen Ur Leukocyte Esterase Urine RBC Urine WBC Ur Squamous Epith Cells Amorphous Sediment Urine Bacteria Ur Culture Indicated? Nasal Screen MRSA (PCR) SARS-CoV-2 (PCR) Negative Blood Type A Negative Antibody Screen Negative Crossmatch See Detail 04/28/23 04/28/23 04/29/23 19:55 22:08 04:18 WBC 9.1 RBC 3.69 L Hgb 10.1 L Hct 29.2 L MCV 79.1 L MCH 27.2 MCHC 34.4 RDW 18.0 H Plt Count 966 H* Neut % (Auto) 71.6 Lymph % (Auto) 8.8 L Esmeralda % (Auto) 8.1 Eos % (Auto) 11.0 H Baso % (Auto) 0.5 Neut # (Auto) 6500 Lymph # (Auto) 800 L Esmeralda # (Auto) 700 Eos # (Auto) 1000 H Baso # (Auto) 0 Platelet Estimate Incr RBC Morphology See below Hypochromasia Microcytosis 1+ H PT INR APTT Sodium Potassium Chloride Carbon Dioxide BUN Creatinine Estimated GFR BUN/Creatinine Ratio Glucose Lactate Calcium Total Bilirubin AST ALT Alkaline Phosphatase Total Protein Albumin Globulin Albumin/Globulin Ratio Urine Color Yellow Urine Appearance Sl cloudy Urine pH 8.5 H Ur Specific [place] 1.010 Urine Protein Negative Urine Glucose (UA) Negative Urine Ketones Negative Urine Occult Blood Negative Urine Nitrate Negative Urine Bilirubin Negative Urine Urobilinogen 1.0 Ur Leukocyte Esterase Negative Urine RBC None seen Urine WBC 1-5/hpf Ur Squamous Epith Cells 0-1 /hpf Amorphous Sediment 1+ Urine Bacteria Occasional (0-1) Ur Culture Indicated? Cult not indicated Nasal Screen MRSA (PCR) Not detected SARS-CoV-2 (PCR) Blood Type Antibody Screen Crossmatch 04/29/23 04:18 WBC RBC Hgb Hct MCV MCH MCHC RDW Plt Count Neut % (Auto) Lymph % (Auto) Esmeralda % (Auto) Eos % (Auto) Baso % (Auto) Neut # (Auto) Lymph # (Auto) Esmeralda # (Auto) Eos # (Auto) Baso # (Auto) Platelet Estimate RBC Morphology Hypochromasia Microcytosis PT INR APTT Sodium 132 L Potassium 3.3 L Chloride 99 Carbon Dioxide 30 BUN 17 Creatinine 0.49 L Estimated GFR > 60 BUN/Creatinine Ratio 34.7 H Glucose 79 L Lactate Calcium 8.1 L Total Bilirubin 0.6 AST 27 ALT 11 Alkaline Phosphatase 88 Total Protein 5.6 L Albumin 2.4 L Globulin 3.2 Albumin/Globulin Ratio 0.8 L Urine Color Urine Appearance Urine pH Ur Specific [place] Urine Protein Urine Glucose (UA) Urine Ketones Urine Occult Blood Urine Nitrate Urine Bilirubin Urine Urobilinogen Ur Leukocyte Esterase Urine RBC Urine WBC Ur Squamous Epith Cells Amorphous Sediment Urine Bacteria Ur Culture Indicated? 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 Bansal had mildly low blood counts. She was transfused and her blood count improved. She had no bleeding from her tube in the hospital. She should follow up with general surgery in the next few weeks. I certify the postop hospital long term care is medically necessary on a continuing basis for any conditions for which he/ she received care during this hospitalization.: Yes The receiving facility has agreed to accept transfer and provide medical treatment.: Yes Discharge orders & Medications Prescriptions: Continued levothyroxine [Synthroid] 25 mcg Tablet 25 mcg PO DAILY@0600 Qty: 30 0RF hydromorphone [Dilaudid] 4 mg tablet 4 mg PO Q6H PRN (Reason: pain) Qty: 14 0RF buspirone 7.5 MG tablet 1 tab J-tube 2XD hydroxyzine HCl 10 MG tablet 1 tab G-tube Q6HR PRN (Reason: Itching) LidaFlex 4 % patch 1 patch topical DAILY Rx Instructions: apply to left shoulder, topically in the morning for pain. On for 12h and off for 12h; Remove at HS lorazepam 1 mg tablet 1 tab J-tube TID MDD anxiety relief Probiotic Blend capsule 1 cap J-tube BID Rx Instructions: give two times a day for antibiotic use for 12 days (started on 04/21/23) sodium chloride 1 G tablet 1 tab J-tube DAILY acetaminophen [Children's Acetaminophen] 160 mg/5 mL Suspension 650 mg PO Q4HR PRN (Reason: Fever/Mild Pain (1-3)) Qty: 120 0RF calcium carbonate 200 mg calcium (500 mg) Tablet,Chewable 500 mg PO BID Qty: 60 0RF cholecalciferol (vitamin D3) 25 mcg (1,000 unit) Tablet 1,000 unit PO DAILY Qty: 30 0RF hydroxyzine HCl 10 mg tablet 10 mg PO BEDTIME Qty: 30 0RF Follow up/Referrals: Christin Santos RN [Primary Care Provider] - Diet/Activity/Treatments Diet: Tube Feeding Visit Report/Discharge Packet Stand Alone Forms: Patient Portal/API, Stroke Signs & Symptoms Discharge Data Primary Care Provider: Christin Santos Attending Provider: Chino Goldman Admit Date/Time: 04/28/23 20:48
--- NOTE | 2023-04-29 11:16 | CM.DANOTE ---
DCP Assessment Note: patient is a 77yo female here for a blood transfusion. PCP Christin Santos Payer Medicare and [employer] ESTATE CONSERVATOR reviewed EMR. Per chart, d/c orders in for patient to return to [facility]. ESTATE CONSERVATOR entered room and introduced self and role. Patient was laying in bed and had just woke up and appeared sleepy. Patient reported wanting to return to [facility]. ESTATE CONSERVATOR contacted [facility] to arrange a transport time. Transport scheduled for 11am. CM Supervisor Engraving Chuyita faxed d/c summary and copy of signed med list to [facility]. CM Supervisor Engraving Chuyita placed signed med list in patient's chart. Plan: patient to return to [facility] today at 11am. CM team will continue to follow closely. LIA Carty Discharge Planning/Care Management CM Discharge Assessment Start: 04/29/23 11:13 Freq: Status: Active Protocol: Document 04/29/23 11:13 (Rec: 04/29/23 11:16 [id number]) Discharge Planning Assessment Assigned Steward/Stewardess Lounge LIA Negro DPOA/Assigned Designee Name Sandi Miller (sister) Contact Information ([phone]) Advance Directives? No History Provided By Patient,Medical Record Prior Living Arrangements Skilled Nurse Facility Household Members none Type of transporation used prior to Relies on Others admit Facility Name Admitted From: [facility] Willing to Return to Facility? Yes Independent with ADL's No Needs Assistance With Bathing,Eating,Grooming,Meal Prep,Managing Medications,Home Chores / Shopping Patient/Family Preference [facility] Facility Discharge Plan [facility] Facility Transportation Arrangement Facility Referrals Initiated [facility] If patient plan is home with home health Yes : Has signed face to face form been completed? If patient plan is SNF: Has PASSR been No completed? SNF/HH [facility] Has Agency SNF been contacted Yes Whiteboard Updated in Patient Room with No name and ext. # of Steward/Stewardess Lounge Review Status In Process Next Review Type Continued Stay Review
== END 2023-04-29 11:21 ==
LOC: ED 18:35 → AC 20:48 → ICU 21:29
PROVIDERS: Emergency Medicine; Admitting Provider Internal Medicine; Emergency Provider Emergency Medicine; PCP Nurse Practitioner Family; Visit Provider Internal Medicine
DX: D64.9 Anemia, unspecified (principal); I95.9 Hypotension, unspecified; E87.1 Hypo-osmolality and hyponatremia; D72.829 Elevated white blood cell count, unspecified; E46 Unspecified protein-calorie malnutrition; Z93.1 Gastrostomy status; Z20.822 Contact with and (suspected) exposure to COVID-19
CPT/HCPCS: 36415; 36430; 71045; 80053; 81001; 83605; 85025; 85610; 85730; 86850; 86900; 86901; 87635; 87797; 93005; 96372; 96374; 99284; C9803; G0378; P9016; J1650; J2060